=== PATIENT | female | born 1940 | race American Indian/Alaskan Native ===

== ENCOUNTER 2017-03-26 10:10 | Inpatient (IN) | payer MEDICARE, OTHER ==
[2017-03-26 10:11] VITALS: BMI 30.5
[2017-03-26] MEDS ORDERED: Sodium Chloride 0.9% 500 ML IV STA (11:00)
--- NOTE | 2017-03-26 11:03 | ED PDOC ---
Arrival/HPI - General Historian: Patient, Family - History of Present Illness Time/Duration: Other (see hpi) Context: Home - General Chief Complaint: Abdominal Pain Time Seen by Provider: 03/26/17 10:18 - History of Present Illness Narrative History of Present Illness (Text): 03/26/17 11:03 Suly Swenson, a 75 year old male whose past medical history includes colon cancer presents to the Emergency room complaining abdominal x 4 weeks. Patient stated she developed nausea, and vomiting today. Patient denies diarrhea, hemetemesis, fever, sob, cp, giron, or abnormal gait. (Babatunde Martinez) Past Medical History - Provider Review Nursing Documentation Reviewed: Yes - Infectious Disease Hx of Infectious Diseases: None - Reproductive Menopause: Yes - Cardiac Hx Hypertension: Yes Hx Pacemaker: No - Pulmonary Hx Respiratory Disorders: No - Neurological Hx Paralysis: No - HEENT Hx HEENT Disorder: (WEARS RX GLASSES) - Renal Hx Renal Disorder: No - Endocrine/Metabolic Hx Endocrine Disorders: No - Hematological/Oncological Hx Blood Transfusions: Yes (2010) Hx Blood Transfusion Reaction: No - Integumentary Hx Dermatological Disorder: No - Musculoskeletal/Rheumatological Hx Musculoskeletal Disorders: Yes - Gastrointestinal Hx Gastrointestinal Disorders: Yes Hx Pancreatitis: Yes HX Swallowing Problems: Yes Other/Comment: hx colon ca,GI BLEED 09-14-15, - Genitourinary/Gynecological Hx Genitourinary Disorders: Yes Other/Comment: hx hysterectomy,BILATERAL lumpectomy - Psychiatric Hx Emotional Abuse: No Hx Physical Abuse: No Hx Substance Use: No - Surgical History Other/Comment: brain surgery - Anesthesia Hx Anesthesia Reactions: No Hx Malignant Hyperthermia: No - Suicidal Assessment Feels Threatened In Home Enviroment: No Family/Social History - Physician Review Nursing Documentation Reviewed: Yes Family/Social History: Other (non-contributory) Smoking Status: Never Smoked Hx Alcohol Use: No Hx Substance Use: No Allergies/Home Meds Allergies/Adverse Reactions: Allergies No Known Allergies Allergy (Verified 02/21/16 11:50) Home Medications: Home Meds Medication Instructions Recorded Confirmed Omeprazole [Prilosec] 20 mg PO QAM 08/30/15 03/26/17 Multivitamin [Multiple Vitamins] 1 tab PO DAILY 08/31/15 03/26/17 Atenolol [Tenormin] 50 mg PO QAM 09/21/15 03/26/17 Ferrous Sulfate [Iron Supplement] 65 mg PO DAILY 09/21/15 03/26/17 amLODIPine [Norvasc] 5 mg PO QAM 09/21/15 03/26/17 Multivit with Minerals/Lutein 1 tab PO DAILY 02/23/16 03/26/17 [Vision Plus Lutein Vitamin Tab] Cholecalciferol [Vitamin D 1000 IU] 50,000 iu PO QWK 03/26/17 03/26/17 Imatinib Mesylate 100 mg PO BID 03/26/17 03/26/17 Letrozole [Femara] 2.5 mg PO DAILY 03/26/17 03/26/17 Sucralfate [Carafate] 1 gm PO BID 03/26/17 03/26/17 Review of Systems - Review of Systems Constitutional: Normal. absent: Fatigue, Weight Change, Fevers Eyes: Normal ENT: Normal Respiratory: Normal Cardiovascular: Normal Gastrointestinal: Abdominal Pain, Nausea, Vomiting. absent: Constipation, Diarrhea Genitourinary Female: Normal Musculoskeletal: Normal Skin: Normal Neurological: Normal Endocrine: Normal Hemo/Lymphatic: Normal Psychiatric: Normal Physical Exam Temperature: Afebrile Blood Pressure: Normal Pulse: Regular Respiratory Rate: Normal Appearance: Positive for: Well-Appearing, Non-Toxic, Comfortable Pain Distress: None Mental Status: Positive for: Alert and Oriented X 3 - Systems Exam Head: Present: Atraumatic, Normocephalic Pupils: Present: PERRL Extroacular Muscles: Present: EOMI Conjunctiva: Present: Normal Mouth: Present: Moist Mucous Membranes Neck: Present: Normal Range of Motion Respiratory/Chest: Present: Clear to Auscultation, Good Air Exchange. No: Respiratory Distress, Accessory Muscle Use Cardiovascular: Present: Regular Rate and Rhythm, Normal S1, S2. No: Murmurs Abdomen: Present: Tenderness (mild generalized abdominal tenderness), Normal Bowel Sounds. No: Distention, Peritoneal Signs, Rebound, Guarding Rectal: Present: Other (deferred) Back: Present: Normal Inspection Upper Extremity: Present: Normal Inspection, Normal ROM, NORMAL PULSES, Neurovascularly Intact. No: Cyanosis, Edema Lower Extremity: Present: Normal Inspection, NORMAL PULSES, Normal ROM. No: Edema, CALF TENDERNESS Neurological: Present: GCS=15, CN II-XII Intact, Speech Normal, Motor Func Grossly Intact, Normal Sensory Function, Normal Cerebellar Funct, Gait Normal Skin: Present: Warm, Dry, Normal Color. No: Rashes Psychiatric: Present: Alert, Oriented x 3, Normal Insight, Normal Concentration Vital Signs Temp Pulse Resp BP Pulse Ox 03/26/17 15:50 76 18 165/76 H 97 03/26/17 11:57 98.3 F 77 17 178/89 H 97 03/26/17 10:38 98.9 F 74 18 190/76 H 97 Medical Decision Making Re-evaluation Time: 14:43 Reassessment Condition: Re-examined, Improving,but remains with symptoms - Lab Interpretations I have reviewed the lab results: Yes Interpretation: No clinic. lab abnormalty ED Course and Treatment: I was available for consultation during PA evaluation. The chart was reviewed by me, and I agree with disposition. The documented history was done by the physician apple peeler operator. The documented physical exam was done by the physician apple peeler operator. The documented procedures were done by the physician apple peeler operator. (Hipolito Knox) 03/26/17 14:[address] Messi Salas MD regarding Intractable abdominal pain, and CT finding of anal mass like. He agrees with observation. (Babatunde Martinez) - Lab Interpretations Microbiology Results: Microbiology Results 03/26/17 13:22 Urine,Clean Catch Urine Culture - Final 10-50,000 CFU/ML. MULTIPLE SPECIES. PROBABLE CONTAMINATION. Lab Results: 03/27/17 06:15 03/27/17 06:15 Lab Results 03/27/17 06:15: Carcinoembryonic Ag 1.5, TSH 3rd Generation < 0.02 L 03/27/17 06:15: Sodium 146, Potassium 3.7, Chloride 108 H, Carbon Dioxide 30, Anion Gap 12, BUN 22 H, Creatinine 1.3, Est GFR ( Amer) 48, Est GFR (Non- Af Amer) 40, Random Glucose 80, Calcium 9.1, Total Bilirubin 0.4, AST 28, ALT 26 , Alkaline Phosphatase 73, Total Protein 6.0, Albumin 3.4, Globulin 2.6, Albumin /Globulin Ratio 1.3 03/27/17 06:15: WBC 3.6 L, RBC 2.99 L, Hgb 8.1 L, Hct 26.2 L, MCV 87.6, MCH 27.1 , MCHC 30.9 L, RDW 17.4 H, Plt Count 138, MPV 10.1, Gran % 77.7 H, Lymph % (Auto ) 15.6 L, [place] % (Auto) 4.7, Eos % (Auto) 1.7, Baso % (Auto) 0.3, Gran # 2.79, Lymph # 0.6 L, [place] # 0.2, Eos # 0.1, Baso # 0.01 03/26/17 12:40: Urine Color Yellow, Urine Appearance Clear, Urine pH 6.0, Ur Specific [place] 1.015, Urine Protein 100 H, Urine Glucose (UA) Negative, Urine Ketones Negative, Urine Blood Trace-intact H, Urine Nitrate Negative, Urine Bilirubin Negative, Urine Urobilinogen 0.2, Ur Leukocyte Esterase Small H, Urine RBC 1 - 3, Urine WBC 2 - 5, Ur Epithelial Cells 6 - 8, Amorphous Sediment Few, Urine Bacteria Many, Fine Granular Casts 0 - 2, Urine Other Fiber 03/26/17 11:30: Sodium 146, Potassium 4.0, Chloride 109 H, Carbon Dioxide 31, Anion Gap 10, BUN 24 H, Creatinine 1.2, Est GFR ( Amer) 53, Est GFR (Non- Af Amer) 43, Random Glucose 83, Calcium 10.0, Total Bilirubin 0.4, AST 31, ALT 29, Alkaline Phosphatase 87, Lactate Dehydrogenase 566, Total Creatine Kinase 37 , Troponin I 0.02 D, Total Protein 6.8, Albumin 4.0, Globulin 2.8, Albumin/ Globulin Ratio 1.4, Lipase 139 03/26/17 11:30: WBC 4.5, RBC 3.29 L, Hgb 8.9 L, Hct 28.6 L, MCV 86.9, MCH 27.1, MCHC 31.1, RDW 17.3 H, Plt Count 158, MPV 10.2, Gran % 81.8 H, Lymph % (Auto) 11.9 L, [place] % (Auto) 5.2, Eos % (Auto) 1.1 L, Baso % (Auto) 0.0, Gran # 3.65, Lymph # 0.5 L, [place] # 0.2, Eos # 0.1, Baso # 0.00 - RAD Interpretation Narrative RAD Interpretations (Text): 03/26/17 14:15 pprover : Sanjay Gee MD Approver2 : Report Date : 03/26/2017 13:49:31 My Comment : PROCEDURE: CT Abdomen and Pelvis with contrast HISTORY: generalized abdominal pain COMPARISON: None. TECHNIQUE: Contrast dose: Omnipaque 350, 100. Radiation dose: Total exam DLP = 723.64 mGy-cm. This CT exam was performed using one or more of the following dose reduction techniques: Automated exposure control, adjustment of the mA and/or kV according to patient size, and/or use of iterative reconstruction technique. FINDINGS: LOWER THORAX: Cardiomegaly is apparent with trace pericardial thickening or fluid present. Minimal bilateral pleural effusions are seen greater the right than left with linear atelectasis or fibrosis at both lung bases as well. No definite alveolitis however. LIVER: There is a tiny 12 mm lucency at the inferior margins of the right lobe liver which is nonspecific. Follow-up MRI is advised for further evaluation without contrast when feasible. Remainder of the liver appears unremarkable. GALLBLADDER AND BILE DUCTS: Limited cholelithiasis seen at the dependent portion of the gallbladder otherwise unremarkable. PANCREAS: Unremarkable. No gross lesion or ductal dilatation. SPLEEN: Unremarkable. ADRENALS: Unremarkable. No mass. KIDNEYS AND URETERS: Unremarkable. No hydronephrosis. No solid mass. VASCULATURE: Unremarkable. No aortic aneurysm. BOWEL: Posted changes seen related to the stomach. The bowel is not appear obstructed. Opacified small bowel loops are unremarkable with the colon containing moderate retained fecal material seen throughout the colon with sigmoid diverticulosis seen on non acute basis. Paste appears to status post right hemicolectomy with the apparent anastomotic site unremarkable appearing. There is marked thickening of the distal rectum with soft tissue seen the right side of the anus suspicious for neoplasm. For diagnosis would be infectious or inflammatory disease. Clinically correlate further. APPENDIX: Status post right hemicolectomy apparently. Clinically correlate. PERITONEUM: Unremarkable. No free fluid. No free air. LYMPH NODES: Unremarkable. No enlarged lymph nodes. BLADDER: Urinary bladder appears rather distended but is thin is smooth walled. REPRODUCTIVE: Prior hysterectomy suggested. BONES: No acute fracture. OTHER FINDINGS: None. IMPRESSION: 1. Abnormal thickening of the rectum is seen distally extending into the right side of the anus suspicious for neoplasm. This appears to be status post right hemicolectomy without bowel obstruction evident at this time. No gross lymphadenopathy in the abdomen or the pelvis. Small lucency is poorly characterized at the inferior margins right lobe liver 12 mm greatest dimension. 2. Cholelithiasis. 3. Postop changes seen related to the stomach. 4. A tiny lucency is seen at the lower pole left kidney mention above. 5. Extensive sigmoid diverticulosis without diverticulitis. (Babatunde Martinez) Radiology Orders: 03/26/17 11:00 CHEST PORTABLE [RAD] Stat 03/26/17 11:01 ABD PELVIS PO & IV CONTRAST [CT] Stat 03/27/17 13:34 ABDOMEN COMPLETE [US] Routine 03/28/17 07:50 BILIARY SCAN (HIDA) [NM] Urgent - Medication Orders Current Medication Orders: Discontinued Medications Acetaminophen (Tylenol 325mg Tab) 650 mg PO ONCE ONE Stop: 03/28/17 23:56 Last Admin: 03/29/17 00:50 Dose: 650 mg ЮЛИЯ Pain/Vitals Document 03/29/17 00:50 SWE (Rec: 03/29/17 00:50 SWE [email or web address]) Pain Reassessment Is This A Pain ReAssessment? No Sleep Is patient sleeping during reassessment? No Presence of Pain Presence of Pain No Re-Assess: ЮЛИЯ Pain/Vitals Document 03/29/17 01:50 SWE (Rec: 03/29/17 03:25 SWE [email or web address]) Pain Reassessment Is This A Pain ReAssessment? No Sleep Is patient sleeping during reassessment? Yes Amlodipine Besylate (Norvasc) 5 mg PO [facility] Last Admin: 03/29/17 09:01 Dose: 5 mg ЮЛИЯ Pulse and Blood Pressure Document 03/29/17 09:01 SML (Rec: 03/29/17 09:01 SML [id number]) Pulse Pulse Rate (60-90) 64 Blood Pressure Blood Pressure (100/60-150/90) 200/91 Amlodipine Besylate (Norvasc) 5 mg PO ONCE ONE Stop: 03/29/17 00:28 Last Admin: 03/29/17 00:49 Dose: 5 mg MAR Pulse and Blood Pressure Document 03/29/17 00:49 SWE (Rec: 03/29/17 00:50 [email or web address] Pulse Pulse Rate (60-90) 100 Blood Pressure Blood Pressure (100/60-150/90) 177/59 Atenolol (Tenormin) 50 mg PO [facility] Last Admin: 03/29/17 09:01 Dose: 50 mg MAR Pulse and Blood Pressure Document 03/29/17 09:01 SML (Rec: 03/29/17 09:01 [email or web address]) Pulse Pulse Rate (60-90) 69 Blood Pressure Blood Pressure (100/60-150/90) 200/91 Clonidine HCl (Catapres) 0.1 mg PO STAT STA Stop: 03/29/17 12:57 Last Admin: 03/29/17 13:19 Dose: 0.1 mg MAR Pulse and Blood Pressure Document 03/29/17 13:19 SML (Rec: 03/29/17 13:21 SML [id number]) Pulse Pulse Rate (60-90) 83 Blood Pressure Blood Pressure (100/60-150/90) 191/83 Diphenhydramine HCl (Benadryl) 25 mg PO ONCE ONE Stop: 03/28/17 23:55 Last Admin: 03/29/17 00:49 Dose: 25 mg Ergocalciferol (Drisdol 50,000 Intl Units Cap) 1 cap PO Mo@1000 [facility] Famotidine (Pepcid) 20 mg IVP STAT STA Stop: 03/26/17 11:01 Last Admin: 03/26/17 11:35 Dose: 20 mg IVP Administration Document 03/26/17 11:35 MR (Rec: 03/26/17 11:35 MR [id number]) Charges for Administration # of IVP Administrations 1 Ferrous Sulfate (Feosol) 324 mg PO DAILY [facility] Last Admin: 03/29/17 11:02 Dose: Not Given Non-Admin Reason: Patient in Endo Furosemide (Lasix) 20 mg IVP ONCE ONE Stop: 03/28/17 23:56 Last Admin: 03/29/17 08:11 Dose: 20 mg MAR Blood Pressure Document 03/29/17 08:11 RR (Rec: 03/29/17 08:11 RR [id number]) Blood Pressure Blood Pressure (100/60-150/90) 158/78 IVP Administration Document 03/29/17 08:11 RR (Rec: 03/29/17 08:11 RR [id number]) Charges for Administration # of IVP Administrations 1 Hydralazine HCl (Apresoline) 5 mg IVP ONCE ONE Stop: 03/29/17 11:18 Hydrocortisone Sodium Succinate (Solu-Cortef) 100 mg IVP ONCE ONE Stop: 03/28/17 23:55 Last Admin: 03/28/17 23:55 Dose: 100 mg IVP Administration Document 03/28/17 23:55 RR (Rec: 03/29/17 04:42 RR [id number]) Charges for Administration # of IVP Administrations 1 Sodium Chloride (Sodium Chloride 0.9%) 500 mls @ 1,000 mls/hr IV .Q30M STA Stop: 03/26/17 11:29 Last Admin: 03/26/17 11:35 Dose: 1,000 mls/hr eMAR Start Stop Document 03/26/17 11:35 MR (Rec: 03/26/17 11:35 MR [id number]) Intravenous Solution Start Date 03/26/17 Start Time 11:35 End Date 03/26/17 End time 12:05 Total Infusion Time 30 Sodium Chloride (Sodium Chloride 0.9%) 1,000 mls @ 100 mls/hr IV .Q10H [facility] Last Admin: 03/29/17 12:31 Dose: Letrozole (Femara) 2.5 mg PO DAILY [facility] Last Admin: 03/29/17 13:19 Dose: 2.5 mg Morphine Sulfate (Morphine) 2 mg IVP STAT STA Stop: 03/26/17 14:22 Last Admin: 03/26/17 14:44 Dose: 2 mg MAR Pain Assessment Document 03/26/17 14:44 MR (Rec: 03/26/17 14:45 MR [id number]) Pain Reassessment Is this a pain reassessment? Yes Sleep Is patient sleeping during reassessment? No Presence of Pain Presence of Pain Yes Pain Scale Used Pain Scale Used Numeric Location Pain Location Body Site Abdomen Description Description Sharp Intensity of Pain at present 8 Pain Behavior Facial Grimacing Alleviating Factors/Management Medication Techniques Alleviating Factors Medication IVP Administration Document 03/26/17 14:44 MR (Rec: 03/26/17 14:45 MR [id number]) Charges for Administration # of IVP Administrations 1 Morphine Sulfate (Morphine) 2 mg IVP Q4 [facility] Stop: 03/27/17 09:00 Morphine Sulfate (Morphine) 2 mg IVP Q4 PRN PRN Reason: Pain, severe (8-10) Stop: 03/27/17 09:00 Last Admin: 03/27/17 08:05 Dose: 2 mg [facility] Pain Assessment Document 03/27/17 08:05 (Rec: 03/27/17 09:28 [id number]) Pain Reassessment Is this a pain reassessment? No Presence of Pain Presence of Pain Yes Location Pain Location Body Site Abdomen Description Description Stabbing IVP Administration Document 03/27/17 08:05 (Rec: 03/27/17 09:28 [id number]) Charges for Administration # of IVP Administrations 1 Re-Assess: [facility] Pain Assessment Document 03/27/17 09:05 (Rec: 03/27/17 15:26 [id number]) Pain Reassessment Is this a pain reassessment? Yes Presence of Pain Presence of Pain No Morphine Sulfate (Morphine) 2 mg IVP Q4H PRN PRN Reason: Pain, moderate (4-7) Multivitamins (Thera Tab) 1 tab PO DAILY [facility] Last Admin: 03/29/17 11:03 Dose: Not Given Non-Admin Reason: Patient in Endo (Imatinib Mesylate [ Imatinib Mesylate] 100 Mg) 100 mg PO BID [facility] Non-Formulary Medication (Multivit With Minerals/Lutein [Vision Plus Lutein Vitamin Tab]) 1 tab PO DAILY [facility] Last Admin: 03/29/17 11:03 Dose: Not Given Non-Admin Reason: Patient in Endo Nystatin/Triamcinolone Acetonide (Nystatin/Triamcinolone Cream) 0 ea TOP BID [facility] Last Admin: 03/29/17 11:03 Dose: Not Given Non-Admin Reason: Patient in Endo Ondansetron HCl (Zofran Inj) 4 mg IVP STAT STA Stop: 03/26/17 11:01 Last Admin: 03/26/17 11:35 Dose: 4 mg IVP Administration Document 03/26/17 11:35 MR (Rec: 03/26/17 11:35 MR [id number]) Charges for Administration # of IVP Administrations 1 Ondansetron HCl (Zofran Inj) 4 mg IVP STAT STA Stop: 03/26/17 14:22 Last Admin: 03/26/17 14:45 Dose: 4 mg IVP Administration Document 03/26/17 14:45 MR (Rec: 03/26/17 14:45 MR [id number]) Charges for Administration # of IVP Administrations 1 Ondansetron HCl (Zofran Inj) 4 mg IVP Q4H PRN PRN Reason: Nausea/Vomiting Last Admin: 03/27/17 10:54 Dose: 4 mg IVP Administration Document 03/27/17 10:54 (Rec: 03/27/17 10:54 [id number]) Charges for Administration # of IVP Administrations 1 Pantoprazole Sodium (Protonix Ec Tab) 20 mg PO ACB [facility] Last Admin: 03/29/17 11:03 Dose: Not Given Non-Admin Reason: NPO Sucralfate (Carafate Tab) 1 gm PO BID [facility] Last Admin: 03/29/17 17:58 Dose: 1 gm Disposition/Present on Arrival - Present on Arrival Any Indicators Present on Arrival: No History of DVT/PE: No History of Uncontrolled Diabetes: No Urinary Catheter: No History of Decub. Ulcer: No History Surgical Site Infection Following: None - Disposition Have Diagnosis and Disposition been Completed?: Yes Disposition Time: 14:44 Patient Plan: Admission, Observation - Disposition Diagnosis: Intractable abdominal pain, Anal neoplasm Disposition: HOSPITALIZED Condition: STABLE
[2017-03-26] MEDS ORDERED: Iohexol 240 (50 ml) ONE (11:10)
[2017-03-26 11:41] LABS: EOS # 0.1 (0.0-0.7); EOS % 1.1 % (1.5-5.0); GRAN # 3.65 (1.4-6.5); GRAN % 81.8 % (50.0-68.0); HEMATOCRIT 28.6 % (36.0-48.0); LYMPH # 0.5 (1.2-3.4); LYMPH % 11.9 % (22.0-35.0); MEAN CELL VOLUME 86.9 fl (80.0-105.0); MEAN CORPUSCULAR HEMOGLOBIN 27.1 pg (25.0-35.0); MEAN CORPUSCULAR HGB CONC 31.1 g/dl (31.0-37.0); MEAN PLATELET VOLUME 10.2 fl (7.0-11.0); MONO # 0.2 (0.1-0.6); MONO % 5.2 % (1.0-6.0); RED CELL DISTRIBUTION WIDTH 17.3 % (11.5-14.5); WHITE BLOOD COUNT 4.5 10^3/ul (4.5-11.0)
[2017-03-26 11:50] LABS: ALB/GLOB RATIO 1.4 (1.1-1.8); BILIRUBIN,TOTAL 0.4 mg/dL (0.2-1.3); TOTAL PROTEIN 6.8 g/dL (5.8-8.3)
[2017-03-26 12:01] LABS: TROPONIN I 0.02 ng/mL
[2017-03-26 12:46] LABS: URINE BILIRUBIN NEGATIVE (NEGATIVE); URINE BLOOD TRACE-INTACT (NEGATIVE); URINE GLUCOSE (UA) NEGATIVE (NEGATIVE); URINE KETONE NEGATIVE (NEGATIVE); URINE LEUKOCYTE ESTERASE SMALL Leu/uL (NEGATIVE); URINE PROTEIN 100 mg/dL (<30 mg/dL); URINE UROBILINOGEN 0.2 E.U./dL (<1 E.U./dL)
[2017-03-26 12:47] LABS: URINE APPEARANCE CLEAR (CLEAR); URINE COLOR YELLOW (YELLOW)
[2017-03-26 12:51] LABS: URINE AMORPHOUS SEDIMENT FEW; URINE BACTERIA MANY (NEG)
[2017-03-26] MEDS ORDERED: Iohexol 350 MG/100 ML VIAL ONE (13:09)
--- NOTE | 2017-03-26 13:36 | RAD ---
HISTORY: dizziness COMPARISON: Chest radiographs 03/01/2017. FINDINGS: LUNGS: No acute infiltrate appreciate bilaterally. Widening of the upper mediastinum again is seen reflecting prominent substernal thyroid gland as demonstrated in CT-guided neck biopsy 02/22/2016. Further clinical correlation is advised. PLEURA: No significant pleural effusion identified, no pneumothorax apparent. CARDIOVASCULAR: Mild cardiomegaly appears stable. No pulmonary vascular derangement. OSSEOUS STRUCTURES: No significant abnormalities. VISUALIZED UPPER ABDOMEN: Normal. OTHER FINDINGS: None. IMPRESSION: No acute cardiopulmonary is appreciable. Mild cardiomegaly is stable. Prominent thyroid soft tissue again noted flanking the tracheal position bilaterally at the thoracic inlet.
--- NOTE | 2017-03-26 13:51 | CT ---
PROCEDURE: CT Abdomen and Pelvis with contrast HISTORY: generalized abdominal pain COMPARISON: None. TECHNIQUE: Contrast dose: Omnipaque 350, 100. Radiation dose: Total exam DLP = 723.64 mGy-cm. This CT exam was performed using one or more of the following dose reduction techniques: Automated exposure control, adjustment of the mA and/or kV according to patient size, and/or use of iterative reconstruction technique. FINDINGS: LOWER THORAX: Cardiomegaly is apparent with trace pericardial thickening or fluid present. Minimal bilateral pleural effusions are seen greater the right than left with linear atelectasis or fibrosis at both lung bases as well. No definite alveolitis however. LIVER: There is a tiny 12 mm lucency at the inferior margins of the right lobe liver which is nonspecific. Follow-up MRI is advised for further evaluation without contrast when feasible. Remainder of the liver appears unremarkable. GALLBLADDER AND BILE DUCTS: Limited cholelithiasis seen at the dependent portion of the gallbladder otherwise unremarkable. PANCREAS: Unremarkable. No gross lesion or ductal dilatation. SPLEEN: Unremarkable. ADRENALS: Unremarkable. No mass. KIDNEYS AND URETERS: Unremarkable. No hydronephrosis. No solid mass. VASCULATURE: Unremarkable. No aortic aneurysm. BOWEL: Posted changes seen related to the stomach. The bowel is not appear obstructed. Opacified small bowel loops are unremarkable with the colon containing moderate retained fecal material seen throughout the colon with sigmoid diverticulosis seen on non acute basis. Paste appears to status post right hemicolectomy with the apparent anastomotic site unremarkable appearing. There is marked thickening of the distal rectum with soft tissue seen the right side of the anus suspicious for neoplasm. For diagnosis would be infectious or inflammatory disease. Clinically correlate further. APPENDIX: Status post right hemicolectomy apparently. Clinically correlate. PERITONEUM: Unremarkable. No free fluid. No free air. LYMPH NODES: Unremarkable. No enlarged lymph nodes. BLADDER: Urinary bladder appears rather distended but is thin is smooth walled. REPRODUCTIVE: Prior hysterectomy suggested. BONES: No acute fracture. OTHER FINDINGS: None. IMPRESSION: 1. Abnormal thickening of the rectum is seen distally extending into the right side of the anus suspicious for neoplasm. This appears to be status post right hemicolectomy without bowel obstruction evident at this time. No gross lymphadenopathy in the abdomen or the pelvis. Small lucency is poorly characterized at the inferior margins right lobe liver 12 mm greatest dimension. 2. Cholelithiasis. 3. Postop changes seen related to the stomach. 4. A tiny lucency is seen at the lower pole left kidney mention above. 5. Extensive sigmoid diverticulosis without diverticulitis. .
[2017-03-26] MEDS ORDERED: Morphine 2 mg/ml ISec IVP STA (14:21)
--- NOTE | 2017-03-26 14:55 | CARD ---
APPROVED REPORT EKG Measurement Heart [id number] HI 170P19 [id number] <Conclusion> Normal sinus rhythm PRWP Moderate voltage criteria for LVH, may be normal variant Nonspecific T wave abnormality Q in 3
[2017-03-26] MEDS ORDERED: Morphine 2 mg/ml ISec IVP SCH (16:00)
[2017-03-26] MEDS ORDERED: Morphine 2 mg/ml ISec IVP PRN (16:23)
[2017-03-27 06:21] LABS: BASO # 0.01 K/mm3 (0.0-2.0); BASO % 0.3 % (0.0-3.0); EOS # 0.1 (0.0-0.7); EOS % 1.7 % (1.5-5.0); GRAN # 2.79 (1.4-6.5); GRAN % 77.7 % (50.0-68.0); HEMATOCRIT 26.2 % (36.0-48.0); LYMPH # 0.6 (1.2-3.4); LYMPH % 15.6 % (22.0-35.0); MEAN CELL VOLUME 87.6 fl (80.0-105.0); MEAN CORPUSCULAR HEMOGLOBIN 27.1 pg (25.0-35.0); MEAN CORPUSCULAR HGB CONC 30.9 g/dl (31.0-37.0); MEAN PLATELET VOLUME 10.1 fl (7.0-11.0); MONO # 0.2 (0.1-0.6); MONO % 4.7 % (1.0-6.0); RED CELL DISTRIBUTION WIDTH 17.4 % (11.5-14.5); WHITE BLOOD COUNT 3.6 10^3/ul (4.5-11.0)
[2017-03-27 06:44] LABS: ALB/GLOB RATIO 1.3 (1.1-1.8); BILIRUBIN,TOTAL 0.4 mg/dL (0.2-1.3); CALCIUM 9.1 mg/dL (8.4-10.5); POTASSIUM 3.7 mmol/L (3.6-5.0)
[2017-03-27 07:09] LABS: CARCINOEMBRYONIC ANTIGEN 1.5 ng/mL (0.0-3.0); THYROID STIMULATING HORMONE < 0.02 mIU/mL (0.46-4.68)
[2017-03-27] MEDS: Pantoprazole 20 mg EC Tab PO SCH (09:27)
[2017-03-27] MEDS: Multivitamin Therapeutic Tab PO SCH (09:27)
--- NOTE | 2017-03-27 09:27 | HP ---
HISTORY OF PRESENT ILLNESS: The patient is a 76-year-old female who presented to the emergency room after 3 days of severe abdominal pain, nausea and vomiting. She states that the abdominal pain and loose bowel movements and nausea have been present since her right hemicolectomy approximately 18 months ago; however; became quite severe over the past few days. Therefore, she presented to the emergency room, was evaluated and is admitted. PAST MEDICAL HISTORY: Mrs. Swenson is known to have a past medical history positive for hypertension, gout, pancreatitis, colon carcinoma, breast carcinoma, gastrointestinal stromal tumor. SOCIAL HISTORY: She is a nonsmoker, she never smoked. She does not drink alcoholic beverages. ALLERGIES: SHE HAS NO KNOWN MEDICAL ALLERGIES. MEDICATIONS: At the time of admission include Prilosec 20 mg, atenolol 50 mg, ferrous sulfate daily, amlodipine 5 mg daily, imatinib mesylate 100 mg twice a day, Femara 2.5 mg, Carafate 1 g 4 times a day as well as multivitamin. She had a PET scan done in 01/2017, which showed some activity in the axilla. She had a colonoscopy in 08/2015, which was positive only for diverticulosis and hemorrhoids, was otherwise negative. 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 REVIEW OF SYSTEMS: Otherwise unremarkable. PHYSICAL EXAMINATION: GENERAL: The patient is awake, alert and oriented. She seems tired and weary. VITAL SIGNS: She is afebrile, blood pressure is 165/96 with a heart rate of 76 beats per minute. HEAD, EYES, EARS, NOSE, AND THROAT: Unremarkable. NECK: Supple with no lymphadenopathy. No goiter. LUNGS: Clear anteriorly. HEART: Regular with a systolic murmur appreciated. ABDOMEN: Tender mostly in the midepigastric and right upper quadrant; however, there is some tenderness in deep palpation on the lower quadrants as well. Bowel sounds are normal. There is no rebound tenderness. There is no CVA tenderness. EXTREMITIES: Free of cyanosis, clubbing, or edema. NEUROLOGIC: The patient is intact. LABORATORY STUDIES: Shows a white blood cell count to be 4.5, hemoglobin and hematocrit is 8.9 and 28.6, platelet count is 158. Sodium is 146, potassium is 4.0, BUN is slightly elevated at 24, creatinine is 1.2. Nonfasting glucose is 83. The liver function tests are normal. EKG showed regular sinus rhythm with poor R-wave progression and nonspecific ST-T wave changes. Chest x-ray showed no acute disease with increased thyroid, which has not changed that had been present in the past and mild cardiomegaly. CAT scan of the abdomen shows bilateral pleural effusions on the right greater than on the left. There was some thickening of the rectal wall in the distal portion to the right of the anus and she is status post hemicolectomy. IMPRESSION AND PLAN: So, the patient is admitted with abdominal pain. Consultations are requested from Dr. Mendes as well as Dr. Beebe. Her medications have been continued except for the imatinib, which as per the patient, has been recently started and could have possibly contributed to the exacerbation of her gastrointestinal symptoms. She is placed on a clear liquid diet. She will be reevaluated in the morning and we will continue close followup. Chi Salas MD MTDD
[2017-03-27] MEDS: MULTIVIT WITH MINERALS PO SCH (09:29)
[2017-03-27] MEDS: LUTEIN PO SCH (09:29)
[2017-03-27] MEDS: [UNRECOGNIZED DRUG - OTHER] PO SCH (09:29)
[2017-03-27] MEDS ORDERED: FERROUS SULFATE 65 MG PO SCH (10:00)
[2017-03-27] MEDS ORDERED: IMATINIB MESYLATE 100 MG PO SCH (10:00)
[2017-03-27] MEDS ORDERED: MULTIVITAMIN PO SCH (10:00)
--- NOTE | 2017-03-27 13:11 | CP.PCM.CON ---
History of Present Illness - History of Present Illness History of Present Illness: Heme/Onc Consult Note for Dr. Beebe HPI: Patient is a 76yo female with past medical history of breast ca, gastric GIST s/p partial gastrectomy, colon cancer s/p robotic assisted hemicolectomy, hypertension and gout that presented to [facility] c/o epigastric abdominal pain for the past several months that had increased in severity within the last several days. Patient reported that despite having this abdominal pain for a significant time, she was putting off getting it evaluated. She reported that her pain is non-radiating and associated with nausea, however denies vomiting. She stated that she has had some abdominal pain since her hemicolectomy however she characterized this pain as being different in severity. She denied chest pain, palpitations, SOB, fever, chills, cough, focal weakness, numbness, tingling. 12point ROS as per HPI above otherwise negative PMHx: see above PSHx: partial gastrectomy, robotic assisted hemicolectomy Allergies: NKDA Family Hx: Reviewed and noncontributory Social hx: Denies alcohol, tobacco and illicit drug use; Lives with her Oncologist: Dr. Beebe Store Clerk Checker: Dr. Mendes Past Patient History - Infectious Disease Hx of Infectious Diseases: None - Past Social History Smoking Status: Never Smoked - CARDIAC Hx Hypertension: Yes Hx Pacemaker: No - PULMONARY Hx Respiratory Disorders: No - NEUROLOGICAL Hx Neurological Disorder: No - HEENT Hx HEENT Problems: (WEARS RX GLASSES) - RENAL Hx Chronic Kidney Disease: No - ENDOCRINE/METABOLIC Hx Endocrine Disorders: No - HEMATOLOGICAL/ONCOLOGICAL Hx Blood Disorders: Yes Hx Cancer: Yes (Bilateral Breast,COLON CA, WITH RADIATION ONLY COMPLETED 2-3 YRS AGO) Hx Metastesis: Yes Other/Comment: b/l breast lumpectomy had 35 radiation treatments 2010, r axilla disection, colon and gastric ca - INTEGUMENTARY Hx Dermatological Problems: No - MUSCULOSKELETAL/RHEUMATOLOGICAL Hx Musculoskeletal Disorders: Yes Hx Falls: No - GASTROINTESTINAL Hx Gastrointestinal Disorders: Yes Hx Pancreatitis: Yes HX Swallowing Problems: Yes Other/Comment: hx colon ca,GI BLEED 16, - GENITOURINARY/GYNECOLOGICAL Hx Genitourinary Disorders: Yes Other/Comment: hx hysterectomy,BILATERAL lumpectomy - PSYCHIATRIC Hx Emotional Abuse: No Hx Physical Abuse: No - SURGICAL HISTORY Other/Comment: brain surgery - ANESTHESIA Hx Anesthesia Reactions: No Hx Malignant Hyperthermia: No Meds Allergies/Adverse Reactions: Allergies Allergy/AdvReac Type Severity Reaction Status Date / Time No Known Allergies Allergy Verified 02/21/16 11:50 - Medications Medications: Current Medications Amlodipine Besylate (Norvasc) 5 mg PO QAM [facility] Last Admin: 03/27/17 09:27 Dose: 5 mg Atenolol (Tenormin) 50 mg PO QAM [facility] Last Admin: 03/27/17 09:27 Dose: 50 mg Ergocalciferol (Drisdol 50,000 Intl Units Cap) 1 cap PO Mo@1000 [facility] Ferrous Sulfate (Feosol) 324 mg PO DAILY [facility] Last Admin: 03/27/17 09:27 Dose: 324 mg Letrozole (Femara) 2.5 mg PO DAILY [facility] Last Admin: 03/27/17 10:13 Dose: 2.5 mg Multivitamins (Thera Tab) 1 tab PO DAILY [facility] Last Admin: 03/27/17 09:27 Dose: 1 tab (Imatinib Mesylate [ Imatinib Mesylate] 100 Mg) 100 mg PO BID [facility] Non-Formulary Medication (Multivit With Minerals/Lutein [Vision Plus Lutein Vitamin Tab]) 1 tab PO DAILY [facility] Last Admin: 03/27/17 09:29 Dose: Not Given Ondansetron HCl (Zofran Inj) 4 mg IVP Q4H PRN PRN Reason: Nausea/Vomiting Last Admin: 03/27/17 10:54 Dose: 4 mg Pantoprazole Sodium (Protonix Ec Tab) 20 mg PO ACB [facility] Last Admin: 03/27/17 09:27 Dose: 20 mg Sucralfate (Carafate Tab) 1 gm PO BID [facility] Last Admin: 03/27/17 09:27 Dose: 1 gm Physical Exam - Constitutional Appears: No Acute Distress - Head Exam Head Exam: ATRAUMATIC, NORMAL INSPECTION, NORMOCEPHALIC - Eye Exam Eye Exam: EOMI, PERRL - ENT Exam ENT Exam: Mucous Membranes Moist - Neck Exam Neck exam: Positive for: Normal Inspection - Respiratory Exam Respiratory Exam: Clear to Auscultation Bilateral. absent: Rales, Rhonchi, Wheezes - Cardiovascular Exam Cardiovascular Exam: +S1, +S2. absent: Gallop, Rubs - GI/Abdominal Exam GI & Abdominal Exam: Soft, Tenderness (predominantly epigastric tenderness, however mildly tender in all 4 quadrants). absent: Distended, Firm, Guarding, Rebound - Neurological Exam Neurological exam: Alert, Oriented x3 - Psychiatric Exam Psychiatric exam: Normal Affect, Normal Mood - Skin Skin Exam: Dry, Intact, Normal Color, Warm Results - Vital Signs Recent Vital Signs: Last Vital Signs Temp 98.5 F 03/27/17 08:07 Pulse 72 03/27/17 09:27 Resp 20 03/27/17 08:07 BP 165/75 H 03/27/17 09:27 Pulse Ox 99 03/27/17 08:07 - Labs Result Diagrams: 03/27/17 06:15 03/27/17 06:15 Labs: Laboratory Results - last 24 hr 03/27/17 03/27/17 03/27/17 06:15 06:15 06:15 WBC 3.6 L RBC 2.99 L Hgb 8.1 L Hct 26.2 L MCV 87.6 MCH 27.1 MCHC 30.9 L RDW 17.4 H Plt Count 138 MPV 10.1 Gran % 77.7 H Lymph % (Auto) 15.6 L [place] % (Auto) 4.7 Eos % (Auto) 1.7 Baso % (Auto) 0.3 Gran # 2.79 Lymph # 0.6 L [place] # 0.2 Eos # 0.1 Baso # 0.01 Sodium 146 Potassium 3.7 Chloride 108 H Carbon Dioxide 30 Anion Gap 12 BUN 22 H Creatinine 1.3 Est GFR ( Amer) 48 Est GFR (Non-Af Amer) 40 Random Glucose 80 Calcium 9.1 Total Bilirubin 0.4 AST 28 ALT 26 Alkaline Phosphatase 73 Total Protein 6.0 Albumin 3.4 Globulin 2.6 Albumin/Globulin Ratio 1.3 Carcinoembryonic Ag 1.5 TSH 3rd Generation < 0.02 L Assessment & Plan - Assessment and Plan (Free Text) Plan: 76yo female with history of breast ca, gastric GIST s/p partial gastrectomy, colon cancer s/p robotic assisted hemicolectomy, hypertension and gout that presented to [facility] c/o epigastric abdominal pain 1. Abdominal pain -CT abdomen/pelvis reviewed; please refer to official report -afebrile, no leukocytosis -lipase within normal limits -Recommend follow up GI evaluation by Dr. Mendes -Further recommendations as per Dr. Beebe 2. History of Breast Ca, gastric GIST and Colon Ca -Patient is s/p partial gastrectomy and robotic assisted hemicolectomy -PET CT from 02/16/17 reviewed; please refer to official report -Further recommendations as per Dr. Beebe -Recommend close follow up with Dr. Beebe as an outpatient upon discharge Case discussed with attending, Dr. Beebe - Date & Time Date: 03/27/17 Time: 13:15
[2017-03-27] MEDS ORDERED: Morphine 2 mg/ml ISec IVP PRN (14:09)
--- NOTE | 2017-03-27 15:19 | CP.PCM.CON ---
<Sanjay Saravia - Last Filed: 03/27/17 15:19> History of Present Illness - History of Present Illness History of Present Illness: GI: Dr. Mendes CC: Abd pain HPI: 76F w. pmh of breast ca, gastric GIST s/p partial gastrectomy, colon cancer s/p robotic assisted R hemicolectomy, hypertension and gout presents to [facility] [place] w. abd pain. Pt states that she had her colectomy 5 yrs ago. Ever since then she has been having intermittent abd discomfort. She describes a diffuse pain which has become more constant and localized to the epigastric area over the past few months. She denies any alleviating or aggravating factors. The pain has no relation to diet. She denies any changes in appetite. No N/V. She does reports increased bowel frequency, but this has been present since colectomy. No blood in the stool. No Change in stool caliber. No straining w. BM. No weight loss. Pt states that she has been feeling more fatigued lately. 12 Pt ROS negative unless otherwise specified PMH: breast CA, gastric GIST, colon CA, HTN, and gout PSH: partial gastrectomy, R hemicolectomy Meds: MAR reviewed NKDA Social: denies ETOH, tobacco, drugs Fhx: non-contributory Past Patient History - Infectious Disease Hx of Infectious Diseases: None - Past Social History Smoking Status: Never Smoked - CARDIAC Hx Hypertension: Yes Hx Pacemaker: No - PULMONARY Hx Respiratory Disorders: No - NEUROLOGICAL Hx Neurological Disorder: No - HEENT Hx HEENT Problems: (WEARS RX GLASSES) - RENAL Hx Chronic Kidney Disease: No - ENDOCRINE/METABOLIC Hx Endocrine Disorders: No - HEMATOLOGICAL/ONCOLOGICAL Hx Blood Disorders: Yes Hx Cancer: Yes (Bilateral Breast,COLON CA, WITH RADIATION ONLY COMPLETED 2-3 YRS AGO) Hx Metastesis: Yes Other/Comment: b/l breast lumpectomy had 35 radiation treatments 2010, r axilla disection, colon and gastric ca - INTEGUMENTARY Hx Dermatological Problems: No - MUSCULOSKELETAL/RHEUMATOLOGICAL Hx Musculoskeletal Disorders: Yes Hx Falls: No - GASTROINTESTINAL Hx Gastrointestinal Disorders: Yes Hx Pancreatitis: Yes HX Swallowing Problems: Yes Other/Comment: hx colon ca,GI BLEED 09-13-16, - GENITOURINARY/GYNECOLOGICAL Hx Genitourinary Disorders: Yes Other/Comment: hx hysterectomy,BILATERAL lumpectomy - PSYCHIATRIC Hx Emotional Abuse: No Hx Physical Abuse: No - SURGICAL HISTORY Other/Comment: brain surgery - ANESTHESIA Hx Anesthesia Reactions: No Hx Malignant Hyperthermia: No Meds Allergies/Adverse Reactions: Allergies Allergy/AdvReac Type Severity Reaction Status Date / Time No Known Allergies Allergy Verified 02/21/16 11:50 - Medications Medications: Current Medications Amlodipine Besylate (Norvasc) 5 mg PO QAM [facility] Last Admin: 03/27/17 09:27 Dose: 5 mg Atenolol (Tenormin) 50 mg PO QAM [facility] Last Admin: 03/27/17 09:27 Dose: 50 mg Ergocalciferol (Drisdol 50,000 Intl Units Cap) 1 cap PO Mo@1000 [facility] Ferrous Sulfate (Feosol) 324 mg PO DAILY [facility] Last Admin: 03/27/17 09:27 Dose: 324 mg Letrozole (Femara) 2.5 mg PO DAILY [facility] Last Admin: 03/27/17 10:13 Dose: 2.5 mg Morphine Sulfate (Morphine) 2 mg IVP Q4H PRN PRN Reason: Pain, moderate (4-7) Multivitamins (Thera Tab) 1 tab PO DAILY [facility] Last Admin: 03/27/17 09:27 Dose: 1 tab (Imatinib Mesylate [ Imatinib Mesylate] 100 Mg) 100 mg PO BID [facility] Non-Formulary Medication (Multivit With Minerals/Lutein [Vision Plus Lutein Vitamin Tab]) 1 tab PO DAILY [facility] Last Admin: 03/27/17 09:29 Dose: Not Given Nystatin/Triamcinolone Acetonide (Nystatin/Triamcinolone Cream) 0 ea TOP BID [facility] Ondansetron HCl (Zofran Inj) 4 mg IVP Q4H PRN PRN Reason: Nausea/Vomiting Last Admin: 03/27/17 10:54 Dose: 4 mg Pantoprazole Sodium (Protonix Ec Tab) 20 mg PO ACB [facility] Last Admin: 03/27/17 09:27 Dose: 20 mg Sucralfate (Carafate Tab) 1 gm PO BID [facility] Last Admin: 03/27/17 09:27 Dose: 1 gm Physical Exam - Constitutional Appears: Non-toxic, No Acute Distress - Head Exam Head Exam: ATRAUMATIC, NORMOCEPHALIC - Eye Exam Eye Exam: EOMI. absent: Scleral icterus Pupil Exam: PERRL - ENT Exam ENT Exam: Mucous Membranes Moist, Normal External Ear Exam - Neck Exam Neck exam: Positive for: Full Rom - Respiratory Exam Respiratory Exam: NORMAL BREATHING PATTERN. absent: Accessory Muscle Use, Respiratory Distress - Cardiovascular Exam Cardiovascular Exam: REGULAR RHYTHM, +S1, +S2 - GI/Abdominal Exam GI & Abdominal Exam: Soft, Tenderness (epigastric, no Martini). absent: Distended, Firm, Guarding, Rebound, Rigid - Rectal Exam Rectal Exam: NORMAL INSPECTION - Extremities Exam Extremities exam: Negative for: calf tenderness, pedal edema - Neurological Exam Neurological exam: Alert, Oriented x3 - Psychiatric Exam Psychiatric exam: Normal Affect, Normal Mood - Skin Skin Exam: Dry, Normal Color, Warm Results - Vital Signs Recent Vital Signs: Last Vital Signs Temp 98.5 F 03/27/17 08:07 Pulse 72 03/27/17 09:27 Resp 20 03/27/17 08:07 BP 165/75 H 03/27/17 09:27 Pulse Ox 99 03/27/17 08:07 - Labs Result Diagrams: 03/27/17 06:15 03/27/17 06:15 Labs: Laboratory Results - last 24 hr 03/27/17 03/27/17 03/27/17 06:15 06:15 06:15 WBC 3.6 L RBC 2.99 L Hgb 8.1 L Hct 26.2 L MCV 87.6 MCH 27.1 MCHC 30.9 L RDW 17.4 H Plt Count 138 MPV 10.1 Gran % 77.7 H Lymph % (Auto) 15.6 L [place] % (Auto) 4.7 Eos % (Auto) 1.7 Baso % (Auto) 0.3 Gran # 2.79 Lymph # 0.6 L [place] # 0.2 Eos # 0.1 Baso # 0.01 Sodium 146 Potassium 3.7 Chloride 108 H Carbon Dioxide 30 Anion Gap 12 BUN 22 H Creatinine 1.3 Est GFR ( Amer) 48 Est GFR (Non-Af Amer) 40 Random Glucose 80 Calcium 9.1 Total Bilirubin 0.4 AST 28 ALT 26 Alkaline Phosphatase 73 Total Protein 6.0 Albumin 3.4 Globulin 2.6 Albumin/Globulin Ratio 1.3 Carcinoembryonic Ag 1.5 TSH 3rd Generation < 0.02 L - Imaging and Cardiology CT scan - abdomen Status: Image reviewed by me, Report reviewed by me Assessment & Plan - Assessment and Plan (Free Text) Assessment: 76F w. hx of GIST, s/p partial gastrectomy and colon CA, s/p R hemicolectomy, presenting w. abd pain, R/O biliary colic -Abd U/S ordered as well as HIDA, f/u on results -c/w CLD -d/w attending Manjit PGY3 <Adolfo Mendes V - Last Filed: 03/28/17 00:10> Meds - Medications Medications: Current Medications Amlodipine Besylate (Norvasc) 5 mg PO QAM [facility] Last Admin: 03/27/17 09:27 Dose: 5 mg Atenolol (Tenormin) 50 mg PO QAM [facility] Last Admin: 03/27/17 09:27 Dose: 50 mg Ergocalciferol (Drisdol 50,000 Intl Units Cap) 1 cap PO Mo@1000 [facility] Ferrous Sulfate (Feosol) 324 mg PO DAILY [facility] Last Admin: 03/27/17 09:27 Dose: 324 mg Letrozole (Femara) 2.5 mg PO DAILY [facility] Last Admin: 03/27/17 10:13 Dose: 2.5 mg Morphine Sulfate (Morphine) 2 mg IVP Q4H PRN PRN Reason: Pain, moderate (4-7) Multivitamins (Thera Tab) 1 tab PO DAILY [facility] Last Admin: 03/27/17 09:27 Dose: 1 tab (Imatinib Mesylate [ Imatinib Mesylate] 100 Mg) 100 mg PO BID [facility] Non-Formulary Medication (Multivit With Minerals/Lutein [Vision Plus Lutein Vitamin Tab]) 1 tab PO DAILY [facility] Last Admin: 03/27/17 09:29 Dose: Not Given Nystatin/Triamcinolone Acetonide (Nystatin/Triamcinolone Cream) 0 ea TOP BID [facility] Last Admin: 03/27/17 17:45 Dose: 1 appful Ondansetron HCl (Zofran Inj) 4 mg IVP Q4H PRN PRN Reason: Nausea/Vomiting Last Admin: 03/27/17 10:54 Dose: 4 mg Pantoprazole Sodium (Protonix Ec Tab) 20 mg PO ACB [facility] Last Admin: 03/27/17 09:27 Dose: 20 mg Sucralfate (Carafate Tab) 1 gm PO BID [facility] Last Admin: 03/27/17 17:45 Dose: 1 gm Results - Vital Signs Recent Vital Signs: Last Vital Signs Temp 98.7 F 03/27/17 14:00 Pulse 63 03/27/17 14:00 Resp 18 03/27/17 14:00 BP 169/75 H 03/27/17 14:00 Pulse Ox 100 03/27/17 14:00 - Labs Result Diagrams: 03/27/17 06:15 03/27/17 06:15 Attending/Attestation - Attestation I have personally seen and examined this patient.: Yes I have fully participated in the care of the patient.: Yes I have reviewed all pertinent clinical information: Yes Notes (Text): This is an addendum to GI progress report dictated by Resident.The patient was seen and examined earlier. Medical records, lab studies, imagings were reviewed. Last 24 hours events reviewed. Agreed with the above treatment plan as outlined in Resident's notes the with the addition of the following 03/27/17 20:10
--- NOTE | 2017-03-27 16:58 | CP.PCM.CON ---
History of Present Illness - History of Present Illness History of Present Illness: PGY1 Note for Dr. Martines HPI: We are being consulted for Cholelithiasis. Patient is a 76 y/o female who presents with abdominal pain worse in the RUQ for 3 months in duration. She has had this pain for many years but it has become much worse in the last 3 months. The pain is intermittent, does not radiate and is sharp in nature. She states it is a 10/10 at its worst. It is not associated with food. She denies N/V/D/F/ Chills/SOB. She has been retching with no obvious emesis. No hematemesis. No blood in stool. ROS: Per HPI PMH: breast ca, gastric GIST s/p partial gastrectomy, colon cancer s/p robotic assisted hemicolectomy, hypertension and gout PSH: R. hemicolectomy, b/l lumpectomy, brain surgery, partial gastrectomy SH: Denies alcohol, tobacco and illicit drug use; Lives with her Meds: See MAR All: KNA Review of Systems - Constitutional Constitutional: As Per HPI - EENT Eyes: As Per HPI Ears: As Per HPI Nose/Mouth/Throat: As Per HPI - Breasts Breasts: As Per HPI - Cardiovascular Cardiovascular: As Per HPI - Respiratory Respiratory: As Per HPI - Gastrointestinal Gastrointestinal: As Per HPI - Genitourinary Genitourinary: As Per HPI - Reproductive: Female Reproductive:Female: As Per HPI - Menstruation Menstruation: As Per HPI - Musculoskeletal Musculoskeletal: As Per HPI - Integumentary Integumentary: As Per HPI - Neurological Neurological: As Per HPI - Psychiatric Psychiatric: As Per HPI - Endocrine Endocrine: As Per HPI - Hematologic/Lymphatic Hematologic: As Per HPI Past Patient History - Infectious Disease Hx of Infectious Diseases: None - Past Social History Smoking Status: Never Smoked - CARDIAC Hx Hypertension: Yes Hx Pacemaker: No - PULMONARY Hx Respiratory Disorders: No - NEUROLOGICAL Hx Neurological Disorder: No - HEENT Hx HEENT Problems: (WEARS RX GLASSES) - RENAL Hx Chronic Kidney Disease: No - ENDOCRINE/METABOLIC Hx Endocrine Disorders: No - HEMATOLOGICAL/ONCOLOGICAL Hx Blood Disorders: Yes Hx Cancer: Yes (Bilateral Breast,COLON CA, WITH RADIATION ONLY COMPLETED 2-3 YRS AGO) Hx Metastesis: Yes Other/Comment: b/l breast lumpectomy had 35 radiation treatments 2010, r axilla disection, colon and gastric ca - INTEGUMENTARY Hx Dermatological Problems: No - MUSCULOSKELETAL/RHEUMATOLOGICAL Hx Musculoskeletal Disorders: Yes Hx Falls: No - GASTROINTESTINAL Hx Gastrointestinal Disorders: Yes Hx Pancreatitis: Yes HX Swallowing Problems: Yes Other/Comment: hx colon ca,GI BLEED 09-14-15, - GENITOURINARY/GYNECOLOGICAL Hx Genitourinary Disorders: Yes Other/Comment: hx hysterectomy,BILATERAL lumpectomy - PSYCHIATRIC Hx Emotional Abuse: No Hx Physical Abuse: No - SURGICAL HISTORY Other/Comment: brain surgery - ANESTHESIA Hx Anesthesia Reactions: No Hx Malignant Hyperthermia: No Meds Allergies/Adverse Reactions: Allergies Allergy/AdvReac Type Severity Reaction Status Date / Time No Known Allergies Allergy Verified 02/21/16 11:50 - Medications Medications: Current Medications Amlodipine Besylate (Norvasc) 5 mg PO QAM [facility] Last Admin: 03/27/17 09:27 Dose: 5 mg Atenolol ([facility]ormin) [facility] [place] Last Admin: 03/27/17 09:27 Dose: 50 mg Ergocalciferol (Drisdol 50,000 Intl Units Cap) 1 cap PO Mo@1000 [facility] Ferrous Sulfate (Feosol) 324 mg PO DAILY [facility] Last Admin: 03/27/17 09:27 Dose: 324 mg Letrozole (Femara) 2.5 mg PO DAILY [facility] Last Admin: 03/27/17 10:13 Dose: 2.5 mg Morphine Sulfate (Morphine) 2 mg IVP Q4H PRN PRN Reason: Pain, moderate (4-7) Multivitamins (Thera Tab) 1 tab PO DAILY [facility] Last Admin: 03/27/17 09:27 Dose: 1 tab (Imatinib Mesylate [ Imatinib Mesylate] 100 Mg) 100 mg PO BID [facility] Non-Formulary Medication (Multivit With Minerals/Lutein [Vision Plus Lutein Vitamin Tab]) 1 tab PO DAILY [facility] Last Admin: 03/27/17 09:29 Dose: Not Given Nystatin/Triamcinolone Acetonide (Nystatin/Triamcinolone Cream) 0 ea TOP BID [facility] Ondansetron HCl (Zofran Inj) 4 mg IVP Q4H PRN PRN Reason: Nausea/Vomiting Last Admin: 03/27/17 10:54 Dose: 4 mg Pantoprazole Sodium (Protonix Ec Tab) 20 mg PO ACB [facility] Last Admin: 03/27/17 09:27 Dose: 20 mg Sucralfate (Carafate Tab) 1 gm PO BID [facility] Last Admin: 03/27/17 09:27 Dose: 1 gm Physical Exam - Constitutional Appears: Non-toxic, No Acute Distress - Head Exam Head Exam: ATRAUMATIC, NORMAL INSPECTION, NORMOCEPHALIC - Eye Exam Eye Exam: EOMI Pupil Exam: NORMAL ACCOMODATION, PERRL - ENT Exam ENT Exam: Mucous Membranes Moist - Respiratory Exam Respiratory Exam: Clear to Auscultation Bilateral, NORMAL BREATHING PATTERN - Cardiovascular Exam Cardiovascular Exam: REGULAR RHYTHM - GI/Abdominal Exam GI & Abdominal Exam: Soft, Tenderness (diffuse. severe tenderness to deep palpation in the RUQ, -murphys, ) - Extremities Exam Extremities exam: Negative for: joint swelling, tenderness - Back Exam Back exam: absent: CVA tenderness (L), CVA tenderness (R) - Neurological Exam Neurological exam: Alert, Oriented x3 - Psychiatric Exam Psychiatric exam: Normal Affect, Normal Mood - Skin Skin Exam: Dry, Intact, Normal Color, Warm Additional comments: multiple hypertrophic scars Results - Vital Signs Recent Vital Signs: Last Vital Signs Temp 98.5 F 03/27/17 08:07 Pulse 72 03/27/17 09:27 Resp 20 03/27/17 08:07 BP 165/75 H 03/27/17 09:27 Pulse Ox 99 03/27/17 08:07 - Labs Result Diagrams: 03/27/17 06:15 03/27/17 06:15 Labs: Laboratory Results - last 24 hr 03/27/17 03/27/17 03/27/17 06:15 06:15 06:15 WBC 3.6 L RBC 2.99 L Hgb 8.1 L Hct 26.2 L MCV 87.6 MCH 27.1 MCHC 30.9 L RDW 17.4 H Plt Count 138 MPV 10.1 Gran % 77.7 H Lymph % (Auto) 15.6 L [place] % (Auto) 4.7 Eos % (Auto) 1.7 Baso % (Auto) 0.3 Gran # 2.79 Lymph # 0.6 L Gray # 0.2 Eos # 0.1 Baso # 0.01 Sodium 146 Potassium 3.7 Chloride 108 H Carbon Dioxide 30 Anion Gap 12 BUN 22 H Creatinine 1.3 Est GFR ( Amer) 48 Est GFR (Non-Af Amer) 40 Random Glucose 80 Calcium 9.1 Total Bilirubin 0.4 AST 28 ALT 26 Alkaline Phosphatase 73 Total Protein 6.0 Albumin 3.4 Globulin 2.6 Albumin/Globulin Ratio 1.3 Carcinoembryonic Ag 1.5 TSH 3rd Generation < 0.02 L Assessment & Plan - Assessment and Plan (Free Text) Assessment: 76 yo Female with cholelithiasis * CT showed stones w/no evidence of acute raiza * F/U Abd US and HIDA * Pain control * Further recs per Dr. Conrad Sosa PGY1 DO - Date & Time Date: 03/27/17 Time: 17:02
--- NOTE | 2017-03-27 17:10 | CP.PCM.CON ---
History of Present Illness - History of Present Illness History of Present Illness: PGY1 Note for Dr. Martines HPI: We are being consulted for Cholelithiasis. Patient is a 76 y/o female who presents with abdominal pain worse in the RUQ for 3 months in duration. She has had this pain for many years but it has become much worse in the last 3 months. The pain is intermittent, does not radiate and is sharp in nature. She states it is a 10/10 at its worst. It is not associated with food. She denies N/V/D/F/ Chills/SOB. She has been retching with no obvious emesis. No hematemesis. No blood in stool. ROS: Per HPI PMH: breast ca, gastric GIST s/p partial gastrectomy, colon cancer s/p robotic assisted hemicolectomy, hypertension and gout PSH: R. hemicolectomy, b/l lumpectomy, brain surgery, partial gastrectomy SH: Denies alcohol, tobacco and illicit drug use; Lives with her Meds: See MAR All: KNA Review of Systems - Constitutional Constitutional: As Per HPI - EENT Eyes: As Per HPI Ears: As Per HPI Nose/Mouth/Throat: As Per HPI - Breasts Breasts: As Per HPI - Cardiovascular Cardiovascular: As Per HPI - Respiratory Respiratory: As Per HPI - Gastrointestinal Gastrointestinal: As Per HPI - Genitourinary Genitourinary: As Per HPI - Reproductive: Female Reproductive:Female: As Per HPI - Menstruation Menstruation: As Per HPI - Musculoskeletal Musculoskeletal: As Per HPI - Integumentary Integumentary: As Per HPI - Neurological Neurological: As Per HPI - Psychiatric Psychiatric: As Per HPI - Endocrine Endocrine: As Per HPI - Hematologic/Lymphatic Hematologic: As Per HPI Past Patient History - Infectious Disease Hx of Infectious Diseases: None - Past Social History Smoking Status: Never Smoked - CARDIAC Hx Hypertension: Yes Hx Pacemaker: No - PULMONARY Hx Respiratory Disorders: No - NEUROLOGICAL Hx Neurological Disorder: No - HEENT Hx HEENT Problems: (WEARS RX GLASSES) - RENAL Hx Chronic Kidney Disease: No - ENDOCRINE/METABOLIC Hx Endocrine Disorders: No - HEMATOLOGICAL/ONCOLOGICAL Hx Blood Disorders: Yes Hx Cancer: Yes (Bilateral Breast,COLON CA, WITH RADIATION ONLY COMPLETED 2-3 YRS AGO) Hx Metastesis: Yes Other/Comment: b/l breast lumpectomy had 35 radiation treatments 2010, r axilla disection, colon and gastric ca - INTEGUMENTARY Hx Dermatological Problems: No - MUSCULOSKELETAL/RHEUMATOLOGICAL Hx Musculoskeletal Disorders: Yes Hx Falls: No - GASTROINTESTINAL Hx Gastrointestinal Disorders: Yes Hx Pancreatitis: Yes HX Swallowing Problems: Yes Other/Comment: hx colon ca,GI BLEED 09-14-15, - GENITOURINARY/GYNECOLOGICAL Hx Genitourinary Disorders: Yes Other/Comment: hx hysterectomy,BILATERAL lumpectomy - PSYCHIATRIC Hx Emotional Abuse: No Hx Physical Abuse: No - SURGICAL HISTORY Other/Comment: brain surgery - ANESTHESIA Hx Anesthesia Reactions: No Hx Malignant Hyperthermia: No Meds Allergies/Adverse Reactions: Allergies Allergy/AdvReac Type Severity Reaction Status Date / Time No Known Allergies Allergy Verified 02/21/16 11:50 - Medications Medications: Current Medications Amlodipine Besylate (Norvasc) 5 mg PO QAM [facility] Last Admin: 03/27/17 09:27 Dose: 5 mg [facility] ([facility]) [facility] [place] Admin: 03/27/17 09:27 Dose: 50 mg Ergocalciferol (Drisdol 50,000 Intl Units Cap) 1 cap PO Mo@1000 [facility] Ferrous Sulfate (Feosol) 324 mg PO DAILY [facility] Last Admin: 03/27/17 09:27 Dose: 324 mg Letrozole (Femara) 2.5 mg PO DAILY [facility] Last Admin: 03/27/17 10:13 Dose: 2.5 mg Morphine Sulfate (Morphine) 2 mg IVP Q4H PRN PRN Reason: Pain, moderate (4-7) Multivitamins (Thera Tab) 1 tab PO DAILY [facility] Last Admin: 03/27/17 09:27 Dose: 1 tab (Imatinib Mesylate [ Imatinib Mesylate] 100 Mg) 100 mg PO BID [facility] Non-Formulary Medication (Multivit With Minerals/Lutein [Vision Plus Lutein Vitamin Tab]) 1 tab PO DAILY [facility] Last Admin: 03/27/17 09:29 Dose: Not Given Nystatin/Triamcinolone Acetonide (Nystatin/Triamcinolone Cream) 0 ea TOP BID [facility] Ondansetron HCl (Zofran Inj) 4 mg IVP Q4H PRN PRN Reason: Nausea/Vomiting Last Admin: 03/27/17 10:54 Dose: 4 mg Pantoprazole Sodium (Protonix Ec Tab) 20 mg PO ACB [facility] Last Admin: 03/27/17 09:27 Dose: 20 mg Sucralfate (Carafate Tab) 1 gm PO BID [facility] Last Admin: 03/27/17 09:27 Dose: 1 gm Physical Exam - Constitutional Appears: Non-toxic, No Acute Distress - Head Exam Head Exam: ATRAUMATIC, NORMAL INSPECTION, NORMOCEPHALIC - Eye Exam Eye Exam: EOMI Pupil Exam: NORMAL ACCOMODATION - ENT Exam ENT Exam: Mucous Membranes Moist - Respiratory Exam Respiratory Exam: Chest Wall Tenderness, NORMAL BREATHING PATTERN - Cardiovascular Exam Cardiovascular Exam: REGULAR RHYTHM - GI/Abdominal Exam GI & Abdominal Exam: Normal Bowel Sounds, Soft, Tenderness (Diffuse. Moderate tenderness to deep palpation in RUQ. Negative [place]. ). absent: Distended - Extremities Exam Extremities exam: Negative for: joint swelling, tenderness - Back Exam Back exam: absent: CVA tenderness (L), CVA tenderness (R) - Neurological Exam Neurological exam: Alert, Oriented x3 - Psychiatric Exam Psychiatric exam: Normal Affect, Normal Mood - Skin Skin Exam: Dry, Intact, Normal Color, Warm Results - Vital Signs Recent Vital Signs: Last Vital Signs Temp 98.5 F 03/27/17 08:07 Pulse 72 03/27/17 09:27 Resp 20 03/27/17 08:07 BP 165/75 H 03/27/17 09:27 Pulse Ox 99 03/27/17 08:07 - Labs Result Diagrams: 03/27/17 06:15 03/27/17 06:15 Labs: Laboratory Results - last 24 hr 03/27/17 03/27/17 03/27/17 06:15 06:15 06:15 WBC 3.6 L RBC 2.99 L Hgb 8.1 L Hct 26.2 L MCV 87.6 MCH 27.1 MCHC 30.9 L RDW 17.4 H Plt Count 138 MPV 10.1 Gran % 77.7 H Lymph % (Auto) 15.6 L [place] % (Auto) 4.7 Eos % (Auto) 1.7 Baso % (Auto) 0.3 Gran # 2.79 Lymph # 0.6 L [place] # 0.2 Eos # 0.1 Baso # 0.01 Sodium 146 Potassium 3.7 Chloride 108 H Carbon Dioxide 30 Anion Gap 12 BUN 22 H Creatinine 1.3 Est GFR ( Amer) 48 Est GFR (Non-Af Amer) 40 Random Glucose 80 Calcium 9.1 Total Bilirubin 0.4 AST 28 ALT 26 Alkaline Phosphatase 73 Total Protein 6.0 Albumin 3.4 Globulin 2.6 Albumin/Globulin Ratio 1.3 Carcinoembryonic Ag 1.5 TSH 3rd Generation < 0.02 L Assessment & Plan - Assessment and Plan (Free Text) Assessment: 76 yo Female with cholelithiasis CT showed stones w/no evidence of acute raiza F/U Abd US and HIDA Pain control Further recs per Dr. Conrad Sosa PGY1 DO - Date & Time Date: 03/27/17 Time: 17:10
[2017-03-27] MEDS: Nystatin-Triamcinolone Cream(30 gm) TOP SCH (17:45)
--- NOTE | 2017-03-27 18:54 | US ---
HISTORY: abdominal pain COMPARISON: 08/17/2015 abdominal ultrasound. March 26, 2017. CT abdomen and pelvis. TECHNIQUE: Sonographic evaluation of the abdomen. FINDINGS: LIVER: Measures 14.8 cm. Patent portal vein. Portal venous flow: Hepatopetal. Unremarkeable echogenicity of the liver parenchyma. No mass. No intrahepatic bile duct dilatation. GALLBLADDER: Cholelithiasis. Negative study for gallbladder wall thickening, pericholecystic fluid, sonographic Martini's sign. Gallbladder sludge identified. . COMMON BILE DUCT: Measures 2.6 mm. No stones. No dilatation. PANCREAS: Unremarkable as visualized. No mass. No ductal dilatation. RIGHT KIDNEY: Measures 5.7 x 11.1cm. Normal echogenicity. No calculus, mass, or hydronephrosis. LEFT KIDNEY: Measures 5.3 x 11.2cm. Normal echogenicity. No calculus, mass, or hydronephrosis. Finding identified on the recent CT scan lower pole left kidney is not apparent on the current study. SPLEEN: Normal in size and contour. No mass. AORTA: No aneurysmal dilatation. IVC: Unremarkable. OTHER FINDINGS: Effusion right pleural effusion IMPRESSION: Cholelithiasis. No sonographic evidence of acute cholecystitis. Nonvisualization of lower pole cyst left kidney.
--- NOTE | 2017-03-28 08:11 | CP.PCM.PN ---
Subjective - Date & Time of Evaluation Date of Evaluation: 03/28/17 Time of Evaluation: 08:09 - Subjective Subjective: PGY1 Note for Dr. Martines HPI: Patient seen and examined at bedside. Doing well. Still complaining of mild abdominal pain. +flatus, +BM. Denies any N/V/F/CP/SOB. Objective - Vital Signs/Intake and Output Vital Signs (last 24 hours): Temp Pulse Resp BP Pulse Ox 98.5 F 67 20 145/55 L 98 03/28/17 06:00 03/28/17 06:00 03/28/17 06:00 03/28/17 06:00 03/28/17 06:00 Intake and Output: 03/28/17 03/28/17 06:59 18:59 Intake Total 780 Balance 780 - Medications Medications: Current Medications Amlodipine Besylate (Norvasc) 5 mg PO QAM [facility] Last Admin: 03/27/17 09:27 Dose: 5 mg Atenolol (Tenormin) 50 mg PO QAM [facility] Last Admin: 03/27/17 09:27 Dose: 50 mg Ergocalciferol (Drisdol 50,000 Intl Units Cap) 1 cap PO Mo@1000 [facility] Ferrous Sulfate (Feosol) 324 mg PO DAILY [facility] Last Admin: 03/27/17 09:27 Dose: 324 mg Letrozole (Femara) 2.5 mg PO DAILY [facility] Last Admin: 03/27/17 10:13 Dose: 2.5 mg Morphine Sulfate (Morphine) 2 mg IVP Q4H PRN PRN Reason: Pain, moderate (4-7) Multivitamins (Thera Tab) 1 tab PO DAILY [facility] Last Admin: 03/27/17 09:27 Dose: 1 tab (Imatinib Mesylate [ Imatinib Mesylate] 100 Mg) 100 mg PO BID [facility] Non-Formulary Medication (Multivit With Minerals/Lutein [Vision Plus Lutein Vitamin Tab]) 1 tab PO DAILY [facility] Last Admin: 03/27/17 09:29 Dose: Not Given Nystatin/Triamcinolone Acetonide (Nystatin/Triamcinolone Cream) 0 ea TOP BID [facility] Last Admin: 03/27/17 17:45 Dose: 1 appful Ondansetron HCl (Zofran Inj) 4 mg IVP Q4H PRN PRN Reason: Nausea/Vomiting Last Admin: 03/27/17 10:54 Dose: 4 mg Pantoprazole Sodium (Protonix Ec Tab) 20 mg PO ACB [facility] Last Admin: 03/27/17 09:27 Dose: 20 mg Sucralfate (Carafate Tab) 1 gm PO BID [facility] Last Admin: 03/27/17 17:45 Dose: 1 gm - Constitutional Appears: Well, Non-toxic, No Acute Distress - Head Exam Head Exam: ATRAUMATIC, NORMAL INSPECTION, NORMOCEPHALIC - Eye Exam Eye Exam: EOMI Pupil Exam: NORMAL ACCOMODATION - ENT Exam ENT Exam: Mucous Membranes Moist - Respiratory Exam Respiratory Exam: Clear to Ausculation Bilateral, NORMAL BREATHING PATTERN - Cardiovascular Exam Cardiovascular Exam: REGULAR RHYTHM - GI/Abdominal Exam GI & Abdominal Exam: Soft, Tenderness (diffuse, more in the RUQ), Normal Bowel Sounds. absent: Distended - Rectal Exam Additional comments: multiple hypertrophic scars - Extremities Exam Extremities Exam: absent: Joint Swelling, Tenderness - Back Exam Back Exam: absent: CVA tenderness (L), CVA tenderness (R) - Neurological Exam Neurological Exam: Alert, Awake, Oriented x3 - Psychiatric Exam Psychiatric exam: Normal Affect, Normal Mood - Skin Skin Exam: Dry, Intact, Normal Color, Warm Assessment and Plan - Assessment and Plan (Free Text) Assessment: 76 yo Female with cholelithiasis * CT showed stones w/no evidence of acute raiza * Abd US - stones w/no evidence of acute raiza * HIDA - F/U * Pain control * CLD * Further recs per Dr. Conrad Sosa PGY1 DO
[2017-03-28] MEDS: Multivitamin Therapeutic Tab PO SCH (09:27)
[2017-03-28] MEDS: Pantoprazole 20 mg EC Tab PO SCH (09:29)
[2017-03-28] MEDS: Nystatin-Triamcinolone Cream(30 gm) TOP SCH ×2 (09:30→18:34)
[2017-03-28] MEDS: [UNRECOGNIZED DRUG - OTHER] PO SCH (09:30)
[2017-03-28] MEDS: MULTIVIT WITH MINERALS PO SCH (09:30)
[2017-03-28] MEDS: LUTEIN PO SCH (09:30)
--- NOTE | 2017-03-28 09:34 | CP.PCM.PN ---
<Sanjay Saravia - Last Filed: 03/28/17 09:42> Subjective - Date & Time of Evaluation Date of Evaluation: 03/28/17 Time of Evaluation: 09:33 - Subjective Subjective: GI: Dr. Mendes Pt seen down in nuclear medicine. She is resting comfortably in stretcher. Abd pain is improved. No N/V. Objective - Vital Signs/Intake and Output Vital Signs (last 24 hours): Temp Pulse Resp BP Pulse Ox 98.5 F 67 20 145/55 L 98 03/28/17 06:00 03/28/17 06:00 03/28/17 06:00 03/28/17 06:00 03/28/17 06:00 Intake and Output: 03/28/17 03/28/17 06:59 18:59 Intake Total 780 Balance 780 - Medications Medications: Current Medications Amlodipine Besylate (Norvasc) 5 mg PO QAM [facility] Last Admin: 03/27/17 09:27 Dose: 5 mg Atenolol (Tenormin) 50 mg PO QAM [facility] Last Admin: 03/27/17 09:27 Dose: 50 mg Ergocalciferol (Drisdol 50,000 Intl Units Cap) 1 cap PO Mo@1000 [facility] Ferrous Sulfate (Feosol) 324 mg PO DAILY [facility] Last Admin: 03/27/17 09:27 Dose: 324 mg Letrozole (Femara) 2.5 mg PO DAILY [facility] Last Admin: 03/27/17 10:13 Dose: 2.5 mg Morphine Sulfate (Morphine) 2 mg IVP Q4H PRN PRN Reason: Pain, moderate (4-7) Multivitamins (Thera Tab) 1 tab PO DAILY [facility] Last Admin: 03/27/17 09:27 Dose: 1 tab (Imatinib Mesylate [ Imatinib Mesylate] 100 Mg) 100 mg PO BID [facility] Non-Formulary Medication (Multivit With Minerals/Lutein [Vision Plus Lutein Vitamin Tab]) 1 tab PO DAILY [facility] Last Admin: 03/27/17 09:29 Dose: Not Given Nystatin/Triamcinolone Acetonide (Nystatin/Triamcinolone Cream) 0 ea TOP BID [facility] Last Admin: 03/27/17 17:45 Dose: 1 appful Ondansetron HCl (Zofran Inj) 4 mg IVP Q4H PRN PRN Reason: Nausea/Vomiting Last Admin: 03/27/17 10:54 Dose: 4 mg Pantoprazole Sodium (Protonix Ec Tab) 20 mg PO ACB [facility] Last Admin: 03/27/17 09:27 Dose: 20 mg Sucralfate (Carafate Tab) 1 gm PO BID [facility] Last Admin: 03/27/17 17:45 Dose: 1 gm - Constitutional Appears: Non-toxic, No Acute Distress - Head Exam Head Exam: ATRAUMATIC, NORMOCEPHALIC - Eye Exam Eye Exam: EOMI - ENT Exam ENT Exam: Mucous Membranes Moist, Normal External Ear Exam - Neck Exam Neck Exam: Full ROM - Respiratory Exam Respiratory Exam: NORMAL BREATHING PATTERN. absent: Accessory Muscle Use, Respiratory Distress - GI/Abdominal Exam GI & Abdominal Exam: Soft, Tenderness (mild epigastric). absent: Distended, Firm, Guarding, Rigid, Rebound - Extremities Exam Extremities Exam: absent: Calf Tenderness, Pedal Edema - Neurological Exam Neurological Exam: Alert, Awake, Oriented x3 - Psychiatric Exam Psychiatric exam: Normal Affect, Normal Mood - Skin Skin Exam: Dry, Normal Color, Warm Assessment and Plan - Assessment and Plan (Free Text) Assessment: 76F w. hx of GIST, s/p partial gastrectomy and colon CA, s/p R hemicolectomy, presenting w. abd pain, R/O biliary colic -Abd U/S: + stones, no acute raiza -HIDA: negative -c/w CLD -further recommendations per Dr. Mendes -will d/w attending Zeyaronitis PGY3 <Adolfo Mendes V - Last Filed: 03/28/17 23:31> Objective - Vital Signs/Intake and Output Vital Signs (last 24 hours): Temp Pulse Resp BP Pulse Ox 98.8 F 67 20 175/82 H 99 03/28/17 17:43 03/28/17 17:43 03/28/17 17:43 03/28/17 17:43 03/28/17 17:43 Intake and Output: 03/28/17 03/29/17 18:59 06:59 Intake Total 960 300 Balance 960 300 - Medications Medications: Current Medications Amlodipine Besylate (Norvasc) 5 mg PO QAM [facility] Last Admin: 03/28/17 09:29 Dose: 5 mg Atenolol (Tenormin) 50 mg PO QAM [facility] Last Admin: 03/28/17 09:30 Dose: 50 mg Ergocalciferol (Drisdol 50,000 Intl Units Cap) 1 cap PO Mo@1000 [facility] Ferrous Sulfate (Feosol) 324 mg PO DAILY [facility] Last Admin: 03/28/17 09:29 Dose: 324 mg Letrozole (Femara) 2.5 mg PO DAILY [facility] Last Admin: 03/28/17 09:46 Dose: 2.5 mg Morphine Sulfate (Morphine) 2 mg IVP Q4H PRN PRN Reason: Pain, moderate (4-7) Multivitamins (Thera Tab) 1 tab PO DAILY [facility] Last Admin: 03/28/17 09:27 Dose: 1 tab (Imatinib Mesylate [ Imatinib Mesylate] 100 Mg) 100 mg PO BID [facility] Non-Formulary Medication (Multivit With Minerals/Lutein [Vision Plus Lutein Vitamin Tab]) 1 tab PO DAILY [facility] Last Admin: 03/28/17 09:30 Dose: Not Given Nystatin/Triamcinolone Acetonide (Nystatin/Triamcinolone Cream) 0 ea TOP BID [facility] Last Admin: 03/28/17 18:34 Dose: 1 appful Ondansetron HCl (Zofran Inj) 4 mg IVP Q4H PRN PRN Reason: Nausea/Vomiting Last Admin: 03/27/17 10:54 Dose: 4 mg Pantoprazole Sodium (Protonix Ec Tab) 20 mg PO ACB [facility] Last Admin: 03/28/17 09:29 Dose: 20 mg Sucralfate (Carafate Tab) 1 gm PO BID [facility] Last Admin: 03/28/17 18:34 Dose: 1 gm - Labs Labs: 03/28/17 11:00 03/28/17 11:00 Attending/Attestation - Attestation I have personally seen and examined this patient.: Yes I have fully participated in the care of the patient.: Yes I have reviewed all pertinent clinical information, including history, physical exam and plan: Yes Notes (Text): This is an addendum to GI progress report dictated by Resident.The patient was seen and examined earlier. Medical records, lab studies, imagings were reviewed. Last 24 hours events reviewed. Agreed with the above treatment plan as outlined in Resident's notes the with the addition of the following still has mild epigastric tenderness dw PCP EGD to further evaluate for blood trasfusion today 03/28/17 18:29
--- NOTE | 2017-03-28 09:58 | CP.PCM.PN ---
Subjective - Date & Time of Evaluation Date of Evaluation: 03/28/17 Time of Evaluation: 09:58 - Subjective Subjective: Heme/Onc progress note for Dr. Beebe Patient seen and examined at bedside. No acute overnight events or new complaitns reported. Denies chest pain, palpitations, SOB. Objective - Vital Signs/Intake and Output Vital Signs (last 24 hours): Temp Pulse Resp BP Pulse Ox 98.5 F 67 20 145/55 L 98 03/28/17 06:00 03/28/17 09:30 03/28/17 06:00 03/28/17 09:30 03/28/17 06:00 Intake and Output: 03/28/17 03/28/17 06:59 18:59 Intake Total 780 Balance 780 - Medications Medications: Current Medications Amlodipine Besylate (Norvasc) 5 mg PO QAM [facility] Last Admin: 03/28/17 09:29 Dose: 5 mg Atenolol (Tenormin) 50 mg PO QAM [facility] Last Admin: 03/28/17 09:30 Dose: 50 mg Ergocalciferol (Drisdol 50,000 Intl Units Cap) 1 cap PO Mo@1000 [facility] Ferrous Sulfate (Feosol) 324 mg PO DAILY [facility] Last Admin: 03/28/17 09:29 Dose: 324 mg Letrozole (Femara) 2.5 mg PO DAILY [facility] Last Admin: 03/28/17 09:46 Dose: 2.5 mg Morphine Sulfate (Morphine) 2 mg IVP Q4H PRN PRN Reason: Pain, moderate (4-7) Multivitamins (Thera Tab) 1 tab PO DAILY [facility] Last Admin: 03/28/17 09:27 Dose: 1 tab (Imatinib Mesylate [ Imatinib Mesylate] 100 Mg) 100 mg PO BID [facility] Non-Formulary Medication (Multivit With Minerals/Lutein [Vision Plus Lutein Vitamin Tab]) 1 tab PO DAILY [facility] Last Admin: 03/28/17 09:30 Dose: Not Given Nystatin/Triamcinolone Acetonide (Nystatin/Triamcinolone Cream) 0 ea TOP BID [facility] Last Admin: 03/28/17 09:30 Dose: 1 appful Ondansetron HCl (Zofran Inj) 4 mg IVP Q4H PRN PRN Reason: Nausea/Vomiting Last Admin: 03/27/17 10:54 Dose: 4 mg Pantoprazole Sodium (Protonix Ec Tab) 20 mg PO ACB [facility] Last Admin: 03/28/17 09:29 Dose: 20 mg Sucralfate (Carafate Tab) 1 gm PO BID [facility] Last Admin: 03/28/17 09:27 Dose: 1 gm - Constitutional Appears: No Acute Distress - Head Exam Head Exam: ATRAUMATIC, NORMAL INSPECTION, NORMOCEPHALIC - Eye Exam Eye Exam: EOMI, PERRL - ENT Exam ENT Exam: Mucous Membranes Moist - Neck Exam Neck Exam: Normal Inspection - Respiratory Exam Respiratory Exam: Clear to Ausculation Bilateral. absent: Rales, Rhonchi, Wheezes - Cardiovascular Exam Cardiovascular Exam: +S1, +S2. absent: Gallop, Rubs, Murmur - GI/Abdominal Exam GI & Abdominal Exam: Soft, Tenderness. absent: Distended, Firm, Guarding, Rigid , Rebound - Extremities Exam Extremities Exam: Normal Inspection. absent: Pedal Edema - Neurological Exam Neurological Exam: Alert, Awake, Oriented x3 - Psychiatric Exam Psychiatric exam: Normal Affect, Normal Mood - Skin Skin Exam: Dry, Intact, Normal Color, Warm Assessment and Plan - Assessment and Plan (Free Text) Plan: 76yo female with history of breast ca, gastric GIST s/p partial gastrectomy, colon cancer s/p robotic assisted hemicolectomy, hypertension and gout that [place] [facility] [place] epigastric abdominal pain 1. Abdominal pain -CT abdomen/pelvis reviewed; please refer to official report -Abd US revealed cholelithiasis with no evidence of acute cholecystitis -HIDA negative -afebrile, no leukocytosis -lipase within normal limits -Further recommendations as per gastroenterology, Dr. Mendes 2. History of Breast Ca, gastric GIST and Colon Ca -Patient is s/p partial gastrectomy and robotic assisted hemicolectomy -PET CT from 02/16/17 reviewed; please refer to official report -Recommend close follow up with Dr. Beebe as an outpatient upon discharge Case discussed with attending, Dr. Beebe
[2017-03-28 11:19] LABS: HEMATOCRIT 28.6 % (36.0-48.0); MEAN CELL VOLUME 86.9 fl (80.0-105.0); MEAN CORPUSCULAR HEMOGLOBIN 27.1 pg (25.0-35.0); MEAN CORPUSCULAR HGB CONC 31.1 g/dl (31.0-37.0); MEAN PLATELET VOLUME 10.2 fl (7.0-11.0)
[2017-03-28 11:28] LABS: ALB/GLOB RATIO 1.3 (1.1-1.8); BILIRUBIN,TOTAL 0.5 mg/dL (0.2-1.3); CALCIUM 9.8 mg/dL (8.4-10.5); POTASSIUM 3.8 mmol/L (3.6-5.0); TOTAL PROTEIN 6.5 g/dL (5.8-8.3)
[2017-03-28 11:35] LABS: IRON 38 ug/dL (45-180)
--- NOTE | 2017-03-28 12:43 | NM ---
PROCEDURE: Nuclear Medicine Hepatobiliary Scan HISTORY: cholelith w RUQ abd pain COMPARISON: None available. TECHNIQUE: 6.2 mCi of technetium 99m Mebrofenin was administered intravenously. Planar images of the abdomen were obtained at 5 min intervals to 60 mins. Delayed images were also obtained. FINDINGS: LIVER: Timely and homogenous uptake. COMMON BILE DUCT: identified at 15 mins. GALLBLADDER: identified at 30 mins. SMALL BOWEL: Identified at 45 mins. IMPRESSION: Normal Hepatobiliary Scan. The cystic duct is patent.
--- NOTE | 2017-03-29 06:16 | CON ---
ENDOCRINOLOGY CONSULT LOCATION: Room #367. HISTORY OF PRESENT ILLNESS: This is a 76-year-old female admitted here with diffuse abdominal pain, and currently undergoing GI workup and management and is also being referred for endocrine evaluation because of abnormal thyroid function studies. She also has supervening nausea, dyspepsia, and vomiting over the last 2 to 3 days prior to admission as noted. PAST MEDICAL HISTORY: Extensive medical history of breast carcinoma with a prior bilateral lumpectomy. She also had colon cancer with a robotic assisted hemicolectomy. More over, she also has GIST, post partial gastrectomy undertaken, also history of hypertensive cardiovascular disease and dyslipidemia, history of a prior hysterectomy. FAMILY HISTORY: Positive for diabetes, hypertension. SOCIAL HISTORY: The patient has a supportive family. No known substance use. REVIEW OF SYSTEMS: As mentioned above, admitted with generalized body weakness with easy fatigability and tiredness and a suboptimal energy level. Also, admits to episodic bouts of dizziness and lightheadedness, worse in the left few days prior to admission. No chest pains, palpitation, but admits to progressive shortness of breath, especially on exertion. Her oral intake is variable and suboptimal with nausea, dyspepsia, and episodic vomiting episode. Also, developed severe and diffuse upper abdominal pain. She denies any alterations of bowel and her urinary pattern. PHYSICAL EXAMINATION GENERAL/VITAL SIGNS: This is an average built female, in no apparent distress with a blood pressure of 140/80, pulse of 84 beats per minute regular. Temperature 98, respirations 20, height is 5 feet 2 inches, weight is 165 pounds. HEENT: Head is normocephalic. Eyes: Anicteric with pink conjunctivae. Funduscopy not possible at this time. Ears, nose and throat otherwise normal. NECK: Supple. Thyroid gland is normal in size. No carotid bruits or any cervical adenopathy. CARDIOPULMONARY: Adynamic precordium. S1 and S2 is rapid and regular. LUNGS: Clear to auscultation. ABDOMEN: Flat, soft with positive bowel sounds. EXTREMITIES: No peripheral edema. Pulses are +2 bilaterally. LABORATORY DATA: Her chemistry showed a BUN of 17, sodium 143, potassium 3.8, chloride 103, CO2 of 28, glucose 115, and creatinine 1.2. Her liver function studies are normal. The serum TSH is less than 0.02. The CEA level is 1.5. ASSESSMENT: This is a 76-year-old female with diffuse abdominal pain and significant history of colonic carcinoma and also gastrointestinal stromal tumor, post partial gastrectomy as noted. She is clinically euthyroid with no overt possible thyroid nodules or thyroid bruits noted. The most likely etiology for the suppressed TSH would be the so called acute sick euthyroid syndrome, especially with the intercurrent physical stressors as noted thereof. However, we have to exclude any underlying subclinical hyperthyroidism as noted, which could be also related to the so called orthostatic hyperthyroidism in the elderly. PLAN OF MANAGEMENT: As discussed with the staff, we will obtain a comprehensive thyroid hormonal profile in the morning as ordered. We will obtain a total and free T4 and TSH level. We will also obtain a thyroid peroxidase antibody and a thyroid stimulating immunoglobulin to exclude any underlying thyroid autoimmunity. We will also obtain a baseline serum cortisol level as noted. We will obtain serum chemistries and supplement accordingly as needed. We will follow and advice. Jen Monroe MD
[2017-03-29] MEDS ORDERED: Benzocaine/Butamben/Tetracai 14-2-2% TOP Spray TOP ONE (10:21)
[2017-03-29] MEDS ORDERED: Propofol 10 mg/ml Inj (20 ML) ONE (10:22)
[2017-03-29] MEDS: Multivitamin Therapeutic Tab PO SCH (11:03)
[2017-03-29] MEDS: Nystatin-Triamcinolone Cream(30 gm) TOP SCH (11:03)
[2017-03-29] MEDS: Pantoprazole 20 mg EC Tab PO SCH (11:03)
[2017-03-29] MEDS: [UNRECOGNIZED DRUG - OTHER] PO SCH (11:03)
[2017-03-29] MEDS: MULTIVIT WITH MINERALS PO SCH (11:03)
[2017-03-29] MEDS: LUTEIN PO SCH (11:03)
[2017-03-29] MEDS ORDERED: Sodium Chloride 0.9% 1,000 ML IV SCH (11:15)
[2017-03-29 14:05] LABS: GRAN # 5.69 (1.4-6.5); GRAN % 88.6 % (50.0-68.0); HEMATOCRIT 34.9 % (36.0-48.0); LYMPH # 0.6 (1.2-3.4); LYMPH % 8.6 % (22.0-35.0); MEAN CELL VOLUME 85.3 fl (80.0-105.0); MEAN CORPUSCULAR HEMOGLOBIN 28.6 pg (25.0-35.0); MEAN CORPUSCULAR HGB CONC 33.5 g/dl (31.0-37.0); MEAN PLATELET VOLUME 10.9 fl (7.0-11.0); MONO # 0.2 (0.1-0.6); MONO % 2.8 % (1.0-6.0); RED CELL DISTRIBUTION WIDTH 15.5 % (11.5-14.5); WHITE BLOOD COUNT 6.4 10^3/ul (4.5-11.0)
[2017-03-29 14:18] LABS: ALB/GLOB RATIO 1.3 (1.1-1.8); BILIRUBIN,TOTAL 0.8 mg/dL (0.2-1.3); CALCIUM 9.9 mg/dL (8.4-10.5); POTASSIUM 3.7 mmol/L (3.6-5.0)
[2017-03-29 14:37] LABS: FREE T4 1.38 ng/dL (0.78-2.19)
--- NOTE | 2017-03-29 14:37 | PN ---
DATE: LOCATION: Room 367. This is a 76-year-old female who is presenting with diffuse abdominal pain, supervening nausea, dyspepsia and vomiting. Currently, undergoing GI workup at this time and is also being followed for metabolic management. She had abnormal thyroid function studies on admission. The repeat thyroid studies are actually pending at this time as noted. The initial TSH was less than 0.02. The latest chemistry showed BUN of 17, sodium 143, potassium 3.8, chloride 103, CO2 is 28, glucose 115 and creatinine 1.2. So at this time, we will continue the present GI workup as noted. She also has significant history of colonic and breast carcinoma with a prior gastric GIST and underwent a partial gastrectomy as noted. The malignancy markers so far have been reported as normal as noted. We will obtain serial chemistries and supplement accordingly as needed. We will also hold off any thyroid pharmacotherapy pending the availability of the results of the comprehensive thyroid function studies as ordered. We will follow. Jen Monroe MD
[2017-03-29 14:50] LABS: THYROID STIMULATING HORMONE < 0.02 mIU/mL (0.46-4.68)
[2017-03-29 17:17] VITALS: BP 149/63; PULSE 61; RESP 18; TEMP 98.1; O2SAT 99
--- NOTE | 2017-03-29 18:03 | CP.PCM.PN ---
Subjective - Date & Time of Evaluation Date of Evaluation: 03/29/17 Time of Evaluation: 10:35 - Subjective Subjective: Pt S&E this AM at bedside. Reports mild improvement of abdominal pain. NAEO. Patient scheduled for EGD this AM. Objective - Vital Signs/Intake and Output Vital Signs (last 24 hours): Temp Pulse Resp BP Pulse Ox 98.1 F 61 18 149/63 99 03/29/17 17:16 03/29/17 17:16 03/29/17 17:16 03/29/17 17:16 03/29/17 17:16 Intake and Output: 03/29/17 03/29/17 06:59 18:59 Intake Total 635 315 Balance 635 315 - Medications Medications: Current Medications Amlodipine Besylate (Norvasc) 5 mg PO QAM [facility] Last Admin: 03/29/17 09:01 Dose: 5 mg Atenolol (Tenormin) 50 mg PO QAM [facility] Last Admin: 03/29/17 09:01 Dose: 50 mg Ergocalciferol (Drisdol 50,000 Intl Units Cap) 1 cap PO Mo@1000 [facility] Ferrous Sulfate (Feosol) 324 mg PO DAILY [facility] Last Admin: 03/29/17 11:02 Dose: Not Given Sodium Chloride (Sodium Chloride 0.9%) 1,000 mls @ 100 mls/hr IV .Q10H [facility] Last Admin: 03/29/17 12:31 Dose: Not Given Letrozole (Femara) 2.5 mg PO DAILY [facility] Last Admin: 03/29/17 13:19 Dose: 2.5 mg Morphine Sulfate (Morphine) 2 mg IVP Q4H PRN PRN Reason: Pain, moderate (4-7) Multivitamins (Thera Tab) 1 tab PO DAILY [facility] Last Admin: 03/29/17 11:03 Dose: Not Given (Imatinib Mesylate [ Imatinib Mesylate] 100 Mg) 100 mg PO BID [facility] Non-Formulary Medication (Multivit With Minerals/Lutein [Vision Plus Lutein Vitamin Tab]) 1 tab PO DAILY [facility] Last Admin: 03/29/17 11:03 Dose: Not Given Nystatin/Triamcinolone Acetonide (Nystatin/Triamcinolone Cream) 0 ea TOP BID [facility] Last Admin: 03/29/17 11:03 Dose: Not Given Ondansetron HCl (Zofran Inj) 4 mg IVP Q4H PRN PRN Reason: Nausea/Vomiting Last Admin: 03/27/17 10:54 Dose: 4 mg Pantoprazole Sodium (Protonix Ec Tab) 20 mg PO ACB [facility] Last Admin: 03/29/17 11:03 Dose: Not Given Sucralfate (Carafate Tab) 1 gm PO BID [facility] Last Admin: 03/29/17 17:58 Dose: 1 gm - Labs Labs: 03/29/17 13:50 03/29/17 13:50 - Constitutional Appears: No Acute Distress - Head Exam Head Exam: NORMOCEPHALIC - Eye Exam Eye Exam: Normal appearance - ENT Exam ENT Exam: Mucous Membranes Moist - Respiratory Exam Respiratory Exam: NORMAL BREATHING PATTERN - Cardiovascular Exam Cardiovascular Exam: +S1, +S2 - GI/Abdominal Exam GI & Abdominal Exam: Soft - Neurological Exam Neurological Exam: Alert, Awake, Oriented x3 - Psychiatric Exam Psychiatric exam: Normal Mood - Skin Skin Exam: Intact, Warm Assessment and Plan - Assessment and Plan (Free Text) Assessment: 76 yo Female with cholelithiasis -HIDA Negative -EGD: Normal duodenum. Small hiatal hernia. Arrington's esophagus. See endoscopy report for full details -No plan for surgical intervention at this present time -Further recs per Dr. Conrad York PGY-2
[2017-03-29 21:34] LABS: CORTISOL AM 14.4 ug/dL (4.46-22.7)
--- NOTE | 2017-03-30 03:12 | CP.PCM.PN ---
Subjective - Date & Time of Evaluation Date of Evaluation: 03/29/17 Time of Evaluation: 00:15 - Subjective Subjective: S:Nurse stated that blood pressure is 177/59. Is to receive prbc transfusion. Has no other complaints. Medical record was reviewed. O:177/59. Awake, alert, not in distress. LUNGS:Normal breathing pattern. A:Elevated blood pressure reading. P:Norvasc 5 mg PO stat. Objective - Vital Signs/Intake and Output Vital Signs (last 24 hours): Temp Pulse Resp BP Pulse Ox 98.1 F 61 18 149/63 99 03/29/17 17:16 03/29/17 17:16 03/29/17 17:16 03/29/17 17:16 03/29/17 17:16 Intake and Output: 03/29/17 03/30/17 18:59 06:59 Intake Total 315 Balance 315 - Labs Labs: 03/29/17 13:50 03/29/17 13:50
--- NOTE | 2017-04-02 08:52 | PQF GENQUE ---
This form is a permanent part of the medical record Dr. Ray, Clarification of your documentation is requested to better reflect the severity of illness and intensity of treatment of your patient. Indicators present : Patient was given 2-units of red blood cell transfusion on 03/29 with hgb=8.9, hct=28.6. Can you please provide us a diagnosis. Please specify below. Thank you. [] Specify: [] [] Specify: [] [] Specify: [] [] Specify: [] Location in the medical record that reflects the above clinical findings: [] Treatment Provided: [] blood transfusion PHYSICIAN'S RESPONSE Based on your medical judgment of the clinical indicators outlined above please clarify the following: [] Practitioner response [] If unable to determine, please check the box, sign and date. Present On Admission (POA) Indicator: [] Present at the time of admission [] Not present at the time of admission [] Clinically Undetermined In responding to this query, please exercise your independent professional judgment. The fact that a question is asked does not imply that any particular answer is desired or expected. Thank you for your clarification on this documentation. 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 PAOLO
[2017-04-02] MEDS ORDERED: Ergocalciferol 50,000 Intl Units Cap PO SCH ×2 (10:00)
[2017-04-02 13:56] LABS: TSI <89 % baseline (<140)
== END 2017-03-29 18:37 | disposition home or self-care (01) | DRG 446 ==
LOC: ED 10:10 → ERH 14:44 → 3RNO 17:33 → OBSVTOIN 03-27 16:32
PROVIDERS: ADMIT Internal Medicine; ATTEND Internal Medicine
PROC: 30233N1 Transfusion of Nonautologous Red Blood Cells into Peripheral Vein, Percutaneous Approach (ICD-10-PCS; 2017-03-29)
PROC: 0DJ08ZZ Inspection of Upper Intestinal Tract, Via Natural or Artificial Opening Endoscopic (ICD-10-PCS; principal; 2017-03-29 10:30)
DX: K80.20 Calculus of gallbladder without cholecystitis without obstruction (principal); I11.9 Hypertensive heart disease without heart failure; M10.9 Gout, unspecified; K44.9 Diaphragmatic hernia without obstruction or gangrene; E07.81 Sick-euthyroid syndrome; K22.70 Barrett's esophagus without dysplasia; Z85.028 Personal history of other malignant neoplasm of stomach; Z85.038 Personal history of other malignant neoplasm of large intestine; Z85.3 Personal history of malignant neoplasm of breast

== ENCOUNTER 2017-10-11 07:33 | Day surgery (SDC) | payer MEDICARE ==
[2017-10-04 14:22] VITALS: BMI 28.1
[2017-10-11] MEDS ORDERED: Propofol 10 mg/ml Inj (20 ML) ONE (10:01)
[2017-10-11] MEDS ORDERED: Sodium Chloride 0.9% 1,000 ML IV SCH (10:45)
[2017-10-11 10:54] VITALS: RESP 18
[2017-10-11 11:20] VITALS: BP 150/93; PULSE 60; TEMP 98.5; O2SAT 98
== END 2017-10-11 11:49 | disposition home or self-care (01) ==
LOC: ENDO 07:33
PROVIDERS: ATTEND Internal Medicine Gastroenterology
DX: K31.7 Polyp of stomach and duodenum (principal); K57.30 Diverticulosis of large intestine without perforation or abscess without bleeding; K64.8 Other hemorrhoids; D50.9 Iron deficiency anemia, unspecified; K63.89 Other specified diseases of intestine; Z90.3 Acquired absence of stomach [part of]
CPT/HCPCS: 43251; 45378; 88305; 88342; J2001; J2704; J7040 ×2

== ENCOUNTER 2017-12-08 14:32 | Inpatient (IN) | payer MEDICARE, OTHER ==
[2017-12-08 14:46] VITALS: BMI 28.9
[2017-12-08 17:04] LABS: BASO # 0.01 K/mm3 (0.0-2.0); BASO % 0.2 % (0.0-3.0); EOS # 0.1 (0.0-0.7); EOS % 0.9 % (1.5-5.0); GRAN # 4.88 (1.4-6.5); GRAN % 84.6 % (50.0-68.0); HEMOGLOBIN 8.8 g/dL (12.0-16.0); LYMPH # 0.7 (1.2-3.4); LYMPH % 11.4 % (22.0-35.0); MEAN CELL VOLUME 87.8 fl (80.0-105.0); MEAN CORPUSCULAR HEMOGLOBIN 27.5 pg (25.0-35.0); MEAN CORPUSCULAR HGB CONC 31.3 g/dl (31.0-37.0); MEAN PLATELET VOLUME 10.1 fl (7.0-11.0); MONO # 0.2 (0.1-0.6); MONO % 2.9 % (1.0-6.0); RBC 3.2 10^6/uL (3.5-6.1); RED CELL DISTRIBUTION WIDTH 16.8 % (11.5-14.5); WHITE BLOOD COUNT 5.8 10^3/ul (4.5-11.0)
[2017-12-08 17:14] LABS: INR 0.91 (0.93-1.08); PARTIAL THROMBOPLASTIN TIME 23.6 Seconds (25.1-36.5); PROTHROMBIN TIME 10.4 SECONDS (9.4-12.5)
[2017-12-08 17:17] LABS: ALB/GLOB RATIO 1.2 (1.1-1.8); ALBUMIN 3.7 g/dL (3.0-4.8); CALCIUM 9.7 mg/dL (8.4-10.5)
--- NOTE | 2017-12-08 17:39 | RAD ---
HISTORY: CP COMPARISON: 03/26/2017 FINDINGS: LUNGS: No active pulmonary disease. PLEURA: No significant pleural effusion identified, no pneumothorax apparent. CARDIOVASCULAR: Moderate cardiomegaly and moderate vascular congestion. Bibasilar infiltrates OSSEOUS STRUCTURES: No significant abnormalities. VISUALIZED UPPER ABDOMEN: Normal. OTHER FINDINGS: None. IMPRESSION: Moderate cardiomegaly and moderate vascular congestion. Bibasilar infiltrates
[2017-12-08 17:41] LABS: TROPONIN I 0.25 ng/mL
[2017-12-08 18:20] LABS: URINE BILIRUBIN NEGATIVE (NEGATIVE); URINE BLOOD TRACE-INTACT (NEGATIVE); URINE GLUCOSE (UA) NEGATIVE (NEGATIVE); URINE LEUKOCYTE ESTERASE SMALL Leu/uL (NEGATIVE); URINE PROTEIN 100 mg/dL (<30 mg/dL); URINE UROBILINOGEN 0.2 E.U./dL (<1 E.U./dL)
[2017-12-08 18:21] LABS: URINE APPEARANCE CLEAR (CLEAR); URINE COLOR LIGHT YELLOW (YELLOW)
[2017-12-08 18:32] LABS: URINE EPITHELIAL CELLS 0 - 2 /hpf (0-5); URINE HYALINE CAST 0 - 2 /hpf; URINE RBC NEGATIVE /hpf (0-2); URINE WBC 0 - 2 /hpf (0-6)
--- NOTE | 2017-12-08 19:44 | ED PDOC ---
Arrival/HPI - General Chief Complaint: Chest Pain Time Seen by Provider: 12/08/17 15:06 Historian: Patient - History of Present Illness Narrative History of Present Illness (Text): 12/08/17 19:43 77-year-old female with a history of colon cancer and breast cancer presents today with a one-week history 3 of chest tightness and dyspnea on exertion. Patient denies fevers or chills. pt states she has been having increased SOB. pt states she is now becoming short of breath just moving from sitting to standing position. pt described a pressure sensation on the chest. pt denies abdominal pain. no n/v/d/c. no urinary symptoms. pt denies lower leg edema. pt states she has hx of anemia and had recent colonoscopy. pt denies rectal bleeding. Time/Duration: 1 week Symptom Onset: Gradual Symptom Course: Worsening Quality: Tightness Severity Level: Mild Past Medical History - Provider Review Nursing Documentation Reviewed: Yes - Travel History Have you recently traveled outside [place] w/in the past 3 mons?: No - Infectious Disease Hx of Infectious Diseases: None - Tetanus Immunization Tetanus Immunization: Unknown - Cardiac Hx Cardiac Disorders: Yes Hx Heart Murmur: Yes Hx Pacemaker: No - Pulmonary Hx Respiratory Disorders: No - Neurological Hx Paralysis: No - HEENT Hx HEENT Disorder: (WEARS RX GLASSES) - Renal Hx Renal Disorder: No - Endocrine/Metabolic Hx Endocrine Disorders: No - Hematological/Oncological Hx Blood Transfusions: No - Integumentary Hx Dermatological Disorder: No - Musculoskeletal/Rheumatological Hx Musculoskeletal Disorders: Yes Hx Gout: Yes - Gastrointestinal Hx Gastrointestinal Disorders: Yes Hx Pancreatitis: Yes HX Swallowing Problems: Yes Other/Comment: hx colon ca,GI BLEED 09-14-15, - Genitourinary/Gynecological Hx Genitourinary Disorders: Yes Other/Comment: hx hysterectomy,BILATERAL lumpectomy - Psychiatric Hx Emotional Abuse: No Hx Physical Abuse: No Hx Substance Use: No - Surgical History Other/Comment: brain surgery - Anesthesia Hx Anesthesia Reactions: No Hx Malignant Hyperthermia: No - Suicidal Assessment Feels Threatened In Home Enviroment: No Family/Social History - Physician Review Nursing Documentation Reviewed: Yes Family/Social History: Unknown Family HX Smoking Status: Never Smoked Hx Alcohol Use: No Hx Substance Use: No Allergies/Home Meds Allergies/Adverse Reactions: Allergies No Known Allergies Allergy (Verified 10/04/17 14:22) Home Medications: Home Meds Medication Instructions Recorded Confirmed Omeprazole [Prilosec] 20 mg PO QAM 08/30/15 12/08/17 Multivitamin [Multiple Vitamins] 1 tab PO DAILY 08/31/15 12/08/17 Atenolol [Tenormin] 50 mg PO QAM 09/21/15 12/08/17 amLODIPine [Norvasc] 5 mg PO DAILY 09/21/15 12/08/17 Multivit with Minerals/Lutein 1 tab PO DAILY 02/23/16 12/08/17 [Vision Plus Lutein Vitamin Tab] Cholecalciferol [Vitamin D 1000 IU] 50,000 iu PO QWK 03/26/17 12/08/17 Letrozole [Femara] 2.5 mg PO DAILY 03/26/17 12/08/17 Iron,Carbonyl [Feosol] 27 mg PO DAILY 06/21/17 12/08/17 Allopurinol [Zyloprim] 300 mg PO DAILY 12/08/17 12/08/17 Review of Systems - Review of Systems Constitutional: Fatigue. absent: Fevers ENT: absent: Sinus Congestion Respiratory: SOB, Cough Cardiovascular: Chest Pain. absent: Palpitations Gastrointestinal: absent: Abdominal Pain, Nausea, Vomiting Musculoskeletal: absent: Arthralgias, Back Pain, Neck Pain Skin: absent: Rash, Pruritis Neurological: absent: Headache, Dizziness Psychiatric: absent: Anxiety, Depression, Suicidal Ideation Physical Exam Vital Signs Reviewed: Yes Vital Signs Temp Pulse Resp BP Pulse Ox 12/08/17 18:12 98 F 85 18 167/90 H 98 12/08/17 15:58 79 18 142/85 98 12/08/17 15:04 98.0 F 99 H 17 184/80 H 100 Temperature: Afebrile Blood Pressure: Hypertensive Pulse: Regular Respiratory Rate: Normal Appearance: Positive for: Well-Appearing, Non-Toxic, Comfortable Pain Distress: None Mental Status: Positive for: Alert and Oriented X 3 - Systems Exam Head: Present: Atraumatic Mouth: Present: Moist Mucous Membranes Nose (External): Present: Atraumatic Nose (Internal): Present: Normal Inspection Neck: Present: Normal Range of Motion, Trachea Midline Respiratory/Chest: Present: Good Air Exchange, Rales. No: Clear to Auscultation , Respiratory Distress, Accessory Muscle Use, Tachypneic Cardiovascular: Present: Regular Rate and Rhythm, Murmurs. No: Tachycardic, Muffled Abdomen: No: Tenderness, Distention, Peritoneal Signs, Rebound, Guarding Rectal: Present: Occult Blood, Hemorrhoids, Normal Rectal Tone. No: Rectal Tenderness, Gross Blood, Melena, Fissures, Nodule/Mass/Lesions Back: Present: Normal Inspection Upper Extremity: Present: Normal ROM. No: Edema Lower Extremity: Present: Normal ROM. No: Edema Neurological: Present: GCS=15, Speech Normal Skin: Present: Warm, Dry, Normal Color. No: Rashes Psychiatric: Present: Alert, Oriented x 3 Medical Decision Making ED Course and Treatment: 12/08/17 19:54 77-year-old female with a history of hypertension, colon cancer, breast cancer presenting with shortness of breath and chest pain worsening over the past week Patient was stable vital signs with bilateral lower rales saturating at 98% on room air. CTA was ordered as patient with significant cancer history with shortness of breath. Due to BUN and creatinine CT was canceled. Nuclear medicine study ordered. CBC hemoglobin 8.8 CMP BUN 34 creatinine 1.4 glucose is 90 Troponin 0.25 BNP; 10,100 Chest x-ray shows cardiomegaly with vascular congestion pt was seen and evaluated by dr. veliz; ASA given pO protonix given IVP 40 lasix given IVP case was discussed with dr. wong in depth; will hold on anticoagulation as patient with anemia and heme positive stools; He advised to hold off nuclear medicine study as history and presentation fits CHF and Nstemi; consult dr. lowe. case was discussed with dr. lowe in depth; agrees to no anticoagulation. advised to transfuse 1Unit and then given 40 lasix IVP after transfusion. 40mg iV lasix ordered to given after transfusion. i conveyed this order to the nurse libra that lasix is to be given ONLY after transfusion. consent for blood transfusion obtained. all results discussed in depth with patient. all aspects of this case were discussed the attending of record. impression; NSTEMI, CHF exacerbation admit to tele. - Lab Interpretations Lab Results: 12/08/17 16:56 12/08/17 16:56 Lab Results 12/08/17 18:20: Blood Type O POSITIVE, Antibody Screen Negative, Crossmatch See Detail, BBK History Checked Patient has bt 12/08/17 18:00: Urine Color Light yellow, Urine Appearance Clear, Urine pH 6.0, Ur Specific Vandiver 1.025, Urine Protein 100 H, Urine Glucose (UA) Negative, Urine Ketones Negative, Urine Blood Trace-intact H, Urine Nitrate Negative, Urine Bilirubin Negative, Urine Urobilinogen 0.2, Ur Leukocyte Esterase Small H , Urine RBC Negative, Urine WBC 0 - 2, Ur Epithelial Cells 0 - 2, Hyaline Casts 0 - 2 12/08/17 16:56: Sodium 149 H, Potassium 4.2, Chloride 112 H, Carbon Dioxide 24, Anion Gap 17, BUN 34 H, Creatinine 1.4 H, Est GFR ( Amer) 44, Est GFR ( Non-Af Amer) 36, Random Glucose 90, Calcium 9.7, Magnesium 2.0, Total Bilirubin 0.3, AST 37 H D, ALT 43, Alkaline Phosphatase 88, Lactate Dehydrogenase 518, Total Creatine Kinase 33 L, Troponin I 0.25 H* D, NT-Pro-B Natriuret Pep 28488 H , Total Protein 6.8, Albumin 3.7, Globulin 3.1, Albumin/Globulin Ratio 1.2 12/08/17 16:56: PT 10.4, INR 0.91 L, APTT 23.6 L 12/08/17 16:56: WBC 5.8, RBC 3.20 L, Hgb 8.8 L D, Hct 28.1 L, MCV 87.8, MCH 27.5 , MCHC 31.3, RDW 16.8 H, Plt Count 192, MPV 10.1, Gran % 84.6 H, Lymph % (Auto) 11.4 L, Potter % (Auto) 2.9, Eos % (Auto) 0.9 L, Baso % (Auto) 0.2, Gran # 4.88, Lymph # (Auto) 0.7 L, Potter # (Auto) 0.2, Eos # (Auto) 0.1, Baso # (Auto) 0.01 - RAD Interpretation Radiology Orders: 12/08/17 15:22 CHEST PORTABLE [RAD] Stat - Medication Orders Current Medication Orders: Discontinued Medications Aspirin (Aspirin) 325 mg PO STAT STA Stop: 12/08/17 17:47 Last Admin: 12/08/17 18:12 Dose: 325 mg Furosemide (Lasix) 40 mg IVP STAT STA Stop: 12/08/17 17:46 Last Admin: 12/08/17 18:12 Dose: 40 mg MAR Blood Pressure Document 12/08/17 18:12 LA (Rec: 12/08/17 18:12 LA [id number]) Blood Pressure Blood Pressure (100/60-150/90 mm Hg) 167/90 IVP Administration Document 12/08/17 18:12 LA (Rec: 12/08/17 18:12 LA [id number]) Charges for Administration # of IVP Administrations 1 Furosemide (Lasix) 40 mg IVP STAT STA Stop: 12/08/17 19:19 Pantoprazole Sodium (Protonix Inj) 40 mg IVP STAT STA Stop: 12/08/17 18:22 Last Admin: 12/08/17 19:10 Dose: 40 mg IVP Administration Document 12/08/17 19:10 LA (Rec: 12/08/17 19:10 LA [id number]) Charges for Administration # of IVP Administrations 1 Disposition/Present on Arrival - Present on Arrival Any Indicators Present on Arrival: No History of DVT/PE: No History of Uncontrolled Diabetes: No Urinary Catheter: No History of Decub. Ulcer: No History Surgical Site Infection Following: None - Disposition Have Diagnosis and Disposition been Completed?: Yes Diagnosis: CHF (congestive heart failure), NSTEMI (non-ST elevated myocardial infarction) , Anemia Disposition: HOSPITALIZED Disposition Time: 18:00 Patient Plan: Admission Patient Problems: Current Active Problems Problem Status Onset Anemia Acute CHF (congestive heart failure) Acute NSTEMI (non-ST elevated myocardial infarction) Acute Condition: FAIR Discharge Instructions (ExitCare): Heart Failure (ED) Referrals: [facility], [Non-Staff] - Follow up with primary Forms: [employer] (Sinhala)
[2017-12-08] MEDS ORDERED: Azithromycin 500MG/NS 250ml 500 MG/250 ML BAG IVPB STA (19:47)
[2017-12-08] MEDS ORDERED: cefTRIAXone 1 gm 1 GM/100 ML BAG IVPB STA (19:47)
[2017-12-09 09:13] LABS: BASO # 0.01 K/mm3 (0.0-2.0); BASO % 0.2 % (0.0-3.0); EOS # 0.1 (0.0-0.7); EOS % 1.3 % (1.5-5.0); GRAN # 4.33 (1.4-6.5); GRAN % 82.5 % (50.0-68.0); HEMOGLOBIN 10.1 g/dL (12.0-16.0); LYMPH # 0.7 (1.2-3.4); LYMPH % 13.7 % (22.0-35.0); MEAN CELL VOLUME 86.8 fl (80.0-105.0); MEAN CORPUSCULAR HEMOGLOBIN 27.7 pg (25.0-35.0); MONO # 0.1 (0.1-0.6); MONO % 2.3 % (1.0-6.0); RBC 3.64 10^6/uL (3.5-6.1); WHITE BLOOD COUNT 5.3 10^3/ul (4.5-11.0)
[2017-12-09 09:24] LABS: ALB/GLOB RATIO 1.3 (1.1-1.8); ALBUMIN 4.1 g/dL (3.0-4.8); CALCIUM 10.1 mg/dL (8.4-10.5)
[2017-12-09 09:40] LABS: TROPONIN I 0.29 ng/mL
--- NOTE | 2017-12-09 10:44 | CARD ---
APPROVED REPORT EKG Measurement Heart [id number] <Conclusion> Normal sinus rhythm Possible Left atrial enlargement Left ventricular hypertrophy with repolarization abnormality STTW changes c/w ischemia, increased c/w ecg 03/26/17
[2017-12-09] MEDS: Nitroglycerin 2% Ointment Foilpak UD TOP SCH ×3 (11:45→22:48)
--- NOTE | 2017-12-09 15:32 | RAD ---
HISTORY: F/U pneumonia and compare COMPARISON: 12/08/2017 TECHNIQUE: Chest PA and lateral FINDINGS: LUNGS: No significant change in bibasilar infiltrates and effusions PLEURA: No significant pleural effusion identified. No pneumothorax apparent. CARDIOVASCULAR: Normal. OSSEOUS STRUCTURES: No significant abnormalities. VISUALIZED UPPER ABDOMEN: Normal. OTHER FINDINGS: None. IMPRESSION: No significant change in bibasilar infiltrates and effusions
--- NOTE | 2017-12-10 02:10 | CON ---
DATE: 12/09/2017 This is [facility] consult on the telemetry floor. For Dr. Beebe. CHIEF COMPLAINT: Chest tightness, ALFONSO. HISTORY OF PRESENT ILLNESS: The patient is a 77-year-old female admitted via the Emergency Room for chest tightness, dyspnea on exertion with increasing shortness of breath with pressure to the chest, with the patient's admission to the telemetry floor as per her primary doctor, Dr. Salas, revealing elevated troponins with a B-natriuretic peptide significantly elevated. At present, she is now resting comfortably after diuretics were given along with nitroglycerin in the foam of isosorbide mononitrate and nitro paste. With this, the patient is presently reporting that her shortness of breath has improved, resting sitting up in a chair with family at the bedside. ALLERGIES: NO KNOWN ALLERGIES. MEDICATIONS: Include aspirin, Femara, Feosol, Imdur, Lasix, Nitro-Bid ointment, Norvasc, Protonix, Tenormin, and allopurinol. 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 FAMILY HISTORY AND SOCIAL HISTORY: Non-ethanolic, nonsmoker. Patient's and daughters were at the bedside. Otherwise, noncontributory. REVIEW OF SYSTEMS: Twelve-point review of systems was done, which was negative to questioning except for items mentioned in the history of present illness. PHYSICAL EXAMINATION: VITAL SIGNS: Temperature 98.8, pulse 75, respirations 18, blood pressure 163/84 with a pulse ox of 95% with oxygen now placed. HEENT: Unremarkable. NECK: Supple. HEART: Regular rate. LUNGS: Faint crackles at the bases. ABDOMEN: Obese, soft, nontender. EXTREMITIES: No edema. SKIN: Warm and dry. NEUROLOGIC: Awake, alert, and oriented x3. She denies any further shortness of breath or chest discomfort. LABORATORY DATA: The patient's labs were done, white blood cell count of 5.3, hemoglobin of 8.8 on admission. She was then transfused one unit of packed red blood cells and a hemoglobin today is at 10.1, hematocrit of 31.6, and platelet count of 173,000. Her chem metabolic panel was within normal limits with except for a BUN of 34, creatinine of 1.6 after Lasix was given. Her troponin is 0.25, yesterday 0.29, today with a B-natriuretic peptide of 10,100. Otherwise, normal chem metabolic panel. Her urinalysis showed 100 mg/dL protein, otherwise negative INR of 0.9. Her chest x-ray was done yesterday. It was read as moderate cardiomegaly and moderate vascular congestion, bibasilar infiltrates. An EKG was done yesterday, it was read as normal sinus rhythm, positive left atrial enlargement, left ventricular hypertrophy with repolarization abnormality, ST-T wave changes consistent with ischemia increased from EKG of 03/2017. ASSESSMENT: The assessment for this patient is that of subendocardial myocardial infarction, congestive heart failure, anemia of chronic disease, hypertension, history of GI bleed, history of gastrointestinal stromal tumor, history of breast cancer, history of colon cancer, gout. PLAN: The plan for this patient after conversation with Dr. Beebe is to continue present medical regimen as per Dr. Salas and Dr. Iverson, her business account manager. We will add oxygen at the bedside, 2 liters nasal cannula with continuation of her present medical regimen with further testing as per Dr. Iverson with monitoring of her labs. No further transfusions at present with prognosis for this patient guarded. It should be noted that the patient was taking Gleevec for her GIST tumor, which will be on hold for now. This is a complex patient with a comprehensive medically necessary and appropriate visit carried out in excess of 40 minutes [id number] time with the patient's questions answered to her satisfaction, family's questions answered, discussion held with nurses on the floor with prognosis for the patient guarded. We will monitor clinically and with labs Haris Barney MD
--- NOTE | 2017-12-10 04:57 | CON ---
DATE: 12/09/2017 HISTORY OF PRESENT ILLNESS: This patient was seen and evaluated earlier today. Patient's family was at bedside. This 77-year-old patient with past medical history of colon cancer, history of status post right hemicolectomy, complicated postoperative course requiring repeat surgery and small bowel resections and patient has a history of GIST tumor, status post partial gastrectomy, history of breast cancer, admitted with chest tightness. Patient has a history of gallstone, never had a surgery done. Patient was also found to be anemic with a hemoglobin of 8.8. GI consult was requested to evaluate it because of this atypical chest pain, anemia. No history of vomiting blood. No bleeding per rectum. No fever. PAST MEDICAL HISTORY: Other past medical history is significant as above. History of gouty arthritis, history of pancreatitis before. ALLERGIES: NO KNOWN DRUG ALLERGIES. SOCIAL HISTORY: Denies smoking. No alcohol. REVIEW OF SYSTEMS: Positive as above. Other systems reviewed. PHYSICAL EXAMINATION: GENERAL: Patient is lying on the bed, not in acute distress. VITAL SIGNS: Temperature 98.8, blood pressure 163/84, pulse 75, respirations 18. HEENT: Atraumatic, anicteric. NECK: Supple. HEART: S1 and S2 heard. LUNGS: Bilateral air entry present. ABDOMEN: Soft. There was no tenderness. EXTREMITIES: No edema, no cyanosis. NEUROLOGIC: Alert, oriented. Moves all the extremities. LABORATORY DATA: Hemoglobin on admission was 8.8, patient received a unit of transfusion, repeat one 10.1, 31.6. WBC is 5.3, platelet count 173. Chemistry shows essentially BUN 34, creatinine 1.6, troponin elevated to 0.29. IMPRESSION: This 77-year-old patient with a history of colon cancer, history of status post hemicolectomy, history of breast cancer, history of gastrointestinal stromal tumor status post partial gastrectomy admitted with chest pain and patient has an elevated troponin level. Stool for occult blood was positive. Patient had colonoscopy done on 10/11/2017, which showed only diverticulosis and internal hemorrhoids, otherwise unremarkable colon and patient had an upper gastrointestinal endoscopy, which showed a gastric polyp, which was removed and pathology was reported of hyperplastic polyp. The etiology for anemia is unclear. Patient does have a stool for occult blood positive. The differential diagnosis should include, 1. Small bowel lesion, arteriovenous malformation to be considered in addition. Would recommend, CT scan of the abdomen and pelvis with p.o. contrast only to further evaluate. Patient has a reduced GFR, chronic kidney disease. 2. Patient also has gallstones, refused surgery in the past, history of pancreatitis in the past. 3. Anemia, could be a multifactorial etiology secondary to the renal disease and patient does have a right hemicolectomy. We will check the iron studies and also B12 levels. Patient is on pantoprazole 40 mg, we will continue that. The other comorbidities include hypertension. Patient has been on iron supplement. Patient is tolerating the diet. We will continue to closely followup her care and suggest further management based on the clinical course. Adolfo Mendes MD
[2017-12-10] MEDS: Pantoprazole 40 mg EC Tab PO SCH (05:41)
--- NOTE | 2017-12-10 06:49 | CP.PCM.PN ---
<Manuela Fitch - Last Filed: 12/10/17 11:08> Subjective - Date & Time of Evaluation Date of Evaluation: 12/10/17 Time of Evaluation: 07:00 - Subjective Subjective: GI Progress Note for Bennie Garza PGY2 Patient seen and examined at bedside. As per nursing staff, there were no acute overnight events. Patient reports her chest pain is much better today. She denies shortness of breath, fever/chills, numbness/tingling, nausea/vomiting/ diarrhea, dysuria or hematuria. Her last BM was yesterday. Objective - Vital Signs/Intake and Output Vital Signs (last 24 hours): Temp Pulse Resp BP Pulse Ox 98.0 F 82 18 157/80 H 100 12/10/17 06:00 12/10/17 06:00 12/10/17 06:00 12/10/17 06:00 12/10/17 06:00 Intake and Output: 12/09/17 12/10/17 18:59 06:59 Intake Total 780 360 Output Total 850 550 Balance -70 -190 - Medications Medications: Current Medications Allopurinol (Zyloprim) 300 mg PO DAILY [facility] Last Admin: 12/09/17 10:18 Dose: 300 mg Amlodipine Besylate (Norvasc) 10 mg PO DAILY [facility] Amlodipine Besylate (Norvasc) 5 mg PO ONCE ONE Stop: 12/10/17 11:24 Atenolol (Tenormin) 50 mg PO DAILY [facility] Last Admin: 12/09/17 09:48 Dose: 50 mg Ferrous Sulfate (Feosol) 27 mg PO DAILY [facility] Isosorbide Mononitrate (Imdur) 60 mg PO DAILY [facility] Letrozole (Femara) 2.5 mg PO DAILY [facility] Last Admin: 12/09/17 10:18 Dose: 2.5 mg Pantoprazole Sodium (Protonix Ec Tab) 40 mg PO 0600 [facility] Last Admin: 12/10/17 05:41 Dose: 40 mg - Labs Labs: 12/09/17 08:45 12/09/17 08:45 PT 10.4 SECONDS (9.4-12.5) 12/08/17 16:56 INR 0.91 (0.93-1.08) L 12/08/17 16:56 APTT 23.6 Seconds (25.1-36.5) L 12/08/17 16:56 - Constitutional Appears: No Acute Distress - Head Exam Head Exam: ATRAUMATIC, NORMAL INSPECTION, NORMOCEPHALIC - Eye Exam Eye Exam: PERRL Pupil Exam: PERRL - ENT Exam ENT Exam: Mucous Membranes Moist - Respiratory Exam Respiratory Exam: Clear to Ausculation Bilateral, NORMAL BREATHING PATTERN. absent: Rales, Rhonchi, Wheezes - Cardiovascular Exam Cardiovascular Exam: REGULAR RHYTHM, +S1, +S2, Murmur (holosystolic ). absent: Gallop, Rubs - GI/Abdominal Exam GI & Abdominal Exam: Soft, Normal Bowel Sounds. absent: Rigid, Tenderness, Mass , Rebound - Neurological Exam Neurological Exam: Alert, Awake, CN II-XII Intact - Psychiatric Exam Psychiatric exam: Normal Affect, Normal Mood - Skin Skin Exam: Dry, Warm Assessment and Plan - Assessment and Plan (Free Text) Assessment: This is a 77yo female with past medical history of colon cancer s/p hemicolectomy, breast ca, GIST s/p partial gastrectomy, gallstones who was admitted for 1. NSTEMI 2. Anemia with stool occult positive (can be secondary to AVM v. multifactorial ) 3. JAYCEE on CKD stage IIIa (improving) 4. Hx of gallstones 5. Hx of colon ca s/p resection 6. hx of GIST s/p partial gastrectomy Plan: Cr improving. Iron studies and B12 pending. Hgb is stable. Recommend CT A/P with PO contrast. Patient states was taking iron at home so unknown is she saw blood in stools. Oncology on consult and recommendations appreciated. Cardiology on consult. Echo is ordered. Continue PPI. Patient is tolerating diet. Case seen, discussed and reviewed with Dr. Mendes. Bennie Fitch PGY2 <Adolfo Mendes V - Last Filed: 12/11/17 00:36> Objective - Vital Signs/Intake and Output Vital Signs (last 24 hours): Temp Pulse Resp BP Pulse Ox 98.5 F 73 20 128/68 100 12/10/17 18:00 12/10/17 18:00 12/10/17 18:00 12/10/17 18:00 12/10/17 06:00 Intake and Output: 12/10/17 12/11/17 18:59 06:59 Intake Total 900 Output Total 650 Balance 250 - Medications Medications: Current Medications Allopurinol (Zyloprim) 300 mg PO DAILY [facility] Last Admin: 12/10/17 11:03 Dose: 300 mg Amlodipine Besylate (Norvasc) 10 mg PO DAILY [facility] Last Admin: 12/10/17 11:02 Dose: 10 mg Atenolol (Tenormin) 50 mg PO DAILY [facility] Last Admin: 12/10/17 11:03 Dose: 50 mg Ferrous Sulfate (Feosol) 27 mg PO DAILY [facility] Isosorbide Mononitrate (Imdur) 60 mg PO DAILY [facility] Last Admin: 12/10/17 11:00 Dose: 60 mg Letrozole (Femara) 2.5 mg PO DAILY [facility] Last Admin: 12/10/17 11:09 Dose: 2.5 mg Pantoprazole Sodium (Protonix Ec Tab) 40 mg PO 0600 [facility] Last Admin: 12/10/17 05:41 Dose: 40 mg - Labs Labs: 12/10/17 06:30 12/10/17 06:30 PT 10.4 SECONDS (9.4-12.5) 12/08/17 16:56 INR 0.91 (0.93-1.08) L 12/08/17 16:56 APTT 23.6 Seconds (25.1-36.5) L 12/08/17 16:56 Attending/Attestation - Attestation I have personally seen and examined this patient.: Yes I have fully participated in the care of the patient.: Yes I have reviewed all pertinent clinical information, including history, physical exam and plan: Yes Notes (Text): This is an addendum to GI progress report dictated by the Knot Borer.The patient was seen and examined earlier. Medical records, lab studies, imagings were reviewed. Last 24 hours events reviewed. Agreed with the above treatment plan as outlined in Knot Borer 's notes the with the addition of the following on examination the patient has mild tenderness in the right upper quadrant area no rebound or guarding Status post EGD and colonoscopy in September 2017 No GI source of bleeding noticed. Would recommend CT of the abdomen and pelvis with by mouth contrast Hydraulic Blocker follow-up Follow up of the hemoglobin hematocrit 12/11/17 00:14
[2017-12-10 07:25] LABS: BASO # 0.01 K/mm3 (0.0-2.0); BASO % 0.2 % (0.0-3.0); EOS # 0.1 (0.0-0.7); EOS % 1.4 % (1.5-5.0); GRAN # 3.97 (1.4-6.5); GRAN % 80.3 % (50.0-68.0); LYMPH # 0.7 (1.2-3.4); LYMPH % 14.7 % (22.0-35.0); MEAN CELL VOLUME 88.9 fl (80.0-105.0); MEAN CORPUSCULAR HEMOGLOBIN 27.7 pg (25.0-35.0); MEAN CORPUSCULAR HGB CONC 31.2 g/dl (31.0-37.0); MEAN PLATELET VOLUME 10.2 fl (7.0-11.0); MONO # 0.2 (0.1-0.6); MONO % 3.4 % (1.0-6.0); RBC 3.61 10^6/uL (3.5-6.1); RED CELL DISTRIBUTION WIDTH 16.2 % (11.5-14.5)
[2017-12-10 07:46] LABS: ALB/GLOB RATIO 1.3 (1.1-1.8); ALBUMIN 3.6 g/dL (3.0-4.8); CALCIUM 9.6 mg/dL (8.4-10.5)
--- NOTE | 2017-12-10 08:08 | CP.PCM.PN ---
Subjective - Date & Time of Evaluation Date of Evaluation: 12/10/17 Time of Evaluation: 08:08 - Subjective Subjective: Hematology-Oncology Progress note for Dr. Beebe Patient seen and examined sitting up in bed. Nursing reported no acute events overnight. Patient reports she feels better this AM and her chest pain and dyspnea has resolved. Denied acute complaints of fever, chills, headache, dizziness, chest pain, palpitations, SOB, cough, abd pain, nausea, vomiting, bowel/bladder complaints, pain/swelling in her legs bilaterally. Patient is eating well and has a good appetite and last BM was the day before. Objective - Vital Signs/Intake and Output Vital Signs (last 24 hours): Temp Pulse Resp BP Pulse Ox 98.0 F 82 18 157/80 H 100 12/10/17 06:00 12/10/17 06:00 12/10/17 06:00 12/10/17 06:00 12/10/17 06:00 Intake and Output: 12/10/17 12/10/17 06:59 18:59 Intake Total 360 Output Total 550 Balance -190 - Medications Medications: Current Medications Allopurinol (Zyloprim) 300 mg PO DAILY [facility] Last Admin: 12/09/17 10:18 Dose: 300 mg Amlodipine Besylate (Norvasc) 10 mg PO DAILY [facility] Amlodipine Besylate (Norvasc) 5 mg PO ONCE ONE Stop: 12/10/17 11:24 Atenolol (Tenormin) 50 mg PO DAILY [facility] Last Admin: 12/09/17 09:48 Dose: 50 mg Ferrous Sulfate (Feosol) 27 mg PO DAILY [facility] Isosorbide Mononitrate (Imdur) 60 mg PO DAILY [facility] Letrozole (Femara) 2.5 mg PO DAILY [facility] Last Admin: 12/09/17 10:18 Dose: 2.5 mg Pantoprazole Sodium (Protonix Ec Tab) 40 mg PO 0600 [facility] Last Admin: 12/10/17 05:41 Dose: 40 mg - Labs Labs: 12/10/17 06:30 12/10/17 06:30 PT 10.4 SECONDS (9.4-12.5) 12/08/17 16:56 INR 0.91 (0.93-1.08) L 12/08/17 16:56 APTT 23.6 Seconds (25.1-36.5) L 12/08/17 16:56 - Constitutional Appears: Non-toxic, No Acute Distress - Head Exam Head Exam: ATRAUMATIC, NORMAL INSPECTION, NORMOCEPHALIC - Eye Exam Eye Exam: EOMI, Normal appearance, PERRL. absent: Conjunctival injection, Scleral icterus Pupil Exam: NORMAL ACCOMODATION, PERRL - ENT Exam ENT Exam: Mucous Membranes Moist - Neck Exam Neck Exam: Full ROM - Respiratory Exam Respiratory Exam: Clear to Ausculation Bilateral, NORMAL BREATHING PATTERN. absent: Accessory Muscle Use, Rales, Rhonchi, Wheezes, Respiratory Distress - Cardiovascular Exam Cardiovascular Exam: REGULAR RHYTHM, +S1, +S2, Murmur - GI/Abdominal Exam GI & Abdominal Exam: Soft, Normal Bowel Sounds. absent: Distended, Firm, Guarding, Rigid, Tenderness - Rectal Exam Rectal Exam: Deferred - Extremities Exam Extremities Exam: Full ROM, Normal Capillary Refill, Normal Inspection. absent : Pedal Edema, Tenderness - Back Exam Back Exam: NORMAL INSPECTION. absent: rash noted - Neurological Exam Neurological Exam: Alert, Awake, CN II-XII Intact, Oriented x3 - Psychiatric Exam Psychiatric exam: Normal Affect, Normal Mood - Skin Skin Exam: Dry, Intact, Normal Color, Warm Assessment and Plan - Assessment and Plan (Free Text) Assessment: 77yo female PMHx colon ca s/p hemicolectomy, b/l breast ca, GIST s/p partial gastrectomy, gallstones who was admitted to TELE unit for chest pain and dyspnea. Patient found to have an NSTEMI with elevated troponin 0.25 on admission -> 0.29 -> 0.26. In light of patient positive hemeoccult patient was not placed on anticoagulation. Patient also came in with Hgb 8.8 and was transfused 1U PRBC. Patient to not have cardiac cath as per cardio in light of positive hemeoccult. Transfuse 1U PRBC. Continue Femara. GI on board- appreciate reccs. Cardio on board- appreciate reccs. f/u Echo. Continue management as per primary Discussed with Dr. Abiel Velazquez PGY2
[2017-12-10 09:00] LABS: IRON 43 ug/dL (45-180)
--- NOTE | 2017-12-10 09:03 | CON ---
CARDIOLOGY CONSULTATION DATE: 12/09/2017 REASON FOR CONSULTATION: Non-ST segment myocardial infarction, heme positive stool, anemia, admitted with tightness of the chest. BRIEF CLINICAL HISTORY: This is a 77-year-old female with past medical history significant for breast cancer, bilateral; status post colon cancer surgery; recently found to be brain tumor; had a surgery at [facility] less than a year ago, came in yesterday with dyspnea on exertion and tightness of the chest. First troponin was borderline positive, but hemoglobin 8 and Hemoccult was positive. Also, the patient was started on aspirin, given one unit of blood, and no anticoagulation was given. The patient complained of still some mild chest tightness and more dyspnea on exertion. Denies any episode prior of chest pain. Denies any history of nausea, vomiting of blood, hemoptysis or bright red blood per rectum. PAST MEDICAL HISTORY: Significant for hypertension, hyperlipidemia, anemia, history of breast cancer, history of colon cancer, history of brain cancer recently. PAST SURGICAL HISTORY: Significant for breast surgery, colon surgery as well as craniotomy four months ago in [facility]. SOCIAL HISTORY: Denies smoking. Denies any history of alcohol abuse. CURRENT MEDICATIONS: The patient is taking allopurinol 300 mg daily, amlodipine 5 mg daily, omeprazole 20 mg daily, multivitamin daily, Femara 2.5 mg daily, iron supplementation, vitamin D 50,000 unit, atenolol 50 regularly. ALLERGIES: NO KNOWN DRUG ALLERGY. REVIEW OF SYSTEMS: As per HPI. PHYSICAL EXAMINATION: GENERAL: Height of the patient is 5 feet 2 inches, weight of the patient 158 pounds, body mass index of 28.9 kg/m2. VITAL SIGNS: Temperature afebrile, heart rate 73, blood pressure 161/79. HEENT: PERRLA. Extraocular muscles intact. NECK: Supple. No carotid bruits or thyromegaly. CHEST: Clear to auscultation. HEART: S1 and S2 regular. ABDOMEN: Soft. EXTREMITIES: Clubbing, cyanosis negative. LABORATORY DATA: EKG shows normal sinus, left atrial abnormality, LVH with ST-T changes noted. Blood workup: WBC 5.3, hemoglobin 10.1, hematocrit 31.6, platelet count 173. Chemistry shows sodium 143, potassium 3.6, chloride of 106, carbon dioxide 28, anion gap of 13, BUN 34, creatinine 1.6. BNP 10,100. Troponin 0.25, repeat 0.29. IMPRESSION: A 77-year-old female with a past medical history significant for breast cancer, status post colon surgery, colon cancer, status post craniotomy for recently diagnosed brain tumor, came in with tightness in chest exertion, dyspnea on exertion, hemoglobin 8.8, and troponin positive with ST-T changes and Hemoccult positive stool. RECOMMENDATIONS: Did not start anticoagulation because Hemoccult positive. We will give one unit of blood. Continue beta jazmin. Continue baby aspirin. Lipid profile, TSH, hemoglobin A1c. We will get echo. Continue gentle diuretics, nitrates. We will follow with you. Try to avoid cardiac catheterization because of the patient's active GI bleeding. Needs GI evaluation and followup. Possible endoscopy and colonoscopy, those will be high-risk because of the recent IN, but still the patient can go with [id number]-ex-jigo risk because needs to know if the patient should need a cardiac catheterization site of active bleeding and the source of bleeding. We will follow. In the interim, continue beta jazmin, baby aspirin as tolerated, nitrates, and aggressive control of blood pressure with JAZMIN inhibitors. We will get lipid profile, TSH, hemoglobin A1c, and echo. We will also increase amlodipine to 10 mg from today and give an extra 5 mg now and give the nitro paste and then change after tonight dose from nitro paste to Imdur 60 mg from tomorrow with all intention to treat medically, but that should the patient become more symptomatic or troponin trends up, then we will decide an invasive route, but we will try to avoid if stool guaiac remains positive. We will follow with you. We will also repeat chest x-ray, PA and lateral. Chest x-ray looks like mild congestion with cannot rule out underlying right lower lobe pneumonia. We will get PA and lateral today. Thank you, Dr. aSlas, for providing us an opportunity in taking care of the patient, Suly Swenson. Ofe Iverson MD cc: Dr. Salas
[2017-12-10 09:09] LABS: % IRON SATURATION 23 % (20-55); TOTAL IRON BINDING CAPACITY 191 ug/dL (265-497)
[2017-12-10] MEDS ORDERED: Barium Sulfate Susp 2.1% w/v, 2.0% w/w 450 mL Bottle PO ONE (09:37)
[2017-12-10 10:15] LABS: TROPONIN I 0.21 ng/mL
--- NOTE | 2017-12-10 11:31 | CARD ---
APPROVED REPORT EKG Measurement Heart [id number] [id number] <Conclusion> Normal sinus rhythm Left ventricular hypertrophy with repolarization abnormality Abnormal ECG
--- NOTE | 2017-12-10 12:26 | PN ---
DATE: 12/09/2017 DAILY PROGRESS NOTE The patient is a 77-year-old female with a history of colon carcinoma, history of breast carcinoma, history of coronary artery disease who was admitted to [facility] with a non-STEMI. She had chest pain on and off over the past 3 days. She also had complained of orthopnea in the Emergency Room. Her troponins were elevated. Her EKG showed lateral ischemia. When seen today, the family is at bedside. The patient's and daughter were there, the patient is sitting up in a chair. She is feeling well. She denies any shortness of breath or any further chest pain. Her troponins remain elevated at 0.29. She had bilateral bibasilar rales on pulmonary auscultation. Her heart sounds are regular. She received one unit of packed red blood cells with hemoglobin of 8.8 overnight. This morning, her hemoglobin is 10.1, hematocrit is 31.6, white blood cell count is 5.3, blood urea nitrogen is 34, creatinine is 1.6, sodium is 143, potassium 3.6. Her blood pressure is 163/84 with a heart rate of 75. So we are continuing to follow the patient closely. Case to be discussed with her threading machine setter, Dr. Mendes as well as her carpet installation specialist, Dr. Iverson and oncologist, Dr. Beebe. Chi Salas MD
--- NOTE | 2017-12-10 13:15 | CARD ---
APPROVED REPORT EXAM: Two-dimensional and M-mode echocardiogram with Doppler and color Doppler. INDICATION 2D DIMENSIONS IVSd1.1 (0.7-1.1cm)LVDd4.6 (3.9-5.9cm) LVOT Diameter2.2 (1.8-2.4cm)PWd0.9 (0.7-1.1cm) LVDs3.3 (2.5-4.0cm)FS (%) 28.5 % LVEF (%)55.0 (>50%) M-Mode DIMENSIONS Left Atrium (MM)4.80 (2.5-4.0cm)Aortic Root2.80 (2.2-3.7cm) Aortic Cusp Exc.1.20 (1.5-2.0cm) Aortic Valve AoV Peak Tnjopush004.0cm/sAoV VTI77.3cmAO Peak GR.54mmHg LVOT Peak Kmbcyhys54.6cm/sLVOT VTI20.70cmAO Mean GR.28mmHg RAIZA (VMAX)0.08er6IJS (VTI)1.02cm2 Mitral Valve MV E Kqzzweuh01.9cm/sMV E Peak Gr.146mmHgMV A Izlzuaih03.9cm/s E/A ratio0.8 TDI Lateral E' Peak V6.91cm/sMedial E' Peak V2.70cm/sE/Lateral E'10.5 E/Medial E'27.0 Tricuspid Valve TR Peak Mlbmpuwd366ei/sRAP PEXGUZJY77mgXnMH Peak Gr.48mmHg [id number] LEFT VENTRICLE The left ventricle is normal size. There is mild concentric left ventricular hypertrophy. The left ventricular function is normal.EF-55% There is normal LV segmental wall motion. Transmitral Doppler flow pattern is Grade III-reversible restrictive diastolic dysfunction. No left ventricle thrombus noted on this study. There is no ventricular septal defect visualized. There is no left ventricular aneurysm. There is no mass noted in the left ventricle. RIGHT VENTRICLE The right ventricle is normal size. There is normal right ventricular wall thickness. The right ventricular systolic function is normal. ATRIA The left atrium is mildly dilated. The right atrium size is normal. The interatrial septum is intact with no evidence for an atrial septal defect. AORTIC VALVE The aortic valve is calcified and displays decreased opening. There is trace aortic regurgitation. There is moderate valvular aortic stenosis. There is no aortic valvular vegetation. MITRAL VALVE The mitral valve is thickened but opens well. Mitral annular calcification is moderate. Mitral regurgitation is moderate. There is no mitral valve stenosis. There is no evidence of mitral valve prolapse. TRICUSPID VALVE The tricuspid valve leaflets are thickened , but open well. There is mild to moderate tricuspid regurgitation.RVSP-58 mmof Hg. There is mild to moderate pulmonary hypertension. There is no tricuspid valve stenosis. There is no tricuspid valve prolapse or vegetation. PULMONIC VALVE The pulmonic valve is mildly thickened. There is mild pulmonic valvular regurgitation. There is no pulmonic valvular stenosis. GREAT VESSELS The aortic root is normal in size. The ascending aorta is normal in size. The pulmonary artery is normal. The IVC is normal in size and collapses >50% with inspiration. PERICARDIAL EFFUSION There is moderate left pleural effusion. There is a trace pericardial effusion. <Conclusion> The left ventricle is normal size. There is mild concentric left ventricular hypertrophy. The left ventricular function is normal.EF-55% There is trace aortic regurgitation. There is moderate valvular aortic stenosis. Mitral regurgitation is moderate. There is mild to moderate tricuspid regurgitation.RVSP-58 mmof Hg. There is mild to moderate pulmonary hypertension. There is mild pulmonic valvular regurgitation. The IVC is normal in size and collapses >50% with inspiration. There is moderate left pleural effusion. There is a trace pericardial effusion.
--- NOTE | 2017-12-10 13:32 | CT ---
PROCEDURE: CT Abdomen and Pelvis without intravenous contrast HISTORY: anemia, abd pain, colon ca, GIST s/p gastrectomy COMPARISON: None. TECHNIQUE: Without contrast. Contrast dose: Radiation dose: Total exam DLP = 755 mGy-cm. This CT exam was performed using one or more of the following dose reduction techniques: Automated exposure control, adjustment of the mA and/or kV according to patient size, and/or use of iterative reconstruction technique. FINDINGS: LOWER THORAX: Small pleural effusions and bibasilar atelectasis LIVER: Unremarkable. No gross lesion or ductal dilatation. GALLBLADDER AND BILE DUCTS: Gallstones PANCREAS: Unremarkable. No gross lesion or ductal dilatation. SPLEEN: Unremarkable. ADRENALS: Unremarkable. No mass. KIDNEYS AND URETERS: Unremarkable. No hydronephrosis. No solid mass. VASCULATURE: Unremarkable. No aortic aneurysm. BOWEL: Diverticulosis of the descending and sigmoid colon. Suture line in the stomach. No evidence of recurrent tumor APPENDIX: Unremarkable. Normal appendix. PERITONEUM: Unremarkable. No free fluid. No free air. LYMPH NODES: Unremarkable. No enlarged lymph nodes. BLADDER: Unremarkable. REPRODUCTIVE: Unremarkable. BONES: No acute fracture. OTHER FINDINGS: None. IMPRESSION: No acute intra-abdominal findings
--- NOTE | 2017-12-10 14:53 | PN ---
DATE: 12/10/2017 REASON FOR THE CONSULTATION: Pjz-FN-ucneksx myocardial infarction, heme-positive stool, anemia. Admitted with tightness in chest and shortness of breath. SUBJECTIVE: The patient denies any further episode of chest pain. Denies any shortness of breath. Denies any palpitation. OBJECTIVE: GENERAL: Not in any apparent distress, sitting on the bedside. VITAL SIGNS: As follows: Temperature afebrile, heart rate 82, blood pressure 157/80. HEENT: PERRLA. Extraocular muscles intact. NECK: Supple. No carotid bruit. No thyromegaly. CHEST: Clear to auscultation. HEART: S1 and S2 regular. ABDOMEN: Soft. EXTREMITIES: Clubbing and cyanosis negative. LABORATORY DATA: Blood workup as follows: WBC 5, hemoglobin 10.3, hematocrit 32.1, platelet count 168. Chemistry shows sodium 144, potassium 4.2, chloride 105, carbon dioxide 28, anion gap of 15, BUN 41, creatinine 1.5. Troponin 0.25, 0.29, 0.26, today's pending. EKG shows normal sinus, left atrial enlargement, LVH with repolarization abnormalities consistent with ischemia. IMPRESSION: Anemia, Hemoccult-positive stool, status post packed red blood cells transfusion; jkh-KS-tiqvatd myocardial infarction; history of colon cancer; history of breast cancer; history of brain tumor, status post craniotomy in [facility]. In view of Hemoccult-positive stool and GI bleed and nrn-CF-fztxpsg myocardial infarction, if the patient remained asymptomatic, we will treat medically. Beta jazmin, nitrates, baby aspirin. Not a candidate for anticoagulation, not a candidate for because of aspiration and is Hemoccult positive. RECOMMENDATIONS: Continue GI evaluation. Continue iron supplement, amlodipine 10 mg as blood pressure is tolerated. Continue atenolol and Imdur. Change to Imdur from today. We will follow up with you. Discussed with the patient in length. Discussed with the resident taking care of the patient also. We will follow with you. Repeat the lab. 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 In view of her comorbidities, remained asymptomatic, we will treat medically. Ofe Iverson MD [facility] # [id number]
--- NOTE | 2017-12-10 16:33 | HP ---
HISTORY OF PRESENT ILLNESS: The patient is a 77-year-old female, who presents to the emergency room complaining of chest pain and increasing shortness of breath. As per the patient as of possibly 3 days ago, she was crossing the street to enter [facility] when she developed chest pain, shortness of breath, had to stop and rest for a while. She also noted one or two nights ago she awoke and had to sit up in bed because she could not catch her breath. Therefore, she presented to the emergency room, was evaluated and admitted. PAST MEDICAL HISTORY: The patient is known to have a history of colon cancer, breast cancer. She has a history of coronary artery disease, osteoarthritis, peptic ulcer disease, colon carcinoma as mentioned above. PAST SURGICAL HISTORY: She is status post hysterectomy. SOCIAL HISTORY: She never smoked. She is a nonalcoholic drinker. She is . ALLERGIES: SHE HAS NO KNOWN MEDICAL ALLERGIES. MEDICATIONS: At the time of admission, her medications included Prilosec 20 mg daily, atenolol 50 mg daily, Norvasc 5 mg daily, multivitamins, Femara 2.5 mg daily, Feosol, allopurinol 300 mg daily, vitamin D, cholecalciferol 50,000 units orally once a week. REVIEW OF SYSTEMS: Otherwise unremarkable. PHYSICAL EXAMINATION: VITAL SIGNS: Her blood pressure is 184/80, heart rate is 99 and she is afebrile. HEENT: Examination of the head, eyes, ears, nose and throat are unremarkable. NECK: Supple with no lymphadenopathy. No goiter. LUNGS: Show some bibasilar rales, but are clear from about one-quarter of the way up. HEART: Regular. No murmurs are appreciated. ABDOMEN: Soft and nontender. EXTREMITIES: Free of cyanosis, clubbing or edema. RECTAL: Stools are heme positive on rectal exam as per ER note. NEUROLOGICAL: The patient is awake, alert and oriented with no focal neurological signs. LABORATORY DATA: EKG showed regular sinus rhythm with left atrial enlargement, left ventricular hypertrophy and there were ischemic changes of ST-segment depressions in the lateral leads. Chest x-ray showed congestive heart failure and possible bilateral infiltrates. Laboratory studies show the white blood cell count to be 5.8, hemoglobin and hematocrit are 8.8 and 28.1, platelet count is 192. Sodium is 149, potassium 4.2, blood urea nitrogen 34, creatinine 1.4. Troponins are equivocal at 0.25. BNP is markedly elevated at 10,100. IMPRESSION: So the patient is admitted with chest pain, [id number]-LU-wxzxqtxax myocardial infarction, congestive heart failure. Cardiology consult is requested from Dr. Iverson and GI consult because of the heme-positive stools is requested for Dr. Mendes. Also, we are asking Dr. Beebe, the patient's oncologist to consult on the case. Chi Salas MD
[2017-12-10 19:10] LABS: FOLATE 12.9 ng/mL
[2017-12-11] MEDS: Pantoprazole 40 mg EC Tab PO SCH (05:22)
[2017-12-11 11:04] LABS: ALB/GLOB RATIO 1.3 (1.1-1.8); CALCIUM 9.9 mg/dL (8.4-10.5)
[2017-12-11 11:06] LABS: BASO # 0.01 K/mm3 (0.0-2.0); BASO % 0.2 % (0.0-3.0); EOS # 0.1 (0.0-0.7); EOS % 1.4 % (1.5-5.0); GRAN # 4.88 (1.4-6.5); GRAN % 83.7 % (50.0-68.0); HEMOGLOBIN 10.1 g/dL (12.0-16.0); LYMPH # 0.7 (1.2-3.4); LYMPH % 11.3 % (22.0-35.0); MEAN CELL VOLUME 89.5 fl (80.0-105.0); MEAN CORPUSCULAR HEMOGLOBIN 27.3 pg (25.0-35.0); MEAN CORPUSCULAR HGB CONC 30.5 g/dl (31.0-37.0); MEAN PLATELET VOLUME 10.2 fl (7.0-11.0); MONO # 0.2 (0.1-0.6); MONO % 3.4 % (1.0-6.0); RBC 3.7 10^6/uL (3.5-6.1); RED CELL DISTRIBUTION WIDTH 15.9 % (11.5-14.5); WHITE BLOOD COUNT 5.8 10^3/ul (4.5-11.0)
--- NOTE | 2017-12-11 11:42 | CP.PCM.PN ---
<Wendi Torres - Last Filed: 12/11/17 11:39> Subjective - Date & Time of Evaluation Date of Evaluation: 12/11/17 Time of Evaluation: 10:10 - Subjective Subjective: Seen and examined at bedside, chart reviewed, family at bedside, denies N/V abdominal pain. No c/o chest pain. Had ct scan A/P with oral contrast, report was reviewed. No acute finding, noted to have diverticulosis and gallstones, see full report. No new complaints. had BM, no bleeding or diarrhea. Objective - Vital Signs/Intake and Output Vital Signs (last 24 hours): Temp Pulse Resp BP Pulse Ox 98.4 F 102 H 18 141/65 100 12/11/17 06:00 12/11/17 10:00 12/11/17 06:00 12/11/17 10:55 12/11/17 06:00 Intake and Output: 12/11/17 12/11/17 06:59 18:59 Intake Total 120 120 Output Total 300 300 Balance -180 -180 - Medications Medications: Current Medications Allopurinol (Zyloprim) 300 mg PO DAILY [facility] Last Admin: 12/11/17 09:31 Dose: 300 mg Amlodipine Besylate (Norvasc) 10 mg PO DAILY [facility] Last Admin: 12/11/17 09:28 Dose: 10 mg Aspirin (Ecotrin) 81 mg PO DAILY [facility] Last Admin: 12/11/17 10:55 Dose: 81 mg Atenolol (Tenormin) 50 mg PO DAILY [facility] Last Admin: 12/11/17 09:35 Dose: 50 mg Ferrous Sulfate (Feosol) 27 mg PO DAILY [facility] Furosemide (Lasix) 40 mg PO DAILY [facility] Isosorbide Mononitrate (Imdur) 60 mg PO DAILY [facility] Last Admin: 12/11/17 09:31 Dose: 60 mg Letrozole (Femara) 2.5 mg PO DAILY [facility] Last Admin: 12/11/17 09:32 Dose: 2.5 mg Pantoprazole Sodium (Protonix Ec Tab) 40 mg PO 0600 [facility] Last Admin: 12/11/17 05:22 Dose: 40 mg - Labs Labs: 12/11/17 10:40 12/11/17 10:40 PT 10.4 SECONDS (9.4-12.5) 12/08/17 16:56 INR 0.91 (0.93-1.08) L 12/08/17 16:56 APTT 23.6 Seconds (25.1-36.5) L 12/08/17 16:56 - Constitutional Appears: No Acute Distress - Head Exam Head Exam: NORMOCEPHALIC - Eye Exam Eye Exam: Normal appearance. absent: Scleral icterus - ENT Exam ENT Exam: Mucous Membranes Moist - Respiratory Exam Respiratory Exam: NORMAL BREATHING PATTERN. absent: Respiratory Distress - Cardiovascular Exam Cardiovascular Exam: +S1, +S2 - GI/Abdominal Exam GI & Abdominal Exam: Soft, Normal Bowel Sounds. absent: Guarding, Tenderness, Organomegaly, Rebound - Extremities Exam Extremities Exam: absent: Calf Tenderness, Pedal Edema - Neurological Exam Neurological Exam: Alert, Awake, Oriented x3 - Skin Skin Exam: Dry, Warm Assessment and Plan - Assessment and Plan (Free Text) Assessment: Assessment: NSTEMI Anemia with stool occult positive (can be secondary to AVM v. multifactorial) , ct scan show diverticlosis, repeat guiac negative. JAYCEE on CKD stage IIIa (improving) Hx of gallstones Hx of colon ca s/p resection hx of GIST s/p partial gastrectomy Plan: Hgb is stable, continue to monitor H/H and for overt GI bleeding iron studies low, to start Iron supplements Oncology FU Cardiology FU Continue PPI diet as tolerated Seen and discussed with Dr. Mendes. <Adolfo Mendes V - Last Filed: 12/11/17 23:27> Objective - Vital Signs/Intake and Output Vital Signs (last 24 hours): Temp Pulse Resp BP Pulse Ox 98.6 F 69 20 132/68 99 12/11/17 16:30 12/11/17 16:30 12/11/17 16:30 12/11/17 16:30 12/11/17 16:30 Intake and Output: 12/11/17 12/12/17 18:59 06:59 Intake Total 120 Output Total 300 Balance -180 - Labs Labs: 12/11/17 10:40 12/11/17 10:40 PT 10.4 SECONDS (9.4-12.5) 12/08/17 16:56 INR 0.91 (0.93-1.08) L 12/08/17 16:56 APTT 23.6 Seconds (25.1-36.5) L 12/08/17 16:56 Attending/Attestation - Attestation I have personally seen and examined this patient.: Yes I have fully participated in the care of the patient.: Yes I have reviewed all pertinent clinical information, including history, physical exam and plan: Yes Notes (Text): This is an addendum to GI progress report dictated by the [employer].The patient was seen and examined earlier. Medical records, lab studies, imagings were reviewed. Last 24 hours events reviewed. Agreed with the above treatment plan as outlined in [employer] 's notes the with the addition of the following feels better Tolerating diet On examination abdomen soft in the epigastric area CT scan was reviewed Discussed with the patient who was at bedside Previous GI workup was reviewed with family 12/11/17 23:23
[2017-12-11 13:01] VITALS: RESP 20; TEMP 98.6
--- NOTE | 2017-12-11 13:51 | CARD ---
APPROVED REPORT EKG Measurement Heart [id number] [place] [id number] <Conclusion> Normal sinus rhythm with sinus arrhythmia Left ventricular hypertrophy with repolarization abnormality Abnormal ECG
--- NOTE | 2017-12-11 14:30 | PN ---
DATE: 12/10/2017 SUBJECTIVE: The patient is a 77-year-old female with a history of colon carcinoma, breast carcinoma, coronary artery disease, who was admitted to on 12/08 with a non-STEMI. Her troponins were persistently elevated at 0.25, 0.29 and 0.26 consecutively. She received the unit of packed red blood cells on admission. Her hemoglobin was 8.8 at that time. Hemoglobin santiago to 10.2 and this morning remained stable. She is being seen by Dr. Mendes, the supervisor contact and service clerks. She apparently underwent colonoscopy and endoscopy just few months ago and all was negative. The case was discussed with Dr. Mendes and he feels there may be some bleeding from the small intestine. The patient is also being followed by guitar maker, Dr. Iverson and her oncologist, Dr. Beebe. Because of the non-STEMI, coronary catheterization is planned for the morning. PHYSICAL EXAMINATION GENERAL: When seen, the patient is sitting up in a chair. She is pain-free. VITAL SIGNS: Respirations are . LUNGS: Clear. HEART: Regular. ABDOMEN: Soft and nontender. Family is present. They are aware of the catheterization scheduled for the morning. We will continue to follow the patient closely. Chi Salas MD
--- NOTE | 2017-12-11 16:17 | PN ---
DATE: 12/11/2017 REASON FOR CONSULTATION AND FOLLOWUP: Hod-SH-fojwrnr myocardial infarction, Hemoccult positive stool, anemia, admitted with tightness in chest and shortness of breath. SUBJECTIVE: The patient denies any chest pain. Son is at the bedside. Went to the bathroom. No chest pain. Denies any palpitation. PHYSICAL EXAMINATION: GENERAL: Not in any apparent distress, sitting at the bedside. VITAL SIGNS: Temperature afebrile, heart rate 81, blood pressure 141/65. HEENT: PERRLA. Extraocular muscles intact. NECK: Supple. No carotid bruit or thyromegaly. CHEST: Clear to auscultation. HEART: S1 and S2 regular. ABDOMEN: Soft. EXTREMITIES: Clubbing and cyanosis negative. LABORATORY DATA: Blood workup as follows: WBC 5, hemoglobin 10, hematocrit 32.1, platelet count 168. Chemistry shows sodium 144, potassium 4.2, chloride 105, carbon dioxide 20, anion gap of 15, BUN 41, creatinine 1.5 yesterday. IMPRESSION: Anemia, status post packed red blood cells transfusion; ubc-QX-siwjvcj myocardial infarction; stage 3-4 chronic kidney disease; history of colon cancer; history of breast cancer; history of brain tumor, status post craniotomy. Asymptomatic, now chest pain free. RECOMMENDATIONS: In view of the patient remains chest pain free, we will treat medically because of underlying comorbidity including anemia, Hemoccult positive, and renal insufficiency. Asked the patient to walk around if no chest pain. We will continue beta jazmin, continue amlodipine and baby aspirin as tolerated. CAT scan of the abdomen shows no acute intraabdominal finding. If H and H remain stable, we will start baby aspirin again. The patient had an echocardiography done yesterday that revealed ejection fraction 55%, trace aortic regurgitation, moderate valvular aortic stenosis, moderate mitral regurgitation, fttm-cr-vbuzzigq tricuspid regurgitation, dzwt-gv-drxvamcq pulmonary hypertension, RV systolic pressure of 58. We will add low dose of diuretics also and if the patient remains asymptomatic, and no chest pain, we will treat medically as mentioned above. Discussed with the son also. Interim, continue Tenormin 50 mg daily, amlodipine increased, and gentle diuretics also. Admitting BNP was 10,010, so give one dose of Lasix and then from tomorrow 40 of Lasix. We will follow with you. I explained to son above also. Continue GI workup for GI bleed. Should the patient need endoscopy, the patient is cleared for endoscopy, colonoscopy as moderate to high risk because of the recent non-STEMI, but the patient is chest pain free, so she can go. Because the patient may need definite answer to find a block, in stead the patient needs cardiac catheterization or a stent in the . We will repeat the blood workup tomorrow, start baby aspirin 81 mg daily because as per GI, no source found in September since the patient can tolerate baby aspirin. Thank you, Dr. Salas, for providing us the opportunity in taking care of the patient, Suly Swenson. Ofe Iverson MD
[2017-12-11 16:46] VITALS: BP 132/68; PULSE 69; O2SAT 99
--- NOTE | 2017-12-12 13:43 | DS ---
HISTORY OF PRESENT ILLNESS: This is a 77-year-old woman I met, known for many years who presented to the emergency room with upper chest discomfort and elevated troponins were noted. She is admitted, followed by Cardiology. She was admitted by Dr. Chi Salas and followed by watch assembler, Dr. Dickson and Dr. Iverson. Course in the hospital stay was relatively uneventful. She was treated with beta-blockers amlodipine, Lasix, nitrates, and did relatively well. She was comfortable, chest pain-free and ambulatory. Further cardiac workup was discussed with Dr. Iverson. The patient will be followed as an outpatient. She will see us in the office in 1 week. On 12/11/2017, she was ready to leave the hospital. She was awake, alert, clear, in good spirits and ambulating to the doctor's nursing station without difficulty and ready for discharge. FINAL DISCHARGE DIAGNOSES: 1. Non-ST elevation myocardial infarction. 2. History of colon cancer and breast cancer. 3. Osteoarthritis. 4. Peptic ulcer disease status post gastric resection of benign lesion. 5. Hypertension. PLAN: The patient is discharged to home. She will follow up with me in 2 to 5 days. She will also continue her regular followup with Dr. Beebe, her oncologist and Dr. Mendes, her receiving worker of many years. Messi Salas MD
--- NOTE | 2017-12-12 14:15 | PQF CHF ---
12/12/17 Dr. Darrion Salas, Acute CHF is documented in ED notes. Please indicate type of CHF, as listed below. Thank you. Clarification of your documentation is requested to better reflect the severity of illness and intensity of treatment of your patient. Indicators present [x] Diagnosis of CHF and/or history of CHF [x] BNP > 200 [x] Imaging Finding of Pulmonary Edema /Pleural Effusions [] Fluid/Volume Overload [] Pitting edema [] Ejection Fraction < 40% (Indicative of Systolic Heart Failure) [] Ejection Fraction > 40% (Indicative of Diastolic Heart Failure) [] Dyspnea / Orthopenea / Paroxysmal Nocturnal Dyspnea [] Other: Location in the medical record that reflects the above clinical findings: [] Treatment Provided: [] PHYSICIAN'S RESPONSE Based on your medical judgment of the clinical indicators outlined above, are you treating this patient for a known or suspected: [] Acute CHF [x] Systolic [] Diastolic [] Combined [] Chronic CHF [] Systolic [] Diastolic [] Combined [] Acute on Chronic CHF []Systolic [] Diastolic [] Combined [] CHF due hypertension [] Acute systolic []Chronic systolic [] Acute/ chronic systolic [] Other, please indicate: [] [] If Unable to Determine, please check the box, sign and date. Present On Admission (POA) Indicator: [x] Present at the time of admission [] Not present at the time of admission [] Clinically Undetermined In responding to this query, please exercise your independent professional judgment. The fact that a question is asked does not imply that any particular answer is desired or expected. Thank you for your clarification on this documentation. If you have any questions please call:[ ] * Thank you, [ ] laborer cement gun placing PAOLO
== END 2017-12-11 18:27 | disposition home or self-care (01) | DRG 280 ==
LOC: ED 14:32 → ERH 18:56 → 2RNO 21:27 → 2RSO 12-09 13:57
PROVIDERS: ADMIT Internal Medicine; ATTEND Internal Medicine
PROC: 30233N1 Transfusion of Nonautologous Red Blood Cells into Peripheral Vein, Percutaneous Approach (ICD-10-PCS; principal; 2017-12-08)
DX: I21.4 Non-ST elevation (NSTEMI) myocardial infarction (principal); I50.21 Acute systolic (congestive) heart failure; I13.0 Hypertensive heart and chronic kidney disease with heart failure and stage 1 through stage 4 chronic kidney disease, or unspecified chronic kidney disease; N17.9 Acute kidney failure, unspecified; N18.4 Chronic kidney disease, stage 4 (severe); K92.2 Gastrointestinal hemorrhage, unspecified; D63.8 Anemia in other chronic diseases classified elsewhere; E78.5 Hyperlipidemia, unspecified; I25.10 Atherosclerotic heart disease of native coronary artery without angina pectoris; K57.90 Diverticulosis of intestine, part unspecified, without perforation or abscess without bleeding; K64.8 Other hemorrhoids; K80.20 Calculus of gallbladder without cholecystitis without obstruction; Z87.19 Personal history of other diseases of the digestive system; Z79.811 Long term (current) use of aromatase inhibitors; Z85.038 Personal history of other malignant neoplasm of large intestine; Z85.3 Personal history of malignant neoplasm of breast; Z85.841 Personal history of malignant neoplasm of brain; Z87.11 Personal history of peptic ulcer disease; Z90.3 Acquired absence of stomach [part of]; Z90.49 Acquired absence of other specified parts of digestive tract; Z90.710 Acquired absence of both cervix and uterus; M19.90 Unspecified osteoarthritis, unspecified site; I08.3 Combined rheumatic disorders of mitral, aortic and tricuspid valves; I27.20 Pulmonary hypertension, unspecified

== ENCOUNTER 2017-12-21 12:42 | Inpatient (IN) | payer MEDICARE, OTHER ==
[2017-12-21 12:43] VITALS: BMI 28.9
[2017-12-21] MEDS ORDERED: Enoxaparin 80 mg Syringe SC STA (13:15)
[2017-12-21] MEDS ORDERED: Nitroglycerin 2% Ointment Foilpak UD TOP STA (13:16)
--- NOTE | 2017-12-21 13:18 | ED PDOC ---
Arrival/HPI - General Chief Complaint: Shortness Of Breath - History of Present Illness Narrative History of Present Illness (Text): Patient is a 77 year old with a past medical history of NSTEMI, breast cancer, colon cancer, osteoarthritis, htn, PUD who presents to the emergency room for evaluation and treatment of shortness of breath which began several weeks ago after experiencing the NSTEMI. SOB has progressively worsened since onset and is accompanied by localized retrosternal intermittent chest pain. Currently denies chest pain. Denies fever, chills, abdominal pain, nausea, vomitting, diarrhea, constipation, and urinary symptoms. 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) - HEENT Hx HEENT Disorder: (WEARS RX GLASSES) - Renal Hx Renal Disorder: No - Endocrine/Metabolic Hx Endocrine Disorders: No - Hematological/Oncological Hx Blood Disorders: Yes Hx Cancer: Yes (Bilateral Breast,COLON CA, WITH RADIATION ONLY COMPLETED 2-3 YRS AGO) Hx Metastasis: Yes Other/Comment: b/l breast lumpectomy had 35 radiation treatments 2010, r axilla disection, colon and gastric ca - Integumentary Hx Dermatological Disorder: No - Musculoskeletal/Rheumatological Hx Arthritis: Yes - Gastrointestinal Hx Gastrointestinal Disorders: Yes Hx Pancreatitis: Yes HX Swallowing Problems: Yes Other/Comment: hx colon ca,GI BLEED 09-14-15, - Genitourinary/Gynecological Hx Genitourinary Disorders: Yes Other/Comment: hx hysterectomy,BILATERAL lumpectomy - Psychiatric Hx Emotional Abuse: No Hx Physical Abuse: No Hx Substance Use: No - Surgical History Other/Comment: brain tutomr with brain surgery - Anesthesia Hx Anesthesia Reactions: No Hx Malignant Hyperthermia: No - Suicidal Assessment Feels Threatened In Home Enviroment: No Family/Social History Family/Social History: Unknown Family HX Smoking Status: Never Smoked Hx Alcohol Use: No Hx Substance Use: No Allergies/Home Meds Allergies/Adverse Reactions: Allergies No Known Allergies Allergy (Verified 10/04/17 14:22) Home Medications: Home Meds Medication Instructions Recorded Confirmed Omeprazole [Prilosec] 20 mg PO QAM 08/30/15 12/21/17 Atenolol [Tenormin] 50 mg PO QAM 09/21/15 12/21/17 amLODIPine [Norvasc] 5 mg PO DAILY 09/21/15 12/21/17 Cholecalciferol [Vitamin D 1000 IU] 50,000 iu PO QWK 03/26/17 12/21/17 Letrozole [Femara] 2.5 mg PO DAILY 03/26/17 12/21/17 Iron,Carbonyl [Feosol] 27 mg PO DAILY 06/21/17 12/21/17 Allopurinol [Zyloprim] 300 mg PO DAILY 12/08/17 12/21/17 Aspirin [Adult Low Dose Aspirin EC] 1 tab PO DAILY 12/21/17 12/21/17 Furosemide [Lasix] 1 tab PO DAILY 12/21/17 12/21/17 Isosorbide Mononitrate [Isosorbide 1 tab PO DAILY 12/21/17 12/21/17 Mononitrate ER] Vits A,C,E/Lutein/Minerals [Vision 1 tab PO DAILY 12/21/17 12/21/17 Formula with Lutein Tab] Review of Systems - Review of Systems Constitutional: Normal Eyes: Normal ENT: Normal Respiratory: SOB Cardiovascular: Normal Gastrointestinal: Normal Genitourinary Female: Normal Musculoskeletal: Normal Skin: Normal Neurological: Normal Endocrine: Normal Hemo/Lymphatic: Normal Psychiatric: Normal Physical Exam Vital Signs Temp Pulse Resp BP Pulse Ox 12/21/17 14:17 79 180/78 H 12/21/17 12:43 98.1 F 77 18 187/89 H 100 Temperature: Afebrile Blood Pressure: Hypertensive Pulse: Regular Respiratory Rate: Normal Appearance: Positive for: Well-Appearing, Non-Toxic, Comfortable Pain Distress: None Mental Status: Positive for: Alert and Oriented X 3 - Systems Exam Head: Present: Atraumatic, Normocephalic Pupils: Present: PERRL Extroacular Muscles: Present: EOMI Conjunctiva: Present: Normal Mouth: Present: Moist Mucous Membranes Nose (External): Present: Atraumatic Neck: Present: Normal Range of Motion Respiratory/Chest: Present: Good Air Exchange. No: Respiratory Distress, Accessory Muscle Use Cardiovascular: Present: Regular Rate and Rhythm, Normal S1, S2. No: Murmurs Abdomen: No: Tenderness, Distention, Peritoneal Signs Back: Present: Normal Inspection Upper Extremity: Present: Normal Inspection. No: Cyanosis, Edema Lower Extremity: Present: Normal Inspection. No: Edema Neurological: Present: GCS=15, CN II-XII Intact, Speech Normal Skin: Present: Warm, Dry, Normal Color. No: Rashes Psychiatric: Present: Alert, Oriented x 3, Normal Insight, Normal Concentration Medical Decision Making ED Course and Treatment: Assessment and Plan: Patient is a 77 year old with a past medical history of NSTEMI, breast cancer, colon cancer, osteoarthritis, htn, PUD who presents to the emergency room for evaluation and treatment of shortness of breath. Shortness of Breath Intermittent Chest Pain likely 2/2 Unstable Angina - CBC, CMP, Mag, Phos - Troponin negative x 1 - EKG NSR HR 77bpm, QTc [address] T wave changes - CXR portable- No active disease. Thyroid goiter - Patient case endorsed to Dr. Iverson- recommended aspirin, nitro paste, lopressor 25mg, and subcutaneous lovenox - Patient case endorsed to Dr. Salas- patient has been accepted to his service - Patient admitted to hospital on telemetry - Lab Interpretations Narrative Lab Interpretation (Text): - EKG NSR HR 77bpm, QTc [address] T wave changes Lab Results: 12/21/17 13:18 12/21/17 13:45 Lab Results 12/21/17 13:45: Sodium 147, Potassium 4.0, Chloride 106, Carbon Dioxide 29, Anion Gap 15, BUN 24 H, Creatinine 1.6 H, Est GFR ( Amer) 38, Est GFR ( Non-Af Amer) 31, Random Glucose 91, Calcium 10.1, Total Bilirubin 0.2, AST 26, ALT 26, Alkaline Phosphatase 77, Lactate Dehydrogenase 409, Total Creatine Kinase 22 L, Troponin I 0.03 D, Total Protein 6.8, Albumin 3.9, Globulin 3.0, Albumin/Globulin Ratio 1.3 12/21/17 13:18: PT 11.0, INR 0.97, APTT 27.5 12/21/17 13:18: WBC 5.7, RBC 3.59, Hgb 9.9 L, Hct 31.3 L, MCV 87.2, MCH 27.6, MCHC 31.6, RDW 15.8 H, Plt Count 211, MPV 10.4, Gran % 76.7 H, Lymph % (Auto) 18.0 L, Newton % (Auto) 3.7, Eos % (Auto) 1.4 L, Baso % (Auto) 0.2, Gran # 4.39, Lymph # (Auto) 1.0 L, Newton # (Auto) 0.2, Eos # (Auto) 0.1, Baso # (Auto) 0.01 I have reviewed the lab results: Yes - RAD Interpretation Radiology Orders: 12/21/17 13:05 CHEST PORTABLE [RAD] Stat - EKG Interpretation EKG Interpretation (Text): NSR No defining ST T wave changes HR 77bpm QTc 463ms Interpreted by ED Physician: Yes Type: 12 lead EKG - Medication Orders Current Medication Orders: Discontinued Medications Aspirin (Aspirin) 325 mg PO STAT STA Stop: 12/21/17 13:06 Last Admin: 12/21/17 13:12 Dose: 325 mg Enoxaparin Sodium (Lovenox) 70 mg SC STAT STA PRN Reason: Protocol Stop: 12/21/17 13:16 Last Admin: 12/21/17 14:23 Dose: 70 mg Subcutaneous Administrations Document 12/21/17 14:23 [email or web address] (Rec: 12/21/17 14:23 [facility] [id number] Injection Site MAR Injection Site Left Abdomen Charges for Administration # of Subcutaneous Administrations 1 Metoprolol Tartrate (Lopressor) 25 mg PO STAT STA Stop: 12/21/17 13:16 Last Admin: 12/21/17 14:17 Dose: 25 mg MAR Pulse and Blood Pressure Document 12/21/17 14:17 [email or web address] (Rec: 12/21/17 14:[address] [id number]) Pulse Pulse Rate (60-90) 79 Blood Pressure Blood Pressure (100/60-150/90) 180/78 Nitroglycerin (Nitro-Bid 2% Oint) 1 ea TOP STAT STA Stop: 12/21/17 13:17 Last Admin: 12/21/17 14:23 Dose: 1 ea Disposition/Present on Arrival - Present on Arrival Any Indicators Present on Arrival: No History of DVT/PE: No History of Uncontrolled Diabetes: No Urinary Catheter: No History of Decub. Ulcer: No History Surgical Site Infection Following: None - Disposition Have Diagnosis and Disposition been Completed?: Yes Diagnosis: Unstable angina Disposition: HOSPITALIZED Disposition Time: 14:39 Condition: FAIR Discharge Instructions (ExitCare): Chest Pain (ED) Forms: [employer] (Monegasque)
[2017-12-21 13:23] LABS: BASO # 0.01 K/mm3 (0.0-2.0); BASO % 0.2 % (0.0-3.0); EOS # 0.1 (0.0-0.7); EOS % 1.4 % (1.5-5.0); GRAN # 4.39 (1.4-6.5); GRAN % 76.7 % (50.0-68.0); HEMOGLOBIN 9.9 g/dL (12.0-16.0); MEAN CELL VOLUME 87.2 fl (80.0-105.0); MEAN CORPUSCULAR HEMOGLOBIN 27.6 pg (25.0-35.0); MEAN CORPUSCULAR HGB CONC 31.6 g/dl (31.0-37.0); MEAN PLATELET VOLUME 10.4 fl (7.0-11.0); MONO # 0.2 (0.1-0.6); MONO % 3.7 % (1.0-6.0); RBC 3.59 10^6/uL (3.5-6.1); RED CELL DISTRIBUTION WIDTH 15.8 % (11.5-14.5); WHITE BLOOD COUNT 5.7 10^3/ul (4.5-11.0)
[2017-12-21 13:38] LABS: INR 0.97 (0.93-1.08); PARTIAL THROMBOPLASTIN TIME 27.5 Seconds (25.1-36.5)
--- NOTE | 2017-12-21 13:40 | RAD ---
HISTORY: shortness of breath COMPARISON: CT 08/27/2017 FINDINGS: LUNGS: No active pulmonary disease. PLEURA: No significant pleural effusion identified, no pneumothorax apparent. CARDIOVASCULAR: Mild cardiomegaly OSSEOUS STRUCTURES: No significant abnormalities. VISUALIZED UPPER ABDOMEN: Normal. OTHER FINDINGS: There is enlargement of the thyroid which extends into the superior mediastinum. This was demonstrated on previous CT IMPRESSION: No active disease. Thyroid goiter
[2017-12-21 14:05] LABS: ALB/GLOB RATIO 1.3 (1.1-1.8); ALBUMIN 3.9 g/dL (3.0-4.8); CALCIUM 10.1 mg/dL (8.4-10.5)
[2017-12-21 14:12] LABS: TROPONIN I 0.03 ng/mL
--- NOTE | 2017-12-21 15:04 | CARD ---
APPROVED REPORT EKG Measurement Heart [id number] <Conclusion> Normal sinus rhythm Possible Left atrial enlargement Left ventricular hypertrophy. ST_T Changes.
[2017-12-21] MEDS ORDERED: Pneumococcal 23-Valent Vaccine IM ONE (16:38)
[2017-12-21] MEDS: Milrinone 20mg/100ml D5W 100 ML IV PRN (16:47)
[2017-12-21 21:35] LABS: TROPONIN I 0.03 ng/mL
--- NOTE | 2017-12-22 06:40 | CON ---
DATE: 12/21/2017 CARDIOLOGY CONSULTATION REASON FOR THE CONSULTATION AND FOLLOWUP: Shortness of breath, cardiac evaluation, rule out underlying coronary artery disease. BRIEF CLINICAL HISTORY: A 77-year-old female with a past medical history significant for breast cancer, colon cancer, osteoarthritis, peptic ulcer disease, who was recently discharged from the hospital after having NSTEMI,and medical treatment was opted and the patient went to Dr. Salas's office where she was getting more shortness of breath and sent to the ER. The patient at rest denies any shortness of breath, but fails minimal activity, gets short winded. PAST MEDICAL HISTORY: Significant for bilateral breast cancer, status post colon cancer surgery, recently found to be brain tumor, had a surgery at [facility] less than a year ago. Past history as mentioned, non-STEMI, hypertension, hyperlipidemia, brain cancer, anemia. PAST SURGICAL HISTORY: Significant for breast surgery, colon surgery as well as craniotomy four months ago in [facility]. SOCIAL HISTORY: Denies smoking. Denies any history of alcohol abuse. CURRENT MEDICATIONS: The patient is on amlodipine, omeprazole, isosorbide, iron, furosemide, atenolol, aspirin, allopurinol. RECENT CARDIAC WORKUP: As follows, the patient had echocardiography done on 12/10/2017 that revealed ejection fraction of 55%, trace aortic regurgitation, moderate valvular aortic stenosis, moderate mitral to mild to moderate tricuspid regurgitation, mild to moderate pulmonary hypertension, mild pulmonary insufficiency, moderate pleural effusion, trace pericardial effusion, RV systolic pressure 58 mmHg and calculated ejection fraction 55%. REVIEW OF SYSTEMS: As per HPI. PHYSICAL EXAMINATION: VITAL SIGNS: Temperature afebrile, heart rate 81, blood pressure 136/71. HEENT: PERRLA intact. NECK: Supple. No carotid bruits or thyromegaly. CHEST: Clear to auscultation. HEART: S1 and S2 regular. ABDOMEN: Soft. EXTREMITIES: Clubbing and cyanosis negative. LABORATORY DATA: Blood workup as follows, WBC 5.7, hemoglobin 9.9, hematocrit 31.3, platelet count 211. Chemistry shows sodium 147, potassium 4, chloride of 106, carbon dioxide 20, anion gap of 15, BUN 24, creatinine 1.6. Troponin 0.03. IMPRESSION: Non-ST segment myocardial infarction, recently; coronary artery disease; anemia; renal insufficiency, creatinine level is 1.6; chest pain; shortness of breath; possible underlying coronary artery disease. The patient was recently discharged and may opted for medical treatment because of renal insufficiency, anemia and multiple cancers but now appears to be symptomatic, we will get BNP level and see clinically if patient is in congestive heart failure. We will start low dose Primacor and stabilize the patient, so the patient can lie flat and possible cardiac catheterization on Sunday. Discussed with the family. We will follow with you. We will start aspirin and Plavix. Thank you, Dr. Salas, for providing us the opportunity in taking care of the patient, Suly Swenson. Ofe Iverson MD MTDD
[2017-12-22 07:19] LABS: B-TYPE NATRIURETIC PEPTIDE 6400 pg/mL (0-450); TROPONIN I 0.03 ng/mL
[2017-12-22 07:21] LABS: LDL CHOLESTEROL 115 mg/dL (0-129)
[2017-12-22 07:26] LABS: ALB/GLOB RATIO 1.2 (1.1-1.8); ALBUMIN 3.6 g/dL (3.0-4.8); ALT/SGPT 30 U/L (7-56); AST/SGOT 30 U/L (14-36); BLOOD UREA NITROGEN 30 mg/dL (7-21); CALCIUM 10.1 mg/dL (8.4-10.5); GFR NON-AFRICAN AMERICAN 31; HDL CHOLESTEROL 40 mg/dL (29-60)
[2017-12-22 07:27] LABS: BASO # 0.01 K/mm3 (0.0-2.0); BASO % 0.2 % (0.0-3.0); EOS # 0.1 (0.0-0.7); EOS % 1.4 % (1.5-5.0); GRAN # 3.28 (1.4-6.5); GRAN % 77.8 % (50.0-68.0); HEMOGLOBIN 8.6 g/dL (12.0-16.0); LYMPH # 0.7 (1.2-3.4); LYMPH % 16.8 % (22.0-35.0); MEAN CORPUSCULAR HEMOGLOBIN 27.3 pg (25.0-35.0); MEAN CORPUSCULAR HGB CONC 31.4 g/dl (31.0-37.0); MEAN PLATELET VOLUME 10.1 fl (7.0-11.0); MONO # 0.2 (0.1-0.6); MONO % 3.8 % (1.0-6.0); RBC 3.15 10^6/uL (3.5-6.1); WHITE BLOOD COUNT 4.2 10^3/ul (4.5-11.0)
[2017-12-22] MEDS ORDERED: Potassium Chloride 20 mEq ER Tab PO ONE (10:36)
[2017-12-22] MEDS: Enoxaparin 30 mg Syringe SC SCH (10:44)
[2017-12-22] MEDS: Milrinone 20mg/100ml D5W 100 ML IV PRN (11:56)
--- NOTE | 2017-12-22 16:17 | PN ---
DATE: 12/22/2017 REASON FOR CONSULTATION AND FOLLOWUP: Shortness of breath, cardiac evaluation, unstable angina, acute coronary artery syndrome. SUBJECTIVE: Patient denies any chest pain, but feels better. Shortness of breath improving. She still feels constipated. OBJECTIVE: GENERAL: Not in apparent distress. VITAL SIGNS: Temperature afebrile, heart rate 84, blood pressure 145/75. HEENT: PERRLA. Extraocular muscles intact. NECK: Supple. No carotid bruits or thyromegaly. CHEST: Clear to auscultation. HEART: S1 and S2 regular. ABDOMEN: Soft. EXTREMITIES: Clubbing and cyanosis negative. LABORATORY DATA: Blood workup as follows. WBC 4.2, hemoglobin 8.6, hematocrit 27.4, platelet count 183. Chemistry shows sodium 145, potassium 3.5, chloride of 105, carbon dioxide 30, anion gap of 14, BUN 30, creatinine 1.6. BNP 6030, repeat BNP 6400. TSH is 0.02. Total cholesterol 208, LDL 115, HDL 40. Troponin 0.03. IMPRESSION: A 77-year-old female with past medical history significant for multiple cancer, breast carcinoma status post mastectomy; colon cancer surgery; recently found brain tumor; had a surgery at [facility] a year ago; history of non-ST elevation myocardial infarction on last admission, medical treatment recommended and patient opted for medical treatment because of underlying comorbidity including anemia, renal insufficiency, history of hypertension, hyperlipidemia, admitted yesterday from Dr. Salas's office because of complaint of chest pain and shortness breath, unstable angina. Patient gave one dose of Lovenox, started on aspirin and Plavix. BNP is elevated. Lasix was given and Primacor started. Recently echo on last admission revealed ejection fraction 55%, trace aortic regurgitation, moderate valvular aortic stenosis, hqqr-[id number]-dpcrmaoj tricuspid regurgitation, domr-pm-astfzjwz pulmonary hypertension, mild pulmonary insufficiency, right ventricular systolic pressure of 58, moderate pleural effusion, moderate mitral regurgitation. RECOMMENDATIONS: Continue aspirin, continue Plavix. Monitor H and H. Continue gentle diuretics as renal function is tolerated. Continue beta-jazmin. Continue nitrites. Continue Primacor for next 24 to 48 hours. Cardiac catheterization on Sunday discussed with the patient's family. We will send stool for Guaiac. For constipation, we will give lactulose and we will monitor closely. Discussed with the patient, the patient's and daughter. We will discuss with you. We will keep n.p.o. Sunday midnight for cardiac cath on Sunday. As mentioned so far, no evidence of . Troponins remain flat, but BNP remains elevated. We will supplement potassium. We will give two doses of Lovenox today and tomorrow for DVT prophylaxis. Thank you, Dr. Salas, for providing us an opportunity in taking care of the patient, Suly Swenson. Ofe Iverson MD
[2017-12-23 07:29] LABS: BASO # 0.01 K/mm3 (0.0-2.0); BASO % 0.2 % (0.0-3.0); EOS # 0.1 (0.0-0.7); EOS % 1.7 % (1.5-5.0); GRAN # 3.38 (1.4-6.5); GRAN % 80.3 % (50.0-68.0); LYMPH # 0.6 (1.2-3.4); LYMPH % 13.5 % (22.0-35.0); MEAN CELL VOLUME 87.6 fl (80.0-105.0); MEAN CORPUSCULAR HEMOGLOBIN 27.2 pg (25.0-35.0); MEAN PLATELET VOLUME 9.9 fl (7.0-11.0); MONO # 0.2 (0.1-0.6); MONO % 4.3 % (1.0-6.0); RBC 3.31 10^6/uL (3.5-6.1); WHITE BLOOD COUNT 4.2 10^3/ul (4.5-11.0)
[2017-12-23 07:48] LABS: ALB/GLOB RATIO 1.2 (1.1-1.8); ALBUMIN 3.6 g/dL (3.0-4.8); CALCIUM 10.1 mg/dL (8.4-10.5)
[2017-12-23] MEDS: Enoxaparin 30 mg Syringe SC SCH (10:15)
[2017-12-23] MEDS: Milrinone 20mg/100ml D5W 100 ML IV PRN (11:47)
--- NOTE | 2017-12-23 16:47 | PN ---
DATE: 12/22/2017 DAILY PROGRESS NOTE SUBJECTIVE: The patient was seen this Sunday morning in room 265, bed 2. Resting comfortably in bed, in no acute distress. Vital signs are stable. There have been no further chest pain or shortness of breath. She is on a Primacor drip per Dr. Iverson with a slight bump in her BUN and creatinine. PHYSICAL EXAMINATION: HEAD AND NECK: Unremarkable. CHEST: Clear. HEART: Regular, not tachycardic. IMPRESSION: Unstable angina. PLAN: Cardiac catheterization on Sunday. Messi Salas MD
--- NOTE | 2017-12-23 17:31 | PN ---
DATE: 12/23/2017 DAILY PROGRESS NOTE SUBJECTIVE: The patient was seen this Sunday morning in room 265, bed 2. No visitors were present. She was resting comfortably in bed. She denies any chest pain, shortness of breath, or discomfort. She had a quite and uneventful day yesterday and evening. She tolerated breakfast well and is looking forward to getting out of bed later today. PHYSICAL EXAMINATION: LUNGS: Clear. HEART: Regular. Not tachycardic. EXTREMITIES: Thin with no edema. IMPRESSION: Unstable angina. PLAN: Cardiac cath tomorrow with Dr. Iverson. The patient is aware of the procedure. I reviewed it with her and showed her capable pictures of pre and post stent vascular repairs, so that she is well versed on what to expect. She had questions about the procedure itself and closure of the wound as well as immediate recovery room and perioperative care with pressure wounds on the groin, etc. Messi Salas MD
[2017-12-23] MEDS: Acetylcysteine 20% Inhal Soln (4ml) PO SCH (17:35)
--- NOTE | 2017-12-23 19:11 | PN ---
DATE: 12/23/2017 REASON FOR CONSULTATION AND FOLLOWUP: Shortness of breath, cardiac evaluation, unstable angina, acute coronary syndrome. SUBJECTIVE: Patient denies any chest pain or shortness of breath. Feels better. OBJECTIVE: GENERAL: Not in apparent distress. VITAL SIGNS: Temperature afebrile, heart rate 99, blood pressure 142/63. HEENT: PERRLA. Extraocular muscles intact. NECK: Supple. No carotid bruits or thyromegaly. CHEST: Clear to auscultation. HEART: S1 and S2. Regular. ABDOMEN: Soft. EXTREMITIES: Clubbing and cyanosis negative. LABORATORY DATA: Blood workup as follows. WBC , hemoglobin 9, hematocrit 29, platelet count 176. Chemistry shows sodium 143, potassium 4, chloride 106, carbon dioxide of 30, anion gap of 14, BUN 32, creatinine 1.6. IMPRESSION: Acute coronary syndrome, unstable angina, borderline troponin positive , mitral regurgitation, tricuspid regurgitation, anemia, history of colon cancer, history of craniotomy, moderate valvular aortic stenosis and chronic renal insufficiency, history of non-ST segment myocardial infarction on last admission and because of her underlying comorbidities, renal insufficiency, discharged home on medical treatment. Admitted at this time with unstable angina. RECOMMENDATIONS: I discussed with the son, daughter. Agreed for cardiac catheterization. Patient is scheduled for elective cardiac catheterization tomorrow. Continue aspirin and Plavix. Start IV fluids tomorrow morning. Hold Lasix. After today's, we will start gentle hydration tomorrow morning and start Mucomyst. Further recommendations after the cardiac catheterization. We will repeat the blood work and monitor. We will keep n.p.o. after midnight for cardiac catheterization tomorrow. We will follow with you. Thank you, Dr. Salas, for providing us the opportunity in taking care of the patient, Suly Swenson. Ofe Iverson MD
--- NOTE | 2017-12-24 00:52 | HP ---
DATE OF EXAM: 12/21/2017 CHIEF COMPLAINT: Exertional dyspnea, upper chest pain with exertion walking across the road. HISTORY OF PRESENT ILLNESS: This is a 77-year-old woman with a history of coronary artery disease, who presented to the emergency room earlier this month with chest pain, was found to have [id number] myocardial infarction by enzymes, was treated medically and conservatively because of a multiple underlying conditions, was asymptomatic, comfortable and discharged to home; however, at home, over the course of the week, symptoms recurred. She came to the office this Sunday morning unexpectedly to report the symptoms and it was felt best for her to be admitted for the obvious need of the cardiac catheterization that had been discussed between her and the family on that earlier admission. PAST MEDICAL HISTORY: Significant for nonmalignant lesion in the stomach that was resected several years ago by Dr. Blnad, then history of colon cancer, history of breast cancer, and status post craniotomy and resection of a meningioma. She also has some degree of arthritis, peptic ulcer disease and she is status post hysterectomy. SOCIAL HISTORY: She never smoked, does not drink alcohol. She is with grandchildren and a devoted daughter is close to her. ALLERGIES: SHE HAS NO KNOWN MEDICATION ALLERGIES. MEDICATIONS AT THE TIME OF ADMISSION: Included aspirin, Persantine, isosorbide, metoprolol, allopurinol, vitamin D, Feosol, Humira. REVIEW OF SYSTEMS: Significant for the arthritis and generalized weakness related to her age, obesity and osteoarthritis. PHYSICAL EXAMINATION: GENERAL: Patient is seen in the office on Sunday morning, in a chair with her and daughter present. She was awake, alert, clear. Mental status is sharp, in her usual state. By nature, she is a bit deliberate in her thought and speech with no dysarthria. HEAD AND NECK: Otherwise, unremarkable. Conjunctivae pink. Mucous membranes are moist. Neck was supple without masses. No carotid bruits. No JVD. Thyroid is not palpable. LUNGS: Clear with good aeration, right and left. There were minimal basilar crackles on both sides most likely due to poor inspiratory effort and weight or body habitus. HEART: Regular rate, not tachycardic. ABDOMEN: Obese. EXTREMITIES: Showed minimal edema. The trace physiologic edema of obesity, but no significant swelling. Dorsalis pedis and posterior tibial pulses were present. IMPRESSION: 1. Unstable angina, possible new [id number] myocardial infarction. 2. Hypertension. 3. Status post gastric resection for the benign lesion. 4. Status post colon cancer. 5. Craniotomy for meningioma. 6. Status post hysterectomy. PLAN: Patient will be admitted to monitored floor. I already spoke with tutor, Dr. Iverson, who saw the patient this Sunday in the afternoon and evaluated her for possible emergent catheterization. She will be admitted, treated with nitrates and beta blockers, monitored closely and scheduled for cardiac catheterization on Sunday. Messi Salas MD
[2017-12-24] MEDS: Sodium Chloride 0.9% 1,000 ML IV SCH ×2 (07:21→14:52)
[2017-12-24 07:27] LABS: BASO # 0.01 K/mm3 (0.0-2.0); BASO % 0.2 % (0.0-3.0); EOS # 0.1 (0.0-0.7); EOS % 2.7 % (1.5-5.0); GRAN # 3.71 (1.4-6.5); GRAN % 76.4 % (50.0-68.0); HEMOGLOBIN 8.9 g/dL (12.0-16.0); LYMPH # 0.7 (1.2-3.4); LYMPH % 15.1 % (22.0-35.0); MEAN CELL VOLUME 87.9 fl (80.0-105.0); MEAN CORPUSCULAR HGB CONC 30.7 g/dl (31.0-37.0); MONO # 0.3 (0.1-0.6); MONO % 5.6 % (1.0-6.0); RBC 3.3 10^6/uL (3.5-6.1); WHITE BLOOD COUNT 4.9 10^3/ul (4.5-11.0)
[2017-12-24] MEDS ORDERED: Iohexol 350mgl/ml 50 ML ONE (09:32)
[2017-12-24] MEDS ORDERED: Lidocaine 2% Inj (20ml) ONE (09:32)
[2017-12-24] MEDS ORDERED: Iodixanol 320 MG/ML 200 ML BOTTLE IV ONE (09:32)
[2017-12-24] MEDS ORDERED: Midazolam 2 MG/2 ML VIAL ONE ×2 (10:19→10:38)
[2017-12-24] MEDS ORDERED: Eptifibatide 20 mg/10mL Inj IVP ONE (11:10)
--- NOTE | 2017-12-24 11:57 | CPOSTOP ---
DATE: 12/24/2017 CARDIOVASCULAR LAB PROCEDURE POSTPROCEDURE NOTE PHYSICIAN: Ofe Iverson MD RELATIONSHIP MANAGEMENT LEAD: Arthur García, quality assurance qa lab technician. TYPE OF ANESTHESIA: Moderate conscious sedation. Total dose 2 mg of Versed, 100 of fentanyl given periodically started at 1 mg of Versed and 50 of fentanyl. PRE-PROCEDURE DIAGNOSES: Unstable angina, non-ST segment myocardial infarction, acute coronary syndrome. PROCEDURES PERFORMED: 1. Left heart catheterization. 2. Stenting of proximal right coronary artery with bare-metal stent. FINDINGS: Multivessel coronary artery disease, critical RCA ostial disease. FINAL DIAGNOSIS: Critical one-vessel right coronary artery disease. POST PROCEDURE CONDITION: Stable. VASCULAR ACCESS SITE: Right femoral artery. CLOSURE DEVICE: Angio-Seal. TOTAL RADIATION: 79353.30 milligray unit. TOTAL FLUORO TIME: 7.8 minutes. TOTAL CONTRAST USED: 40 mL. Ofe Iverson MD
[2017-12-24] MEDS: Milrinone 20mg/100ml D5W 100 ML IV PRN (12:22)
[2017-12-24] MEDS: Acetylcysteine 20% Inhal Soln (4ml) PO SCH ×2 (12:46→18:21)
[2017-12-24 14:49] LABS: BASO # 0.01 K/mm3 (0.0-2.0); BASO % 0.2 % (0.0-3.0); EOS # 0.1 (0.0-0.7); EOS % 1.5 % (1.5-5.0); GRAN # 4.2 (1.4-6.5); GRAN % 79.7 % (50.0-68.0); HEMOGLOBIN 8.2 g/dL (12.0-16.0); LYMPH # 0.8 (1.2-3.4); LYMPH % 15.6 % (22.0-35.0); MEAN CELL VOLUME 88.2 fl (80.0-105.0); MEAN CORPUSCULAR HEMOGLOBIN 27.7 pg (25.0-35.0); MEAN CORPUSCULAR HGB CONC 31.4 g/dl (31.0-37.0); MEAN PLATELET VOLUME 9.3 fl (7.0-11.0); MONO # 0.2 (0.1-0.6); RBC 2.96 10^6/uL (3.5-6.1); WHITE BLOOD COUNT 5.3 10^3/ul (4.5-11.0)
--- NOTE | 2017-12-24 14:52 | PCM.RRT ---
<Beatriz Allen - Last Filed: 12/24/17 16:19> FARM HAND Nurse Assessment - Situation Date: 12/24/17 Time FARM HAND was called: 14:17 FARM HAND Responder Arrival Time: 14:22 FARM HAND Location:: [address] [place] [address] Room Number: 274 FARM HAND Reason for Call: Chest Pain, Hypotension FARM HAND Called By: RN - IV IV Inserted during FARM HAND?: No - Respiratory Oxygen Delivery Method: Nasal Cannula @L/min Oxygen Flow Rate: 2 Received Nebulizer Treatments:: No Was the Patient Ventilated with Bag/Mask 100% O2?: No Secretions Suctioned?: No Was the Patient Intubated?: No Was the Patient Placed on a Ventilator?: No - Medication Medications Administered During FARM HAND: Zofran 4mg IVP - Diagnostic Test Ordered EKG: Yes Chest X-Ray: No CT Scan: No - Stat Labs Ordered FARM HAND Stat Labs Ordered: CBC, BMP CPR started during FARM HAND?: No - Vital Signs Vital Sign: Rapid Response Vital Sign Blood Pressure 79/41 Pulse Rate 75 Respiratory Rate 22 Oxygen Saturation 97 - Sepsis Screen Part 1 Sepsis Screen Part 1: Hypotensive - Time FARM HAND Ended Time FARM HAND Ended: 14:33 - Vital Signs at end of FARM HAND Vital Signs at end of FARM HAND: Rapid Response End Vital Sign Blood Pressure 129/57 Pulse Rate 76 Respiratory Rate 20 O2 Sat by Pulse Oximetry 100 - Recommendations Notifications: Attending Physician, Consultations I.Reason for FARM HAND - A) Acute Change in Patient: (Select all that apply): Acute change in SBP below, Chest Pain - Neurological Status (Select all that apply): Alert, Responsive, Oriented, Verbal, Follows Commands - Respiratory Oxygen Delivery Method: Nasal Cannula @L/min Oxygen Flow Rate: 2 - Head Head Exam: ATRAUMATIC, NORMAL INSPECTION, NORMOCEPHALIC - Eyes Eye Exam: Normal appearance - Respiratory Exam Respiratory Exam: Clear to Ausculation Bilateral, NORMAL BREATHING PATTERN. absent: Chest Wall Tenderness, Rhonchi, Wheezes, Respiratory Distress - Cardiovascular Exam Cardiovascular Exam: REGULAR RHYTHM, +S1, +S2. absent: Bradycardia, Tachycardia - GI/Abdominal Exam GI & Abdominal Exam: Soft. absent: Distended, Firm, Guarding, Tenderness - Neurological Exam Neurological Exam: Alert, Awake, Oriented x3 - Extremities Exam Additional comments: groin at catheter insertion site, nontender, soft, no bleeding Plan - Assessment of Findings&Treatment Plan 77 yo female with PMH of breast ca, colon ca, osteriarthritis, HTN, PUD presented initially for SOB and chest pain. Patient went for PCI this morning. FARM HAND was called because patient was not feeling well, became hypotensive and had episode of emesis. She also reported chest tightness. Patient received 1 bolus of IVF, patient was on primacor previously, it was held. Patient was placed on supplemental O2 and given zofran. EKG was done, appeared unchanged from previous. CBC, CMP was ordered. Blood pressure improved. Patient states that she felt better, chest pain improved as did her nausea. Cooling Tower Technician was informed, recommended to continue to hold primacor for BP. <Ofe Pemberton - Last Filed: 12/29/17 13:59> FARM HAND Nurse Assessment - Vital Signs Vital Sign: Rapid Response Vital Sign Blood Pressure 79/41 Pulse Rate 75 Respiratory Rate 22 Oxygen Saturation 97 - Vital Signs at end of FARM HAND Vital Signs at end of FARM HAND: Rapid Response End Vital Sign Blood Pressure 129/57 Pulse Rate 76 Respiratory Rate 20 O2 Sat by Pulse Oximetry 100 Attending/Attestation - Attestation I have personally seen and examined this patient.: Yes I have fully participated in the care of the patient.: Yes I have reviewed all pertinent clinical information, including history, physical exam and plan: Yes Notes (Text): 12/29/17 13:58 Patient was seen and examined with clinical medical assistant in the rapid response. Medical record note made by the resident after discussion with my direction and input after the patient was personally seen and examined by me. I have reviewed the chart and agree that the record accurately reflects by personal performance of the history, physical exam, data review, and medical decision-making, in the course for the patient. I have also personally directed the plan of care.
[2017-12-24 15:10] LABS: ALB/GLOB RATIO 1.1 (1.1-1.8); ALBUMIN 3.2 g/dL (3.0-4.8); CALCIUM 9.6 mg/dL (8.4-10.5)
--- NOTE | 2017-12-24 15:35 | CARD ---
APPROVED REPORT Procedure(s) performed: Left Heart Catheterization PTCA with Stenting of Ostial RCA HISTORY The patient is a 77 year-old female with a history of : most recent EF: 55%. (EF Method: Echocardiogram), previous CHF, chronic lung disease, hypertension , dyslipidemia , Hx of CAD, NSTEMI on last admission, Anemia, Colon Ca, brain tumour S/p craniatomy and removal of tumour in [facility],CKD with a base line creatinine 1.6, Gi bleed on last admission decided to be treated medically B/c of these co morbidities and asymptomic pt. but readmitted with ACS/unstable angina. INDICATION The indication(s) include : unstable angina . CASE TECHNIQUE The patient was brought urgently to the Cardiac Catheterization Laboratory in a fasting state and was prepped and draped in a sterile manner. The right femoral groin was infiltrated with 2% Lidocaine subcutaneous anesthesia. A 6 Fr x 11 cm Jess sheath was inserted into the right femoral artery without difficulty. Coronary angiography was performed using coronary diagnostic catheters. The left coronary system was accessed and visualized with a Diagnostic , 6F JL4 CATH DXT 100 CM catheter. The right coronary system was accessed and visualized with a Diagnostic ,6F JR 4 CATH DXT 100 CM catheter. The left ventricle was accessed and visualized with a 6F PIGTAIL 145 CATH DXT 110 CM catheter. Left ventricular/Aortic Valve gradient assessed on pullback. Left ventriculogram was performed in [place] projection. The patient tolerated the procedure well and there were no complications associated with the procedure. Vessel Analysis The patient's coronary anatomy is right dominant. The left main coronary artery is a large size vessel with diffuse calcification noted throughout this vessel and without significant stenosis. There is a 30% stenosis . The left main bifurcates to the left anterior descending and circumflex. The left anterior descending artery is a medium size vessel with diffuse calcification noted throughout this vessel and with significant stenosis. There is a 100% stenosis in the distal segment. Distal LAD is TELLER HEAD The first diagonal branch is a small size vessel with diffuse calcification noted throughout this vessel and with significant stenosis. There is a 70-80% stenosis in the proximal, Mid and distal segment segment. not suitable for PCI The second diagonal branch is a large size vessel with diffuse calcification noted throughout this vessel and without significant stenosis. The circumflex artery is a small size vessel with diffuse calcification noted throughout this vessel and with significant stenosis. There is a 70-80% stenosis in the mid segment. with two hair pin turns, Not suitable for PCI The right coronary artery is a large size vessel with diffuse calcification noted throughout this vessel and with significant stenosis. There is a 95% stenosis in the ostial segment. The right posterior descending artery is a large size vessel with diffuse calcification noted throughout this vessel and without significant stenosis. The right posterolateral branch is a medium size vessel with diffuse calcification noted throughout this vessel and without significant stenosis. Left Ventricle The left ventricle is border line in size with normal contractility. There was no cardiomyopathy. The left ventricular ejection fraction is estimated to be 55-60%. The left ventricular end diastolic pressure is 18 mmHg. There was no gradient across the aortic valve upon pullback. PCI Technique Lesion Anticoagulation was achieved with Heparin. Percutaneous coronary intervention was performed on the Ostial right coronary artery. The lesion stenosis prior to intervention was 95% with CRAOLINA 2 flow. A 6 Fr JR 3.5 SH Guide Catheter was used to engage the ostium. A [employer] 182 Interventional Guidewire was used to cross the lesion. BALLOON DILATION A Balloon catheter 2.5 x 10 mm Sprinter RX was inserted and inflated up to 10.00atm for 13seconds. STENT DEPLOYMENT A bare metal stent 4.0 x 12 mm Vision BMS was inserted and inflated up to 10.00atm for 20seconds. Final angiography reveals 0 % stenosis with CAROLINA 3 flow. Conclusion Critical Ostial RCA Diz Moderate to severe Mid Cx and D1 but are not suitable for PCI, and also small calibre vessel. Preserved LvFx. EF-55-60%, EDp-18 mmof hg. Successful pTCA with BMS of Ostial RCA ( BMS used B/c Hx Gi Bleed as a matter of fact pt has Blood in stool this mornig ) Recommendations Aggressive Medical TherapyCardiac Risk Reduction Program Baby Asa and Plavix for two weeks then Baby asa alone. Monitor reanl Fx and H & H closely, Only 40 CC Contrast used. CC; Dr. Salas T
--- NOTE | 2017-12-24 22:33 | CARD ---
APPROVED REPORT EKG Measurement Heart [id number] IN 178P48 [id number] <Conclusion> Normal sinus rhythm Left ventricular hypertrophy with repolarization abnormality Inferior infarct, age undetermined Abnormal ECG
--- NOTE | 2017-12-24 22:35 | CARD ---
APPROVED REPORT EKG Measurement Heart [id number] FL 180P46 [id number] <Conclusion> Normal sinus rhythm Left ventricular hypertrophy with repolarization abnormality Prolonged QT Abnormal ECG
[2017-12-25] MEDS: Sodium Chloride 0.9% 1,000 ML IV SCH (05:55)
[2017-12-25] MEDS ORDERED: Pantoprazole 20 mg EC Tab PO SCH (06:00)
[2017-12-25 06:41] VITALS: O2SAT 100
[2017-12-25 07:16] LABS: ALB/GLOB RATIO 1.2 (1.1-1.8); ALBUMIN 3.3 g/dL (3.0-4.8); CALCIUM 9.9 mg/dL (8.4-10.5)
[2017-12-25 07:23] LABS: EOS # 0.1 (0.0-0.7); EOS % 1.3 % (1.5-5.0); GRAN # 5.15 (1.4-6.5); GRAN % 83.9 % (50.0-68.0); HEMOGLOBIN 8.1 g/dL (12.0-16.0); LYMPH # 0.7 (1.2-3.4); LYMPH % 11.4 % (22.0-35.0); MEAN CELL VOLUME 88.5 fl (80.0-105.0); MEAN CORPUSCULAR HEMOGLOBIN 27.5 pg (25.0-35.0); MEAN PLATELET VOLUME 10.1 fl (7.0-11.0); MONO # 0.2 (0.1-0.6); MONO % 3.4 % (1.0-6.0); RBC 2.95 10^6/uL (3.5-6.1); RED CELL DISTRIBUTION WIDTH 16.2 % (11.5-14.5); WHITE BLOOD COUNT 6.1 10^3/ul (4.5-11.0)
--- NOTE | 2017-12-25 07:39 | CP.PCM.PN ---
Subjective - Date & Time of Evaluation Date of Evaluation: 12/25/17 Time of Evaluation: 06:45 - Subjective Subjective: Awake, lying in bed, denies chest pain, denies shortness of breath Reason ofr consultation and follow up: Cardiac evaluation for shortness of breath and chest pain, history of NSTEMI, breast cancer, colon cancer, osteoarthritis, hypertension, peptic ulcer disease. Seen and examined by me and Dr. Iverson Objective - Vital Signs/Intake and Output Vital Signs (last 24 hours): Temp Pulse Resp BP Pulse Ox 98.6 F 75 20 136/79 100 12/25/17 06:40 12/25/17 06:40 12/25/17 06:40 12/25/17 06:40 12/25/17 06:40 Intake and Output: 12/25/17 12/25/17 06:59 18:59 Intake Total 120 600 Output Total 100 1575 Balance 20 -975 - Medications Medications: Current Medications Acetylcysteine (Acetylcysteine 20%) 6 ml PO BID [facility] Stop: 12/25/17 23:59 Last Admin: 12/24/17 18:21 Dose: 6 ml Allopurinol (Zyloprim) 300 mg PO DAILY [facility] Last Admin: 12/24/17 12:45 Dose: 300 mg Amlodipine Besylate (Norvasc) 5 mg PO DAILY [facility] Last Admin: 12/24/17 12:45 Dose: 5 mg Aspirin (Ecotrin) 81 mg PO DAILY [facility] Last Admin: 12/24/17 07:25 Dose: 81 mg Atenolol (Tenormin) 50 mg PO QAM [facility] Last Admin: 12/24/17 12:45 Dose: 50 mg Clopidogrel Bisulfate (Plavix) 75 mg PO DAILY [facility] Last Admin: 12/24/17 07:25 Dose: 75 mg Isosorbide Mononitrate (Imdur Er) 30 mg PO DAILY [facility] Last Admin: 12/24/17 12:45 Dose: 30 mg Pantoprazole Sodium (Protonix Ec Tab) 20 mg PO 0600 [facility] Last Admin: 12/25/17 05:55 Dose: 20 mg - Labs Labs: 12/25/17 06:30 12/25/17 06:30 PT 11.0 SECONDS (9.4-12.5) 12/21/17 13:18 INR 0.97 (0.93-1.08) 12/21/17 13:18 APTT 27.5 Seconds (25.1-36.5) 12/21/17 13:18 - Constitutional Appears: No Acute Distress - Eye Exam Eye Exam: Normal appearance - ENT Exam ENT Exam: Mucous Membranes Moist - Respiratory Exam Respiratory Exam: Decreased Breath Sounds, NORMAL BREATHING PATTERN - Cardiovascular Exam Cardiovascular Exam: REGULAR RHYTHM, +S1, +S2 Additional comments: telemetry NSR 70's - GI/Abdominal Exam GI & Abdominal Exam: Soft, Normal Bowel Sounds - Extremities Exam Extremities Exam: Normal Capillary Refill - Neurological Exam Neurological Exam: Alert, Awake, Oriented x3 - Psychiatric Exam Psychiatric exam: Normal Affect, Normal Mood - Skin Skin Exam: Intact, Normal Color, Warm Assessment and Plan - Assessment and Plan (Free Text) Assessment: A 77 year old female who came in to the ER due to shortness of breath and intermittent chest pain.History of NSTEMI, breast cancer, colon cancer, osteoarthritis, hypertension, peptic ulcer disease. Post cardiac cath yesterday showed critical ostial RCA with bare metal stenting. moderate to severe mid Cx and D1 but are not suitable for PCI and also small caliber vessel. Preserved LV function 55-50%. ( Bare metal stent used due to history of GI bleeding) Plan: Post cardiac catheterization of ostial RCA with bare metal stenting yesterday Baby ASA and Plavix for 2 weeks then baby ASA alone Monitor renal function post procedure (only 40 cc contrast) Denies chest pain and shortness of breath today Continue current treatment Continue current medications On Norvasc 5 mg daily,ASA 81 mg daily,Tenormin 50 mg daily Plavix 75 mg daily. Imdur ER 30 mg daily Positive occult monitor H/H Will follow up Plan and treatment discussed with Dr. Iverson
[2017-12-25] MEDS ORDERED: Multivitamin Therapeutic Tab PO SCH (08:00)
[2017-12-25] MEDS: Acetylcysteine 20% Inhal Soln (4ml) PO SCH (09:28)
[2017-12-25] MEDS ORDERED: Clotrimazole/Betamethasone Cream(15 gm) TOP SCH (10:00)
--- NOTE | 2017-12-25 12:31 | PN ---
DATE: 12/24/2017 DAILY PROGRESS NOTE The patient is 77-year-old female with a history of colon carcinoma, breast carcinoma, surgery on a cerebral meningioma, osteoarthritis, peptic ulcer disease and coronary artery disease who was admitted to the [facility] three days ago complaining of unstable angina. She was taken to the catheterization lab this morning and a stent was placed in a 95% stenosed ostial right coronary artery. The patient also had small vessel disease of the circumflex; however, this is to be treated medically. The patient tolerated the procedure well. When seen, she had no complaints. Family was at bedside. Of note, she did have Heme-positive stools yesterday. This morning, her hemoglobin was 8.9, hematocrit 29, white blood cell count 4.9. The blood urea nitrogen was 43 and 2.1 respectively. The patient will be followed closely post procedure; to be discussed with Cardiology and finally going to be discharged to home soon. Chi Salas MD MTDRoman
[2017-12-25 12:57] LABS: FOLATE 5.1 ng/mL
[2017-12-25 13:24] VITALS: BP 130/64; PULSE 70; RESP 17; TEMP 99.1
--- NOTE | 2017-12-28 12:21 | CARD ---
APPROVED REPORT EKG Measurement Heart [id number] MT 220P47 [id number] <Conclusion> Sinus rhythm with 1st degree AV block Left ventricular hypertrophy with repolarization abnormality Abnormal ECG
--- NOTE | 2017-12-30 23:35 | DS ---
HISTORY OF PRESENT ILLNESS: This is a 77-year-old woman I had known for many years with difficult medical history including a benign lesion of stomach which was surgically resected by Dr. Bland, then a breast cancer resected and treated and then a colon cancer, which was surgically resected. She now comes to the hospital after being home only few days and presented to the office with chest pressure on exertion, shortness of breath walking across the room. The patient was hospitalized a few days prior to this admission with non-ST MN, seen by Cardiology, treated medically. At this time, discussions were held between the patient, family and the metrologist, Dr. Iverson, discussing the risks of intervention and catheterization based on her medical history. The decision was made then to take a conservative approach. She was discharged on nitrates and beta blockers, but presented to the office only 2 days later again complaining of chest discomfort, heaviness and pressure, shortness of breath with little exertion as walking across the room. The patient was admitted to a monitored bed on Sunday. It was felt she did not need emergent cardiac catheterization as she was not a code heart with ST elevations. There are no ST elevations. She was treated medically over the weekend, was comfortable at rest, underwent cardiac catheterization and stent placement with Dr. Iverson on Sunday. Postoperatively, she did well. This morning, she was awake, alert, clear. Her mental status was at baseline as it always had been. There was no chest pain, shortness of breath or discomfort, although, her hemoglobin was little bit low, this was her chronic state. She was cleared from Cardiology stand point. She will continue to follow up with Hematology-Oncology and GI. Continue her iron supplements and Procrit per farm management professor as indicated. She will follow up with me in the office in less than 1 week. FINAL DISCHARGE DIAGNOSES: 1. Unstable angina. 2. Coronary artery disease. 3. Diabetes. 4. Obesity. 5. Hyperlipidemia. 6. Status post resection of the benign lesion in the stomach. 7. Status post resection of the breast cancer. 8. Status post resection of colon cancer. 9. Hypertension. 10. Status post craniotomy for meningioma. 11. Status post hysterectomy. Messi Salas MD [facility] # [id number]
== END 2017-12-25 16:37 | disposition home or self-care (01) | DRG 249 ==
LOC: ED 12:42 → ERH 14:19 → 2RNO 15:39 → 2RSO 12-24 11:26
PROVIDERS: ADMIT Internal Medicine; ATTEND Internal Medicine
PROC: 02703DZ Dilation of Coronary Artery, One Artery with Intraluminal Device, Percutaneous Approach (ICD-10-PCS; principal; 2017-12-24)
PROC: 4A023N7 Measurement of Cardiac Sampling and Pressure, Left Heart, Percutaneous Approach (ICD-10-PCS; 2017-12-24)
PROC: B2151ZZ Fluoroscopy of Left Heart using Low Osmolar Contrast (ICD-10-PCS; 2017-12-24)
PROC: B2111ZZ Fluoroscopy of Multiple Coronary Arteries using Low Osmolar Contrast (ICD-10-PCS; 2017-12-24)
PROC: 3E053PZ Introduction of Platelet Inhibitor into Peripheral Artery, Percutaneous Approach (ICD-10-PCS; 2017-12-24)
DX: I25.110 Atherosclerotic heart disease of native coronary artery with unstable angina pectoris (principal); I13.0 Hypertensive heart and chronic kidney disease with heart failure and stage 1 through stage 4 chronic kidney disease, or unspecified chronic kidney disease; I50.9 Heart failure, unspecified; N18.9 Chronic kidney disease, unspecified; I27.20 Pulmonary hypertension, unspecified; I08.1 Rheumatic disorders of both mitral and tricuspid valves; E78.5 Hyperlipidemia, unspecified; D64.9 Anemia, unspecified; M19.90 Unspecified osteoarthritis, unspecified site; K59.00 Constipation, unspecified; I25.2 Old myocardial infarction; Z86.011 Personal history of benign neoplasm of the brain; Z85.038 Personal history of other malignant neoplasm of large intestine; Z85.3 Personal history of malignant neoplasm of breast; Z79.82 Long term (current) use of aspirin; Z90.10 Acquired absence of unspecified breast and nipple; Z87.11 Personal history of peptic ulcer disease

== ENCOUNTER 2018-01-18 23:19 | Inpatient (IN) | payer MEDICARE, OTHER ==
[2018-01-18 23:23] VITALS: BMI 26.4
--- NOTE | 2018-01-19 00:04 | ED PDOC ---
Arrival/HPI - General Chief Complaint: GI Problem Time Seen by Provider: 01/18/18 23:21 Historian: Patient - History of Present Illness Narrative History of Present Illness (Text): 01/19/18 00:00 77 year old female, whose past medical history includes colon cancer, breast cancer, brain tumor, anemia, and hypertension, who presents to the emergency department complaining of episodes of bloody diarrhea at home. Patient notes associated abdominal cramping. Patient denies any fevers, chills, chest pain, shortness of breath, nausea, vomiting,back pain, neck pain, headache, dizziness , or any other complaint. 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) - HEENT Hx HEENT Disorder: (WEARS RX GLASSES) - Renal Hx Renal Disorder: No - Endocrine/Metabolic Hx Endocrine Disorders: No - Hematological/Oncological Hx Blood Disorders: Yes Hx Cancer: Yes (Bilateral Breast,COLON CA, WITH RADIATION ONLY COMPLETED 2-3 YRS AGO) Hx Metastasis: Yes Other/Comment: b/l breast lumpectomy had 35 radiation treatments 2010, r axilla disection, colon and gastric ca - Integumentary Hx Dermatological Disorder: No - Musculoskeletal/Rheumatological Hx Arthritis: Yes Hx Falls: Yes - Gastrointestinal Hx Gastrointestinal Disorders: Yes Hx Pancreatitis: Yes HX Swallowing Problems: Yes Other/Comment: hx colon ca,GI BLEED 09-14-15, - Genitourinary/Gynecological Hx Genitourinary Disorders: Yes Other/Comment: hx hysterectomy,BILATERAL lumpectomy - Psychiatric Hx Emotional Abuse: No Hx Physical Abuse: No Hx Substance Use: No - Surgical History Other/Comment: brain tutomr with brain surgery - Anesthesia Hx Anesthesia Reactions: No - Suicidal Assessment Feels Threatened In Home Enviroment: No Family/Social History - Physician Review Nursing Documentation Reviewed: Yes Family/Social History: Unknown Family HX Smoking Status: Never Smoked Hx Alcohol Use: No Hx Substance Use: No Allergies/Home Meds Allergies/Adverse Reactions: Allergies No Known Allergies Allergy (Verified 01/18/18 23:23) Home Medications: Home Meds Medication Instructions Recorded Confirmed Omeprazole [Prilosec] 20 mg PO QAM 08/30/15 01/18/18 Atenolol [Tenormin] 50 mg PO QAM 09/21/15 01/18/18 amLODIPine [Norvasc] 5 mg PO DAILY 09/21/15 01/18/18 Cholecalciferol [Vitamin D 1000 IU] 50,000 iu PO QWK 03/26/17 01/18/18 Letrozole [Femara] 2.5 mg PO DAILY 03/26/17 01/18/18 Iron,Carbonyl [Feosol] 27 mg PO DAILY 06/21/17 01/18/18 Allopurinol [Zyloprim] 300 mg PO DAILY 12/08/17 01/18/18 Aspirin [Adult Low Dose Aspirin EC] 1 tab PO DAILY 12/21/17 01/18/18 Furosemide [Lasix] 1 tab PO DAILY 12/21/17 01/18/18 Isosorbide Mononitrate [Isosorbide 1 tab PO DAILY 12/21/17 01/18/18 Mononitrate ER] Vits A,C,E/Lutein/Minerals [Vision 1 tab PO DAILY 12/21/17 01/18/18 Formula with Lutein Tab] Review of Systems - Physician Review All systems were reviewed & negative as marked: Yes - Review of Systems Constitutional: Normal Eyes: Normal ENT: Normal Respiratory: Normal. absent: SOB, Cough Cardiovascular: Normal. absent: Chest Pain Gastrointestinal: Abdominal Pain, Diarrhea. absent: Nausea, Vomiting Genitourinary Female: Normal. absent: Dysuria, Hematuria Musculoskeletal: Normal. absent: Back Pain, Neck Pain Skin: Normal. absent: Rash Neurological: Normal. absent: Headache, Dizziness Endocrine: Normal Hemo/Lymphatic: Normal Psychiatric: Normal Physical Exam Vital Signs Reviewed: Yes Vital Signs Temp Pulse Resp BP Pulse Ox 01/18/18 23:53 98.8 F 127/84 01/18/18 23:41 69 16 100 Pulse: Regular Respiratory Rate: Normal Appearance: Positive for: Well-Appearing, Non-Toxic, Comfortable Pain Distress: None Mental Status: Positive for: Alert and Oriented X 3 - Systems Exam Head: Present: Atraumatic, Normocephalic Pupils: Present: PERRL Extroacular Muscles: Present: EOMI Conjunctiva: Present: Normal Mouth: Present: Moist Mucous Membranes Neck: Present: Normal Range of Motion Respiratory/Chest: Present: Clear to Auscultation, Good Air Exchange. No: Respiratory Distress, Accessory Muscle Use Cardiovascular: Present: Regular Rate and Rhythm, Normal S1, S2. No: Murmurs Abdomen: No: Tenderness, Distention, Peritoneal Signs Rectal: Present: Other (FICTION AND NONFICTION AUTHOR positive) Back: Present: Normal Inspection Upper Extremity: Present: Normal Inspection. No: Cyanosis, Edema Lower Extremity: Present: Normal Inspection. No: Edema Neurological: Present: GCS=15, CN II-XII Intact, Speech Normal Skin: Present: Warm, Dry, Normal Color. No: Rashes Psychiatric: Present: Alert, Oriented x 3, Normal Insight, Normal Concentration Medical Decision Making ED Course and Treatment: 01/19/18 00:03 Impression: 77 year old female presents to the emergency department complaining of episodes of bloody diarrhea. Plan: -- Labs -- EKG -- Chest X-ray -- Protonix -- Sodium Chloride -- Reassess and disposition Progress Notes: 01/19/18 00:28 EKG reviewed, shows NSR at [address]pm. LVH. Non-specific ST wave changes. 01/19/18 01:01 Case discussed with pt's PMD, Dr. Abdi Salas, who accepts pt into his service for blood transfusion. Suggests consultation with Dr. Mendes. Pt to be admitted to Telemetry bed. - Lab Interpretations Lab Results: 01/19/18 00:03 01/19/18 00:03 Lab Results 01/19/18 00:28: Blood Type Pending, Antibody Screen Pending, Crossmatch See Detail, BBK History Checked Patient has bt 01/19/18 00:03: WBC 5.2, RBC 2.63 L, Hgb 7.4 L, Hct 23.5 L, MCV 89.4, MCH 28.1, MCHC 31.5, RDW 17.9 H, Plt Count 157, MPV 9.2 01/19/18 00:03: Sodium 144, Potassium 4.2, Chloride 108 H, Carbon Dioxide 25, Anion Gap 15, BUN 42 H, Creatinine 1.7 H, Est GFR ( Amer) 35, Est GFR ( Non-Af Amer) 29, Random Glucose 96, Calcium 9.6, Total Bilirubin 0.2, AST 28, ALT 28, Alkaline Phosphatase 79, Total Protein 6.7, Albumin 3.7, Globulin 3.0, Albumin/Globulin Ratio 1.2, Lipase 316 H 01/19/18 00:03: PT 11.1, INR 0.97, APTT 27.7 - RAD Interpretation Radiology Orders: 01/18/18 23:56 CHEST PORTABLE [RAD] Stat - Medication Orders Current Medication Orders: Sodium Chloride (Sodium Chloride 0.9%) 1,000 mls @ 100 mls/hr IV .Q10H MEHREEN Last Admin: 01/19/18 00:32 Dose: 100 mls/hr eMAR Start Stop Document 01/19/18 00:32 MS (Rec: 01/19/18 00:32 MS [id number]) Intravenous Solution Start Date 01/19/18 Start Time 00:32 Discontinued Medications Pantoprazole Sodium (Protonix Inj) 40 mg IVP ONCE STA Stop: 01/19/18 00:02 Last Admin: 01/19/18 00:31 Dose: 40 mg IVP Administration Document 01/19/18 00:31 MS (Rec: 01/19/18 00:32 MS [id number]) Charges for Administration # of IVP Administrations 1 - Scribe Statement The provider has reviewed the documentation as recorded by the Scribe Sveta Hogan All medical record entries made by the Scribe were at my direction and personally dictated by me. I have reviewed the chart and agree that the record accurately reflects my personal performance of the history, physical exam, medical decision making, and the department course for this patient. I have also personally directed, reviewed, and agree with the discharge instructions and disposition. Disposition/Present on Arrival - Present on Arrival Any Indicators Present on Arrival: No History of DVT/PE: No History of Uncontrolled Diabetes: No Urinary Catheter: No History of Decub. Ulcer: No History Surgical Site Infection Following: None - Disposition Have Diagnosis and Disposition been Completed?: Yes Diagnosis: GI bleed Disposition: HOSPITALIZED Disposition Time: 01:04 Patient Plan: Admission Condition: STABLE Referrals: Messi Salas MD [Primary Care Provider] - Follow up with primary Forms: [email or web address] (Turkmen)
[2018-01-19 00:29] LABS: HEMOGLOBIN 7.4 g/dL (12.0-16.0); MEAN CELL VOLUME 89.4 fl (80.0-105.0); MEAN CORPUSCULAR HEMOGLOBIN 28.1 pg (25.0-35.0); MEAN CORPUSCULAR HGB CONC 31.5 g/dl (31.0-37.0); MEAN PLATELET VOLUME 9.2 fl (7.0-11.0); RBC 2.63 10^6/uL (3.5-6.1); RED CELL DISTRIBUTION WIDTH 17.9 % (11.5-14.5); WHITE BLOOD COUNT 5.2 10^3/ul (4.5-11.0)
[2018-01-19] MEDS: Sodium Chloride 0.9% 1,000 ML IV SCH (00:32)
[2018-01-19 00:36] LABS: INR 0.97 (0.93-1.08); PARTIAL THROMBOPLASTIN TIME 27.7 Seconds (25.1-36.5); PROTHROMBIN TIME 11.1 SECONDS (9.4-12.5)
[2018-01-19 00:38] LABS: ALB/GLOB RATIO 1.2 (1.1-1.8); ALBUMIN 3.7 g/dL (3.0-4.8); CALCIUM 9.6 mg/dL (8.4-10.5)
--- NOTE | 2018-01-19 08:33 | RAD ---
Date of service: 01/19/2018 HISTORY: GI bleed COMPARISON: No prior. FINDINGS: LUNGS: The lungs are well inflated and clear. There is linear atelectasis/ scarring in the right upper lobe and left lower lobe. PLEURA: No significant pleural effusion identified, no pneumothorax apparent. CARDIOVASCULAR: The heart is normal in size. Normal. OSSEOUS STRUCTURES: No significant abnormalities. VISUALIZED UPPER ABDOMEN: Normal. 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 IMPRESSION: No active pulmonary disease.
[2018-01-19 09:56] LABS: HEMOGLOBIN 7.8 g/dL (12.0-16.0); MEAN CELL VOLUME 86.4 fl (80.0-105.0); MEAN CORPUSCULAR HEMOGLOBIN 27.9 pg (25.0-35.0); MEAN CORPUSCULAR HGB CONC 32.2 g/dl (31.0-37.0); MEAN PLATELET VOLUME 9.7 fl (7.0-11.0); RBC 2.8 10^6/uL (3.5-6.1); RED CELL DISTRIBUTION WIDTH 18.9 % (11.5-14.5); WHITE BLOOD COUNT 4.6 10^3/ul (4.5-11.0)
--- NOTE | 2018-01-19 12:14 | CARD ---
APPROVED REPORT Date of service: 01/18/2018 EKG Measurement Heart [id number] MD [id number] <Conclusion> Normal sinus rhythm Left ventricular hypertrophy with repolarization abnormality Abnormal ECG
--- NOTE | 2018-01-19 16:57 | NM ---
Date of service: 01/19/2018 PROCEDURE: Nuclear medicine gastrointestinal bleeding scan. HISTORY: bloody stools COMPARISON: None available. TECHNIQUE: 4ccof patient blood was withdrawn and mixed with 21.2mCi of technetium ultra tagged. Images of the abdomen and pelvis were obtained in the anterior and posterior projection at 1 min intervals over a period of 60 minutes. Additional imaging was obtained up to 20 40 minutes post isotope administration due to the positive nature of the initial segment of the exam up to 60 minutes. FINDINGS: Initial series up to 60 minutes post isotope administration reveals hyperactivity originating at the left upper quadrant extending inferiorly and medially into the pelvis. It was not clear initially whether this might be large or small bowel with large-bowel favored given its peripheral origination. Subsequent imaging demonstrated further antegrade activity into the lower pelvis with not entering into the central abdomen. Further, there is activity extending to the midline upper abdomen. Correlated with prior CT of the abdomen pelvis from 12/10/2017, the origin of active hemorrhage appears to be the proximal splenic flexure which is the the most nondependent portion of the splenic flexure and might provide for retrograde hemorrhage into the transverse colon. This is not felt to be a small bowel active bleed. Further clinical correlation is recommended. Physiologic activity was seen in the heart, liver, spleen and blood vessels. IMPRESSION: Active gastrointestinal bleeding is identified in the large-bowel felt originate at the region of the proximal splenic flexure as discussed above. Findings discussed with Dr. Manzo at 01/19/2018, 4:55 p.m. with written down and read back verification.
[2018-01-19 17:20] LABS: HEMOGLOBIN 8.8 g/dL (12.0-16.0)
[2018-01-19] MEDS: Pantoprazole 40mg/100mL NS 40 MG/100 ML BAG IVPB SCH ×2 (18:58→23:00)
[2018-01-19] MEDS: metroNIDAZOLE IV 500 mg/100 ml 500 MG/100 ML BAG IVPB SCH (21:32)
[2018-01-19] MEDS ORDERED: Ciprofloxacin 400mg/200ml D5W 400 MG/200 ML BAG IVPB SCH (22:00)
--- NOTE | 2018-01-20 04:34 | CON ---
DATE: 01/19/2018 REQUESTING PHYSICIAN: Dr. Messi Salas. CHIEF COMPLAINT: The patient presented with abdominal pain and bloody bowel movements. HISTORY OF PRESENT ILLNESS: Ms. Suly Swenson is a 77-year-old female with a history of colon cancer, breast cancer, brain cancer, anemia and hypertension. The patient had several episodes of bloody bowel movements at home and was admitted to the hospital. Also complained of abdominal cramping. The patient was evaluated this morning on the medical floor for large bloody bowel movements and was taken to bleeding scan which was positive in the area of the colon. The patient since has been transferred to the Intensive Care Unit. She is awake and alert, hemodynamically stable at this time. The patient has been receiving packed red blood cells. PAST MEDICAL HISTORY: As above. ALLERGIES: SHE HAS NO KNOWN ALLERGIES. CURRENT MEDICATIONS: Can be evaluated as per the nurse's intake form. SOCIAL HISTORY: No history of smoking, EtOH abuse or drug abuse. REVIEW OF SYSTEMS: CONSTITUTIONAL: All negative. HEENT: All negative. RESPIRATORY: All negative. CARDIOVASCULAR: All negative. GASTROINTESTINAL: The patient has abdominal cramping and bloody bowel movements. : All negative. MUSCULOSKELETAL: All negative. NEUROPSYCHIATRIC: All negative. HEMATOLOGIC: The patient is anemic. IMMUNOLOGIC: All negative. ENDOCRINE: All negative. PHYSICAL EXAMINATION: VITAL SIGNS: Note that her temperature is 98.6, her pulse is 67, respirations of 13 and BP is 179/77. SKIN: Warm and dry. HEAD: Atraumatic, normocephalic. Eyes reactive to light. Ears, nose and throat seemed to be within normal limits. NECK: Supple. No JVD. No thyroid enlargement or lymph nodes. HEART: Has regular rate and rhythm. Normal S1, S2. LUNGS: Reveal good breath sounds bilaterally. ABDOMEN: Soft, but tender with deep palpation. Decreased bowel sounds. GENITALIA AND RECTAL: Deferred. MUSCULOSKELETAL: No joint deformities. EXTREMITIES: Reveal trace lower extremity edema. NEUROLOGICALLY: She seemed to be grossly intact. LABORATORY DATA: As far as her laboratories are concerned, her white count is 4.6, hemoglobin is 8.8 with hematocrit 26.2 and platelets of 136,000. The patient's PT is 11.1, INR is 0.97 and PTT is 27.7. Her sodium is 144, potassium 4.2, chloride 108, CO2 of 25 with a BUN of 42, creatinine of 1.7 and glucose of 96. As far as the patient's chest x-ray is within normal limits and the bleeding scan reveals active gastrointestinal bleeding is identified in the large bowel, felt origin at the region of the proximal splenic flexure as discussed above. Findings were discussed with Dr. Mendes. IMPRESSION: This patient has acute lower gastrointestinal bleed in the area of the colon. She has a history of colon cancer, breast cancer, brain tumor, anemia, hypertension, congestive heart failure and myocardial infarction. The patient did present with abdominal cramping and has some renal insufficiency as well. PLAN: As far as our plan, we will start the patient on Protonix. She is getting IV fluids. The patient has had packed red blood cells and is on metronidazole. She is being followed closely by GI as well as Surgery and we will continue to monitor closely as well. The patient has been typed and crossmatched for packed red blood cells and has had 1 packed red blood cell transfusion today. We will continue to treat aggressively along with the other consultants and the primary care doctor. Suresh Rincon MD
[2018-01-20] MEDS: metroNIDAZOLE IV 500 mg/100 ml 500 MG/100 ML BAG IVPB SCH ×3 (05:27→21:12)
[2018-01-20] MEDS: Pantoprazole 40mg/100mL NS 40 MG/100 ML BAG IVPB SCH ×3 (05:30→16:19)
[2018-01-20] MEDS: Sodium Chloride 0.9% 1,000 ML IV SCH ×2 (05:33→15:04)
--- NOTE | 2018-01-20 06:00 | CON ---
DATE: 01/19/2018 This patient was seen and evaluated earlier today. Discussed with the nursing staff and also Asset Protection Assistant. I did discuss with primary physician Dr. Chi Salas later on. REASON FOR CONSULTATION: GI bleeding. HISTORY OF PRESENT ILLNESS: The 77-year-old patient with a past medical history of breast cancer, history of gastric GIST status post partial gastrectomy, history of colon cancer status post robotic assisted right hemicolectomy, multiple postoperative complications, had a small bowel resections done. History of hypertension, gallstones, symptomatic gout, had a history of GI bleeding before. The patient had a NSTEMI, moderate pulmonary hypertension. Thepatient was admitted with non-ST segment elevation myocardial infarction,cardiac cath and stent placement 4 weeks ago. The patient did havebare-metal stent placement of critical ostial RCA. The patient also found to have severe mid circumflex and D1 lesion, but found not suitable for PCI. The patient also have a preserved LV function of 55 to 60%, so the patient was initially placed on aspirin and Plavix, and recommendations at that time was to continue aspirin and Plavix for 2 weeks then continue only the aspirin The patient now developed bright red blood per rectum, several episodes, yesterday brought to the emergency room. The patient did have some abdominal discomfort. No vomiting blood. PAST MEDICAL HISTORY: Other past medical history significant as above. History of gallstone, history of pancreatitis before. History of arthritis, status post hysterectomy. SOCIAL HISTORY: Denies smoking or alcohol. REVIEW OF SYSTEMS: Positive as above. Other systems reviewed. PHYSICAL EXAMINATION GENERAL: The patient is lying on the bed, not in acute distress. VITAL SIGNS: Temperature is afebrile. Blood pressure is 182/62. Respirations 15. Pulse rate 69. HEENT: Atraumatic, anicteric. NECK: Supple. HEART: S1, S2 heard. LUNGS: Bilateral air entry present. ABDOMEN: Soft. There is no mass palpable. Mild tenderness in the epigastric, in the left upper quadrant area. No rebound or guarding. EXTREMITIES: No cyanosis or clubbing. NEUROLOGICAL: Alert, oriented, moves all the extremities. LABORATORY DATA: Hemoglobin when the patient came into the emergency room was 7.4, received unit of blood transfusion, the hemoglobin went up to only 7.8, receiving second unit of transfusion. Hematocrit 24.2, WBC 4.6, platelets 136. Chemistry is essentially, BUN 42, creatinine 1.7. LFTs normal. IMPRESSION: This 77-year-old patient with a history of colon cancer status post right hemicolectomy, history of breast cancer, history of gastrointestinal stromal tumor status post partial gastrectomy, did have history of gastrointestinal bleeding, colonoscopy done in 10/11/2017 showed only diverticulosis underlying hemorrhoids. The patient did have an endoscopy done, which showed only hyperplastic polyp. The polyp was removed by snare cautery, only hyperplastic polyp in the stomach. The patient does have hemorrhoids. At that time, the patient was managed conservatively. The iron supplement stable. Family at that time did not want any further invasive workup. The patient was doing well Now the patient was admitted with recurrence of the bleeding, presently on aspirin and Plavix, had a bare metal stent placement on 12/24/2017. The plan was to continue the aspirin and Plavix for 2 weeks, than continue only the aspirin. The patient did have a stent placed for critical osteal right coronary artery. The patient also found to have a mid circumflex and D1 significant disease, but not suitable for percutaneous coronary intervention. Other comorbidities include hypertension, history of gastrointestinal stromal tumor. I did discuss with the Radiologist who was authors motivational, reviewed the bleeding scan, suspected to have the bleeding from the splenic flexure. I did discuss with Dr. Salas, the primary physician PLAN : 1. Bleeding scan. 2. Close followup of the hemoglobin and hematocrit. 3. We will discontinue the aspirin and Plavix today and we will consider resuming the aspirin once the acute episode of bleeding resolves. 4. The patient is transferred to the ICU with a close monitoring of the hemoglobin and hematocrit, would avoid platelet transfusion presently. If the patient had an acute significant bleed, continues to have, then we will consider it as the present plan is to continue the PPI and transfuse to keep the hemoglobin around 9. 5. The patient would also consider CT of the abdomen to further evaluate the left colon. The patient did have a colonoscopy in September, found to have only diverticulosis status post right hemicolectomy and hemorrhoids. The patient's likelihood of angiodysplasia also should be considered. Thank you very much for allowing us to participate in the care of the patient. Adolfo Mendes MD [facility] # [id number] [facility]OSPITALRoman
[2018-01-20 07:11] LABS: BASO # 0.01 K/mm3 (0.0-2.0); BASO % 0.2 % (0.0-3.0); EOS # 0.2 (0.0-0.7); EOS % 3.7 % (1.5-5.0); GRAN # 4.06 (1.4-6.5); GRAN % 78.2 % (50.0-68.0); HEMOGLOBIN 8.7 g/dL (12.0-16.0); LYMPH # 0.8 (1.2-3.4); LYMPH % 15.2 % (22.0-35.0); MEAN CELL VOLUME 85.1 fl (80.0-105.0); MEAN CORPUSCULAR HEMOGLOBIN 28.7 pg (25.0-35.0); MEAN CORPUSCULAR HGB CONC 33.7 g/dl (31.0-37.0); MEAN PLATELET VOLUME 9.4 fl (7.0-11.0); MONO # 0.1 (0.1-0.6); MONO % 2.7 % (1.0-6.0); RBC 3.03 10^6/uL (3.5-6.1); RED CELL DISTRIBUTION WIDTH 17.8 % (11.5-14.5); WHITE BLOOD COUNT 5.2 10^3/ul (4.5-11.0)
[2018-01-20 07:33] LABS: ALB/GLOB RATIO 1.1 (1.1-1.8); ALBUMIN 2.9 g/dL (3.0-4.8); CALCIUM 9.3 mg/dL (8.4-10.5)
--- NOTE | 2018-01-20 08:55 | PN ---
DATE: 01/20/2018 OFFSET LITHOGRAPHIC PRESS SETTER NOTE SUBJECTIVE: The patient is resting in bed. No complaints of shortness of breath, cough, wheezing, chest congestion. No vomiting. No abdominal pain. No chest pain. The patient did have two bowel movements over the night. Note that one did have a small amount of dark blood. PHYSICAL EXAMINATION: VITAL SIGNS: Note that her temperature is 98.1, her pulse is 76, respirations of 16 and BP of 135/71. HEENT: Head is atraumatic, normocephalic. Eyes reactive to light. Ears, nose and throat seemed to be within normal limits. NECK: Supple. No JVD. No thyroid enlargement. No lymph nodes. HEART: Has regular rate and rhythm. Normal S1, S2. LUNGS: Reveal good breath sounds bilaterally. ABDOMEN: Soft. Decreased bowel sounds. GENITALIA: Deferred. RECTAL: Deferred. MUSCULOSKELETAL: No joint deformities. EXTREMITIES: Reveal trace lower extremity edema. NEUROLOGICAL: She seemed to be grossly intact. DATA: As far as her laboratories are concerned, her white count is 5.2, hemoglobin is 8.7, hematocrit 25.8 with platelets of 129,000. Sodium is 148, potassium 4.1, chloride 114 with CO2 of 24, BUN of 35, creatinine of 1.4 and a glucose of 81. IMPRESSION: As far as my impression, this patient has acute lower GI bleed in the region of the colon. She has history of colon cancer, breast cancer and brain tumor as well as anemia, hypertension, congestive heart failure and myocardial infarction. PLAN: As far as our plan, we will continue with Protonix and continue with IV fluids. The patient's hemoglobin is being followed closely. She is being followed by GI as well as Surgery and we will continue to treat aggressively along with the other consultants and the primary care doctor. Suresh Rincon MD
--- NOTE | 2018-01-20 12:33 | CT ---
Date of service: 01/20/2018 PROCEDURE: CT Abdomen and Pelvis without intravenous contrast HISTORY: eval left side colon for bleeding COMPARISON: 12/10/2017. TECHNIQUE: CT scan of the abdomen and pelvis was performed without administration of intravenous contrast. Oral contrast was not administered. Coronal and sagittal reformatted images were obtained. Radiation dose: Total exam DLP = 653.36 mGy-cm. This CT exam was performed using one or more of the following dose reduction techniques: Automated exposure control, adjustment of the mA and/or kV according to patient size, and/or use of iterative reconstruction technique. FINDINGS: LOWER THORAX: There is subsegmental atelectasis in the lung bases. Trace pleural effusions. Mild cardiomegaly and atherosclerotic coronary artery calcifications. LIVER: The liver is normal in size. No gross lesion or ductal dilatation. GALLBLADDER AND BILE DUCTS: There are small gallstones. PANCREAS: Normal in size. No gross lesion or ductal dilatation. SPLEEN: Mild splenomegaly. ADRENALS: No discrete nodule. KIDNEYS AND URETERS: Bilateral renal cortical atrophy. No hydronephrosis or nephrolithiasis. VASCULATURE: No aortic aneurysm. BOWEL: Evaluation of the bowel is limited in the absence of oral contrast. The small bowel loops are normal in caliber. Status post right hemicolectomy and ileo transverse anastomosis. There is extensive left colonic diverticulosis. There is segmental wall thickening in the proximal sigmoid colon. There is high attenuation fluid layering in the rectum which may represent hemorrhagic fluid with the stated clinical history. No micro perforation or fluid collection. PERITONEUM: There is high attenuation free fluid in the right hemipelvis. No free air. LYMPH NODES: No enlarged lymph nodes. BLADDER: Grossly normal in appearance. REPRODUCTIVE: Unremarkable. BONES: No acute fracture. OTHER FINDINGS: None. IMPRESSION: 1. Please note evaluation of the bowel is limited in the absence of oral and intravenous contrast. Extensive left colonic diverticulosis. Segmental mural thickening in the proximal sigmoid colon could represent acute diverticulitis. Underlying malignancy is not entirely excluded. 2. Small amount of high density fluid in the right hemipelvis could be related to intraperitoneal hemorrhagic fluid. The source of the fluid is indeterminate on this examination.
[2018-01-20 13:57] LABS: HEMOGLOBIN 9.3 g/dL (12.0-16.0); MEAN CELL VOLUME 85.8 fl (80.0-105.0); MEAN CORPUSCULAR HEMOGLOBIN 28.6 pg (25.0-35.0); MEAN CORPUSCULAR HGB CONC 33.3 g/dl (31.0-37.0); MEAN PLATELET VOLUME 9.1 fl (7.0-11.0); RBC 3.25 10^6/uL (3.5-6.1); RED CELL DISTRIBUTION WIDTH 17.7 % (11.5-14.5); WHITE BLOOD COUNT 5.9 10^3/ul (4.5-11.0)
--- NOTE | 2018-01-20 14:46 | CP.PCM.CON ---
History of Present Illness - History of Present Illness History of Present Illness: GENERAL SURGERY CONSULT NOTE FOR DR. VIZCAINO 77yo F with PMHx of breast cancer s/p lumpectomy, gastric GIST s/p partial gastrectomy, colon cancer s/p Right hemicolectomy, HTN, GI bleed, NSTEMI s/p stent 12/25 on aspirin and plavix presented to the ED with bloody diarrhea. She has had bright red blood per rectum since Sunday per family. Pt denies nausea or vomiting. Mild epigastric abdominal pain. Bleeding scan showed active bleed at proximal splenic flexure. Pt admitted to ICU, aspirin and plavix were held and pt was transfused 3-4 units PRBC. PMH: breast ca, gastric GIST s/p partial gastrectomy, colon cancer s/p robotic assisted hemicolectomy, hypertension, gout, GI bleed, NSTEMI, anemia PSH: R. hemicolectomy, b/l lumpectomy, brain surgery, partial gastrectomy, bare metal stent on 12/25, previous colonoscopies showed diverticulosis and hemorrhoids SH: Denies alcohol, tobacco and illicit drug use; Lives with her All: [facility] Review of Systems - Review of Systems All systems: reviewed and no additional remarkable complaints except (as per hpi ) Past Patient History - Infectious Disease Hx of Infectious Diseases: None - Tetanus Immunizations Tetanus Immunization: Unknown - Past Social History Smoking Status: Never Smoked - CARDIAC Hx Cardiac Disorders: Yes (NSTEMI) Hx Congestive Heart Failure: Yes Hx Hypertension: Yes - PULMONARY Hx Respiratory Disorders: No - NEUROLOGICAL Hx Neurological Disorder: No - HEENT Hx HEENT Problems: (WEARS RX GLASSES) - RENAL Hx Chronic Kidney Disease: No - ENDOCRINE/METABOLIC Hx Endocrine Disorders: No - HEMATOLOGICAL/ONCOLOGICAL Hx Blood Disorders: Yes Hx Anemia: Yes Hx Cancer: Yes (Bilateral Breast,COLON CA, WITH RADIATION ONLY COMPLETED 2-3 YRS AGO) Hx Metastesis: Yes Other/Comment: b/l breast lumpectomy had 35 radiation treatments 2010, r axilla disection, colon and gastric ca - INTEGUMENTARY Hx Dermatological Problems: No - MUSCULOSKELETAL/RHEUMATOLOGICAL Hx Musculoskeletal Disorders: Yes Hx Arthritis: Yes Hx Falls: Yes - GASTROINTESTINAL Hx Gastrointestinal Disorders: Yes Hx Pancreatitis: Yes Other/Comment: hx colon ca,GI BLEED 09-14-15, - GENITOURINARY/GYNECOLOGICAL Hx Genitourinary Disorders: No - PSYCHIATRIC Hx Psychophysiologic Disorder: No - SURGICAL HISTORY Hx Surgeries: Yes Hx Cardiac Catheterization: Yes Other/Comment: brain tutomr with brain surgery - ANESTHESIA Hx Anesthesia Reactions: No Meds Allergies/Adverse Reactions: Allergies Allergy/AdvReac Type Severity Reaction Status Date / Time No Known Allergies Allergy Verified 01/18/18 23:23 - Medications Medications: Current Medications Sodium Chloride (Sodium Chloride 0.9%) 1,000 mls @ 100 mls/hr IV .Q10H [facility] Last Admin: 01/20/18 05:33 Dose: 100 mls/hr Metronidazole (Flagyl) 500 mg in 100 mls @ 100 mls/hr IVPB Q8 [facility] PRN Reason: Protocol Stop: 01/24/18 22:01 Last Admin: 01/20/18 14:23 Dose: 100 mls/hr Pantoprazole Sodium (Protonix 40mg Ivpb) 40 mg in 100 mls @ 20 mls/hr IVPB .Q5H [facility] Last Admin: 01/20/18 10:41 Dose: 20 mls/hr Metoprolol Tartrate (Lopressor) 5 mg IVP Q6H [facility] Physical Exam - Constitutional Appears: Non-toxic, No Acute Distress - Head Exam Head Exam: ATRAUMATIC, NORMAL INSPECTION - Eye Exam Eye Exam: EOMI, Normal appearance - Respiratory Exam Respiratory Exam: NORMAL BREATHING PATTERN. absent: Respiratory Distress - Cardiovascular Exam Cardiovascular Exam: +S1, +S2 - GI/Abdominal Exam GI & Abdominal Exam: Soft, Tenderness (mild tender epigastric). absent: Distended, Firm, Guarding, Rebound, Rigid - Rectal Exam Rectal Exam: Bloody Stool Additional comments: No masses palpated - Neurological Exam Neurological exam: Alert, CN II-XII Intact, Oriented x3 - Psychiatric Exam Psychiatric exam: Normal Affect, Normal Mood - Skin Skin Exam: Dry, Normal Color, Warm Results - Vital Signs Recent Vital Signs: Last Vital Signs Temp 98.1 F 01/20/18 11:41 Pulse 72 01/20/18 14:20 Resp 13 01/20/18 14:20 BP 135/64 01/20/18 14:00 Pulse Ox 100 01/20/18 14:20 - Labs Result Diagrams: 01/20/18 13:50 01/20/18 06:45 Labs: Laboratory Results - last 24 hr 01/19/18 01/20/18 01/20/18 17:00 06:45 06:45 WBC 5.2 RBC 3.03 L Hgb 8.8 L 8.7 L Hct 26.6 L 25.8 L MCV 85.1 MCH 28.7 MCHC 33.7 RDW 17.8 H Plt Count 129 MPV 9.4 Gran % 78.2 H Lymph % (Auto) 15.2 L Towns % (Auto) 2.7 Eos % (Auto) 3.7 Baso % (Auto) 0.2 Gran # 4.06 Lymph # (Auto) 0.8 L Towns # (Auto) 0.1 Eos # (Auto) 0.2 Baso # (Auto) 0.01 Sodium 148 Potassium 4.1 Chloride 114 H Carbon Dioxide 24 Anion Gap 13 BUN 35 H Creatinine 1.4 H Est GFR ( Amer) 44 Est GFR (Non-Af Amer) 36 Random Glucose 81 Calcium 9.3 Phosphorus 4.2 Magnesium 1.8 Total Bilirubin 0.5 AST 26 ALT 29 Alkaline Phosphatase 57 Total Protein 5.5 L Albumin 2.9 L Globulin 2.6 Albumin/Globulin Ratio 1.1 01/20/18 13:50 WBC 5.9 RBC 3.25 L Hgb 9.3 L Hct 27.9 L MCV 85.8 MCH 28.6 MCHC 33.3 RDW 17.7 H Plt Count 115 L MPV 9.1 Gran % Lymph % (Auto) Towns % (Auto) Eos % (Auto) Baso % (Auto) Gran # Lymph # (Auto) Towns # (Auto) Eos # (Auto) Baso # (Auto) Sodium Potassium Chloride Carbon Dioxide Anion Gap BUN Creatinine Est GFR ( Amer) Est GFR (Non-Af Amer) Random Glucose Calcium Phosphorus Magnesium Total Bilirubin AST ALT Alkaline Phosphatase Total Protein Albumin Globulin Albumin/Globulin Ratio Assessment & Plan - Assessment and Plan (Free Text) Assessment: 77yo F with PMHx of breast cancer s/p lumpectomy, gastric GIST s/p partial gastrectomy, colon cancer s/p Right hemicolectomy, HTN, GI bleed, NSTEMI s/p stent 12/25 on aspirin and plavix presented with lower GI bleed - Afebrile, VSS - Hgb improved to 9.3 s/p PRBC - 01/19 bleeding scan: positive for active bleed in proximal splenic flexure - CT: extensive left colonic diverticulosis with segmental mural thickening in proximal sigmoid - could represent diverticulitis - Recommend colonoscopy to localize source of bleeding - Continue NPO, protonix - No surgical intervention necessary at this time - Will monitor H&H - Discussed plan with Dr. Conrad Mosley PGY-4
--- NOTE | 2018-01-20 15:44 | CP.PCM.PN ---
<Dayanara Weston - Last Filed: 01/20/18 15:40> Subjective - Date & Time of Evaluation Date of Evaluation: 01/20/18 Time of Evaluation: 12:00 - Subjective Subjective: GI Fellow PGY5 Consult Note Pt seen and evaluated at bedside, pt with continued rectal bleeding. Per nursing 3 BM overnight and 2 bloody BM this morning. Pt currently getting blood transfusion. ROS: A 12pt ROS was negative except as above Objective - Vital Signs/Intake and Output Vital Signs (last 24 hours): Temp Pulse Resp BP Pulse Ox 98.1 F 72 13 135/64 100 01/20/18 11:41 01/20/18 14:20 01/20/18 14:20 01/20/18 14:00 01/20/18 14:20 Intake and Output: 01/20/18 01/20/18 06:59 18:59 Intake Total 3415 425 Output Total 1200 650 Balance 2215 -225 - Medications Medications: Current Medications Sodium Chloride (Sodium Chloride 0.9%) 1,000 mls @ 100 mls/hr IV .Q10H [facility] Last Admin: 01/20/18 15:04 Dose: 100 mls/hr Metronidazole (Flagyl) 500 mg in 100 mls @ 100 mls/hr IVPB Q8 [facility] PRN Reason: Protocol Stop: 01/24/18 22:01 Last Admin: 01/20/18 14:23 Dose: 100 mls/hr Pantoprazole Sodium (Protonix 40mg Ivpb) 40 mg in 100 mls @ 20 mls/hr IVPB .Q5H [facility] Last Admin: 01/20/18 10:41 Dose: 20 mls/hr Metoprolol Tartrate (Lopressor) 5 mg IVP Q6H [facility] - Labs Labs: 01/20/18 13:50 01/20/18 06:45 PT 11.1 SECONDS (9.4-12.5) 01/19/18 00:03 INR 0.97 (0.93-1.08) 01/19/18 00:03 APTT 27.7 Seconds (25.1-36.5) 01/19/18 00:03 - Constitutional Appears: Non-toxic, No Acute Distress, Chronically Ill - Head Exam Head Exam: ATRAUMATIC, NORMAL INSPECTION, NORMOCEPHALIC - Eye Exam Eye Exam: EOMI, Normal appearance, PERRL Pupil Exam: PERRL - ENT Exam ENT Exam: Mucous Membranes Dry - Neck Exam Neck Exam: Full ROM, Normal Inspection - Respiratory Exam Respiratory Exam: NORMAL BREATHING PATTERN - Cardiovascular Exam Cardiovascular Exam: REGULAR RHYTHM, RRR - GI/Abdominal Exam GI & Abdominal Exam: Soft, Normal Bowel Sounds. absent: Distended, Tenderness - Rectal Exam Rectal Exam: Bloody Stool - Extremities Exam Extremities Exam: Full ROM - Neurological Exam Neurological Exam: Alert, Awake, Oriented x3 - Psychiatric Exam Psychiatric exam: Normal Affect, Normal Mood - Skin Skin Exam: Dry, Intact, Normal Color, Warm Assessment and Plan - Assessment and Plan (Free Text) Assessment: This is a 77yF presenting with rectal bleeding. 1. Rectal bleeding, GI Bleed 2. CAD s.p stent on aspirin and plavix 3. Hx of colon cancer 4. Hx of GIST Plan: -Continue supportive care -Anemia with active rectal bleeding while on plavix and aspirin -Recommend resuscitation with blood transfusion for goal 9 -Bleeding scan with active GI bleed from splenic flexure maybe from ischemic colitis -Order CT abd/pevis -Monitor H/H and transfuse as needed -Recommend holding aspirin/plavix with active bleed -Cardio cs appreciated -No plan for endoscopic evaluation at this time, medical management -Further medical management per primary team -Will continue to follow pt closely <Adolfo Mendes V - Last Filed: 01/20/18 23:14> Objective - Vital Signs/Intake and Output Vital Signs (last 24 hours): Temp Pulse Resp BP Pulse Ox 98.6 F 71 14 141/60 100 01/20/18 20:00 01/20/18 20:01 01/20/18 19:50 01/20/18 19:00 01/20/18 19:50 Intake and Output: 01/20/18 01/21/18 18:59 06:59 Intake Total 1169 Output Total 1250 Balance -81 - Medications Medications: Current Medications Sodium Chloride (Sodium Chloride 0.9%) 1,000 mls @ 100 mls/hr IV .Q10H [facility] Last Admin: 01/20/18 15:04 Dose: 100 mls/hr Metronidazole (Flagyl) 500 mg in 100 mls @ 100 mls/hr IVPB Q8 [facility] PRN Reason: Protocol Stop: 07/26/18 22:01 Last Admin: 01/20/18 21:12 Dose: 100 mls/hr Pantoprazole Sodium (Protonix 40mg Ivpb) 40 mg in 100 mls @ 20 mls/hr IVPB .Q5H [facility] Last Admin: 01/20/18 16:19 Dose: 20 mls/hr Ceftriaxone Sodium (Rocephin 1 Gram Ivpb) 1 gm in 100 mls @ 100 mls/hr IVPB DAILY [facility] PRN Reason: Protocol Last Admin: 01/20/18 21:12 Dose: 100 mls/hr Metoprolol Tartrate (Lopressor) 5 mg IVP Q6H [facility] Last Admin: 01/20/18 18:24 Dose: 5 mg - Labs Labs: 01/20/18 13:50 01/20/18 06:45 PT 11.1 SECONDS (9.4-12.5) 01/19/18 00:03 INR 0.97 (0.93-1.08) 01/19/18 00:03 APTT 27.7 Seconds (25.1-36.5) 01/19/18 00:03 Attending/Attestation - Attestation I have personally seen and examined this patient.: Yes I have fully participated in the care of the patient.: Yes I have reviewed all pertinent clinical information, including history, physical exam and plan: Yes Notes (Text): This is an addendum to GI progress report dictated by the GI Fellow.The patient was seen and examined earlier. Medical records, lab studies, imagings were reviewed. Last 24 hours events reviewed. Agreed with the above treatment plan as outlined in GI Fellow 's notes the with the addition of the following patient still has episodes of bleeding per rectum CT scan that was reviewed On examination patient has mild tendernessin the epigastric and Left side of the abdomen Start the patient empirical antibiotics for possible colitis ceftriaxone and Flagyl for possible colitis and rule out ischemic Follow-up hemoglobin and transfuse as needed to keep the hemoglobin around 9gm status post PCI bare metal stent Patient is off antiplatelet therapy now Can resume baby aspirin once daily once the acute bleeding episode subsides 01/20/18 23:09
[2018-01-20] MEDS: Metoprolol 1 mg/ml Inj IVP SCH (18:24)
[2018-01-20] MEDS: cefTRIAXone 1 gm 1 GM/100 ML BAG IVPB SCH (21:12)
[2018-01-21] MEDS: Pantoprazole 40mg/100mL NS 40 MG/100 ML BAG IVPB SCH ×7 (01:00→21:51)
[2018-01-21] MEDS: Metoprolol 1 mg/ml Inj IVP SCH ×2 (01:00→05:21)
--- NOTE | 2018-01-21 01:07 | CON ---
DATE: 01/20/2018 This is [facility] consult in the Intensive Care Unit. For Dr. Beebe. CHIEF COMPLAINT: GI bleed. HISTORY OF PRESENT ILLNESS: The patient is a 77-year-old female, seen lying, awake in bed with her family members at the bedside, with report of having being transfused 4 units of packed red blood cells since admission on 01/18/2018, two days prior admit by the emergency room for bloody diarrhea at home with abdominal cramping. The patient was then admitted to the Intensive Care Unit with a GI bleeding scan done and transfusions of eventually 4 units of packed red blood cells. She had a consult with Dr. Mendes, her gastrointestinal rehabilitation consultant, with IV Protonix started. The patient is n.p.o. with IV fluids. The patient is now off of her aspirin and Plavix as she is status post recent IN. After conversation with Intensive Care Unit nursing, we will ask for a stat consult with Dr. Messi Martines, surgeon, we will also ask for a stat consult with Dr. Iverson, her door attendant. We will ask for 2 liters of nasal cannula oxygen humidified to be placed with other issues to be addressed as below in the dictation. PAST MEDICAL HISTORY: The past medical history for this patient is that of GIST, gastrointestinal stromal tumor history with a partial gastrectomy with robotic assisted hemicolectomy, hypertension, gout, history of GI bleed, history of breast cancer, history of colon cancer, she is also status post a recent admission for subendocardial myocardial infarction, congestive heart failure and transfusions for anemia of chronic disease, history of lumpectomy with brain surgery for lesion removed in the past as per Dr. Mosley and surgical evaluation per Dr. Martines. She also suffers from arthritis, has gallstones, and status post hysterectomy. She is also taking Femara for her breast cancer, which will be on hold. She is also taking Gleevec for her GIS tumor which is also now on hold. She also suffers from pulmonary hypertension with cardiac stenting by Dr. Iverson with bare metal stent placed in November of this year with Plavix and aspirin now also on hold. ALLERGIES: NO KNOWN ALLERGIES. MEDICATIONS: Her medications include aspirin, Femara, Feosol, Imdur, Lasix, Nitro-Bid ointment, Norvasc, Protonix, Tenormin, allopurinol, and Gleevec, which is on hold. FAMILY HISTORY AND SOCIAL HISTORY: Non-ethanolic, nonsmoker. The patient's and daughters are at the bedside, otherwise noncontributory. REVIEW OF SYSTEMS: Twelve-point review of systems was done, which was negative to questioning except for items mentioned in the history of present illness as above. PHYSICAL EXAMINATION VITAL SIGNS: Temperature 98.1, pulse 77, respirations 13, blood pressure 135/64 with pulse ox of 100%. HEENT: Unremarkable. Tongue is dry. NECK: Supple. HEART: A 2/6 systolic ejection murmur. LUNGS: Rare rhonchi. ABDOMEN: Obese, soft, minimal tenderness to the mid epigastrium. EXTREMITIES: No edema. SKIN: Warm and dry. NEUROLOGIC: Awake, alert and oriented. LABORATORY DATA: The patient's labs were done. White blood cell count of 5.9, hemoglobin of 9.3 up from 7.4 after transfusion of 4 units of packed red blood cells, hematocrit of 27 since two days' time, hematocrit of 27.9, and platelet count of 115,000 down from 157,000. Her INR is 0.9, PTT is 27.7, with a chem metabolic panel showing a chloride of 114, BUN of 35, creatinine of 1.4 with a total protein of 5.5, lipase of 316. On admission, the patient did have an EKG, it was read as normal sinus rhythm, left ventricular hypertrophy with repolarization abnormality. Abnormal EKG. She had a chest x-ray on 01/18/2018 at midnight, it was read as no active pulmonary disease with retrosternal goiter. The patient did have a GI bleeding scan was done on 01/19/2018, it read active gastrointestinal bleeding identified with large bowel, felt originate at the region of the proximal splenic flexure, findings discussed with Dr. Mendes. The patient also had a CT scan of the abdomen and pelvis done earlier today, for which she has just returned with the impression that of limited due to absence oral or IV contrast , extensive colonic diverticulosis, segmental mural thickening of the proximal sigmoid colon could represent acute diverticulitis, underlying malignancy is not entirely excluded, small amount of high intensity fluid in the right hemipelvis could be related to intraperitoneal hemorrhagic fluid, source of the fluid is indeterminate at this examination. No micro-perforation noted. No free air in the peritoneum. ASSESSMENT: For this patient is that of acute gastrointestinal bleed with symptomatic anemia status post recent subendocardial myocardial infarction, gastrointestinal stromal tumor, history of colon cancer, history of breast cancer, congestive heart failure history, status post partial gastrectomy with hemicolectomy history, hypertension, history of pancreatitis, anticoagulation on aspirin and Plavix, status post cardiac catheterization with stenting. PLAN: For this patient, after conversation with Dr. Beebe is to transfuse one unit of fresh frozen plasma as the patient has had 4 units of packed cells, we will also monitor clinically and with labs ordered for the morning. We will ask for a stat consult with Dr. Martines, Surgery; Dr. Iverson, Cardiology. We will also put on oxygen 2 liters nasal cannula humidified. We will also continue her present medical regimen which includes IV Protonix with IV fluids, with Flagyl IV, and hypertension medications given as per Dr. Iverson. She is n.p.o. except for ice chips with further recommendations as indicated. We will hold Plavix, aspirin, Gleevec and Femara for now with close monitoring of the patient clinically and with labs. This is a complex patient with a comprehensive medically necessary visit carried out in excess of 95 minutes with discussion held with Dr. Messi Martines, Dr. Beebe, patient's family members and Intensive Care Unit nurse with previous records reviewed with recommendations given as above. We will monitor clinically and with labs. There is also recommendation for colonoscopy once she is stable. Haris Barney MD
[2018-01-21] MEDS: Sodium Chloride 0.9% 1,000 ML IV SCH ×2 (03:15→11:00)
[2018-01-21] MEDS: metroNIDAZOLE IV 500 mg/100 ml 500 MG/100 ML BAG IVPB SCH ×3 (05:21→21:12)
[2018-01-21 05:44] LABS: BASO # 0.01 K/mm3 (0.0-2.0); BASO % 0.2 % (0.0-3.0); EOS # 0.1 (0.0-0.7); EOS % 2.4 % (1.5-5.0); GRAN # 4.04 (1.4-6.5); GRAN % 80.6 % (50.0-68.0); LYMPH # 0.7 (1.2-3.4); LYMPH % 13.4 % (22.0-35.0); MEAN CELL VOLUME 86.7 fl (80.0-105.0); MEAN CORPUSCULAR HEMOGLOBIN 29.2 pg (25.0-35.0); MEAN CORPUSCULAR HGB CONC 33.7 g/dl (31.0-37.0); MEAN PLATELET VOLUME 9.2 fl (7.0-11.0); MONO # 0.2 (0.1-0.6); MONO % 3.4 % (1.0-6.0); RBC 2.33 10^6/uL (3.5-6.1); RED CELL DISTRIBUTION WIDTH 18.2 % (11.5-14.5)
[2018-01-21 05:55] LABS: HEMOGLOBIN 6.8 g/dL (12.0-16.0)
--- NOTE | 2018-01-21 07:17 | CP.PCM.PN ---
Subjective - Date & Time of Evaluation Date of Evaluation: 01/21/18 Time of Evaluation: 06:50 - Subjective Subjective: Sacha Daniels DO, IM Resident PGY-1 Hematology/Oncology Progress Note for Dr. Beebe Ms. Swenson is a 77 year old female with PMH of GIST (s/p partial gastrectomy), colon CA (s/p R hemicolectomy), breast CA (s/p lumpectomy, on letrozole), NSTEMI (s/p bare metal stent on 12/25/17, on plavix and ASA), HTN, and gout who presented to ED early Sunday morning with bloody diarrhea at home. Nuclear scan was positive for GI bleed around the splenic flexure. Dr. Mendes is following. No plan for endoscopic studies at this time. This morning, Ms. Swenson reports feeling better after receiving 4 units of PRBCs and 1 unit of FFP. She denies fever, chills, throat swelling or pain, pruritis, chest pain, SOB, or cough. She reports that she had 3 BM's yesterday, 2 of which were bloody. Objective - Vital Signs/Intake and Output Vital Signs (last 24 hours): Temp Pulse Resp BP Pulse Ox 98.9 F 74 20 140/60 100 01/21/18 05:07 01/21/18 05:07 01/21/18 05:00 01/21/18 05:00 01/21/18 05:00 Intake and Output: 01/21/18 01/21/18 06:59 18:59 Intake Total 2040 Output Total 800 Balance 1240 - Medications Medications: Current Medications Sodium Chloride (Sodium Chloride 0.9%) 1,000 mls @ 100 mls/hr IV .Q10H [facility] Last Admin: 01/21/18 03:15 Dose: 100 mls/hr Metronidazole (Flagyl) 500 mg in 100 mls @ 100 mls/hr IVPB Q8 [facility] PRN Reason: Protocol Stop: 01/24/18 22:01 Last Admin: 01/21/18 05:21 Dose: 100 mls/hr Pantoprazole Sodium (Protonix 40mg Ivpb) 40 mg in 100 mls @ 20 mls/hr IVPB .Q5H [facility] Last Admin: 01/21/18 01:00 Dose: 20 mls/hr Ceftriaxone Sodium (Rocephin 1 Gram Ivpb) 1 gm in 100 mls @ 100 mls/hr IVPB DAILY [facility] PRN Reason: Protocol Last Admin: 01/20/18 21:12 Dose: 100 mls/hr Metoprolol Tartrate (Lopressor) 5 mg IVP Q6H [facility] Last Admin: 01/21/18 05:21 Dose: 5 mg - Labs Labs: 01/21/18 05:30 01/20/18 06:45 PT 11.1 SECONDS (9.4-12.5) 01/19/18 00:03 INR 0.97 (0.93-1.08) 01/19/18 00:03 APTT 27.7 Seconds (25.1-36.5) 01/19/18 00:03 - Constitutional Appears: Non-toxic, No Acute Distress - Head Exam Head Exam: ATRAUMATIC, NORMAL INSPECTION, NORMOCEPHALIC - Eye Exam Eye Exam: PERRL. absent: Scleral icterus Additional comments: pale sclera bilaterally but non-icteric - ENT Exam ENT Exam: Mucous Membranes Dry - Neck Exam Neck Exam: Full ROM, Normal Inspection. absent: Tenderness, Thyromegaly - Respiratory Exam Respiratory Exam: Clear to Ausculation Bilateral, NORMAL BREATHING PATTERN. absent: Accessory Muscle Use, Rales, Rhonchi, Wheezes - Cardiovascular Exam Cardiovascular Exam: +S1, +S2, Murmur Additional comments: Grade 2/6 holosystolic murmur loudest over aortic region - GI/Abdominal Exam GI & Abdominal Exam: Soft, Normal Bowel Sounds. absent: Guarding, Tenderness, Organomegaly, Rebound - Rectal Exam Rectal Exam: Bloody Stool Additional comments: On inspection, stools appear black and tarry consistent with the appearance of an upper GI bleed. - Extremities Exam Extremities Exam: Full ROM, Normal Capillary Refill. absent: Calf Tenderness, Pedal Edema - Neurological Exam Neurological Exam: Alert, Awake, Oriented x3 - Psychiatric Exam Psychiatric exam: Normal Affect, Normal Mood - Skin Skin Exam: Dry, Intact, Normal Color, Warm Assessment and Plan - Assessment and Plan (Free Text) Assessment: Ms. Swenson is a 77 year old female with PMH of GIST (s/p partial gastrectomy), colon CA (s/p R hemicolectomy), breast CA (s/p lumpectomy, on letrozole), NSTEMI (s/p bare metal stent on 12/25/17, on plavix and ASA), HTN, and gout admitted to the ICU for treatment of GI bleed. PLAN: She is s/p 4 units of PRBCs and 1 unit of FFP as of last night. Two additional units are currently being given. We will continue to monitor her H/H closely and transfuse as needed. Dr. Martines of surgery, Dr. Iverson of cardiology, and Dr. Cinthya ANAYA are all consulted, recs appreciated. We will continue to hold ASA, plavix, letrozole, and gleevec as she has an active GI bleed. Per Dr. Clark, plan for colonoscopy today. Once stable, we will consider a bone marrow biopsy to rule out invase/infiltrative causes of her anemia. LDH, Haptoglobin, peripheral smear, reticulocyte count, folate, B12 ordered. We will continue to monitor her in the ICU. Please make sure to transfuse only 1 unit of platelets. This should be sufficient. We discussed this plan with Dr. Iverson who is in agreement. Case and plan were reviewed and discussed in detail with my attending physician Dr. Beebe. Sacha Daniels DO IM Resident PGY-1
[2018-01-21 07:18] LABS: ALB/GLOB RATIO 1.1 (1.1-1.8); ALBUMIN 2.5 g/dL (3.0-4.8); CALCIUM 8.7 mg/dL (8.4-10.5)
--- NOTE | 2018-01-21 07:44 | CP.PCM.PN ---
Subjective - Date & Time of Evaluation Date of Evaluation: 01/21/18 Time of Evaluation: 07:42 - Subjective Subjective: General surgery progress note for Dr. Martines Patient seen and examined this am at bedside. She had 2 moderate sized bloody BMs overnight. She has been awake, alert and oriented. she denies n/v/f/c. she does c/o moderate diffuse abdominal pain. Objective - Vital Signs/Intake and Output Vital Signs (last 24 hours): Temp Pulse Resp BP Pulse Ox 98.9 F 74 20 140/60 100 01/21/18 05:07 01/21/18 05:07 01/21/18 05:00 01/21/18 05:00 01/21/18 05:00 Intake and Output: 01/21/18 01/21/18 06:59 18:59 Intake Total 2040 Output Total 800 Balance 1240 - Medications Medications: Current Medications Sodium Chloride (Sodium Chloride 0.9%) 1,000 mls @ 100 mls/hr IV .Q10H [facility] Last Admin: 01/21/18 03:15 Dose: 100 mls/hr Metronidazole (Flagyl) 500 mg in 100 mls @ 100 mls/hr IVPB Q8 [facility] PRN Reason: Protocol Stop: 01/24/18 22:01 Last Admin: 01/21/18 05:21 Dose: 100 mls/hr Pantoprazole Sodium (Protonix 40mg Ivpb) 40 mg in 100 mls @ 20 mls/hr IVPB .Q5H [facility] Last Admin: 01/21/18 01:00 Dose: 20 mls/hr Ceftriaxone Sodium (Rocephin 1 Gram Ivpb) 1 gm in 100 mls @ 100 mls/hr IVPB DAILY [facility] PRN Reason: Protocol Last Admin: 01/20/18 21:12 Dose: 100 mls/hr Metoprolol Tartrate (Lopressor) 5 mg IVP Q6H [facility] Last Admin: 01/21/18 05:21 Dose: 5 mg - Labs Labs: 01/21/18 05:30 01/21/18 05:30 PT 11.1 SECONDS (9.4-12.5) 01/19/18 00:03 INR 0.97 (0.93-1.08) 01/19/18 00:03 APTT 27.7 Seconds (25.1-36.5) 01/19/18 00:03 - Constitutional Appears: Well, Non-toxic, No Acute Distress - Head Exam Head Exam: ATRAUMATIC, NORMOCEPHALIC - ENT Exam ENT Exam: Mucous Membranes Dry - Respiratory Exam Respiratory Exam: NORMAL BREATHING PATTERN - GI/Abdominal Exam GI & Abdominal Exam: Guarding, Soft, Tenderness. absent: Distended, Firm, Rigid , Rebound Additional comments: diffuse moderate tenderness to palpation - Extremities Exam Extremities Exam: absent: Calf Tenderness, Pedal Edema - Neurological Exam Neurological Exam: Alert, Awake, Oriented x3 - Psychiatric Exam Psychiatric exam: Normal Affect, Normal Mood - Skin Skin Exam: Dry, Intact, Normal Color, Warm Assessment and Plan - Assessment and Plan (Free Text) Assessment: 77 yr old female with gastrointestinal bleed of unknown origin Plan: - agree with 2 units pRBC this am and repeat h/h - q4 H/H, will continue to monitor - continue to monitor hemodynamics - electrolyte abnormalities noted, likely due to dehydration, will continue to monitor - discussed plan with Dr. Martines, all further recs per him Sun Caldera, PGY 1
[2018-01-21] MEDS: Nitroglycerin 2% Ointment Foilpak UD TOP SCH ×3 (10:42→21:51)
--- NOTE | 2018-01-21 11:10 | CP.PCM.PN ---
<Kieran Nolasco - Last Filed: 01/21/18 12:57> Subjective - Date & Time of Evaluation Date of Evaluation: 01/21/18 Time of Evaluation: 07:10 - Subjective Subjective: GI Progress Note for Dr. Cinthya Nolasco, PGY-3 IM Patient seen and examined at bedside in ICU. Overnight, had 4 bloody BMs with passed clots as per nursing, and AM labs acutely concerning for Hgb 6.8 (was 9.3 yesterday at 1350). HR remains in 70's (on Beta-jazmin), and maintaining systolic BP in 120's-150's. Patient denies acute symptoms including dizziness, lightheadedness, room-spinning, syncope/near-syncope, or generalized weakness. Reports urinary frequency (likely 2/2 regular IVF), but denies hematuria. Denies emesis/hematemesis. Objective - Vital Signs/Intake and Output Vital Signs (last 24 hours): Temp Pulse Resp BP Pulse Ox 97.9 F 78 14 143/65 100 01/21/18 09:50 01/21/18 09:50 01/21/18 09:50 01/21/18 09:50 01/21/18 05:00 Intake and Output: 01/21/18 01/21/18 06:59 18:59 Intake Total 2040 0 Output Total 800 Balance 1240 0 - Medications Medications: Current Medications Sodium Chloride (Sodium Chloride 0.9%) 1,000 mls @ 100 mls/hr IV .Q10H [facility] Last Admin: 01/21/18 03:15 Dose: 100 mls/hr Metronidazole (Flagyl) 500 mg in 100 mls @ 100 mls/hr IVPB Q8 [facility] PRN Reason: Protocol Stop: 01/24/18 22:01 Last Admin: 01/21/18 05:21 Dose: 100 mls/hr Pantoprazole Sodium (Protonix 40mg Ivpb) 40 mg in 100 mls @ 20 mls/hr IVPB .Q5H [facility] Last Admin: 01/21/18 10:43 Dose: Not Given Ceftriaxone Sodium (Rocephin 1 Gram Ivpb) 1 gm in 100 mls @ 100 mls/hr IVPB DAILY [facility] PRN Reason: Protocol Last Admin: 01/20/18 21:12 Dose: 100 mls/hr Metoprolol Tartrate (Lopressor) 5 mg IVP Q6H [facility] Last Admin: 01/21/18 05:21 Dose: 5 mg Nitroglycerin (Nitro-Bid 2% Oint) 1 ea TOP Q6H [facility] Last Admin: 01/21/18 10:42 Dose: 1 ea - Labs Labs: 01/21/18 05:30 01/21/18 05:30 PT 11.1 SECONDS (9.4-12.5) 01/19/18 00:03 INR 0.97 (0.93-1.08) 01/19/18 00:03 APTT 27.7 Seconds (25.1-36.5) 01/19/18 00:03 - Constitutional Appears: Non-toxic, No Acute Distress - Head Exam Head Exam: ATRAUMATIC, NORMAL INSPECTION, NORMOCEPHALIC - Eye Exam Eye Exam: EOMI, Normal appearance. absent: Conjunctival injection, Scleral icterus Pupil Exam: absent: Fixed, Irregular - ENT Exam ENT Exam: Mucous Membranes Moist - Neck Exam Neck Exam: Normal Inspection - Respiratory Exam Respiratory Exam: Clear to Ausculation Bilateral, NORMAL BREATHING PATTERN. absent: Accessory Muscle Use, Chest Wall Tenderness, Decreased Breath Sounds, Rales, Rhonchi, Wheezes - Cardiovascular Exam Cardiovascular Exam: REGULAR RHYTHM, RRR, +S1, +S2, Murmur (systolic murmur most prominently appreciate at right and left 2nd intercostal spaces, and at apex). absent: Bradycardia, Tachycardia, Irregular Rhythm, JVD, +S4 - GI/Abdominal Exam GI & Abdominal Exam: Soft, Hyperactive Bowel Sounds. absent: Distended, Firm, Guarding, Rigid, Tenderness, Diminished Bowel Sounds, Hernia, Hypoactive Bowel Sounds, Normal Bowel Sounds - Rectal Exam Rectal Exam: Deferred - Extremities Exam Extremities Exam: Full ROM, Normal Inspection. absent: Calf Tenderness, Joint Swelling, Pedal Edema, Tenderness - Back Exam Back Exam: absent: CVA tenderness (L), CVA tenderness (R) - Neurological Exam Neurological Exam: Alert, Awake, Oriented x3 - Psychiatric Exam Psychiatric exam: Normal Affect, Normal Mood - Skin Skin Exam: Dry, Intact, Normal Color, Warm Assessment and Plan - Assessment and Plan (Free Text) Assessment: This is a 77 yo F with PMH of breast cancer s/p lumpectomy, gastric GIST s/p partial gastrectomy, colon cancer s/p Right hemicolectomy, HTN, GI bleed, NSTEMI s/p bare-metal stent 12/25 on aspirin/plavix who presented to the ED with bloody diarrhea/BRBPR for 1 day prior to presentation. S/p 4 units pRBCs and 1 unit FFP, pending another 2 units pRBCs after AM Hgb found to be 6.8. Bleeding scan indicates splenic flexure as the source, pending possible colonoscopy +/- IR embolization of site. Plan: -Acutely decreased Hgb from 9.3 to 6.8, pending another 2 units pRBCs (current total: 6 units pRBC, 1 unit FFP) -Discussed case with Cardio (Dr. Iverson), bare metal cardiac stent placed > 4 weeks ago, now with dual anti-platelets held, can receive 1 unit platelets to attempt to stop/slow GI bleeding without excess risk of stent thrombosis -Bleeding scan indicates splenic flexure is area of bleed -Surgery also consulted on this patient; reports not a surgical candidate -GI and IR attending discussed case, GI to proceed with colonoscopy first, and if unable to identify/clip source of bleed (not candidate for cauterization due to antiplatelet agents), then can consider IR embolization of vessel; risk and benefits of both procedures discussed with patient and daughters at bedside, who understand risks and expressed agreement with plan if unable to improve bleeding with platelets -Given possible pending colonoscopy, starting bowel prep now, Golytely and Mag Citrate ordered, nursing made aware -Continue NPO in light of continued GI bleeding Seen, reviewed, and discussed with attending, Dr. Mendes <Adolfo Mendes V - Last Filed: 01/23/18 23:12> Objective - Vital Signs/Intake and Output Vital Signs (last 24 hours): Temp Pulse Resp BP Pulse Ox 98.7 F 81 20 185/83 H 98 01/23/18 16:43 01/23/18 22:00 01/23/18 16:43 01/23/18 18:37 01/23/18 06:00 Intake and Output: 01/23/18 01/24/18 18:59 06:59 Intake Total 840 200 Output Total 1000 Balance -160 200 - Medications Medications: Current Medications Aspirin (Ecotrin) 81 mg PO DAILY [facility] Last Admin: 01/23/18 09:52 Dose: 81 mg Metronidazole (Flagyl) 500 mg in 100 mls @ 100 mls/hr IVPB Q8 [facility] PRN Reason: Protocol Stop: 01/24/18 22:01 Last Admin: 01/23/18 21:43 Dose: 100 mls/hr Ceftriaxone Sodium (Rocephin 1 Gram Ivpb) 1 gm in 100 mls @ 100 mls/hr IVPB DAILY [facility] PRN Reason: Protocol Last Admin: 01/23/18 09:51 Dose: 100 mls/hr Isosorbide Mononitrate (Imdur Er) 30 mg PO DAILY [facility] Last Admin: 01/23/18 09:51 Dose: 30 mg Metoprolol Tartrate (Lopressor) 50 mg PO BID [facility] Last Admin: 01/23/18 18:37 Dose: 50 mg Ondansetron HCl (Zofran Inj) 4 mg IVP Q4H [facility] PRN Reason: Nausea/Vomiting Pantoprazole Sodium (Protonix Ec Tab) 40 mg PO Q12 [facility] Last Admin: 01/23/18 21:43 Dose: 40 mg - Labs Labs: 01/23/18 06:40 01/23/18 06:40 PT 11.5 SECONDS (9.4-12.5) 01/21/18 15:25 INR 1.01 (0.93-1.08) 01/21/18 15:25 APTT 27.2 Seconds (25.1-36.5) 01/21/18 15:25 Attending/Attestation - Attestation I have personally seen and examined this patient.: Yes I have fully participated in the care of the patient.: Yes I have reviewed all pertinent clinical information, including history, physical exam and plan: Yes Notes (Text): 01/23/18 23:12 p
--- NOTE | 2018-01-21 11:35 | CP.CCUPN ---
<Perez Odell - Last Filed: 01/21/18 13:38> CCU Subjective - Physician Review Subjective (Free Text): Perez Odell, PGY1 Critical Care Progress Note for Dr. Gross Patient was examined at bedside this morning. Patient denied chest pain, shortness of breath, extremity pain, nausea, vomiting, diarrhea. Patient has dull non-radiating abdominal tenderness rated 8/10 on exam, however, this has been ongoing. As per nurse, patient had 4 bloody BMs overnight. Most recent Hgb was 6.8 prior to interview, patient will be transfused pRBCs x2 this morning with FFP x1. Vital signs currently stable. GI, cardiology, and IR were present after the interview to discuss about possible colonoscopy today and further intervention if necessary. A Full 12 point ROS was conducted and unremarkable, except as stated above. CCU Objective - Vital Signs / Intake & Output Vital Signs (Last 4 hours): Vital Signs Temp Pulse Resp BP 01/21/18 10:00 71 01/21/18 09:50 97.9 F 78 14 143/65 01/21/18 09:05 98.0 F 75 15 144/61 01/21/18 08:46 98 F 69 12 147/58 L 01/21/18 08:05 98.1 F Intake and Output (Last 8hrs): Intake & Output 01/20/18 01/21/18 01/21/18 22:59 06:59 14:59 Intake Total 844 2040 0 Output Total 600 800 Balance 244 1240 0 Weight 74.389 kg Intake: IV 844 1740 FFP 304 IVF 200 1200 Left Forearm 100 300 Protonix drip 240 240 Oral 300 Blood Product 0 Red Blood Cells Cp2d As3 0 Lr Unit [id number] Output: Urine 600 800 Urine, Voided 600 800 Other: # Voids Urine, Voided 3 # Bowel Movements 3 3 - Physical Exam Head: Positive for: Atraumatic, Normocephalic Pupils: Positive for: PERRL Extroacular Muscles: Positive for: EOMI Conjunctiva: Positive for: Normal Mouth: Positive for: Moist Mucous Membranes Nose (External): Positive for: Other (Nasal Cannula (2 L) ) Neck: Positive for: Normal Range of Motion Respiratory/Chest: Positive for: Clear to Auscultation, Good Air Exchange. Negative for: Respiratory Distress, Accessory Muscle Use, Wheezes, Decreased Breath Sounds, Rales, Rhonchi Cardiovascular: Positive for: Regular Rate and Rhythm, Normal S1, S2. Negative for: Murmurs Abdomen: Positive for: Tenderness (epigastric tenderness), Normal Bowel Sounds, Scars (midline scar on abdomen). Negative for: Distention, Peritoneal Signs, Rebound, Guarding, Mass/Organomegaly Rectal: Positive for: Other (bloody BMs noted) Back: Positive for: Normal Inspection Upper Extremity: Positive for: Normal Inspection, NORMAL PULSES. Negative for: Cyanosis, Edema Lower Extremity: Positive for: Normal Inspection, NORMAL PULSES. Negative for: Edema, Cyanosis, Tenderness, Swelling Neurological: Positive for: GCS=15 Skin: Positive for: Warm, Dry, Normal Color. Negative for: Rashes Psychiatric: Positive for: Alert, Oriented x 3, Normal Insight, Normal Concentration - Medications Active Medications: Active Medications Generic Name Dose Route Start Last Admin Trade Name Freq PRN Reason Stop Dose Admin Sodium Chloride 1,000 mls @ 100 mls/hr 01/19/18 00:15 01/21/18 03:15 Sodium Chloride 0.9% IV 100 mls/hr .Q10H MEHREEN Administration Metronidazole 500 mg in 100 mls @ 100 mls/hr 01/19/18 22:00 01/21/18 05:21 Flagyl IVPB 01/24/18 22:01 100 mls/hr Q8 MEHREEN Administration Protocol Pantoprazole Sodium 40 mg in 100 mls @ 20 mls/hr 01/19/18 18:30 01/21/18 10: 43 Protonix 40mg Ivpb IVPB Not Given .Q5H MEHREEN Ceftriaxone Sodium 1 gm in 100 mls @ 100 mls/hr 01/20/18 22:00 01/20/18 21:12 Rocephin 1 Gram Ivpb IVPB 100 mls/hr DAILY MEHREEN Administration Protocol Metoprolol Tartrate 5 mg 01/20/18 18:00 01/21/18 05:21 Lopressor IVP 5 mg Q6H MEHREEN Administration Nitroglycerin 1 ea 01/21/18 10:30 01/21/18 10:42 Nitro-Bid 2% Oint TOP 1 ea Q6H MEHREEN Administration - Patient Studies Lab Studies: Lab Studies 01/21/18 01/21/18 01/21/18 Range/Units 09:00 05:30 05:30 WBC 5.0 (4.5-11.0) 10^3/ul RBC 2.33 L (3.5-6.1) 10^6/uL Hgb 6.8 L* D (12.0-16.0) g/dL Hct 20.2 L* (36.0-48.0) % MCV 86.7 (80.0-105.0) fl MCH 29.2 (25.0-35.0) pg MCHC 33.7 (31.0-37.0) g/dl RDW 18.2 H (11.5-14.5) % Plt Count 117 L (120.0-450.0) 10^3/uL Manual Plt Count 135 (120-450) K/mm3 MPV 9.2 (7.0-11.0) fl Gran % 80.6 H (50.0-68.0) % Lymph % (Auto) 13.4 L (22.0-35.0) % [place] % (Auto) 3.4 (1.0-6.0) % Eos % (Auto) 2.4 (1.5-5.0) % Baso % (Auto) 0.2 (0.0-3.0) % Gran # 4.04 (1.4-6.5) Lymph # (Auto) 0.7 L (1.2-3.4) [place] # (Auto) 0.2 (0.1-0.6) Eos # (Auto) 0.1 (0.0-0.7) Baso # (Auto) 0.01 (0.0-2.0) K/mm3 Sodium 150 H (132-148) mmol/L Potassium 4.0 (3.6-5.0) mmol/L Chloride 120 H (98-107) mmol/L Carbon Dioxide 22 (21-33) mmol/L Anion Gap 12 (10-20) BUN 33 H (7-21) mg/dL Creatinine 1.4 H (0.7-1.2) mg/dl Est GFR ( Amer) 44 Est GFR (Non-Af Amer) 36 Random Glucose 85 (70-110) mg/dL Calcium 8.7 (8.4-10.5) mg/dL Total Bilirubin 0.3 (0.2-1.3) mg/dL AST 18 (14-36) U/L ALT 30 (7-56) U/L Alkaline Phosphatase 44 (38-126) U/L Total Protein 4.8 L (5.8-8.3) g/dL Albumin 2.5 L (3.0-4.8) g/dL Globulin 2.3 gm/dL Albumin/Globulin Ratio 1.1 (1.1-1.8) / Range/Units 13:50 WBC 5.9 (4.5-11.0) 10^3/ul RBC 3.25 L (3.5-6.1) 10^6/uL Hgb 9.3 L (12.0-16.0) g/dL Hct 27.9 L (36.0-48.0) % MCV 85.8 (80.0-105.0) fl MCH 28.6 (25.0-35.0) pg MCHC 33.3 (31.0-37.0) g/dl RDW 17.7 H (11.5-14.5) % Plt Count 115 L (120.0-450.0) 10^3/uL Manual Plt Count (120-450) K/mm3 MPV 9.1 (7.0-11.0) fl Gran % (50.0-68.0) % Lymph % (Auto) (22.0-35.0) % [place] % (Auto) (1.0-6.0) % Eos % (Auto) (1.5-5.0) % Baso % (Auto) (0.0-3.0) % Gran # (1.4-6.5) Lymph # (Auto) (1.2-3.4) [place] # (Auto) (0.1-0.6) Eos # (Auto) (0.0-0.7) Baso # (Auto) (0.0-2.0) K/mm3 Sodium (132-148) mmol/L Potassium (3.6-5.0) mmol/L Chloride (98-107) mmol/L Carbon Dioxide (21-33) mmol/L Anion Gap (10-20) BUN (7-21) mg/dL Creatinine (0.7-1.2) mg/dl Est GFR ( Amer) Est GFR (Non-Af Amer) Random Glucose (70-110) mg/dL Calcium (8.4-10.5) mg/dL Total Bilirubin (0.2-1.3) mg/dL AST (14-36) U/L ALT (7-56) U/L Alkaline Phosphatase (38-126) U/L Total Protein (5.8-8.3) g/dL Albumin (3.0-4.8) g/dL Globulin gm/dL Albumin/Globulin Ratio (1.1-1.8) Laboratory Results - last 24 hr 01/20/18 01/21/18 01/21/18 13:50 05:30 05:30 WBC 5.9 5.0 RBC 3.25 L 2.33 L Hgb 9.3 L 6.8 L* D Hct 27.9 L 20.2 L* MCV 85.8 86.7 MCH 28.6 29.2 MCHC 33.3 33.7 RDW 17.7 H 18.2 H Plt Count 115 L 117 L Manual Plt Count MPV 9.1 9.2 Gran % 80.6 H Lymph % (Auto) 13.4 L [place] % (Auto) 3.4 Eos % (Auto) 2.4 Baso % (Auto) 0.2 Gran # 4.04 Lymph # (Auto) 0.7 L [place] # (Auto) 0.2 Eos # (Auto) 0.1 Baso # (Auto) 0.01 Sodium 150 H Potassium 4.0 Chloride 120 H Carbon Dioxide 22 Anion Gap 12 BUN 33 H Creatinine 1.4 H Est GFR ( Amer) 44 Est GFR (Non-Af Amer) 36 Random Glucose 85 Calcium 8.7 Total Bilirubin 0.3 AST 18 ALT 30 Alkaline Phosphatase 44 Total Protein 4.8 L Albumin 2.5 L Globulin 2.3 Albumin/Globulin Ratio 1.1 01/21/18 09:00 WBC RBC Hgb Hct MCV MCH MCHC RDW Plt Count Manual Plt Count 135 MPV Gran % Lymph % (Auto) [place] % (Auto) Eos % (Auto) Baso % (Auto) Gran # Lymph # (Auto) [place] # (Auto) Eos # (Auto) Baso # (Auto) Sodium Potassium Chloride Carbon Dioxide Anion Gap BUN Creatinine Est GFR ( Amer) Est GFR (Non-Af Amer) Random Glucose Calcium Total Bilirubin AST ALT Alkaline Phosphatase Total Protein Albumin Globulin Albumin/Globulin Ratio Review of Systems - Review of Systems All systems: reviewed and no additional remarkable complaints except (as per HPI.) Critical Care Progress Note - Extremities/Vascular Does the Patient have a Central Venous Catheter?: No Does the Patient need a Central Venous Catheter?: No Does the Patient have a Fisher Catheter?: No Does the Patient need a Fisher Catheter?: No - Prophylaxis GI Prophylaxis GI: PPI (on Protonix gtt) - Prophylaxis DVT Prophylaxis DVT: Not Indicated (Patient is already actively bleeding) - Nutrition Nutrition: Nutrition Category Date Time Status NPO Diet [DIET] Diets 01/21/18 Breakfast Ordered Assessment/Plan - Assessment and Plan (Free Text) Assessment: Patient is a 77 y/o F with PMHx of colon cancer (s/p R-hemicolectomy), Breast cancer (s/p lumpectomy), Brain tumor, HTN, NSTEMI (bare metal stent in 12/24/17 on ASA/Plavix), Diverticulosis, and Hemorrhoids who presented to ED on 01/19 for multiple episodes of bloody diarrhea at home. In regards to ROS, patient was positive for abdominal tenderness and abdominal cramping. Patient's Hgb has been low on admission with active bleeding; she has been transfused multiple times. Patient is s/p pRBCS x4 and FFP x1, currently being transfused pRBCs x2 and x1 platelets; 2 more units on hold. Bleeding scan indicates bleeding at the large bowel, splenic flexure. At the moment, surgery does not want to intervene. Patient is being followed by GI, surgery, cardiology, and Heme/onc. Currently on protonix gtt, IVF, and receiving transfusions. Vital signs are currently stable. Patient is being managed in the ICU for management of active lower GI bleed. Plan: Neuro: - Maintain normothermia Pulm: - Maintain SaO2 > 92% - CXR (01/18): negative for acute pathology Cardio: - Maintain MAP > 65 - Cardio consulted, f/u recs GI: - protonix gtt and IVF - Transfuse as needed, keep Hgb > 9 - recent Hgb was 6.8, given pRBCs x2 this morning; repeat cbc - Possible colonoscopy today, as per GI recs; may need IR intervention following results - GI consulted, recs appreciated - Surgery does not want to intervene at this time - CT abdomen/pelvis (01/20): left colonic diverticulosis. Segmental thickening in proximal sigmoid colon could be acute diverticulitis. - Diet: NPO (strict) Renal: - Replete lytes as needed - BUN/Cr is 33/1.4 Heme: - monitor H/H; transfuse to maintain Hgb > 9 - Patient is actively bleeding; 4 bloody BMs overnight - Transfusions: s/p pRBCs x4 and FFP x1, currently transfusing pRBCs x2 and x1 platelets; 2 more units ordered on hold - Heme/onc consulted ID: - c/w antibiotic coverage - No active infection at this time Endo: - Maintain euglycemia Dispo: Patient is currently being managed in the ICU. Case was discussed and reviewed with Attending Physician Dr. Gross. <Sanjay Gross - Last Filed: 01/21/18 14:14> CCU Objective - Vital Signs / Intake & Output Vital Signs (Last 4 hours): Vital Signs Temp Pulse Resp BP 01/21/18 12:49 98.3 F 73 14 148/63 01/21/18 12:04 97.8 F 67 19 148/63 01/21/18 11:47 97.2 F L 98 H 15 152/57 H 01/21/18 11:44 98.2 F 75 13 152/57 H Intake and Output (Last 8hrs): Intake & Output 01/20/18 01/21/18 01/21/18 22:59 06:59 14:59 Intake Total 844 2040 325 Output Total 600 800 Balance 244 1240 325 Weight 164 lb Intake: IV 844 1740 FFP 304 IVF 200 1200 Left Forearm 100 300 Protonix drip 240 240 Oral 300 Blood Product 325 Red Blood Cells Cp2d As3 325 Lr Unit [id number] Red Blood Cells Cp2d As3 0 Lr Unit [id number] Output: Urine 600 800 Urine, Voided 600 800 Other: # Voids Urine, Voided 3 # Bowel Movements 3 3 - Medications Active Medications: Active Medications Generic Name Dose Route Start Last Admin Trade Name Freq PRN Reason Stop Dose Admin Sodium Chloride 1,000 mls @ 100 mls/hr 01/19/18 00:15 01/21/18 11:00 Sodium Chloride 0.9% IV Not Given .Q10H MEHREEN Metronidazole 500 mg in 100 mls @ 100 mls/hr 01/19/18 22:00 01/21/18 05:21 Flagyl IVPB 01/24/18 22:01 100 mls/hr Q8 MEHREEN Administration Protocol Pantoprazole Sodium 40 mg in 100 mls @ 20 mls/hr 01/19/18 18:30 01/21/18 11: 56 Protonix 40mg Ivpb IVPB 20 mls/hr .Q5H MEHREEN Administration Ceftriaxone Sodium 1 gm in 100 mls @ 100 mls/hr 01/20/18 22:00 01/20/18 21:12 Rocephin 1 Gram Ivpb IVPB 100 mls/hr DAILY MEHREEN Administration Protocol Metoprolol Tartrate 5 mg 01/20/18 18:00 01/21/18 05:21 Lopressor IVP 5 mg Q6H MEHREEN Administration Nitroglycerin 1 ea 01/21/18 10:30 01/21/18 10:42 Nitro-Bid 2% Oint TOP 1 ea Q6H MEHREEN Administration - Patient Studies Lab Studies: Microbiology Studies 01/19/18 17:36 MRSA Culture (Admit) - Final Naris MRSA NOT DETECTED Lab Studies 01/21/18 01/21/18 01/21/18 Range/Units 11:15 11:15 11:13 WBC (4.5-11.0) 10^3/ul RBC (3.5-6.1) 10^6/uL Hgb (12.0-16.0) g/dL Hct (36.0-48.0) % MCV (80.0-105.0) fl MCH (25.0-35.0) pg MCHC (31.0-37.0) g/dl RDW (11.5-14.5) % Plt Count (120.0-450.0) 10^3/uL Manual Plt Count (120-450) K/mm3 MPV (7.0-11.0) fl Gran % (50.0-68.0) % Lymph % (Auto) (22.0-35.0) % [place] % (Auto) (1.0-6.0) % Eos % (Auto) (1.5-5.0) % Baso % (Auto) (0.0-3.0) % Gran # (1.4-6.5) Lymph # (Auto) (1.2-3.4) [place] # (Auto) (0.1-0.6) Eos # (Auto) (0.0-0.7) Baso # (Auto) (0.0-2.0) K/mm3 Differential Comment See pathology report Retic Count 2.34 H (0.5-1.5) % Sodium (132-148) mmol/L Potassium (3.6-5.0) mmol/L Chloride (98-107) mmol/L Carbon Dioxide (21-33) mmol/L Anion Gap (10-20) BUN (7-21) mg/dL Creatinine (0.7-1.2) mg/dl Est GFR ( Amer) Est GFR (Non-Af Amer) Random Glucose (70-110) mg/dL Calcium (8.4-10.5) mg/dL Total Bilirubin (0.2-1.3) mg/dL AST (14-36) U/L ALT (7-56) U/L Alkaline Phosphatase (38-126) U/L Lactate Dehydrogenase 299 L (333-699) U/L Total Protein (5.8-8.3) g/dL Albumin (3.0-4.8) g/dL Globulin gm/dL Albumin/Globulin Ratio (1.1-1.8) 01/21/18 01/21/18 01/21/18 Range/Units 09:00 05:30 05:30 WBC 5.0 (4.5-11.0) 10^3/ul RBC 2.33 L (3.5-6.1) 10^6/uL Hgb 6.8 L* D (12.0-16.0) g/dL Hct 20.2 L* (36.0-48.0) % MCV 86.7 (80.0-105.0) fl MCH 29.2 (25.0-35.0) pg MCHC 33.7 (31.0-37.0) g/dl RDW 18.2 H (11.5-14.5) % Plt Count 117 L (120.0-450.0) 10^3/uL Manual Plt Count 135 (120-450) K/mm3 MPV 9.2 (7.0-11.0) fl Gran % 80.6 H (50.0-68.0) % Lymph % (Auto) 13.4 L (22.0-35.0) % [place] % (Auto) 3.4 (1.0-6.0) % Eos % (Auto) 2.4 (1.5-5.0) % Baso % (Auto) 0.2 (0.0-3.0) % Gran # 4.04 (1.4-6.5) Lymph # (Auto) 0.7 L (1.2-3.4) [place] # (Auto) 0.2 (0.1-0.6) Eos # (Auto) 0.1 (0.0-0.7) Baso # (Auto) 0.01 (0.0-2.0) K/mm3 Differential Comment Retic Count (0.5-1.5) % Sodium 150 H (132-148) mmol/L Potassium 4.0 (3.6-5.0) mmol/L Chloride 120 H (98-107) mmol/L Carbon Dioxide 22 (21-33) mmol/L Anion Gap 12 (10-20) BUN 33 H (7-21) mg/dL Creatinine 1.4 H (0.7-1.2) mg/dl Est GFR ( Amer) 44 Est GFR (Non-Af Amer) 36 Random Glucose 85 (70-110) mg/dL Calcium 8.7 (8.4-10.5) mg/dL Total Bilirubin 0.3 (0.2-1.3) mg/dL AST 18 (14-36) U/L ALT 30 (7-56) U/L Alkaline Phosphatase 44 (38-126) U/L Lactate Dehydrogenase (333-699) U/L Total Protein 4.8 L (5.8-8.3) g/dL Albumin 2.5 L (3.0-4.8) g/dL Globulin 2.3 gm/dL Albumin/Globulin Ratio 1.1 (1.1-1.8) Laboratory Results - last 24 hr 01/21/18 01/21/18 01/21/18 05:30 05:30 09:00 WBC 5.0 RBC 2.33 L Hgb 6.8 L* D Hct 20.2 L* MCV 86.7 MCH 29.2 MCHC 33.7 RDW 18.2 H Plt Count 117 L Manual Plt Count 135 MPV 9.2 Gran % 80.6 H Lymph % (Auto) 13.4 L [place] % (Auto) 3.4 Eos % (Auto) 2.4 Baso % (Auto) 0.2 Gran # 4.04 Lymph # (Auto) 0.7 L [place] # (Auto) 0.2 Eos # (Auto) 0.1 Baso # (Auto) 0.01 Differential Comment Retic Count Sodium 150 H Potassium 4.0 Chloride 120 H Carbon Dioxide 22 Anion Gap 12 BUN 33 H Creatinine 1.4 H Est GFR ( Amer) 44 Est GFR (Non-Af Amer) 36 Random Glucose 85 Calcium 8.7 Total Bilirubin 0.3 AST 18 ALT 30 Alkaline Phosphatase 44 Lactate Dehydrogenase Total Protein 4.8 L Albumin 2.5 L Globulin 2.3 Albumin/Globulin Ratio 1.1 01/21/18 01/21/18 01/21/18 11:13 11:15 11:15 WBC RBC Hgb Hct MCV MCH MCHC RDW Plt Count Manual Plt Count MPV Gran % Lymph % (Auto) [place] % (Auto) Eos % (Auto) Baso % (Auto) Gran # Lymph # (Auto) [place] # (Auto) Eos # (Auto) Baso # (Auto) Differential Comment See pathology report Retic Count 2.34 H Sodium Potassium Chloride Carbon Dioxide Anion Gap BUN Creatinine Est GFR ( Amer) Est GFR (Non-Af Amer) Random Glucose Calcium Total Bilirubin AST ALT Alkaline Phosphatase Lactate Dehydrogenase 299 L Total Protein Albumin Globulin Albumin/Globulin Ratio Critical Care Progress Note - Nutrition Nutrition: Nutrition Category Date Time Status NPO Diet [DIET] Diets 01/21/18 Breakfast Ordered Attending/Attestation - Attestation I have personally seen and examined this patient.: Yes I have fully participated in the care of the patient.: Yes I have reviewed all pertinent clinical information: Yes Notes (Text): 01/21/18 14:09 The patient was seen and examined at the bedside. Patient care was discussed with resident Medical records, lab studies, and imaging were reviewed and management issues were discussed and formulated. Last 24H events reviewed. Agree with above treatment plans as outlined in 's note with addition of the following: Acute Blood loss Anemia \ GIB \ CAD \ CKD \ Colon CA \ Diverticulosis -hemodynamic monitoring to maintain MAP>65 -pt has a h\o recent PCI and stenting and was started on ASA\Plavix which will be help due to active GI bleed -cardiology team following closely -hold BBlocker while actively bleeding -o2 supplementation to maintain Spo2>90 Pao2>60; currently comfortable on NC -continue Abx and f\u cultures -f\u Bun\Cr and U\o -GI team seeing pt for colonoscopy today -continue PPi IV -f\u serial H\H; will transfuse 2 PRBC and 1 Bag platelets -monitor and replace e-lites -IR and surgical team standing by and following -NPO diet and aspiration precautions -heme\onc team f\u -DVT \ PUD prophylaxis CCM time 32min
[2018-01-21] MEDS ORDERED: Peg-Electrolyte Oral Soln 4L (Golytely) PO ONE (12:13)
[2018-01-21] MEDS ORDERED: Magnesium Citrate Oral SOL (300 ml) PO ONE (12:13)
--- NOTE | 2018-01-21 14:39 | PN ---
DATE: 01/20/2018 SUBJECTIVE: The patient is a 77-year-old female with a history of colon carcinoma, breast carcinoma, meningioma of the brain, status post craniotomy, status post total abdominal hysterectomy, status post PTCA 1 month ago, Who was admitted with hematochezia. The patient suffered bloody bowel movements several times, presented to the emergency room, was found to be severely anemic. After this point, the patient received 2 units of packed red blood cells in transfusion. She was seen in the Intensive Care Unit today. She is awake, alert and oriented. She is in good spirits and family is at the bedside. Her hemoglobin after 2 units of packed cells came up from 7.8 to 8.7, hematocrit this morning is 25.8. Blood urea nitrogen is 35, creatinine is 1.4. The patient underwent a bleeding scan which was found to be positive for bleed in the splenic flexure. The case was discussed at length with the patient's family at bedside. At this point, we are attempting to stabilize the bleed. Dr. Messi Martines is called in for consultation in case his services should be needed in the future. We will be transfusing a third unit of packed red blood cells. The patient is currently n.p.o. Case to be discussed with Dr. Mendes, the cloud engineer. Chi Salas MD
[2018-01-21 15:37] LABS: MEAN CELL VOLUME 86.6 fl (80.0-105.0); MEAN CORPUSCULAR HEMOGLOBIN 29.3 pg (25.0-35.0); MEAN CORPUSCULAR HGB CONC 33.8 g/dl (31.0-37.0); MEAN PLATELET VOLUME 9.8 fl (7.0-11.0); RBC 3.52 10^6/uL (3.5-6.1); RED CELL DISTRIBUTION WIDTH 16.6 % (11.5-14.5); WHITE BLOOD COUNT 7.3 10^3/ul (4.5-11.0)
[2018-01-21 16:05] LABS: HEMOGLOBIN 10.3 g/dL (12.0-16.0)
[2018-01-21 16:18] LABS: INR 1.01 (0.93-1.08); PARTIAL THROMBOPLASTIN TIME 27.2 Seconds (25.1-36.5); PROTHROMBIN TIME 11.5 SECONDS (9.4-12.5)
--- NOTE | 2018-01-21 16:38 | HP ---
HISTORY OF PRESENT ILLNESS: The patient is a 77-year-old female who was admitted through the emergency room after suffering bright red blood per rectum. The patient apparently had a bloody bowel movement in the evening. 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 PAST MEDICAL HISTORY: She is known to have a history of colon carcinoma, breast carcinoma, status post craniotomy for a meningioma, total abdominal hysterectomy, osteoarthritis. She underwent coronary catheterization last month for chest pain and a stent was placed. SOCIAL HISTORY: The patient never smoked. She is a nonalcoholic drinker. ALLERGIES: NO KNOWN MEDICAL ALLERGIES. MEDICATIONS: At the time of the admission, her medications included omeprazole 20 mg once a day, Tenormin 50 mg once a day, Norvasc 5 mg, vitamin D 50,000 units per week, Femara 2.5 mg daily, Feosol 27 mg daily, allopurinol 300 mg, aspirin 81 mg, Lasix 20 mg, isosorbide 30 mg and multivitamins. REVIEW OF SYSTEMS: Otherwise unremarkable. PHYSICAL EXAMINATION VITAL SIGNS: Blood pressure was 127/84, heart rate was 69 and she was afebrile. HEAD, EYES, EARS, NOSE AND THROAT: Unremarkable. NECK: Supple with no lymphadenopathy, no goiter. LUNGS: Clear to auscultation and percussion. HEART: Regular. ABDOMEN: Soft, nontender. EXTREMITIES: Free of cyanosis, clubbing or edema. LABORATORY DATA: Laboratory study showed a white blood cell count to be 5.2, hemoglobin and hematocrit are 7.4 and 23.5 respectively, platelet count is 157. Sodium is 144, potassium 4.2, blood urea nitrogen is 42, creatinine 1.7, nonfasting glucose is 96. ASSESSMENT AND PLAN: As the patient had another bloody bowel movement and it is felt the patient is actively bleeding. She is therefore admitted to the Intensive Care Unit. She is receiving transfusion of packed red blood cells. The patient will be followed closely. Consultation from Dr. Beebe, her oncologist as well as Dr. Mendes, the senior application software engineer are requested. Chi Salas MD [facility] # [phone]
[2018-01-21] MEDS ORDERED: Lidocaine PF 2% (5 ml) Inj (For Cardiac Arrhy) IV ONE (16:44)
[2018-01-21] MEDS ORDERED: Propofol 10 mg/ml Inj (20 ML) ONE (16:44)
[2018-01-21] MEDS ORDERED: Etomidate 20 mg/10ml Inj IV ONE (16:44)
[2018-01-21] MEDS ORDERED: Esmolol 100 mg/10ml Inj IV ONE (17:03)
[2018-01-21] MEDS: cefTRIAXone 1 gm 1 GM/100 ML BAG IVPB SCH (17:28)
[2018-01-21 17:49] LABS: FOLATE 16.5 ng/mL
[2018-01-21 20:34] LABS: HEMOGLOBIN 9.5 g/dL (12.0-16.0)
[2018-01-22 00:02] LABS: BASO # 0.02 K/mm3 (0.0-2.0); BASO % 0.3 % (0.0-3.0); EOS # 0.1 (0.0-0.7); EOS % 1.6 % (1.5-5.0); GRAN # 5.73 (1.4-6.5); GRAN % 81.6 % (50.0-68.0); HEMOGLOBIN 9.9 g/dL (12.0-16.0); LYMPH # 0.9 (1.2-3.4); LYMPH % 12.8 % (22.0-35.0); MEAN CELL VOLUME 86.5 fl (80.0-105.0); MEAN CORPUSCULAR HEMOGLOBIN 29.6 pg (25.0-35.0); MEAN CORPUSCULAR HGB CONC 34.3 g/dl (31.0-37.0); MEAN PLATELET VOLUME 8.8 fl (7.0-11.0); MONO # 0.3 (0.1-0.6); MONO % 3.7 % (1.0-6.0); RBC 3.34 10^6/uL (3.5-6.1); RED CELL DISTRIBUTION WIDTH 16.7 % (11.5-14.5)
[2018-01-22] MEDS: Nitroglycerin 2% Ointment Foilpak UD TOP SCH ×4 (04:14→21:40)
[2018-01-22] MEDS: Pantoprazole 40mg/100mL NS 40 MG/100 ML BAG IVPB SCH (05:46)
[2018-01-22] MEDS: metroNIDAZOLE IV 500 mg/100 ml 500 MG/100 ML BAG IVPB SCH ×3 (05:48→21:40)
[2018-01-22 06:19] LABS: EOS # 0.1 (0.0-0.7); EOS % 1.9 % (1.5-5.0); GRAN # 5.21 (1.4-6.5); GRAN % 83.6 % (50.0-68.0); HEMOGLOBIN 9.4 g/dL (12.0-16.0); LYMPH # 0.6 (1.2-3.4); LYMPH % 9.8 % (22.0-35.0); MEAN CELL VOLUME 86.7 fl (80.0-105.0); MEAN CORPUSCULAR HGB CONC 33.5 g/dl (31.0-37.0); MEAN PLATELET VOLUME 8.9 fl (7.0-11.0); MONO # 0.3 (0.1-0.6); MONO % 4.7 % (1.0-6.0); RBC 3.24 10^6/uL (3.5-6.1); RED CELL DISTRIBUTION WIDTH 16.9 % (11.5-14.5); WHITE BLOOD COUNT 6.2 10^3/ul (4.5-11.0)
[2018-01-22 06:46] LABS: ALB/GLOB RATIO 1.2 (1.1-1.8); ALBUMIN 3.1 g/dL (3.0-4.8); CALCIUM 9.5 mg/dL (8.4-10.5)
--- NOTE | 2018-01-22 07:00 | CP.PCM.PN ---
Subjective - Date & Time of Evaluation Date of Evaluation: 01/22/18 Time of Evaluation: 06:45 - Subjective Subjective: Sacha Daniels DO, IM Resident PGY-1 Hematology/Oncology Progress Note for Dr. Beebe Patient was seen and examined at bedside. She is s/p EGD and colonoscopy yesterday evening. She is feeling much better this morning. She reports one bowel movement about 2000 last night and that it was not black or bloody. She denies chest pain, SOB, cough, abdominal pain, or any other complaints from the procedure. Objective - Vital Signs/Intake and Output Vital Signs (last 24 hours): Temp Pulse Resp BP Pulse Ox 97.8 F 90 18 152/68 H 100 01/21/18 20:00 01/21/18 21:00 01/21/18 21:00 01/21/18 21:00 01/21/18 21:00 Intake and Output: 01/21/18 01/22/18 18:59 06:59 Intake Total 3301 Output Total 1600 Balance 1701 - Medications Medications: Current Medications Metronidazole (Flagyl) 500 mg in 100 mls @ 100 mls/hr IVPB Q8 MEHREEN PRN Reason: Protocol Stop: 01/24/18 22:01 Last Admin: 01/22/18 05:48 Dose: 100 mls/hr Pantoprazole Sodium (Protonix 40mg Ivpb) 40 mg in 100 mls @ 20 mls/hr IVPB .Q5H MEHREEN Last Admin: 01/22/18 05:46 Dose: 20 mls/hr Ceftriaxone Sodium (Rocephin 1 Gram Ivpb) 1 gm in 100 mls @ 100 mls/hr IVPB DAILY MEHREEN PRN Reason: Protocol Last Admin: 01/21/18 17:28 Dose: 100 mls/hr Metoprolol Tartrate (Lopressor) 5 mg IVP Q6H MEHREEN Last Admin: 01/21/18 05:21 Dose: 5 mg Nitroglycerin (Nitro-Bid 2% Oint) 1 ea TOP Q6H MEHREEN Last Admin: 01/22/18 04:14 Dose: 1 ea Ondansetron HCl (Zofran Inj) 4 mg IVP Q4H PRN PRN Reason: Nausea/Vomiting - Labs Labs: 01/22/18 05:45 01/22/18 05:45 PT 11.5 SECONDS (9.4-12.5) 01/21/18 15:25 INR 1.01 (0.93-1.08) 01/21/18 15:25 APTT 27.2 Seconds (25.1-36.5) 01/21/18 15:25 - Constitutional Appears: Non-toxic, No Acute Distress - Head Exam Head Exam: ATRAUMATIC, NORMAL INSPECTION, NORMOCEPHALIC - Eye Exam Eye Exam: Normal appearance, PERRL - ENT Exam ENT Exam: Mucous Membranes Moist - Neck Exam Neck Exam: Full ROM, Normal Inspection - Respiratory Exam Respiratory Exam: Clear to Ausculation Bilateral, NORMAL BREATHING PATTERN. absent: Rales, Rhonchi, Wheezes - Cardiovascular Exam Cardiovascular Exam: +S1, +S2, Murmur Additional comments: Grade 2/6 holosystolic murmur loudest in aortic region, unchanged from yesterday - GI/Abdominal Exam GI & Abdominal Exam: Soft, Normal Bowel Sounds. absent: Guarding, Tenderness, Rebound - Extremities Exam Extremities Exam: Full ROM, Normal Capillary Refill, Tenderness. absent: Calf Tenderness, Pedal Edema Additional comments: Patient reports some mild tenderness to palpation on the dorsum of her right foot - Neurological Exam Neurological Exam: Alert, Awake, Oriented x3 - Psychiatric Exam Psychiatric exam: Normal Affect, Normal Mood - Skin Skin Exam: Dry, Intact, Normal Color, Warm Assessment and Plan - Assessment and Plan (Free Text) Assessment: Ms. Swenson is a 77 year old female with PMH of GIST (s/p partial gastrectomy), colon CA (s/p R hemicolectomy), breast CA (s/p lumpectomy, on letrozole), NSTEMI (s/p bare metal stent on 12/25/17, on plavix and ASA), HTN, and gout admitted to the ICU for treatment of GI bleed. Plan: She is s/p EGD and colonoscopy yesterday evening. Per Dr. Mendes's report, it appears as if it was a diverticular bleed which was able to be repaired. Her H/ H is stable as of this morning. We will continue to monitor. Once stable, we will be able to restart femara and gleevec. We are also able to restart her ASA and plavix as she has a recent history of bare metal stent placement. We discussed our plan with Dr. Mendes who is in agreement. She will be transferred to second floor soon as she has been HD stable. Case and plan were reviewed and discussed in detail with my attending physician Dr. Abiel Daniels, DO IM Resident PGY-1
--- NOTE | 2018-01-22 07:55 | CON ---
DATE: 01/21/2018 SERVICE: Cardiology. REASON FOR CONSULTATION AND FOLLOWUP: History of coronary artery disease, history of recently a stent placed, admitted with GI bleed, black tarry stool. Admitting hemoglobin 7.4, status post 4-pack , today's hemoglobin 6.8. BRIEF CLINICAL HISTORY: This is a 77-year-old female with past medical history significant for breast cancer, colon cancer, osteoarthritis, peptic ulcer disease, who presented with non-STEMI twice, first after discharged in November. Then patient readmitted again with unstable angina and acute coronary syndrome. Subsequently patient underwent cardiac catheterization and stent on 12/24/2017, with placement of the bare metal stent in right coronary artery. Admitted with black tarry stool for couple of days. Admitting hemoglobin 7.4, status post RBC. Denies any chest pain, shortness of breath or any palpitation. PAST MEDICAL HISTORY: Significant for bilateral breast cancer, status post colon surgery for colon cancer, recently found brain tumor, head surgery at [facility] with craniotomy done, history of non-STEMI twice, hypertension, hyperlipidemia, history of non-STEMI on 12/12/2017, and then 12/21/2017. Subsequently patient underwent cardiac catheterization on 12/24/2017, bare metal stent was placed in the right coronary ostium. RECENT CARDIAC WORKUP: As follows, patient had a cardiac catheterization on 12/24/2017. Patient presented again 12/24/2017 with unstable angina, subsequently underwent PTCA of ostial RCA with the bare metal stent. At that time, the cardiac catheterization revealed [id number] mid circumflex D1 but not suitable for PCI and bare metal stent was done in ostial RCA. Bare metal done because of the GI bleed, history of renal insufficiency as well. Patient is on aspirin and Plavix for 4 weeks. At that time, the cardiac catheterization dated 12/24/2017, details revealed as follows. The left main coronary artery is a large caliber vessel, diffusely calcified noted throughout the vessels. There is 30% stenosis in the mid segment, bifurcates LAD and circumflex. Anterior descending artery, left anterior throughout calcification, distal LAD with the [employer], diagonal branch with small vessel disease, 70% to 80% stenosis, not suitable for PCI. Circumflex is moderate caliber vessel in the mid segment 70% to 80% with the two hairpin cuts, not suitable for PCI as well. Right coronary artery, ostial 95% stenosis with the bare metal stent was done. LV gram showed ejection fraction of 55% to 60%. EDP was in the range of 18. Patient had echocardiography done on 12/10/2017 that revealed ejection fraction 55%, moderate valvular aortic stenosis, moderate mitral regurgitation, [id number] tricuspid regurgitation, [id number] pulmonary hypertension, moderate left pleural effusion, RV systolic pressure 58 mmHg. Though echo shows [id number] aortic stenosis but no gradient across aortic valve noted on cardiac catheterization. SOCIAL HISTORY: Denies smoking. Denies any history of alcohol abuse. CURRENT MEDICATIONS: The patient is taking at home amlodipine 10 mg daily, omeprazole, isosorbide nitrate, clopidogrel, aspirin. REVIEW OF SYSTEMS: As per HPI. PHYSICAL EXAMINATION: VITAL SIGNS: Temperature afebrile, heart rate 68 , blood pressure 143/68. HEENT: PERRLA. Extraocular muscles are intact. NECK: Supple. No carotid bruit. No thyromegaly. CHEST: Clear to auscultation. HEART: S1 and S2 regular. ABDOMEN: Soft. EXTREMITIES: Clubbing and cyanosis negative. LABORATORY DATA: WBC 5, hemoglobin 6.8, hematocrit 20.2, platelet count 117. Chemistry shows sodium 150, potassium 5, chloride 120, carbon dioxide 21, anion gap of 12, BUN 30, creatinine 1.4. IMPRESSION: Acute gastrointestinal bleed, severe, admitting was 7.4, three units of packed right blood cells, now the hemoglobin 6.8, history of recent coronary intervention on 12/24/2017, bare metal stent in right coronary artery, history of bilateral breast tumor, history of colon cancer, history of brain tumor as well as craniotomy. RECOMMENDATION: We will discontinue aspirin, Plavix four weeks now. After the bleeding stops, we can start back aspirin but we will leave the Plavix off because of the bare-metal stent. Monitor H and H,. Renal insufficiency, diabetes, hypertension, hyperlipidemia. We will follow closely and we will continue IV fluid now and packed RBC every 6 hours and keep hemoglobin around 10 or above. We will follow with you. As the patient is n.p.o., we will give IV Lopressor to prevent any ischemic insult because patient has underlying lot of coronary burden as well as patient had stent in right coronary artery well as severe anemic. So we will keep IV every 6 hours and put an inch of nitro paste as well. We will follow with you. Thank you, , for providing us the opportunity in taking care of the patient, Suly Swenson. Ofe Iverson MD
--- NOTE | 2018-01-22 09:19 | CP.PCM.PN ---
<Kieran Nolasco - Last Filed: 01/22/18 09:08> Subjective - Date & Time of Evaluation Date of Evaluation: 01/22/18 Time of Evaluation: 07:10 - Subjective Subjective: GI Progress Note for Dr. Cinthya Nolasco, PGY-3 IM Patient seen and examined at bedside in ICU. No bloody BMs reported overnight; pt reports 1 normal BM at approx 10pm overnight. Denies emesis, diarrhea, lightheadedness, dizziness. Underwent EGD/Colonoscopy yesterday, no acute bleeding observed, some blood pooled in diverticula. No ischemic collitis visualized. Likely diverticular bleed that stopped. Hgb remained stable since transfusion of 2 units pRBCs and 1 unit platelets yesterday (Current transfusion totals: 6 pRBC, 1 FFP, 1 Platelets). Objective - Vital Signs/Intake and Output Vital Signs (last 24 hours): Temp Pulse Resp BP Pulse Ox 97.8 F 90 18 152/68 H 100 01/21/18 20:00 01/21/18 21:00 01/21/18 21:00 01/21/18 21:00 01/21/18 21:00 - Medications Medications: Current Medications Metronidazole (Flagyl) 500 mg in 100 mls @ 100 mls/hr IVPB Q8 MEHREEN PRN Reason: Protocol Stop: 01/24/18 22:01 Last Admin: 01/22/18 05:48 Dose: 100 mls/hr Pantoprazole Sodium (Protonix 40mg Ivpb) 40 mg in 100 mls @ 20 mls/hr IVPB .Q5H MEHREEN Last Admin: 01/22/18 05:46 Dose: 20 mls/hr Ceftriaxone Sodium (Rocephin 1 Gram Ivpb) 1 gm in 100 mls @ 100 mls/hr IVPB DAILY MEHREEN PRN Reason: Protocol Last Admin: 01/21/18 17:28 Dose: 100 mls/hr Metoprolol Tartrate (Lopressor) 25 mg PO BID MEHREEN Nitroglycerin (Nitro-Bid 2% Oint) 1 ea TOP Q6H MEHREEN Last Admin: 01/22/18 04:14 Dose: 1 ea Ondansetron HCl (Zofran Inj) 4 mg IVP Q4H PRN PRN Reason: Nausea/Vomiting - Labs Labs: 01/22/18 05:45 01/22/18 05:45 PT 11.5 SECONDS (9.4-12.5) 01/21/18 15:25 INR 1.01 (0.93-1.08) 01/21/18 15:25 APTT 27.2 Seconds (25.1-36.5) 01/21/18 15:25 - Additional Findings Additional findings: - Constitutional Appears: Non-toxic, No Acute Distress - Head Exam Head Exam: ATRAUMATIC, NORMAL INSPECTION, NORMOCEPHALIC - Eye Exam Eye Exam: Normal appearance. absent: Conjunctival injection or pallor, Scleral icterus Pupil Exam: absent: Fixed, Irregular - ENT Exam ENT Exam: Mucous Membranes Moist - Neck Exam Neck Exam: Normal Inspection - Respiratory Exam Respiratory Exam: Clear to Ausculation Bilateral, NORMAL BREATHING PATTERN. absent: Accessory Muscle Use, Chest Wall Tenderness, Decreased Breath Sounds, Rales, Rhonchi, Wheezes - Cardiovascular Exam Cardiovascular Exam: REGULAR RHYTHM, RRR, +S1, +S2, Murmur (systolic murmur most prominently appreciate at right and left 2nd intercostal spaces, and at apex). absent: Bradycardia, Tachycardia, Irregular Rhythm, JVD, +S4 - GI/Abdominal Exam GI & Abdominal Exam: Soft, Hyperactive Bowel Sounds, Mild LUQ tenderness to deep palpation only. absent: Distended, Firm, Guarding, Rigid, Diminished Bowel Sounds, Hernia, Hypoactive Bowel Sounds, Normal Bowel Sounds - Rectal Exam Rectal Exam: Deferred - Extremities Exam Extremities Exam: Full ROM, Normal Inspection. absent: Calf Tenderness, Joint Swelling, Pedal Edema, Tenderness - Back Exam Back Exam: absent: CVA tenderness (L), CVA tenderness (R) - Neurological Exam Neurological Exam: Alert, Awake, Oriented x3 - Psychiatric Exam Psychiatric exam: Normal Affect, Normal Mood - Skin Skin Exam: Dry, Intact, Normal Color, Warm Assessment and Plan - Assessment and Plan (Free Text) Assessment: This is a 77 yo F with PMH of breast cancer s/p lumpectomy, gastric GIST s/p partial gastrectomy, colon cancer s/p Right hemicolectomy, HTN, GI bleed, NSTEMI s/p bare-metal stent 12/25 on aspirin/plavix who presented to the ED with bloody diarrhea/BRBPR for 1 day prior to presentation. S/p 4 units pRBCs and 1 unit FFP, pending another 2 units pRBCs after AM Hgb found to be 6.8. Bleeding scan indicates splenic flexure as the source, however colonoscopy revealed no active bleed and no ischemic collitis. Plan: -Hgb improved s/p 2 units pRBC and 1 unit platelets, remains steady in the 9's on multiple checks and no further bloody BMs reported Transfusion totals: 6 pRBCS, 1 FFP, 1 platelets -As per Cardio, Bare-metal stent placed, no further plavix, restart ASA when cleared by GI; recommend waiting until tomorrow to restart -Bleeding scan indicates splenic flexure is area of bleed Colonoscopy did not show acute bleed, some blood pooled in diverticula, no ischemic collitis; likely diverticular bleed, now stopped IR embolization not needed at this time -Surgery also consulted on this patient; reports not a surgical candidate -Continue CLD for breakfast, advance for full liquids for remainder of day, if tolerates well can advance to soft foods tomorrow AM Seen, reviewed, and discussed with attending, Dr. Mendes <Adolfo Mendes V - Last Filed: 01/23/18 23:11> Objective - Vital Signs/Intake and Output Vital Signs (last 24 hours): Temp Pulse Resp BP Pulse Ox 98.7 F 81 20 185/83 H 98 01/23/18 16:43 01/23/18 22:00 01/23/18 16:43 01/23/18 18:37 01/23/18 06:00 Intake and Output: 01/23/18 01/24/18 18:59 06:59 Intake Total 840 200 Output Total 1000 Balance -160 200 - Medications Medications: Current Medications Aspirin (Ecotrin) 81 mg PO DAILY [facility] Last Admin: 01/23/18 09:52 Dose: 81 mg Metronidazole (Flagyl) 500 mg in 100 mls @ 100 mls/hr IVPB Q8 MEHREEN PRN Reason: Protocol Stop: 01/24/18 22:01 Last Admin: 01/23/18 21:43 Dose: 100 mls/hr Ceftriaxone Sodium (Rocephin 1 Gram Ivpb) 1 gm in 100 mls @ 100 mls/hr IVPB DAILY [facility] PRN Reason: Protocol Last Admin: 01/23/18 09:51 Dose: 100 mls/hr Isosorbide Mononitrate (Imdur Er) 30 mg PO DAILY [facility] Last Admin: 01/23/18 09:51 Dose: 30 mg Metoprolol Tartrate (Lopressor) 50 mg PO BID [facility] Last Admin: 01/23/18 18:37 Dose: 50 mg Ondansetron HCl (Zofran Inj) 4 mg IVP Q4H PRN PRN Reason: Nausea/Vomiting Pantoprazole Sodium (Protonix Ec Tab) 40 mg PO Q12 [facility] Last Admin: 01/23/18 21:43 Dose: 40 mg - Labs Labs: 01/23/18 06:40 01/23/18 06:40 PT 11.5 SECONDS (9.4-12.5) 01/21/18 15:25 INR 1.01 (0.93-1.08) 01/21/18 15:25 APTT 27.2 Seconds (25.1-36.5) 01/21/18 15:25 Attending/Attestation - Attestation I have personally seen and examined this patient.: Yes I have fully participated in the care of the patient.: Yes I have reviewed all pertinent clinical information, including history, physical exam and plan: Yes Notes (Text): p 01/23/18 23:11
[2018-01-22] MEDS: Pantoprazole 40 mg EC Tab PO SCH ×2 (09:27→21:54)
[2018-01-22] MEDS: cefTRIAXone 1 gm 1 GM/100 ML BAG IVPB SCH (09:27)
--- NOTE | 2018-01-22 09:49 | CP.PCM.PN ---
Subjective - Date & Time of Evaluation Date of Evaluation: 01/22/18 Time of Evaluation: 09:45 - Subjective Subjective: Pt was seen and examined this morning at bedside. She states that she had one bout of emesis on the way to colonoscopy yesterday and was unsure of whether it contained blood. She also states that she had a BM last night but was non- bloody. Otherwise she had no acute overnight events per nursing. She denies any fevers, chills, nausea, vomiting. Objective - Vital Signs/Intake and Output Vital Signs (last 24 hours): Temp Pulse Resp BP Pulse Ox 97.8 F 83 18 144/67 100 01/21/18 20:00 01/22/18 09:30 01/21/18 21:00 01/22/18 09:30 01/21/18 21:00 - Medications Medications: Current Medications Metronidazole (Flagyl) 500 mg in 100 mls @ 100 mls/hr IVPB Q8 MEHREEN PRN Reason: Protocol Stop: 01/24/18 22:01 Last Admin: 01/22/18 05:48 Dose: 100 mls/hr Ceftriaxone Sodium (Rocephin 1 Gram Ivpb) 1 gm in 100 mls @ 100 mls/hr IVPB DAILY MEHREEN PRN Reason: Protocol Last Admin: 01/22/18 09:27 Dose: 100 mls/hr Metoprolol Tartrate (Lopressor) 25 mg PO BID [facility] Last Admin: 01/22/18 09:30 Dose: 25 mg Nitroglycerin (Nitro-Bid 2% Oint) 1 ea TOP Q6H [facility] Last Admin: 01/22/18 09:30 Dose: 1 ea Ondansetron HCl (Zofran Inj) 4 mg IVP Q4H PRN PRN Reason: Nausea/Vomiting Pantoprazole Sodium (Protonix Ec Tab) 40 mg PO Q12 [facility] Last Admin: 01/22/18 09:27 Dose: 40 mg - Labs Labs: 01/22/18 05:45 01/22/18 05:45 PT 11.5 SECONDS (9.4-12.5) 01/21/18 15:25 INR 1.01 (0.93-1.08) 01/21/18 15:25 APTT 27.2 Seconds (25.1-36.5) 01/21/18 15:25 - Constitutional Appears: Well, Non-toxic, No Acute Distress - Head Exam Head Exam: ATRAUMATIC, NORMAL INSPECTION - Eye Exam Eye Exam: EOMI, Normal appearance - Respiratory Exam Respiratory Exam: NORMAL BREATHING PATTERN. absent: Accessory Muscle Use, Respiratory Distress - Cardiovascular Exam Cardiovascular Exam: +S1, +S2. absent: Bradycardia - GI/Abdominal Exam GI & Abdominal Exam: Soft, Tenderness (Present in the LUQ upon palpation), Normal Bowel Sounds. absent: Distended, Firm, Guarding, Rigid, Rebound - Psychiatric Exam Psychiatric exam: Normal Affect, Normal Mood - Skin Skin Exam: Dry, Intact, Normal Color, Warm Assessment and Plan - Assessment and Plan (Free Text) Assessment: Pt is a 77yo F with GI bleed likely diverticular bleed s/p colonoscopy POD1 Plan: - No surgical intervention at this time - Cont to monitor serial H&H - Monitor BM for melena or hematochezia - Monitor hemodynamics - Conservative management - F/u further recs per GI - Discussed with Dr. Martines
--- NOTE | 2018-01-22 11:24 | CP.CCUPN ---
<Perez Odell - Last Filed: 01/22/18 14:08> CCU Subjective - Physician Review Subjective (Free Text): Perez Odell, PGY1 Critical Care Progress Note for Dr. Gross Patient was examined at bedside this morning. Patient denied chest pain, palpitations, shortness of breath, extremity pain, nausea, vomiting, diarrhea. Patient still has a dull non-radiating abdominal tenderness, however, it has improved from yesterday. Patient was told about her endoscopy/colonoscopy result yesterday, which showed no active GI bleed. Patient's hemoglobin has also been stable. Patient's blood pressure was elevated this morning (SBP 150- 180), however, patient has been asymptomatic. Otherwise, no overnight changes. A Full 12 point ROS was conducted and unremarkable, except as stated above. CCU Objective - Vital Signs / Intake & Output Vital Signs (Last 4 hours): Vital Signs Pulse BP 01/22/18 09:30 83 144/67 Intake and Output (Last 8hrs): Intake & Output 01/21/18 01/22/18 01/22/18 22:59 06:59 14:59 Intake Total 2641 Output Total 1600 Balance 1041 Intake: IV 640 Antibiotics 200 IVF 200 Protonix drip 240 Oral 1800 Blood Product 201 Apheresis Plts Acda Lr 201 Irr 3rd Unit [id number] Output: Urine/Stool Mix 1550 Emesis 50 - Physical Exam Head: Positive for: Atraumatic, Normocephalic Pupils: Positive for: PERRL Extroacular Muscles: Positive for: EOMI Conjunctiva: Positive for: Normal Mouth: Positive for: Moist Mucous Membranes Neck: Positive for: Normal Range of Motion Respiratory/Chest: Positive for: Clear to Auscultation, Good Air Exchange. Negative for: Respiratory Distress, Accessory Muscle Use, Wheezes, Decreased Breath Sounds, Rales, Rhonchi Cardiovascular: Positive for: Regular Rate and Rhythm, Normal S1, S2. Negative for: Murmurs Abdomen: Positive for: Tenderness (epigastric tenderness (improved from yesterday)), Normal Bowel Sounds, Scars (midline surgical scar on abdomen). Negative for: Distention, Peritoneal Signs, Rebound, Guarding, Mass/Organomegaly Back: Positive for: Normal Inspection Upper Extremity: Positive for: Normal Inspection, NORMAL PULSES. Negative for: Cyanosis, Edema Lower Extremity: Positive for: Normal Inspection, NORMAL PULSES. Negative for: Edema, Cyanosis, Tenderness, Swelling Neurological: Positive for: GCS=15 Skin: Positive for: Warm, Dry, Normal Color. Negative for: Rashes, Diaphoretic Psychiatric: Positive for: Alert, Oriented x 3, Normal Insight, Normal Concentration - Medications Active Medications: Active Medications Generic Name Dose Route Start Last Admin Trade Name Freq PRN Reason Stop Dose Admin Aspirin 81 mg 01/23/18 10:00 Ecotrin PO DAILY MEHREEN Metronidazole 500 mg in 100 mls @ 100 mls/hr 01/19/18 22:00 01/22/18 05:48 Flagyl IVPB 01/24/18 22:01 100 mls/hr Q8 MEHREEN Administration Protocol Ceftriaxone Sodium 1 gm in 100 mls @ 100 mls/hr 01/20/18 22:00 01/22/18 09:27 Rocephin 1 Gram Ivpb IVPB 100 mls/hr DAILY MEHREEN Administration Protocol Metoprolol Tartrate 25 mg 01/22/18 10:00 01/22/18 09:30 Lopressor PO 25 mg BID MEHREEN Administration Nitroglycerin 1 ea 01/21/18 10:30 01/22/18 09:30 Nitro-Bid 2% Oint TOP 1 ea Q6H MEHREEN Administration Ondansetron HCl 4 mg 01/21/18 15:16 Zofran Inj IVP Q4H PRN Nausea/Vomiting Pantoprazole Sodium 40 mg 01/22/18 10:00 01/22/18 09:27 Protonix Ec Tab PO 40 mg Q12 MEHREEN Administration - Patient Studies Lab Studies: Microbiology Studies 01/19/18 17:36 MRSA Culture (Admit) - Final Naris MRSA NOT DETECTED Lab Studies 01/22/18 01/22/18 01/22/18 Range/Units 05:45 05:45 05:45 WBC 6.2 (4.5-11.0) 10^3/ul RBC 3.24 L (3.5-6.1) 10^6/uL Hgb 9.4 L (12.0-16.0) g/dL Hct 28.1 L (36.0-48.0) % MCV 86.7 (80.0-105.0) fl MCH 29.0 (25.0-35.0) pg MCHC 33.5 (31.0-37.0) g/dl RDW 16.9 H (11.5-14.5) % Plt Count 138 (120.0-450.0) 10^3/uL Manual Plt Count (120-450) K/mm3 MPV 8.9 (7.0-11.0) fl Gran % 83.6 H (50.0-68.0) % Lymph % (Auto) 9.8 L (22.0-35.0) % Bourbon % (Auto) 4.7 (1.0-6.0) % Eos % (Auto) 1.9 (1.5-5.0) % Baso % (Auto) 0.0 (0.0-3.0) % Gran # 5.21 (1.4-6.5) Lymph # (Auto) 0.6 L (1.2-3.4) Bourbon # (Auto) 0.3 (0.1-0.6) Eos # (Auto) 0.1 (0.0-0.7) Baso # (Auto) 0.00 (0.0-2.0) K/mm3 Differential Comment Retic Count (0.5-1.5) % Haptoglobin (30.0-200.0) mg/dL PT (9.4-12.5) SECONDS INR (0.93-1.08) APTT (25.1-36.5) Seconds Sodium 151 H (132-148) mmol/L Potassium 3.7 (3.6-5.0) mmol/L Chloride 117 H (98-107) mmol/L Carbon Dioxide 23 (21-33) mmol/L Anion Gap 15 (10-20) BUN 24 H (7-21) mg/dL Creatinine 1.3 H (0.7-1.2) mg/dl Est GFR ( Amer) 48 Est GFR (Non-Af Amer) 40 Random Glucose 88 (70-110) mg/dL Calcium 9.5 (8.4-10.5) mg/dL Phosphorus 3.5 (2.5-4.5) mg/dL Magnesium 2.0 (1.7-2.2) mg/dL Total Bilirubin 0.4 (0.2-1.3) mg/dL AST 32 (14-36) U/L ALT 23 (7-56) U/L Alkaline Phosphatase 53 (38-126) U/L Lactate Dehydrogenase (333-699) U/L Total Protein 5.7 L (5.8-8.3) g/dL Albumin 3.1 (3.0-4.8) g/dL Globulin 2.5 gm/dL Albumin/Globulin Ratio 1.2 (1.1-1.8) Triglycerides 90 (35-160) mg/dL Cholesterol 150 (130-200) mg/dL LDL Cholesterol Direct 67 (0-129) mg/dL HDL Cholesterol 39 (29-60) mg/dL Vitamin B12 (239-931) pg/mL Folate ng/mL TSH 3rd Generation 0.06 L (0.46-4.68) mIU/mL YOLY, Poly Interpret (NEGATIVE) 01/21/18 01/21/18 01/21/18 Range/Units 23:50 23:50 20:20 WBC 7.0 (4.5-11.0) 10^3/ul RBC 3.34 L (3.5-6.1) 10^6/uL Hgb 9.9 L 9.5 L (12.0-16.0) g/dL Hct 28.9 L 27.9 L (36.0-48.0) % MCV 86.5 (80.0-105.0) fl MCH 29.6 (25.0-35.0) pg MCHC 34.3 (31.0-37.0) g/dl RDW 16.7 H (11.5-14.5) % Plt Count 145 (120.0-450.0) 10^3/uL Manual Plt Count (120-450) K/mm3 MPV 8.8 (7.0-11.0) fl Gran % 81.6 H (50.0-68.0) % Lymph % (Auto) 12.8 L (22.0-35.0) % Bourbon % (Auto) 3.7 (1.0-6.0) % Eos % (Auto) 1.6 (1.5-5.0) % Baso % (Auto) 0.3 (0.0-3.0) % Gran # 5.73 (1.4-6.5) Lymph # (Auto) 0.9 L (1.2-3.4) Bourbon # (Auto) 0.3 (0.1-0.6) Eos # (Auto) 0.1 (0.0-0.7) Baso # (Auto) 0.02 (0.0-2.0) K/mm3 Differential Comment Retic Count (0.5-1.5) % Haptoglobin (30.0-200.0) mg/dL PT (9.4-12.5) SECONDS INR (0.93-1.08) APTT (25.1-36.5) Seconds Sodium (132-148) mmol/L Potassium (3.6-5.0) mmol/L Chloride (98-107) mmol/L Carbon Dioxide (21-33) mmol/L Anion Gap (10-20) BUN (7-21) mg/dL Creatinine (0.7-1.2) mg/dl Est GFR ( Amer) Est GFR (Non-Af Amer) Random Glucose (70-110) mg/dL Calcium (8.4-10.5) mg/dL Phosphorus (2.5-4.5) mg/dL Magnesium (1.7-2.2) mg/dL Total Bilirubin (0.2-1.3) mg/dL AST (14-36) U/L ALT (7-56) U/L Alkaline Phosphatase (38-126) U/L Lactate Dehydrogenase (333-699) U/L Total Protein (5.8-8.3) g/dL Albumin (3.0-4.8) g/dL Globulin gm/dL Albumin/Globulin Ratio (1.1-1.8) Triglycerides (35-160) mg/dL Cholesterol (130-200) mg/dL LDL Cholesterol Direct (0-129) mg/dL HDL Cholesterol (29-60) mg/dL Vitamin B12 (239-931) pg/mL Folate ng/mL TSH 3rd Generation (0.46-4.68) mIU/mL YOLY, Poly Interpret Negative (NEGATIVE) 01/21/18 01/21/18 01/21/18 Range/Units 15:25 15:25 11:15 WBC 7.3 D (4.5-11.0) 10^3/ul RBC 3.52 (3.5-6.1) 10^6/uL Hgb 10.3 L D (12.0-16.0) g/dL Hct 30.5 L (36.0-48.0) % MCV 86.6 (80.0-105.0) fl MCH 29.3 (25.0-35.0) pg MCHC 33.8 (31.0-37.0) g/dl RDW 16.6 H (11.5-14.5) % Plt Count 137 (120.0-450.0) 10^3/uL Manual Plt Count (120-450) K/mm3 MPV 9.8 (7.0-11.0) fl Gran % (50.0-68.0) % Lymph % (Auto) (22.0-35.0) % Bourbon % (Auto) (1.0-6.0) % Eos % (Auto) (1.5-5.0) % Baso % (Auto) (0.0-3.0) % Gran # (1.4-6.5) Lymph # (Auto) (1.2-3.4) Bourbon # (Auto) (0.1-0.6) Eos # (Auto) (0.0-0.7) Baso # (Auto) (0.0-2.0) K/mm3 Differential Comment Retic Count (0.5-1.5) % Haptoglobin (30.0-200.0) mg/dL PT 11.5 (9.4-12.5) SECONDS INR 1.01 (0.93-1.08) APTT 27.2 (25.1-36.5) Seconds Sodium (132-148) mmol/L Potassium (3.6-5.0) mmol/L Chloride (98-107) mmol/L Carbon Dioxide (21-33) mmol/L Anion Gap (10-20) BUN (7-21) mg/dL Creatinine (0.7-1.2) mg/dl Est GFR ( Amer) Est GFR (Non-Af Amer) Random Glucose (70-110) mg/dL Calcium (8.4-10.5) mg/dL Phosphorus (2.5-4.5) mg/dL Magnesium (1.7-2.2) mg/dL Total Bilirubin (0.2-1.3) mg/dL AST (14-36) U/L ALT (7-56) U/L Alkaline Phosphatase (38-126) U/L Lactate Dehydrogenase 299 L (333-699) U/L Total Protein (5.8-8.3) g/dL Albumin (3.0-4.8) g/dL Globulin gm/dL Albumin/Globulin Ratio (1.1-1.8) Triglycerides (35-160) mg/dL Cholesterol (130-200) mg/dL LDL Cholesterol Direct (0-129) mg/dL HDL Cholesterol (29-60) mg/dL Vitamin B12 559 (239-931) pg/mL Folate 16.5 ng/mL TSH 3rd Generation (0.46-4.68) mIU/mL YOLY, Poly Interpret (NEGATIVE) 01/21/18 01/21/18 01/21/18 Range/Units 11:15 11:13 11:13 WBC (4.5-11.0) 10^3/ul RBC (3.5-6.1) 10^6/uL Hgb (12.0-16.0) g/dL Hct (36.0-48.0) % MCV (80.0-105.0) fl MCH (25.0-35.0) pg MCHC (31.0-37.0) g/dl RDW (11.5-14.5) % Plt Count (120.0-450.0) 10^3/uL Manual Plt Count (120-450) K/mm3 MPV (7.0-11.0) fl Gran % (50.0-68.0) % Lymph % (Auto) (22.0-35.0) % Bourbon % (Auto) (1.0-6.0) % Eos % (Auto) (1.5-5.0) % Baso % (Auto) (0.0-3.0) % Gran # (1.4-6.5) Lymph # (Auto) (1.2-3.4) Bourbon # (Auto) (0.1-0.6) Eos # (Auto) (0.0-0.7) Baso # (Auto) (0.0-2.0) K/mm3 Differential Comment See pathology report Retic Count 2.34 H (0.5-1.5) % Haptoglobin 67.7 (30.0-200.0) mg/dL PT (9.4-12.5) SECONDS INR (0.93-1.08) APTT (25.1-36.5) Seconds Sodium (132-148) mmol/L Potassium (3.6-5.0) mmol/L Chloride (98-107) mmol/L Carbon Dioxide (21-33) mmol/L Anion Gap (10-20) BUN (7-21) mg/dL Creatinine (0.7-1.2) mg/dl Est GFR ( Amer) Est GFR (Non-Af Amer) Random Glucose (70-110) mg/dL Calcium (8.4-10.5) mg/dL Phosphorus (2.5-4.5) mg/dL Magnesium (1.7-2.2) mg/dL Total Bilirubin (0.2-1.3) mg/dL AST (14-36) U/L ALT (7-56) U/L Alkaline Phosphatase (38-126) U/L Lactate Dehydrogenase (333-699) U/L Total Protein (5.8-8.3) g/dL Albumin (3.0-4.8) g/dL Globulin gm/dL Albumin/Globulin Ratio (1.1-1.8) Triglycerides (35-160) mg/dL Cholesterol (130-200) mg/dL LDL Cholesterol Direct (0-129) mg/dL HDL Cholesterol (29-60) mg/dL Vitamin B12 (239-931) pg/mL Folate ng/mL TSH 3rd Generation (0.46-4.68) mIU/mL YOLY, Poly Interpret (NEGATIVE) 01/21/18 Range/Units 09:00 WBC (4.5-11.0) 10^3/ul RBC (3.5-6.1) 10^6/uL Hgb (12.0-16.0) g/dL Hct (36.0-48.0) % MCV (80.0-105.0) fl MCH (25.0-35.0) pg MCHC (31.0-37.0) g/dl RDW (11.5-14.5) % Plt Count (120.0-450.0) 10^3/uL Manual Plt Count 135 (120-450) K/mm3 MPV (7.0-11.0) fl Gran % (50.0-68.0) % Lymph % (Auto) (22.0-35.0) % Bourbon % (Auto) (1.0-6.0) % Eos % (Auto) (1.5-5.0) % Baso % (Auto) (0.0-3.0) % Gran # (1.4-6.5) Lymph # (Auto) (1.2-3.4) Bourbon # (Auto) (0.1-0.6) Eos # (Auto) (0.0-0.7) Baso # (Auto) (0.0-2.0) K/mm3 Differential Comment Retic Count (0.5-1.5) % Haptoglobin (30.0-200.0) mg/dL PT (9.4-12.5) SECONDS INR (0.93-1.08) APTT (25.1-36.5) Seconds Sodium (132-148) mmol/L Potassium (3.6-5.0) mmol/L Chloride (98-107) mmol/L Carbon Dioxide (21-33) mmol/L Anion Gap (10-20) BUN (7-21) mg/dL Creatinine (0.7-1.2) mg/dl Est GFR ( Amer) Est GFR (Non-Af Amer) Random Glucose (70-110) mg/dL Calcium (8.4-10.5) mg/dL Phosphorus (2.5-4.5) mg/dL Magnesium (1.7-2.2) mg/dL Total Bilirubin (0.2-1.3) mg/dL AST (14-36) U/L ALT (7-56) U/L Alkaline Phosphatase (38-126) U/L Lactate Dehydrogenase (333-699) U/L Total Protein (5.8-8.3) g/dL Albumin (3.0-4.8) g/dL Globulin gm/dL Albumin/Globulin Ratio (1.1-1.8) Triglycerides (35-160) mg/dL Cholesterol (130-200) mg/dL LDL Cholesterol Direct (0-129) mg/dL HDL Cholesterol (29-60) mg/dL Vitamin B12 (239-931) pg/mL Folate ng/mL TSH 3rd Generation (0.46-4.68) mIU/mL YOLY, Poly Interpret (NEGATIVE) Laboratory Results - last 24 hr 01/21/18 01/21/18 01/21/18 09:00 11:13 11:13 WBC RBC Hgb Hct MCV MCH MCHC RDW Plt Count Manual Plt Count 135 MPV Gran % Lymph % (Auto) Bourbon % (Auto) Eos % (Auto) Baso % (Auto) Gran # Lymph # (Auto) Bourbon # (Auto) Eos # (Auto) Baso # (Auto) Differential Comment See pathology report Retic Count Haptoglobin 67.7 PT INR APTT Sodium Potassium Chloride Carbon Dioxide Anion Gap BUN Creatinine Est GFR ( Amer) Est GFR (Non-Af Amer) Random Glucose Calcium Phosphorus Magnesium Total Bilirubin AST ALT Alkaline Phosphatase Lactate Dehydrogenase Total Protein Albumin Globulin Albumin/Globulin Ratio Triglycerides Cholesterol LDL Cholesterol Direct HDL Cholesterol Vitamin B12 Folate TSH 3rd Generation YOLY, Poly Interpret 01/21/18 01/21/18 01/21/18 11:15 11:15 15:25 WBC RBC Hgb Hct MCV MCH MCHC RDW Plt Count Manual Plt Count MPV Gran % Lymph % (Auto) Bourbon % (Auto) Eos % (Auto) Baso % (Auto) Gran # Lymph # (Auto) Bourbon # (Auto) Eos # (Auto) Baso # (Auto) Differential Comment Retic Count 2.34 H Haptoglobin PT 11.5 INR 1.01 APTT 27.2 Sodium Potassium Chloride Carbon Dioxide Anion Gap BUN Creatinine Est GFR ( Amer) Est GFR (Non-Af Amer) Random Glucose Calcium Phosphorus Magnesium Total Bilirubin AST ALT Alkaline Phosphatase Lactate Dehydrogenase 299 L Total Protein Albumin Globulin Albumin/Globulin Ratio Triglycerides Cholesterol LDL Cholesterol Direct HDL Cholesterol Vitamin B12 559 Folate 16.5 TSH 3rd Generation YOLY, Poly Interpret 01/21/18 01/21/18 01/21/18 15:25 20:20 23:50 WBC 7.3 D RBC 3.52 Hgb 10.3 L D 9.5 L Hct 30.5 L 27.9 L MCV 86.6 MCH 29.3 MCHC 33.8 RDW 16.6 H Plt Count 137 Manual Plt Count MPV 9.8 Gran % Lymph % (Auto) Bourbon % (Auto) Eos % (Auto) Baso % (Auto) Gran # Lymph # (Auto) Bourbon # (Auto) Eos # (Auto) Baso # (Auto) Differential Comment Retic Count Haptoglobin PT INR APTT Sodium Potassium Chloride Carbon Dioxide Anion Gap BUN Creatinine Est GFR ( Amer) Est GFR (Non-Af Amer) Random Glucose Calcium Phosphorus Magnesium Total Bilirubin AST ALT Alkaline Phosphatase Lactate Dehydrogenase Total Protein Albumin Globulin Albumin/Globulin Ratio Triglycerides Cholesterol LDL Cholesterol Direct HDL Cholesterol Vitamin B12 Folate TSH 3rd Generation YOLY, Poly Interpret Negative 01/21/18 01/22/18 01/22/18 23:50 05:45 05:45 WBC 7.0 6.2 RBC 3.34 L 3.24 L Hgb 9.9 L 9.4 L Hct 28.9 L 28.1 L MCV 86.5 86.7 MCH 29.6 29.0 MCHC 34.3 33.5 RDW 16.7 H 16.9 H Plt Count 145 138 Manual Plt Count MPV 8.8 8.9 Gran % 81.6 H 83.6 H Lymph % (Auto) 12.8 L 9.8 L Bourbon % (Auto) 3.7 4.7 Eos % (Auto) 1.6 1.9 Baso % (Auto) 0.3 0.0 Gran # 5.73 5.21 Lymph # (Auto) 0.9 L 0.6 L Bourbon # (Auto) 0.3 0.3 Eos # (Auto) 0.1 0.1 Baso # (Auto) 0.02 0.00 Differential Comment Retic Count Haptoglobin PT INR APTT Sodium 151 H Potassium 3.7 Chloride 117 H Carbon Dioxide 23 Anion Gap 15 BUN 24 H Creatinine 1.3 H Est GFR ( Amer) 48 Est GFR (Non-Af Amer) 40 Random Glucose 88 Calcium 9.5 Phosphorus 3.5 Magnesium 2.0 Total Bilirubin 0.4 AST 32 ALT 23 Alkaline Phosphatase 53 Lactate Dehydrogenase Total Protein 5.7 L Albumin 3.1 Globulin 2.5 Albumin/Globulin Ratio 1.2 Triglycerides 90 Cholesterol 150 LDL Cholesterol Direct 67 HDL Cholesterol 39 Vitamin B12 Folate TSH 3rd Generation YOLY, Poly Interpret 01/22/18 05:45 WBC RBC Hgb Hct MCV MCH MCHC RDW Plt Count Manual Plt Count MPV Gran % Lymph % (Auto) [place]bon % (Auto) Eos % (Auto) Baso % (Auto) Gran # Lymph # (Auto) Bourbon # (Auto) Eos # (Auto) Baso # (Auto) Differential Comment Retic Count Haptoglobin PT INR APTT Sodium Potassium Chloride Carbon Dioxide Anion Gap BUN Creatinine Est GFR ( Amer) Est GFR (Non-Af Amer) Random Glucose Calcium Phosphorus Magnesium Total Bilirubin AST ALT Alkaline Phosphatase Lactate Dehydrogenase Total Protein Albumin Globulin Albumin/Globulin Ratio Triglycerides Cholesterol LDL Cholesterol Direct HDL Cholesterol Vitamin B12 Folate TSH 3rd Generation 0.06 L YOLY, Poly Interpret Review of Systems - Review of Systems All systems: reviewed and no additional remarkable complaints except (as per HPI.) Critical Care Progress Note - Extremities/Vascular Does the Patient have a Central Venous Catheter?: No Does the Patient need a Central Venous Catheter?: No Does the Patient have a Fisher Catheter?: No Does the Patient need a Fisher Catheter?: No - Prophylaxis GI Prophylaxis GI: PPI - Prophylaxis DVT Prophylaxis DVT: SCDs - Nutrition Nutrition: Nutrition Category Date Time Status Heart Healthy Diet [DIET] Diets 01/23/18 Breakfast Active Liquid Diet [DIET] Diets 01/22/18 Lunch Ordered Assessment/Plan - Assessment and Plan (Free Text) Assessment: Patient is a 77 y/o F with PMHx of colon cancer (s/p R-hemicolectomy), Breast cancer (s/p lumpectomy), Brain tumor, HTN, NSTEMI (bare metal stent in 12/24/17 on ASA/Plavix), Diverticulosis, and Hemorrhoids who presented to ED on 01/19 for multiple episodes of bloody diarrhea at home. In regards to ROS, patient was positive for abdominal tenderness and abdominal cramping. Patient's Hgb has been low on admission with active bleeding; she has had multiple transfusions of pRBCs, FFP, and platelets during hospital course. Bleeding scan indicates bleeding at the large bowel, splenic flexure. At the moment, surgery does not want to intervene. Patient is being followed by GI, surgery, cardiology, and Heme/onc. Patient is in the ICU for management of lower GI bleed. Endoscopy/ Colonoscopy was done by GI (01/21) and indicated prior diverticular bleed with no active GI bleed. Most recent Hgb has been stable (9.4). Vital signs currently stable. Plan: Neuro: - Maintain normothermia Pulm: - Maintain SaO2 > 92% - CXR (01/18): negative for acute pathology Cardio: - start on Lopressor PO TID for BP management - restart ASA tomorrow - d/c Plavix (s/p bare metal stent on 12/24/17: one month anticoagulation) - Cardio consulted, appreciated recs - Maintain MAP > 65 GI: - EGD/Colonoscopy (01/21): no acute bleeding; some blood pooled in diverticula. No ischemic collitis. Likely that diverticular bleed stopped. - d/c protonix gtt; start on protonix PO q12 - GI consulted, recs appreciated - Surgery: no intervention - CT abdomen/pelvis (01/20): left colonic diverticulosis. Segmental thickening in proximal sigmoid colon could be acute diverticulitis. - Advance Diet: full liquid for lunch/dinner; HHD soft food tomorrow morning Renal: - Replete lytes as needed - BUN/Cr is 24/1.3; downtrending Heme: - Hgb is stable 9.4 (s/p pRBCs x2 and platelets x1 yesterday) - monitor H/H q8 - Total Transfusions: s/p pRBCs x6, FFP x1, Platelets x1 - Heme/onc consulted, appreciated recs ID: - c/w ceftriaxone and flagyl - No active infection at this time - Negative MRSA Endo: - Maintain euglycemia Dispo: No acute issues at this time. Patient is currently hemodynamically stable and is safe for transfer to telemetry. Case was discussed and reviewed with Attending Physician Dr. Gross. <Sanjay Gross - Last Filed: 01/22/18 14:38> CCU Objective - Vital Signs / Intake & Output Vital Signs (Last 4 hours): Vital Signs Temp Pulse BP 01/22/18 14:00 73 01/22/18 13:15 80 149/56 L 01/22/18 12:00 98.1 F Intake and Output (Last 8hrs): Intake & Output 01/21/18 01/22/18 01/22/18 22:59 06:59 14:59 Intake Total 2641 Output Total 1600 Balance 1041 Weight 164 lb Intake: IV 640 Antibiotics 200 IVF 200 Protonix drip 240 Oral 1800 Blood Product 201 Apheresis Plts Acda Lr 201 Irr 3rd Unit [id number] Output: Urine/Stool Mix 1550 Emesis 50 - Medications Active Medications: Active Medications Generic Name Dose Route Start Last Admin Trade Name Freq PRN Reason Stop Dose Admin Aspirin 81 mg 01/23/18 10:00 Ecotrin PO DAILY MEHREEN Metronidazole 500 mg in 100 mls @ 100 mls/hr 01/19/18 22:00 01/22/18 13:14 Flagyl IVPB 01/24/18 22:01 100 mls/hr Q8 MEHREEN Administration Protocol Ceftriaxone Sodium 1 gm in 100 mls @ 100 mls/hr 01/20/18 22:00 01/22/18 09:27 Rocephin 1 Gram Ivpb IVPB 100 mls/hr DAILY MEHREEN Administration Protocol Isosorbide Mononitrate 30 mg 01/23/18 10:00 Imdur Er PO DAILY MEHREEN Metoprolol Tartrate 25 mg 01/22/18 14:00 01/22/18 13:15 Lopressor PO 25 mg TID MEHREEN Administration Nitroglycerin 1 ea 01/21/18 10:30 01/22/18 09:30 Nitro-Bid 2% Oint TOP 01/22/18 23:59 1 ea Q6H MEHREEN Administration Ondansetron HCl 4 mg 01/21/18 15:16 Zofran Inj IVP Q4H PRN Nausea/Vomiting Pantoprazole Sodium 40 mg 01/22/18 10:00 01/22/18 09:27 Protonix Ec Tab PO 40 mg Q12 MEHREEN Administration - Patient Studies Lab Studies: Microbiology Studies 01/19/18 17:36 MRSA Culture (Admit) - Final Naris MRSA NOT DETECTED Lab Studies 01/22/18 01/22/18 01/22/18 Range/Units 05:45 05:45 05:45 WBC (4.5-11.0) 10^3/ul RBC (3.5-6.1) 10^6/uL Hgb (12.0-16.0) g/dL Hct (36.0-48.0) % MCV (80.0-105.0) fl MCH (25.0-35.0) pg MCHC (31.0-37.0) g/dl RDW (11.5-14.5) % Plt Count (120.0-450.0) 10^3/uL MPV (7.0-11.0) fl Gran % (50.0-68.0) % Lymph % (Auto) (22.0-35.0) % [place]bon % (Auto) (1.0-6.0) % Eos % (Auto) (1.5-5.0) % Baso % (Auto) (0.0-3.0) % Gran # (1.4-6.5) Lymph # (Auto) (1.2-3.4) Bourbon # (Auto) (0.1-0.6) Eos # (Auto) (0.0-0.7) Baso # (Auto) (0.0-2.0) K/mm3 Haptoglobin (30.0-200.0) mg/dL PT (9.4-12.5) SECONDS INR (0.93-1.08) APTT (25.1-36.5) Seconds Sodium 151 H (132-148) mmol/L Potassium 3.7 (3.6-5.0) mmol/L Chloride 117 H (98-107) mmol/L Carbon Dioxide 23 (21-33) mmol/L Anion Gap 15 (10-20) BUN 24 H (7-21) mg/dL Creatinine 1.3 H (0.7-1.2) mg/dl Est GFR ( Amer) 48 Est GFR (Non-Af Amer) 40 Random Glucose 88 (70-110) mg/dL Hemoglobin A1c 5.6 (4.2-6.5) % Calcium 9.5 (8.4-10.5) mg/dL Phosphorus 3.5 (2.5-4.5) mg/dL Magnesium 2.0 (1.7-2.2) mg/dL Total Bilirubin 0.4 (0.2-1.3) mg/dL AST 32 (14-36) U/L ALT 23 (7-56) U/L Alkaline Phosphatase 53 (38-126) U/L Total Protein 5.7 L (5.8-8.3) g/dL Albumin 3.1 (3.0-4.8) g/dL Globulin 2.5 gm/dL Albumin/Globulin Ratio 1.2 (1.1-1.8) Triglycerides 90 (35-160) mg/dL Cholesterol 150 (130-200) mg/dL LDL Cholesterol Direct 67 (0-129) mg/dL HDL Cholesterol 39 (29-60) mg/dL Vitamin B12 (239-931) pg/mL Folate ng/mL TSH 3rd Generation 0.06 L (0.46-4.68) mIU/mL YOLY, Poly Interpret (NEGATIVE) 01/22/18 01/21/18 01/21/18 Range/Units 05:45 23:50 23:50 WBC 6.2 7.0 (4.5-11.0) 10^3/ul RBC 3.24 L 3.34 L (3.5-6.1) 10^6/uL Hgb 9.4 L 9.9 L (12.0-16.0) g/dL Hct 28.1 L 28.9 L (36.0-48.0) % MCV 86.7 86.5 (80.0-105.0) fl MCH 29.0 29.6 (25.0-35.0) pg MCHC 33.5 34.3 (31.0-37.0) g/dl RDW 16.9 H 16.7 H (11.5-14.5) % Plt Count 138 145 (120.0-450.0) 10^3/uL MPV 8.9 8.8 (7.0-11.0) fl Gran % 83.6 H 81.6 H (50.0-68.0) % Lymph % (Auto) 9.8 L 12.8 L (22.0-35.0) % [place] % (Auto) 4.7 3.7 (1.0-6.0) % Eos % (Auto) 1.9 1.6 (1.5-5.0) % Baso % (Auto) 0.0 0.3 (0.0-3.0) % Gran # 5.21 5.73 (1.4-6.5) Lymph # (Auto) 0.6 L 0.9 L (1.2-3.4) [place] # (Auto) 0.3 0.3 (0.1-0.6) Eos # (Auto) 0.1 0.1 (0.0-0.7) Baso # (Auto) 0.00 0.02 (0.0-2.0) K/mm3 Haptoglobin (30.0-200.0) mg/dL PT (9.4-12.5) SECONDS INR (0.93-1.08) APTT (25.1-36.5) Seconds Sodium (132-148) mmol/L Potassium (3.6-5.0) mmol/L Chloride (98-107) mmol/L Carbon Dioxide (21-33) mmol/L Anion Gap (10-20) BUN (7-21) mg/dL Creatinine (0.7-1.2) mg/dl Est GFR ( Amer) Est GFR (Non-Af Amer) Random Glucose (70-110) mg/dL Hemoglobin A1c (4.2-6.5) % Calcium (8.4-10.5) mg/dL Phosphorus (2.5-4.5) mg/dL Magnesium (1.7-2.2) mg/dL Total Bilirubin (0.2-1.3) mg/dL AST (14-36) U/L ALT (7-56) U/L Alkaline Phosphatase (38-126) U/L Total Protein (5.8-8.3) g/dL Albumin (3.0-4.8) g/dL Globulin gm/dL Albumin/Globulin Ratio (1.1-1.8) Triglycerides (35-160) mg/dL Cholesterol (130-200) mg/dL LDL Cholesterol Direct (0-129) mg/dL HDL Cholesterol (29-60) mg/dL Vitamin B12 (239-931) pg/mL Folate ng/mL TSH 3rd Generation (0.46-4.68) mIU/mL YOLY, Poly Interpret Negative (NEGATIVE) 01/21/18 01/21/18 01/21/18 Range/Units 20:20 15:25 15:25 WBC 7.3 D (4.5-11.0) 10^3/ul RBC 3.52 (3.5-6.1) 10^6/uL Hgb 9.5 L 10.3 L D (12.0-16.0) g/dL Hct 27.9 L 30.5 L (36.0-48.0) % MCV 86.6 (80.0-105.0) fl MCH 29.3 (25.0-35.0) pg MCHC 33.8 (31.0-37.0) g/dl RDW 16.6 H (11.5-14.5) % Plt Count 137 (120.0-450.0) 10^3/uL MPV 9.8 (7.0-11.0) fl Gran % (50.0-68.0) % Lymph % (Auto) (22.0-35.0) % [place] % (Auto) (1.0-6.0) % Eos % (Auto) (1.5-5.0) % Baso % (Auto) (0.0-3.0) % Gran # (1.4-6.5) Lymph # (Auto) (1.2-3.4) [place] # (Auto) (0.1-0.6) Eos # (Auto) (0.0-0.7) Baso # (Auto) (0.0-2.0) K/mm3 Haptoglobin (30.0-200.0) mg/dL PT 11.5 (9.4-12.5) SECONDS INR 1.01 (0.93-1.08) APTT 27.2 (25.1-36.5) Seconds Sodium (132-148) mmol/L Potassium (3.6-5.0) mmol/L Chloride (98-107) mmol/L Carbon Dioxide (21-33) mmol/L Anion Gap (10-20) BUN (7-21) mg/dL Creatinine (0.7-1.2) mg/dl Est GFR ( Amer) Est GFR (Non-Af Amer) Random Glucose (70-110) mg/dL Hemoglobin A1c (4.2-6.5) % Calcium (8.4-10.5) mg/dL Phosphorus (2.5-4.5) mg/dL Magnesium (1.7-2.2) mg/dL Total Bilirubin (0.2-1.3) mg/dL AST (14-36) U/L ALT (7-56) U/L Alkaline Phosphatase (38-126) U/L Total Protein (5.8-8.3) g/dL Albumin (3.0-4.8) g/dL Globulin gm/dL Albumin/Globulin Ratio (1.1-1.8) Triglycerides (35-160) mg/dL Cholesterol (130-200) mg/dL LDL Cholesterol Direct (0-129) mg/dL HDL Cholesterol (29-60) mg/dL Vitamin B12 (239-931) pg/mL Folate ng/mL TSH 3rd Generation (0.46-4.68) mIU/mL YOLY, Poly Interpret (NEGATIVE) 01/21/18 01/21/18 Range/Units 11:15 11:13 WBC (4.5-11.0) 10^3/ul RBC (3.5-6.1) 10^6/uL Hgb (12.0-16.0) g/dL Hct (36.0-48.0) % MCV (80.0-105.0) fl MCH (25.0-35.0) pg MCHC (31.0-37.0) g/dl RDW (11.5-14.5) % Plt Count (120.0-450.0) 10^3/uL MPV (7.0-11.0) fl Gran % (50.0-68.0) % Lymph % (Auto) (22.0-35.0) % Bourbon % (Auto) (1.0-6.0) % Eos % (Auto) (1.5-5.0) % Baso % (Auto) (0.0-3.0) % Gran # (1.4-6.5) Lymph # (Auto) (1.2-3.4) Bourbon # (Auto) (0.1-0.6) Eos # (Auto) (0.0-0.7) Baso # (Auto) (0.0-2.0) K/mm3 Haptoglobin 67.7 (30.0-200.0) mg/dL PT (9.4-12.5) SECONDS INR (0.93-1.08) APTT (25.1-36.5) Seconds Sodium (132-148) mmol/L Potassium (3.6-5.0) mmol/L Chloride (98-107) mmol/L Carbon Dioxide (21-33) mmol/L Anion Gap (10-20) BUN (7-21) mg/dL Creatinine (0.7-1.2) mg/dl Est GFR ( Amer) Est GFR (Non-Af Amer) Random Glucose (70-110) mg/dL Hemoglobin A1c (4.2-6.5) % Calcium (8.4-10.5) mg/dL Phosphorus (2.5-4.5) mg/dL Magnesium (1.7-2.2) mg/dL Total Bilirubin (0.2-1.3) mg/dL AST (14-36) U/L ALT (7-56) U/L Alkaline Phosphatase (38-126) U/L Total Protein (5.8-8.3) g/dL Albumin (3.0-4.8) g/dL Globulin gm/dL Albumin/Globulin Ratio (1.1-1.8) Triglycerides (35-160) mg/dL Cholesterol (130-200) mg/dL LDL Cholesterol Direct (0-129) mg/dL HDL Cholesterol (29-60) mg/dL Vitamin B12 559 (239-931) pg/mL Folate 16.5 ng/mL TSH 3rd Generation (0.46-4.68) mIU/mL YOLY, Poly Interpret (NEGATIVE) Laboratory Results - last 24 hr 01/21/18 01/21/18 01/21/18 11:13 11:15 15:25 WBC RBC Hgb Hct MCV MCH MCHC RDW Plt Count MPV Gran % Lymph % (Auto) Bourbon % (Auto) Eos % (Auto) Baso % (Auto) Gran # Lymph # (Auto) Bourbon # (Auto) Eos # (Auto) Baso # (Auto) Haptoglobin 67.7 PT 11.5 INR 1.01 APTT 27.2 Sodium Potassium Chloride Carbon Dioxide Anion Gap BUN Creatinine Est GFR ( Amer) Est GFR (Non-Af Amer) Random Glucose Hemoglobin A1c Calcium Phosphorus Magnesium Total Bilirubin AST ALT Alkaline Phosphatase Total Protein Albumin Globulin Albumin/Globulin Ratio Triglycerides Cholesterol LDL Cholesterol Direct HDL Cholesterol Vitamin B12 559 Folate 16.5 TSH 3rd Generation YOLY, Poly Interpret 01/21/18 01/21/18 01/21/18 15:25 20:20 23:50 WBC 7.3 D RBC 3.52 Hgb 10.3 L D 9.5 L Hct 30.5 L 27.9 L MCV 86.6 MCH 29.3 MCHC 33.8 RDW 16.6 H Plt Count 137 MPV 9.8 Gran % Lymph % (Auto) Bourbon % (Auto) Eos % (Auto) Baso % (Auto) Gran # Lymph # (Auto) Bourbon # (Auto) Eos # (Auto) Baso # (Auto) Haptoglobin PT INR APTT Sodium Potassium Chloride Carbon Dioxide Anion Gap BUN Creatinine Est GFR ( Amer) Est GFR (Non-Af Amer) Random Glucose Hemoglobin A1c Calcium Phosphorus Magnesium Total Bilirubin AST ALT Alkaline Phosphatase Total Protein Albumin Globulin Albumin/Globulin Ratio Triglycerides Cholesterol LDL Cholesterol Direct HDL Cholesterol Vitamin B12 Folate TSH 3rd Generation YOLY, Poly Interpret Negative 01/21/18 01/22/18 01/22/18 23:50 05:45 05:45 WBC 7.0 6.2 RBC 3.34 L 3.24 L Hgb 9.9 L 9.4 L Hct 28.9 L 28.1 L MCV 86.5 86.7 MCH 29.6 29.0 MCHC 34.3 33.5 RDW 16.7 H 16.9 H Plt Count 145 138 MPV 8.8 8.9 Gran % 81.6 H 83.6 H Lymph % (Auto) 12.8 L 9.8 L Bourbon % (Auto) 3.7 4.7 Eos % (Auto) 1.6 1.9 Baso % (Auto) 0.3 0.0 Gran # 5.73 5.21 Lymph # (Auto) 0.9 L 0.6 L Bourbon # (Auto) 0.3 0.3 Eos # (Auto) 0.1 0.1 Baso # (Auto) 0.02 0.00 Haptoglobin PT INR APTT Sodium 151 H Potassium 3.7 Chloride 117 H Carbon Dioxide 23 Anion Gap 15 BUN 24 H Creatinine 1.3 H Est GFR ( Amer) 48 Est GFR (Non-Af Amer) 40 Random Glucose 88 Hemoglobin A1c Calcium 9.5 Phosphorus 3.5 Magnesium 2.0 Total Bilirubin 0.4 AST 32 ALT 23 Alkaline Phosphatase 53 Total Protein 5.7 L Albumin 3.1 Globulin 2.5 Albumin/Globulin Ratio 1.2 Triglycerides 90 Cholesterol 150 LDL Cholesterol Direct 67 HDL Cholesterol 39 Vitamin B12 Folate TSH 3rd Generation YOLY, Poly Interpret 01/22/18 01/22/18 05:45 05:45 WBC RBC Hgb Hct MCV MCH MCHC RDW Plt Count MPV Gran % Lymph % (Auto) Bourbon % (Auto) Eos % (Auto) Baso % (Auto) Gran # Lymph # (Auto) Bourbon # (Auto) Eos # (Auto) Baso # (Auto) Haptoglobin PT INR APTT Sodium Potassium Chloride Carbon Dioxide Anion Gap BUN Creatinine Est GFR ( Amer) Est GFR (Non-Af Amer) Random Glucose Hemoglobin A1c 5.6 Calcium Phosphorus Magnesium Total Bilirubin AST ALT Alkaline Phosphatase Total Protein Albumin Globulin Albumin/Globulin Ratio Triglycerides Cholesterol LDL Cholesterol Direct HDL Cholesterol Vitamin B12 Folate TSH 3rd Generation 0.06 L YOLY, Poly Interpret Critical Care Progress Note - Nutrition Nutrition: Nutrition Category Date Time Status Heart Healthy Diet [DIET] Diets 01/23/18 Breakfast Active Liquid Diet [DIET] Diets 01/22/18 Lunch Ordered Attending/Attestation - Attestation I have personally seen and examined this patient.: Yes I have fully participated in the care of the patient.: Yes I have reviewed all pertinent clinical information: Yes Notes (Text): 01/22/18 14:36 The patient was seen and examined at the bedside. Patient care was discussed with resident Medical records, lab studies, and imaging were reviewed and management issues were discussed and formulated. Last 24H events reviewed. Agree with above treatment plans as outlined in 's note with addition of the following: Acute Blood loss Anemia \ GIB \ CAD \ CKD \ Colon CA \ Diverticulosis -hemodynamic monitoring to maintain MAP>65 -cardiology team following closely; restart BBlocker and ASA as per GI team -o2 supplementation to maintain Spo2>90 Pao2>60; currently comfortable on NC -continue Abx and f\u cultures -f\u Bun\Cr and U\o -GI team following -continue PPi q12 PO -f\u serial H\H; no bleeding episodes overnight -monitor and replace e-lites -advance PO diet as per GI team; continue aspiration precautions -heme\onc team f\u -DVT \ PUD prophylaxis CCM time 28min
--- NOTE | 2018-01-22 12:33 | PN ---
DATE: 01/21/2018 DAILY PROGRESS NOTE The patient is a 77-year-old female with a history of colon carcinoma, breast carcinoma, meningioma of the brain, status post craniotomy, status post total abdominal hysterectomy, status post PTCA one month ago, who was admitted with hematochezia. The patient was found to be anemic during her hospital stay. She was transfused, but continued with bloody bowel movements. She is being followed by Dr. Mendes, the dental specialist and Dr. Martines, the general surgeon, was called to consult. She is also being followed by Dr. Beebe, her oncologist. The patient had a bleeding scan, which was positive for bleed from the splenic flexure. This morning, unfortunately, the hemoglobin has dropped once again to 6.8, hematocrit of 20.2, blood urea nitrogen 33, creatinine 1.4, so the patient was transfused now to a total of six units of packed red blood cells and one unit of fresh frozen plasma. Endoscopy and colonoscopy was performed earlier today by Dr. Mendes and apparently, no active source of bleeding was found. We are continuing to follow the patient closely. Serial hemoglobin and hematocrit started are to be drawn every 6 hours. Case to be discussed with Dr. Mendes. Chi Salas MD
--- NOTE | 2018-01-22 12:56 | PN ---
DATE: 01/22/2018 Suly Swenson was seen in the floor. She is much more stable now, had an upper and lower endoscopy through Dr. Mendes, which failed to reveal the site. This is consistent with the fact that she was on anticoagulation. For now, we will increase her diet and watch conservatively, but no bleeding source is seen, presumptive site, has a diverticular irritation, probably from around the splenic flexure as seen on the bleeding scan. Discussed this patient with the resident and agreed with their note. Messi Martines MD
--- NOTE | 2018-01-22 15:04 | PN ---
DATE: 01/22/2018 REASON FOR CONSULTATION AND FOLLOWUP: History of coronary artery disease, recently bare-metal stent placed in right coronary artery, admitted with GI bleed, status post multiple transfusion, status post colonoscopy. SUBJECTIVE: The patient denies any chest pain, shortness of breath, or any palpitation. PHYSICAL EXAMINATION: GENERAL: Not in apparent distress. VITAL SIGNS: Temperature afebrile, heart rate 83, blood pressure 144/67. HEENT: PERRLA. Extraocular muscles intact. NECK: Supple. No carotid bruits or thyromegaly. CHEST: Clear to auscultation. HEART: S1 and S2, regular. ABDOMEN: Soft. EXTREMITIES: Clubbing and cyanosis negative. LABORATORY DATA: Blood workup as follows: WBC 6.8, hemoglobin 9.2, hematocrit 28.1, platelet count 138. Chemistry shows sodium 151, potassium 3.7, chloride 117, carbon dioxide 23, anion gap of 15, BUN 24, creatinine 1.3. IMPRESSION: Gastrointestinal bleed, black tarry stool, admitting hemoglobin 8.2, dropped to 6.8, status post transfusion. Now hemoglobin is 9.9, status post colonoscopy. No active bleeding noted. History of coronary artery disease, status post bare-metal stent in right coronary artery 4 weeks ago, history of breast cancer, history of colon cancer, history of brain tumor status post craniotomy in [facility], history of [id number] myocardial infarction on 12/12/[address] another [address]-elevation myocardial infarction on 12/21/2017. Then, the patient had undergone bare-metal stent in right coronary artery on 12/24/2017. RECOMMENDATIONS: Continue to hold aspirin and Plavix. H and H remain stable and no further episode of bleeding, we will start baby aspirin in a day or two. Plavix was discontinued because 4 weeks off Plavix already in patient with a bare-metal stent. Continue Lopressor, continue nitrates, continue statin. We will change from nitrate to Imdur. We will follow with you. We will continue low-dose of Lipitor. We will increase metoprolol to 3 times a day to prevent tachycardia. After 2 days of nitrate dose, we will change to Imdur from tomorrow. We will put holding parameter. Hold for heart rate less than 50, blood pressure 110. Increase Lopressor to 25 t.i.d. Follow up hemoglobin in the morning. Ofe Iverson MD
[2018-01-22 15:35] LABS: HEMOGLOBIN 8.7 g/dL (12.0-16.0); MEAN CELL VOLUME 86.2 fl (80.0-105.0); MEAN CORPUSCULAR HEMOGLOBIN 29.2 pg (25.0-35.0); MEAN CORPUSCULAR HGB CONC 33.9 g/dl (31.0-37.0); MEAN PLATELET VOLUME 8.9 fl (7.0-11.0); RBC 2.98 10^6/uL (3.5-6.1); RED CELL DISTRIBUTION WIDTH 16.8 % (11.5-14.5); WHITE BLOOD COUNT 6.5 10^3/ul (4.5-11.0)
[2018-01-22 22:08] LABS: HEMOGLOBIN 8.9 g/dL (12.0-16.0); MEAN CELL VOLUME 86.7 fl (80.0-105.0); MEAN CORPUSCULAR HEMOGLOBIN 28.8 pg (25.0-35.0); MEAN CORPUSCULAR HGB CONC 33.2 g/dl (31.0-37.0); MEAN PLATELET VOLUME 9.6 fl (7.0-11.0); RBC 3.09 10^6/uL (3.5-6.1); RED CELL DISTRIBUTION WIDTH 17.2 % (11.5-14.5); WHITE BLOOD COUNT 7.4 10^3/ul (4.5-11.0)
--- NOTE | 2018-01-23 01:57 | PN ---
DATE: 01/22/2018 SUBJECTIVE: The patient was seen this Sunday evening on the telemetry floor, having just been transferred from intensive care unit. Her two daughters were present at the bedside. I sat with them and spoke at great length, going over the entire hospital stay, explaining diverticulosis versus diverticulitis, why it may bleed, why I feel more comfortable that the bleeding is from diverticular bleeding at the splenic flexure which the bleeding scan showed, versus AVM versus gastric lesions, in view of the negative endoscopy and no AVMs seen at the time of colonoscopy. The patient and daughter were very pleased to hear the explanations. I went over medications. She is to resume aspirin tomorrow. She had her lunch, but is now on clear liquids. Heart-healthy diet is to start tomorrow. I would not anticipate a prolonged hospital stay. I would assure them that she would probably be going home by the weekend. We will follow H and H in the morning. Messi Salas MD
[2018-01-23] MEDS: metroNIDAZOLE IV 500 mg/100 ml 500 MG/100 ML BAG IVPB SCH ×3 (06:08→21:43)
[2018-01-23 07:07] LABS: HEMOGLOBIN 8.7 g/dL (12.0-16.0); MEAN CELL VOLUME 87.4 fl (80.0-105.0); MEAN CORPUSCULAR HEMOGLOBIN 28.9 pg (25.0-35.0); MEAN CORPUSCULAR HGB CONC 33.1 g/dl (31.0-37.0); MEAN PLATELET VOLUME 9.1 fl (7.0-11.0); RBC 3.01 10^6/uL (3.5-6.1); RED CELL DISTRIBUTION WIDTH 16.8 % (11.5-14.5); WHITE BLOOD COUNT 6.4 10^3/ul (4.5-11.0)
[2018-01-23 07:29] LABS: ALB/GLOB RATIO 1.2 (1.1-1.8); ALBUMIN 2.7 g/dL (3.0-4.8); CALCIUM 9.5 mg/dL (8.4-10.5)
--- NOTE | 2018-01-23 07:48 | CP.PCM.PN ---
Subjective - Date & Time of Evaluation Date of Evaluation: 01/23/18 Time of Evaluation: 07:00 - Subjective Subjective: Sacha Dainels DO, IM Resident PGY-1 Hematology/Oncology Progress Note for Dr. Beebe Patient was seen and examined at bedside. She has no new complaints this morning. She states she feels much better than when she presented initially. She denies feeling fatigued, having SOB, CP, nausea/vomiting, or abdominal pain. She reports that she hasn't had any bowel movements since yesterday and that her BM's yesterday were not black and tarry as they were before. Objective - Vital Signs/Intake and Output Vital Signs (last 24 hours): Temp Pulse Resp BP Pulse Ox 98.7 F 72 19 154/79 H 98 01/23/18 06:00 01/23/18 06:00 01/23/18 06:00 01/23/18 06:00 01/23/18 06:00 Intake and Output: 01/23/18 01/23/18 06:59 18:59 Intake Total 760 Output Total 250 Balance 510 - Medications Medications: Current Medications Aspirin (Ecotrin) 81 mg PO DAILY [facility] Metronidazole (Flagyl) 500 mg in 100 mls @ 100 mls/hr IVPB Q8 MEHREEN PRN Reason: Protocol Stop: 01/24/18 22:01 Last Admin: 01/23/18 06:08 Dose: 100 mls/hr Ceftriaxone Sodium (Rocephin 1 Gram Ivpb) 1 gm in 100 mls @ 100 mls/hr IVPB DAILY [facility] PRN Reason: Protocol Last Admin: 01/22/18 09:27 Dose: 100 mls/hr Isosorbide Mononitrate (Imdur Er) 30 mg PO DAILY [facility] Metoprolol Tartrate (Lopressor) 25 mg PO TID [facility] Last Admin: 01/22/18 17:17 Dose: 25 mg Ondansetron HCl (Zofran Inj) 4 mg IVP Q4H PRN PRN Reason: Nausea/Vomiting Pantoprazole Sodium (Protonix Ec Tab) 40 mg PO Q12 [facility] Last Admin: 01/22/18 21:54 Dose: 40 mg - Labs Labs: 01/23/18 06:40 01/23/18 06:40 PT 11.5 SECONDS (9.4-12.5) 01/21/18 15:25 INR 1.01 (0.93-1.08) 01/21/18 15:25 APTT 27.2 Seconds (25.1-36.5) 01/21/18 15:25 - Constitutional Appears: Non-toxic, No Acute Distress - Head Exam Head Exam: ATRAUMATIC, NORMAL INSPECTION, NORMOCEPHALIC - Eye Exam Eye Exam: Normal appearance, PERRL - ENT Exam ENT Exam: Mucous Membranes Moist - Neck Exam Neck Exam: Full ROM, Normal Inspection. absent: Tenderness, Thyromegaly - Respiratory Exam Respiratory Exam: Clear to Ausculation Bilateral, NORMAL BREATHING PATTERN. absent: Rales, Rhonchi, Wheezes - Cardiovascular Exam Cardiovascular Exam: RRR, +S1, +S2, Murmur. absent: Gallop, Rubs Additional comments: Grade 3/6 holosystolic murmur auscultated loudest over the apex and left mid- sternal line - GI/Abdominal Exam GI & Abdominal Exam: Soft, Normal Bowel Sounds. absent: Guarding, Tenderness, Organomegaly, Rebound - Extremities Exam Extremities Exam: Full ROM, Normal Capillary Refill, Normal Inspection. absent : Calf Tenderness, Pedal Edema - Neurological Exam Neurological Exam: Alert, Awake, Oriented x3 - Psychiatric Exam Psychiatric exam: Normal Affect, Normal Mood - Skin Skin Exam: Dry, Intact, Normal Color, Warm Assessment and Plan - Assessment and Plan (Free Text) Assessment: Ms. Swenson is a 77 year old female with PMH of GIST (s/p partial gastrectomy), colon CA (s/p R hemicolectomy), breast CA (s/p lumpectomy, on letrozole), NSTEMI (s/p bare metal stent on 12/25/17, on plavix and ASA), HTN, and gout admitted to the ICU for treatment of GI bleed. Plan: She has been transferred from the ICU. H/H are down from yesterday morning but are stable. Will need to continue to monitor. Will restart her ASA as she has a recently placed bare metal stent. Surgery evaluated her yesterday and recommended no additional interventions at this time. GI is following, appreciate recs. Considering her H/H are decreased from after initial transfusions, we will check EPO levels. If low, consider treating with procrit. If her levels continue to decrease in absence of a bleed, we will consider a bone marrow biopsy to rule out invasive/infiltrative disease process considering her history. Case and plan were reviewed and discussed in detail with my attending physician Dr. Abiel Daniels, IM Resident PGY-1
[2018-01-23] MEDS: cefTRIAXone 1 gm 1 GM/100 ML BAG IVPB SCH (09:51)
[2018-01-23] MEDS: Pantoprazole 40 mg EC Tab PO SCH ×2 (09:51→21:43)
[2018-01-23] MEDS ORDERED: Potassium Chloride 20 mEq ER Tab PO ONE (09:57)
--- NOTE | 2018-01-23 10:43 | CP.PCM.PN ---
Subjective - Date & Time of Evaluation Date of Evaluation: 01/23/18 Time of Evaluation: 09:15 - Subjective Subjective: General surgery progress note for Dr. Martines Patient seen and examined this am at bedside. No acute events overnight per nursing. Patient is comfortable denies f/c/n/v. pt does c/o mild epigastric pain. She has had a soft stool this AM with no blood. Objective - Vital Signs/Intake and Output Vital Signs (last 24 hours): Temp Pulse Resp BP Pulse Ox 98.7 F 81 19 156/68 H 98 01/23/18 06:00 01/23/18 10:07 01/23/18 06:00 01/23/18 10:07 01/23/18 06:00 Intake and Output: 01/23/18 01/23/18 06:59 18:59 Intake Total 760 Output Total 250 Balance 510 - Medications Medications: Current Medications Aspirin (Ecotrin) 81 mg PO DAILY ON [facility] Last Admin: 01/23/18 09:52 Dose: 81 mg Metronidazole (Flagyl) 500 mg in 100 mls @ 100 mls/hr IVPB Q8 ON [facility] PRN Reason: Protocol Stop: 01/24/18 22:01 Last Admin: 01/23/18 06:08 Dose: 100 mls/hr Ceftriaxone Sodium (Rocephin 1 Gram Ivpb) 1 gm in 100 mls @ 100 mls/hr IVPB DAILY ON [facility] PRN Reason: Protocol Last Admin: 01/23/18 09:51 Dose: 100 mls/hr Isosorbide Mononitrate (Imdur Er) 30 mg PO DAILY ON [facility] Last Admin: 01/23/18 09:51 Dose: 30 mg Metoprolol Tartrate (Lopressor) 50 mg PO BID ON [facility] Last Admin: 01/23/18 10:07 Dose: 50 mg Ondansetron HCl (Zofran Inj) 4 mg IVP Q4H PRN PRN Reason: Nausea/Vomiting Pantoprazole Sodium (Protonix Ec Tab) 40 mg PO Q12 ON [facility] Last Admin: 01/23/18 09:51 Dose: 40 mg - Labs Labs: 01/23/18 06:40 01/23/18 06:40 PT 11.5 SECONDS (9.4-12.5) 01/21/18 15:25 INR 1.01 (0.93-1.08) 01/21/18 15:25 APTT 27.2 Seconds (25.1-36.5) 01/21/18 15:25 - Constitutional Appears: Well, Non-toxic, No Acute Distress - Head Exam Head Exam: ATRAUMATIC, NORMOCEPHALIC - ENT Exam ENT Exam: Mucous Membranes Moist - Respiratory Exam Respiratory Exam: NORMAL BREATHING PATTERN - Cardiovascular Exam Cardiovascular Exam: +S1, +S2 - GI/Abdominal Exam GI & Abdominal Exam: Soft, Tenderness. absent: Firm, Guarding, Rigid, Rebound Additional comments: mild epigastric tenderness - Extremities Exam Extremities Exam: Normal Inspection. absent: Pedal Edema Additional comments: DP and PT pulses present bilaterally - Neurological Exam Neurological Exam: Alert, Awake, Oriented x3 - Psychiatric Exam Psychiatric exam: Normal Affect, Normal Mood - Skin Skin Exam: Dry, Intact, Normal Color, Warm Assessment and Plan - Assessment and Plan (Free Text) Assessment: 77 yr old female with GI bleed, s/p colonoscopy showing no active bleeding Plan: - decrease in hgb from 8.9-> 8.7 today, last 2 BM normal no blood, will f/u tomorrow h/h -primary plans to restart ASA today noted -patient tolerating diet, no n/v -will f/u GI recs - PT has been consulted for patient, recs appreciated - no surgical intervention at this time - Will discuss plan with Dr. Martines, all further recs per him Sun Caldera, PGY 1
--- NOTE | 2018-01-23 13:39 | CP.PCM.PN ---
<Kieran Nolasco - Last Filed: 01/23/18 13:36> Subjective - Date & Time of Evaluation Date of Evaluation: 01/23/18 Time of Evaluation: 07:20 - Subjective Subjective: GI Progress Note for Dr. Cinthya Nolasco, PGY-3 IM Patient seen and examined at bedside on the floors. No bloody BMs reported overnight; last BM was yesterday afternoon. Denies emesis, diarrhea, lightheadedness, dizziness. No further transfusions required. Objective - Vital Signs/Intake and Output Vital Signs (last 24 hours): Temp Pulse Resp BP Pulse Ox 98.7 F 81 19 156/68 H 98 01/23/18 06:00 01/23/18 10:07 01/23/18 06:00 01/23/18 10:07 01/23/18 06:00 Intake and Output: 01/23/18 01/23/18 06:59 18:59 Intake Total 760 Output Total 250 Balance 510 - Medications Medications: Current Medications Aspirin (Ecotrin) 81 mg PO DAILY [facility] Last Admin: 01/23/18 09:52 Dose: 81 mg Metronidazole (Flagyl) 500 mg in 100 mls @ 100 mls/hr IVPB Q8 [facility] PRN Reason: Protocol Stop: 01/24/18 22:01 Last Admin: 01/23/18 06:08 Dose: 100 mls/hr Ceftriaxone Sodium (Rocephin 1 Gram Ivpb) 1 gm in 100 mls @ 100 mls/hr IVPB DAILY [facility] PRN Reason: Protocol Last Admin: 01/23/18 09:51 Dose: 100 mls/hr Isosorbide Mononitrate (Imdur Er) 30 mg PO DAILY [facility] Last Admin: 01/23/18 09:51 Dose: 30 mg Lidocaine (Lidocaine 5%) 0 gm TOP TID [facility] Metoprolol Tartrate (Lopressor) 50 mg PO BID [facility] Last Admin: 01/23/18 10:07 Dose: 50 mg Ondansetron HCl (Zofran Inj) 4 mg IVP Q4H PRN PRN Reason: Nausea/Vomiting Pantoprazole Sodium (Protonix Ec Tab) 40 mg PO Q12 [facility] Last Admin: 01/23/18 09:51 Dose: 40 mg - Labs Labs: 01/23/18 06:40 01/23/18 06:40 PT 11.5 SECONDS (9.4-12.5) 01/21/18 15:25 INR 1.01 (0.93-1.08) 01/21/18 15:25 APTT 27.2 Seconds (25.1-36.5) 01/21/18 15:25 - Additional Findings Additional findings: - Constitutional Appears: Non-toxic, No Acute Distress - Head Exam Head Exam: ATRAUMATIC, NORMAL INSPECTION, NORMOCEPHALIC - Eye Exam Eye Exam: Normal appearance. absent: Conjunctival injection or pallor, Scleral icterus Pupil Exam: absent: Fixed, Irregular - ENT Exam ENT Exam: Mucous Membranes Moist - Neck Exam Neck Exam: Normal Inspection - Respiratory Exam Respiratory Exam: Clear to Ausculation Bilateral, NORMAL BREATHING PATTERN. absent: Accessory Muscle Use, Chest Wall Tenderness, Decreased Breath Sounds, Rales, Rhonchi, Wheezes - Cardiovascular Exam Cardiovascular Exam: REGULAR RHYTHM, RRR, +S1, +S2, Murmur (systolic murmur most prominently appreciate at right and left 2nd intercostal spaces, and at apex). absent: Bradycardia, Tachycardia, Irregular Rhythm, JVD, +S4 - GI/Abdominal Exam GI & Abdominal Exam: Soft, Normal Bowel Sounds. absent: Distended, Firm, Guarding, Rigid, Diminished Bowel Sounds, Hernia, Hypoactive Bowel Sounds, Hyperactive Bowel Sounds, Tenderness - Extremities Exam Extremities Exam: Full ROM, Normal Inspection. absent: Calf Tenderness, Joint Swelling, Pedal Edema, Tenderness - Back Exam Back Exam: absent: CVA tenderness (L), CVA tenderness (R) - Neurological Exam Neurological Exam: Alert, Awake, Oriented x3 - Psychiatric Exam Psychiatric exam: Normal Affect, Normal Mood - Skin Skin Exam: Dry, Intact, Normal Color, Warm Assessment and Plan - Assessment and Plan (Free Text) Assessment: This is a 77 yo F with PMH of breast cancer s/p lumpectomy, gastric GIST s/p partial gastrectomy, colon cancer s/p Right hemicolectomy, HTN, GI bleed, NSTEMI s/p bare-metal stent 12/25 on aspirin/plavix who presented to the ED with bloody diarrhea/BRBPR for 1 day prior to presentation. S/p 4 units pRBCs and 1 unit FFP, pending another 2 units pRBCs after AM Hgb found to be 6.8. Bleeding scan indicates splenic flexure as the source, however colonoscopy revealed no active bleed and no ischemic collitis. Plan: -Hgb remains stable, no further bloody BMs, no further transfusions required at this time Transfusion totals: 6 pRBCS, 1 FFP, 1 platelets -As per Cardio, Bare-metal stent placed, no further plavix, aspirin restarted today -Bleeding scan indicates splenic flexure is area of bleed Colonoscopy did not show acute bleed, some blood pooled in diverticula, no ischemic collitis; likely diverticular bleed, now stopped IR embolization not needed at this time -Surgery also consulted on this patient; reports not a surgical candidate -Tolerating diet, advance as tolerated Seen, reviewed, and discussed with attending, Dr. Mendes <Adolfo Mendes V - Last Filed: 01/23/18 23:09> Objective - Vital Signs/Intake and Output Vital Signs (last 24 hours): Temp Pulse Resp BP Pulse Ox 98.7 F 81 20 185/83 H 98 01/23/18 16:43 01/23/18 22:00 01/23/18 16:43 01/23/18 18:37 01/23/18 06:00 Intake and Output: 01/23/18 01/24/18 18:59 06:59 Intake Total 840 200 Output Total 1000 Balance -160 200 - Medications Medications: Current Medications Aspirin (Ecotrin) 81 mg PO DAILY [facility] Last Admin: 01/23/18 09:52 Dose: 81 mg Metronidazole (Flagyl) 500 mg in 100 mls @ 100 mls/hr IVPB Q8 [facility] PRN Reason: Protocol Stop: 01/24/18 22:01 Last Admin: 01/23/18 21:43 Dose: 100 mls/hr Ceftriaxone Sodium (Rocephin 1 Gram Ivpb) 1 gm in 100 mls @ 100 mls/hr IVPB DAILY [facility] PRN Reason: Protocol Last Admin: 01/23/18 09:51 Dose: 100 mls/hr Isosorbide Mononitrate (Imdur Er) 30 mg PO DAILY [facility] Last Admin: 01/23/18 09:51 Dose: 30 mg Metoprolol Tartrate (Lopressor) 50 mg PO BID [facility] Last Admin: 01/23/18 18:37 Dose: 50 mg Ondansetron HCl (Zofran Inj) 4 mg IVP Q4H PRN PRN Reason: Nausea/Vomiting Pantoprazole Sodium (Protonix Ec Tab) 40 mg PO Q12 [facility] Last Admin: 01/23/18 21:43 Dose: 40 mg - Labs Labs: 01/23/18 06:40 01/23/18 06:40 PT 11.5 SECONDS (9.4-12.5) 01/21/18 15:25 INR 1.01 (0.93-1.08) 01/21/18 15:25 APTT 27.2 Seconds (25.1-36.5) 01/21/18 15:25 Attending/Attestation - Attestation I have personally seen and examined this patient.: Yes I have fully participated in the care of the patient.: Yes I have reviewed all pertinent clinical information, including history, physical exam and plan: Yes Notes (Text): p 01/23/18 23:08
[2018-01-23] MEDS: Lidocaine 5% Oint(35 gm) TOP SCH ×2 (13:57→17:48)
--- NOTE | 2018-01-23 14:31 | PN ---
DATE: 01/23/2018 REASON FOR CONSULTATION AND FOLLOWUP: History of coronary artery disease, status post bare metal stent; admitted with GI bleed, status post colonoscopy. SUBJECTIVE: The patient denies any chest pain, shortness of breath, or any palpitation. OBJECTIVE: GENERAL: Not in apparent distress. Denies any black color stool or kwaku blood in the stool. VITAL SIGNS: Temperature afebrile, heart rate 72, and blood pressure 154/79. HEENT: PERRLA. Extraocular muscles intact. NECK: Supple. No carotid bruit. No thyromegaly. CHEST: Clear to auscultation. HEART: S1 and S2, regular. ABDOMEN: Soft. EXTREMITIES: Clubbing and cyanosis negative.. LABORATORY DATA: Blood workup as follows: WBC is 6.5, hemoglobin , hematocrit 26.3, platelet count 147. Chemistry shows sodium 145, potassium 3.7, chloride 101, carbon dioxide 24, anion gap of 12. BUN 18, creatinine 1.2. Total protein 4.9, albumin 2.7, albumin globulin ratio 1.2. IMPRESSION: Protein-calorie malnutrition which is not present on admission; mild anemia status post multiple transfusions and GI bleed; coronary artery disease, status post bare metal stent on 12/24/2017; status post colonoscopy. No obvious bleeding noted. History of ostial RCA, PTCA with bare metal stent four weeks ago as mentioned above. History of brain tumor status post craniotomy in [facility] a year ago, history of twice [id number] myocardial infarction on 12/12/2017, at that time treated medically, later on subsequently the patient again 12/19/2017 with a non-ST. Subsequently, the patient underwent PTCA or bare metal stent because of the recurrent ischemia, history of GI bleed in the past, history of breast cancer, bilateral breast tumor, history of carcinoma of colon in the past. RECOMMENDATIONS: Continue to hold aspirin and Plavix, if the H and H remains stable, we can restart baby aspirin, if no further episode of bleeding, but we will hold Plavix for good because the patient has a four weeks of dual antiplatelet therapy. Continue low-dose beta jazmin if blood pressure is tolerated and if it is increased, we will increase metoprolol to three times a day 50 b.i.d. from today. Monitor in telemetry for next 24 hours and if H and H is stable, we can discontinue telemetry. Discussed with the patient, discussed with the patient's family. Continue low-dose nitrates. Monitor H and H closely. We will supplement potassium. We will increase nutritional support. Ofe Iverson MD
--- NOTE | 2018-01-23 18:15 | US ---
HISTORY: Leg pain and swelling. Evaluate for DVT PHYSICIAN(S): Floyd Gutierres MD. TECHNIQUE: Duplex sonography and color-flow Doppler with graded compression were used to evaluate the deep venous systems of both lower extremities. The exam is limited by edema. FINDINGS: The visualized deep venous systems of both lower extremities are sonographically normal and compressible. Normal wave forms and augmentation are seen. There is no sonographic evidence for deep venous thrombosis in the visualized segments of both lower extremities. IMPRESSION: No sonographic evidence for deep venous thrombosis in the visualized segments of both lower extremities.
[2018-01-23] MEDS ORDERED: Lidocaine 5% Patch TD ONE (18:23)
--- NOTE | 2018-01-24 00:14 | PN ---
DATE: 01/23/2018 SUBJECTIVE: The patient is a 77-year-old female with a history of colon carcinoma, breast carcinoma, meningioma of the brain, status post craniotomy, status post abdominal hysterectomy, status post PTCA one month ago, who was admitted with hematochezia. During the hospital stay, she had a positive bleeding scan, the bleed was located in the splenic flexure of the large intestine. She was transfused a total of 6 units of packed red blood cells and 1 unit of fresh frozen plasma during her hospital stay. She was evaluated by Dr. Mendes, the manager generation, underwent colonoscopy and endoscopy. On colonoscopy, diverticula were seen, but there was no active bleeding, no active bleeding site was seen during the endoscopy as well. The patient's H and H had been stable over the past 24-48 hours. This morning's laboratory shows the hemoglobin to be 8.7, hematocrit 26.3. Serum chemistries are unremarkable and her vital signs are stable. When seen, she is sitting up in bed. She is eating lunch and enjoying it. She is also being followed by Dr. Iverson, the systems mgr and her cardiac medications are being adjusted. We are continuing to follow the patient closely. She will probably be discharged to home in the next two or three days and we are continuing to follow serial H and H. Chi Salas MD [facility] # [phone]
[2018-01-24] MEDS: metroNIDAZOLE IV 500 mg/100 ml 500 MG/100 ML BAG IVPB SCH ×3 (05:30→21:12)
[2018-01-24 07:02] LABS: BASO # 0.01 K/mm3 (0.0-2.0); BASO % 0.2 % (0.0-3.0); EOS # 0.1 (0.0-0.7); EOS % 2.4 % (1.5-5.0); GRAN # 4.96 (1.4-6.5); GRAN % 83.2 % (50.0-68.0); HEMOGLOBIN 8.2 g/dL (12.0-16.0); LYMPH # 0.7 (1.2-3.4); LYMPH % 11.3 % (22.0-35.0); MEAN CELL VOLUME 87.9 fl (80.0-105.0); MEAN CORPUSCULAR HEMOGLOBIN 29.3 pg (25.0-35.0); MEAN CORPUSCULAR HGB CONC 33.3 g/dl (31.0-37.0); MEAN PLATELET VOLUME 9.3 fl (7.0-11.0); MONO # 0.2 (0.1-0.6); MONO % 2.9 % (1.0-6.0); RBC 2.8 10^6/uL (3.5-6.1); RED CELL DISTRIBUTION WIDTH 16.5 % (11.5-14.5)
[2018-01-24 07:25] LABS: ALB/GLOB RATIO 1.1 (1.1-1.8); ALBUMIN 2.6 g/dL (3.0-4.8); CALCIUM 9.1 mg/dL (8.4-10.5)
--- NOTE | 2018-01-24 07:47 | CP.PCM.PN ---
Subjective - Date & Time of Evaluation Date of Evaluation: 01/24/18 Time of Evaluation: 06:55 - Subjective Subjective: Sacha Daniels DO, IM Resident PGY-1 Hematology/Oncology Progress Note for Dr. Beebe Patient was seen and examined at bedside. She has no new complaints this morning. Her dorsal foot pain has improved since physical therapy session yesterday but is still present. She reports that she was able to ambulate down the [place] with physical therapy yesterday. She denies fever, chills, chest pain, SOB, nausea/vomiting. She reports she has not had any additional diarrhea or black/bloody stools. Objective - Vital Signs/Intake and Output Vital Signs (last 24 hours): Temp Pulse Resp BP Pulse Ox 98.8 F 90 20 156/76 H 98 01/24/18 06:00 01/24/18 06:00 01/24/18 06:00 01/24/18 06:00 01/24/18 06:00 Intake and Output: 01/24/18 01/24/18 06:59 18:59 Intake Total 640 Output Total 300 Balance 340 - Medications Medications: Current Medications Aspirin (Ecotrin) 81 mg PO DAILY [facility] Last Admin: 01/23/18 09:52 Dose: 81 mg Metronidazole (Flagyl) 500 mg in 100 mls @ 100 mls/hr IVPB Q8 [facility] PRN Reason: Protocol Stop: 01/24/18 22:01 Last Admin: 01/24/18 05:30 Dose: 100 mls/hr Ceftriaxone Sodium (Rocephin 1 Gram Ivpb) 1 gm in 100 mls @ 100 mls/hr IVPB DAILY [facility] PRN Reason: Protocol Last Admin: 01/23/18 09:51 Dose: 100 mls/hr Isosorbide Mononitrate (Imdur Er) 30 mg PO DAILY [facility] Last Admin: 01/23/18 09:51 Dose: 30 mg Metoprolol Tartrate (Lopressor) 50 mg PO BID [facility] Last Admin: 01/23/18 18:37 Dose: 50 mg Ondansetron HCl (Zofran Inj) 4 mg IVP Q4H PRN PRN Reason: Nausea/Vomiting Pantoprazole Sodium (Protonix Ec Tab) 40 mg PO Q12 [facility] Last Admin: 01/23/18 21:43 Dose: 40 mg - Labs Labs: 01/24/18 06:00 01/24/18 06:00 PT 11.5 SECONDS (9.4-12.5) 01/21/18 15:25 INR 1.01 (0.93-1.08) 01/21/18 15:25 APTT 27.2 Seconds (25.1-36.5) 01/21/18 15:25 - Constitutional Appears: Non-toxic, No Acute Distress - Head Exam Head Exam: ATRAUMATIC, NORMAL INSPECTION, NORMOCEPHALIC - Eye Exam Eye Exam: Normal appearance, PERRL - ENT Exam ENT Exam: Mucous Membranes Moist - Neck Exam Neck Exam: Full ROM. absent: Lymphadenopathy, Tenderness, Thyromegaly - Respiratory Exam Respiratory Exam: Clear to Ausculation Bilateral, NORMAL BREATHING PATTERN. absent: Rales, Rhonchi, Wheezes - Cardiovascular Exam Cardiovascular Exam: REGULAR RHYTHM, +S1, +S2, Murmur Additional comments: Grade 3/6 holosystolic murmur heard loudest over the apex - GI/Abdominal Exam GI & Abdominal Exam: Soft, Normal Bowel Sounds. absent: Guarding, Tenderness, Organomegaly, Rebound - Extremities Exam Additional comments: Tenderness on the dorsum of the feet bilaterally, no calf tenderness, erythema, or edema - Neurological Exam Neurological Exam: Alert, Awake, Oriented x3 - Psychiatric Exam Psychiatric exam: Normal Affect, Normal Mood - Skin Skin Exam: Dry, Intact, Normal Color, Warm Assessment and Plan - Assessment and Plan (Free Text) Assessment: Ms. Swenson is a 77 year old female with PMH of GIST (s/p partial gastrectomy), colon CA (s/p R hemicolectomy), breast CA (s/p lumpectomy, on letrozole), NSTEMI (s/p bare metal stent on 12/25/17, on plavix and ASA), HTN, and gout originally admitted to the ICU for treatment of GI bleed that has now stabilized s/p EGD and colonoscopy. Plan: Today, her anemia is worsening. We spoke with GI service under Dr. Mendes and 1 unit of PRBCs will be transfused. We also verified with GI and the [facility] that she received one unit of FFP as ordered while she was in the ICU. We will continue to monitor her H/H and consider a bone marrow biopsy if she continues to worsen. We would consider bone marrow biopsy to rule out invasive/ infiltrative process given her history of GIST, breast, and colon cancers. Case and plan were reviewed and discussed in detail with my attending physician Dr. Abiel Daniels DO IM Resident PGY-1
[2018-01-24] MEDS: Pantoprazole 40 mg EC Tab PO SCH ×2 (09:27→21:11)
[2018-01-24] MEDS: cefTRIAXone 1 gm 1 GM/100 ML BAG IVPB SCH (09:28)
--- NOTE | 2018-01-24 09:39 | CP.PCM.PN ---
Addendum entered and electronically signed by Kieran Nolasco DO 01/24/18 11:36: Addendum to Plan: Dispo: pending transfusion of 1 unit pRBCs, will recheck Hgb for appropriate response tomorrow. If adequate response, then from GI standpoint, stable for transfer to TCU. Original Note: <Kieran Nolasco - Last Filed: 01/24/18 09:32> Subjective - Date & Time of Evaluation Date of Evaluation: 01/24/18 Time of Evaluation: 07:30 - Subjective Subjective: GI Progress Note for Dr. Cinthya Nolasco, PGY-3 IM Patient seen and examined at bedside on the floors. No bloody BMs reported overnight; last BM was yesterday afternoon, normal formed stool. Denies emesis , diarrhea, lightheadedness, dizziness. Objective - Vital Signs/Intake and Output Vital Signs (last 24 hours): Temp Pulse Resp BP Pulse Ox 98.8 F 90 20 156/76 H 98 01/24/18 06:00 01/24/18 06:00 01/24/18 06:00 01/24/18 06:00 01/24/18 06:00 Intake and Output: 01/24/18 01/24/18 06:59 18:59 Intake Total 640 Output Total 300 Balance 340 - Medications Medications: Current Medications Aspirin (Ecotrin) 81 mg PO DAILY [facility] Last Admin: 01/23/18 09:52 Dose: 81 mg Metronidazole (Flagyl) 500 mg in 100 mls @ 100 mls/hr IVPB Q8 [facility] PRN Reason: Protocol Stop: 01/24/18 22:01 Last Admin: 01/24/18 05:30 Dose: 100 mls/hr Ceftriaxone Sodium (Rocephin 1 Gram Ivpb) 1 gm in 100 mls @ 100 mls/hr IVPB DAILY [facility] PRN Reason: Protocol Stop: 01/24/18 10:59 Last Admin: 01/23/18 09:51 Dose: 100 mls/hr Isosorbide Mononitrate (Imdur Er) 30 mg PO DAILY [facility] Last Admin: 01/23/18 09:51 Dose: 30 mg Metoprolol Tartrate (Lopressor) 50 mg PO BID [facility] Last Admin: 01/23/18 18:37 Dose: 50 mg Ondansetron HCl (Zofran Inj) 4 mg IVP Q4H PRN PRN Reason: Nausea/Vomiting Pantoprazole Sodium (Protonix Ec Tab) 40 mg PO Q12 [facility] Last Admin: 01/23/18 21:43 Dose: 40 mg - Labs Labs: 01/24/18 06:00 01/24/18 06:00 PT 11.5 SECONDS (9.4-12.5) 01/21/18 15:25 INR 1.01 (0.93-1.08) 01/21/18 15:25 APTT 27.2 Seconds (25.1-36.5) 01/21/18 15:25 - Additional Findings Additional findings: - Constitutional Appears: Non-toxic, No Acute Distress, Resting in bed comfortably - Head Exam Head Exam: ATRAUMATIC, NORMAL INSPECTION, NORMOCEPHALIC - Eye Exam Eye Exam: Normal appearance. absent: Conjunctival injection or pallor, Scleral icterus Pupil Exam: absent: Fixed, Irregular - ENT Exam ENT Exam: Mucous Membranes Moist - Neck Exam Neck Exam: Normal Inspection - Respiratory Exam Respiratory Exam: Clear to Ausculation Bilateral, NORMAL BREATHING PATTERN. absent: Accessory Muscle Use, Chest Wall Tenderness, Decreased Breath Sounds, Rales, Rhonchi, Wheezes - Cardiovascular Exam Cardiovascular Exam: REGULAR RHYTHM, RRR, +S1, +S2, Murmur (systolic murmur most prominently appreciate at right and left 2nd intercostal spaces, and at apex). absent: Bradycardia, Tachycardia, Irregular Rhythm, JVD, +S4 - GI/Abdominal Exam GI & Abdominal Exam: Soft, Normal Bowel Sounds. absent: Distended, Firm, Guarding, Rigid, Diminished Bowel Sounds, Hernia, Hypoactive Bowel Sounds, Hyperactive Bowel Sounds, Tenderness - Extremities Exam Extremities Exam: Full ROM, Normal Inspection. absent: Calf Tenderness, Joint Swelling, Pedal Edema, Tenderness - Back Exam Back Exam: absent: CVA tenderness (L), CVA tenderness (R) - Neurological Exam Neurological Exam: Alert, Awake, Oriented x3 - Psychiatric Exam Psychiatric exam: Normal Affect, Normal Mood - Skin Skin Exam: Dry, Intact, Normal Color, Warm Assessment and Plan - Assessment and Plan (Free Text) Assessment: This is a 77 yo F with PMH of breast cancer s/p lumpectomy, gastric GIST s/p partial gastrectomy, colon cancer s/p Right hemicolectomy, HTN, GI bleed, NSTEMI s/p bare-metal stent 12/25 on aspirin/plavix who presented to the ED with bloody diarrhea/BRBPR for 1 day prior to presentation. Bleeding scan indicates splenic flexure as the source, however colonoscopy revealed no active bleed and no ischemic collitis. Again Hgb is decreasing, requiring additional transfusion of 1 unit pRBCs. Plan: -Hgb decreased from 10.3 post-transfusion to 8.2 over 3 days, been off IV fluids x2 days, so not dilutional effect; transfusing 1 unit pRBCs Goal Hgb is 9 in setting of active cardiac disease (NSTEMI s/p bare-metal stent ~1 month prior) No further reported bloody BMs, may be occult loss, possible small bowel bleeding lesion not observable on colonoscopy Not a candidate for pill endoscopy due to extensive GI/abdominal surgeries Transfusion totals: 7 pRBCS, 1 FFP, 1 platelets -As per Cardio, Bare-metal stent placed, no further plavix, aspirin restarted yesterday -Bleeding scan indicates splenic flexure was area of bleed, but Colonoscopy did not show acute bleed (only some blood pooled in diverticula), no ischemic collitis likely diverticular bleed, now stopped, IR embolization not needed at this time -Surgery also consulted on this patient; reports not a surgical candidate -Tolerating diet, advance as tolerated Seen, reviewed, and discussed with attending, Dr. Mendes <Adolfo Mendes V - Last Filed: 01/25/18 00:02> Objective - Vital Signs/Intake and Output Vital Signs (last 24 hours): Temp Pulse Resp BP Pulse Ox 98.6 F 86 20 162/91 H 97 01/24/18 23:01 01/24/18 23:01 01/24/18 23:01 01/24/18 23:01 01/24/18 23:01 Intake and Output: 01/24/18 01/25/18 18:59 06:59 Intake Total 375 360 Balance 375 360 - Medications Medications: Current Medications Acetaminophen (Tylenol 325mg Tab) 650 mg PO Q4H PRN PRN Reason: Pain, Mild (1-3) Last Admin: 01/24/18 21:11 Dose: 650 mg Amlodipine Besylate (Norvasc) 10 mg PO DAILY [facility] Last Admin: 07/26/18 10:58 Dose: 10 mg Isosorbide Mononitrate (Imdur Er) 30 mg PO DAILY [facility] Last Admin: 01/24/18 09:27 Dose: 30 mg Magnesium Oxide (Mag-Ox) 400 mg PO BID [facility] Last Admin: 01/24/18 18:33 Dose: 400 mg Metoprolol Tartrate (Lopressor) 50 mg PO BID [facility] Last Admin: 01/24/18 18:32 Dose: 50 mg Ondansetron HCl (Zofran Inj) 4 mg IVP Q4H PRN PRN Reason: Nausea/Vomiting Pantoprazole Sodium (Protonix Ec Tab) 40 mg PO Q12 [facility] Last Admin: 01/24/18 21:11 Dose: 40 mg - Labs Labs: 01/24/18 06:00 01/24/18 06:00 PT 11.5 SECONDS (9.4-12.5) 01/21/18 15:25 INR 1.01 (0.93-1.08) 01/21/18 15:25 APTT 27.2 Seconds (25.1-36.5) 01/21/18 15:25 Attending/Attestation - Attestation I have personally seen and examined this patient.: Yes I have fully participated in the care of the patient.: Yes I have reviewed all pertinent clinical information, including history, physical exam and plan: Yes Notes (Text): p 01/25/18 00:02 p
[2018-01-24] MEDS ORDERED: Lidocaine 5% Patch TD SCH (10:00)
--- NOTE | 2018-01-24 10:04 | CP.PCM.PN ---
Subjective - Date & Time of Evaluation Date of Evaluation: 01/24/18 Time of Evaluation: 06:40 - Subjective Subjective: Awake, alert, no complaints, per RN uncontrolled blood pressure Reason for consultation and follow up: Cardiac evaluation for coronary artery disease, history of NSTEMI, post stent of RCA, hypertension, colon cancer, breat cancer, craniotomy Seen and examined by me and Dr. Iverson Objective - Vital Signs/Intake and Output Vital Signs (last 24 hours): Temp Pulse Resp BP Pulse Ox 98.8 F 90 20 159/77 H 98 01/24/18 06:00 01/24/18 09:28 01/24/18 06:00 01/24/18 09:28 01/24/18 06:00 Intake and Output: 01/24/18 01/24/18 06:59 18:59 Intake Total 640 Output Total 300 Balance 340 - Medications Medications: Current Medications Aspirin (Ecotrin) 81 mg PO DAILY [facility] Last Admin: 01/24/18 09:27 Dose: 81 mg Metronidazole (Flagyl) 500 mg in 100 mls @ 100 mls/hr IVPB Q8 [facility] PRN Reason: Protocol Stop: 01/24/18 22:01 Last Admin: 01/24/18 05:30 Dose: 100 mls/hr Ceftriaxone Sodium (Rocephin 1 Gram Ivpb) 1 gm in 100 mls @ 100 mls/hr IVPB DAILY [facility] PRN Reason: Protocol Stop: 01/24/18 10:59 Last Admin: 01/24/18 09:28 Dose: 100 mls/hr Isosorbide Mononitrate (Imdur Er) 30 mg PO DAILY [facility] Last Admin: 01/24/18 09:27 Dose: 30 mg Metoprolol Tartrate (Lopressor) 50 mg PO BID [facility] Last Admin: 01/24/18 09:28 Dose: 50 mg Ondansetron HCl (Zofran Inj) 4 mg IVP Q4H PRN PRN Reason: Nausea/Vomiting Pantoprazole Sodium (Protonix Ec Tab) 40 mg PO Q12 [facility] Last Admin: 01/24/18 09:27 Dose: 40 mg - Labs Labs: 01/24/18 06:00 01/24/18 06:00 PT 11.5 SECONDS (9.4-12.5) 01/21/18 15:25 INR 1.01 (0.93-1.08) 01/21/18 15:25 APTT 27.2 Seconds (25.1-36.5) 01/21/18 15:25 - Constitutional Appears: No Acute Distress - Head Exam Head Exam: NORMAL INSPECTION - Eye Exam Eye Exam: Normal appearance - ENT Exam ENT Exam: Mucous Membranes Moist - Respiratory Exam Respiratory Exam: Clear to Ausculation Bilateral, NORMAL BREATHING PATTERN - Cardiovascular Exam Cardiovascular Exam: REGULAR RHYTHM, +S1, +S2, Murmur Additional comments: NSR - GI/Abdominal Exam GI & Abdominal Exam: Soft, Normal Bowel Sounds - Extremities Exam Additional comments: tenderness dorsum of feet - Neurological Exam Neurological Exam: Alert, Awake, Oriented x3 - Psychiatric Exam Psychiatric exam: Normal Affect - Skin Skin Exam: Dry, Intact, Warm Assessment and Plan - Assessment and Plan (Free Text) Assessment: a 77 year old female who came in to the ER due to GI bleeding,blood transfusion given, discontinued plavix, post colonoscopy. History of NSTEMI 11/2017 and PTCA with bare metal stent was done to the ostial RCA occlusion. history of breat cancer, colon cancer,brain tumor and had craniotomy at [place] a year ago.history of hypertension, anemia Plan: Continue to hold Plavix Hemoglobin post transfusion trending down Consider transfusion below Hemoglobin of 8 Will monitor H/H Uncontrolled blood pressure Will add Norvasc On ASA 81 mg daily,Imdur ER 30 mg daily,Lopressor 50 mg BID Will hold Aspirin for now US of lower extremities negative for DVT Continue current treatment Continue current medications Will follow up Plan and treatment discussed with Dr. Iverson
[2018-01-24] MEDS: Magnesium Oxide 400 mg Tab UD PO SCH ×2 (10:58→18:33)
[2018-01-24 23:01] VITALS: O2SAT 97
[2018-01-25] MEDS ORDERED: DiphenhydrAMINE 50 mg/ml Inj IVP STA (04:05)
[2018-01-25 05:45] VITALS: RESP 18
[2018-01-25 07:01] LABS: ALB/GLOB RATIO 1.1 (1.1-1.8); ALBUMIN 2.9 g/dL (3.0-4.8); BASO # 0.01 K/mm3 (0.0-2.0); BASO % 0.2 % (0.0-3.0); CALCIUM 9.3 mg/dL (8.4-10.5); EOS # 0.2 (0.0-0.7); EOS % 2.9 % (1.5-5.0); GRAN # 4.97 (1.4-6.5); GRAN % 83.3 % (50.0-68.0); HEMOGLOBIN 9.4 g/dL (12.0-16.0); LYMPH # 0.6 (1.2-3.4); LYMPH % 10.7 % (22.0-35.0); MEAN CELL VOLUME 88.2 fl (80.0-105.0); MEAN CORPUSCULAR HEMOGLOBIN 29.1 pg (25.0-35.0); MEAN PLATELET VOLUME 9.3 fl (7.0-11.0); MONO # 0.2 (0.1-0.6); MONO % 2.9 % (1.0-6.0); RBC 3.23 10^6/uL (3.5-6.1); RED CELL DISTRIBUTION WIDTH 15.8 % (11.5-14.5)
--- NOTE | 2018-01-25 07:42 | CP.PCM.PN ---
Subjective - Date & Time of Evaluation Date of Evaluation: 01/25/18 Time of Evaluation: 06:25 - Subjective Subjective: Awake, alert, no complaints, Reason for consultation and follow up: Cardiac evaluation for coronary artery disease, history of NSTEMI, post stent of RCA, hypertension, colon cancer, breast cancer, craniotomy Seen and examined by me and Dr. Iverson Objective - Vital Signs/Intake and Output Vital Signs (last 24 hours): Temp Pulse Resp BP Pulse Ox 98.2 F 69 18 153/73 H 97 01/25/18 06:00 01/25/18 06:00 01/25/18 06:00 01/25/18 06:00 01/25/18 06:00 Intake and Output: 01/25/18 01/25/18 06:59 18:59 Intake Total 360 Output Total 800 Balance -440 - Medications Medications: Current Medications Acetaminophen (Tylenol 325mg Tab) 650 mg PO Q4H PRN PRN Reason: Pain, Mild (1-3) Last Admin: 01/25/18 01:58 Dose: 650 mg Amlodipine Besylate (Norvasc) 10 mg PO DAILY [facility] Last Admin: 01/24/18 10:58 Dose: 10 mg Isosorbide Mononitrate (Imdur Er) 30 mg PO DAILY [facility] Last Admin: 01/24/18 09:27 Dose: 30 mg Lidocaine (Lidocaine 5%) 0 gm TOP TID [facility] Magnesium Oxide (Mag-Ox) 400 mg PO BID [facility] Last Admin: 01/24/18 18:33 Dose: 400 mg Metoprolol Tartrate (Lopressor) 50 mg PO BID [facility] Last Admin: 01/24/18 18:32 Dose: 50 mg Ondansetron HCl (Zofran Inj) 4 mg IVP Q4H PRN PRN Reason: Nausea/Vomiting Pantoprazole Sodium (Protonix Ec Tab) 40 mg PO Q12 [facility] Last Admin: 01/24/18 21:11 Dose: 40 mg - Labs Labs: 01/25/18 06:30 01/25/18 06:30 PT 11.5 SECONDS (9.4-12.5) 01/21/18 15:25 INR 1.01 (0.93-1.08) 01/21/18 15:25 APTT 27.2 Seconds (25.1-36.5) 01/21/18 15:25 - Constitutional Appears: No Acute Distress - Head Exam Head Exam: NORMOCEPHALIC - Eye Exam Eye Exam: Normal appearance - ENT Exam ENT Exam: Mucous Membranes Moist - Respiratory Exam Respiratory Exam: Clear to Ausculation Bilateral, NORMAL BREATHING PATTERN - Cardiovascular Exam Cardiovascular Exam: +S1, +S2 - GI/Abdominal Exam GI & Abdominal Exam: Hyperactive Bowel Sounds, Normal Bowel Sounds - Extremities Exam Extremities Exam: Normal Capillary Refill - Neurological Exam Neurological Exam: Alert, Awake, Oriented x3 - Psychiatric Exam Psychiatric exam: Normal Affect - Skin Skin Exam: Intact, Warm Assessment and Plan - Assessment and Plan (Free Text) Assessment: A 77 year old female who came in to the ER due to GI bleeding,blood transfusion given, discontinued plavix, post colonoscopy. History of NSTEMI 11/2017 and PTCA with bare metal stent was done to the ostial RCA occlusion. history of breat cancer, colon cancer,brain tumor and had craniotomy at [place] a year ago.history of hypertension, anemia Plan: Post blood tranfusion of 1 unit PRBC Repeat H/H-9.4/28.5 Control blood pressure Will add Norvasc On ASA 81 mg daily,Imdur ER 30 mg daily,Lopressor 50 mg BID, Norvasc 10 mg daily Continue current treatment Continue current medications Discharge planning Will follow up Plan and treatment discussed with Dr. Iverson
--- NOTE | 2018-01-25 09:39 | CP.PCM.PN ---
Subjective - Date & Time of Evaluation Date of Evaluation: 01/25/18 Time of Evaluation: 07:10 - Subjective Subjective: Sacha Daniels DO, IM Resident PGY-1 Hematology/Oncology Progress Note for Dr. Beebe Patient was seen and examined at bedside. She reports feeling well after receiving 1 unit of PRBCs yesterday. She states that since the pharmacy was out of lidocaine 5% ointment they have been applying lidocaine patches on her feet. She states that this helped the pain some but that it is still present. She states that she has been working with PT daily, ambulating in the hallway. Objective - Vital Signs/Intake and Output Vital Signs (last 24 hours): Temp Pulse Resp BP Pulse Ox 98.2 F 69 18 153/73 H 97 01/25/18 06:00 01/25/18 06:00 01/25/18 06:00 01/25/18 06:00 01/25/18 06:00 Intake and Output: 01/25/18 01/25/18 06:59 18:59 Intake Total 360 Output Total 800 Balance -440 - Medications Medications: Current Medications Acetaminophen (Tylenol 325mg Tab) 650 mg PO Q4H PRN PRN Reason: Pain, Mild (1-3) Last Admin: 01/25/18 01:58 Dose: 650 mg Amlodipine Besylate (Norvasc) 10 mg PO DAILY [facility] Last Admin: 01/24/18 10:58 Dose: 10 mg Isosorbide Mononitrate (Imdur Er) 30 mg PO DAILY [facility] Last Admin: 01/24/18 09:27 Dose: 30 mg Lidocaine (Lidocaine 5%) 0 gm TOP TID [facility] Magnesium Oxide (Mag-Ox) 400 mg PO BID [facility] Last Admin: 01/24/18 18:33 Dose: 400 mg Metoprolol Tartrate (Lopressor) 50 mg PO BID [facility] Last Admin: 01/24/18 18:32 Dose: 50 mg Ondansetron HCl (Zofran Inj) 4 mg IVP Q4H PRN PRN Reason: Nausea/Vomiting Pantoprazole Sodium (Protonix Ec Tab) 40 mg PO Q12 [facility] Last Admin: 01/24/18 21:11 Dose: 40 mg - Labs Labs: 01/25/18 06:30 01/25/18 06:30 PT 11.5 SECONDS (9.4-12.5) 01/21/18 15:25 INR 1.01 (0.93-1.08) 01/21/18 15:25 APTT 27.2 Seconds (25.1-36.5) 01/21/18 15:25 - Constitutional Appears: Non-toxic, No Acute Distress - Head Exam Head Exam: ATRAUMATIC, NORMAL INSPECTION, NORMOCEPHALIC - Eye Exam Eye Exam: Normal appearance, PERRL - ENT Exam ENT Exam: Mucous Membranes Dry - Neck Exam Neck Exam: Full ROM. absent: Lymphadenopathy, Tenderness, Thyromegaly - Respiratory Exam Respiratory Exam: Clear to Ausculation Bilateral, NORMAL BREATHING PATTERN. absent: Rales, Rhonchi, Wheezes - Cardiovascular Exam Cardiovascular Exam: +S1, +S2, Murmur Additional comments: Grade 3/6 holosystolic murmur loudest over the apex unchanged from prior exams - GI/Abdominal Exam GI & Abdominal Exam: Soft, Normal Bowel Sounds. absent: Guarding, Tenderness, Organomegaly, Rebound - Extremities Exam Extremities Exam: Full ROM, Normal Capillary Refill, Normal Inspection, Tenderness. absent: Pedal Edema Additional comments: Tenderness to palpation on the dorsum of the feet bilaterally. Patient states the pain is unchanged from yesterday - Neurological Exam Neurological Exam: Alert, Awake, Oriented x3 - Psychiatric Exam Psychiatric exam: Normal Affect, Normal Mood - Skin Skin Exam: Dry, Intact, Normal Color, Warm Assessment and Plan - Assessment and Plan (Free Text) Assessment: Ms. Swenson is a 77 year old female with PMH of GIST (s/p partial gastrectomy), colon CA (s/p R hemicolectomy), breast CA (s/p lumpectomy, on letrozole), NSTEMI (s/p bare metal stent on 12/25/17, on plavix and ASA), HTN, and gout originally admitted to the ICU for treatment of GI bleed that has now stabilized s/p EGD and colonoscopy. Plan: Elevated EPO level of 44.1 is consistent with a normal response to acute blood loss anemia. To stimulate her bone marrow additionally, we will begin aranesp 100 microgram IM weekly. We will begin today and she can continue to receive the injections on an outpatient basis. We will continue to monitor her H/H and transfuse if needed. We also restarted her ASA today as she is s/p bare metal stent placement, Dr. Iverson agrees. GI and surgery are following for management of diverticular bleed. We encouraged her to ambulate in the hallways at least twice daily. We explained that her foot pain is likely secondary to lying in bed more than usual. LE dopplers were negative for DVT. Lidocaine 5% ointment is ordered for additional relief of her dorsal foot pain. Case and plan were reviewed and discussed in detail with my attending physician Dr. Abiel Daniels DO IM Resident PGY-1
--- NOTE | 2018-01-25 10:01 | PN ---
DATE: 01/24/2018 DAILY PROGRESS NOTE The patient was seen this morning in room 275, bed 1. No visitors were present. Her hemoglobin was noted to be low today, transfusion was ordered. I spoke to the patient at length offering her the opportunity of discharge to home versus Transitional Care for additional physical therapy and conditioning. At this time, she is leaning in the direction of discharge to home. Case was discussed with the manager rn case, Rachell, who will talk to the patient again later today and finalize the plan. If discharge to home is our option, I would be looking forward to that in the next day or two. Messi Salas MD
--- NOTE | 2018-01-25 10:19 | CP.PCM.PN ---
<Kieran Nolasco - Last Filed: 01/25/18 13:51> Subjective - Date & Time of Evaluation Date of Evaluation: 01/25/18 Time of Evaluation: 07:20 - Subjective Subjective: GI Progress Note for Dr. Cinthya Nolasco, PGY-3 IM Patient seen and examined at bedside on the floors. No bloody BMs reported overnight. Denies emesis, diarrhea, lightheadedness, dizziness. S/p 1 unit pRBCs yesterday, appropriate response seen on AM labs (8.2 Hgb pre-transfusion, 9.4 this AM), so clear for transfer to TCU from GI standpoint. Discussed with PMD (Dr. Salas), also present at bedside. Objective - Vital Signs/Intake and Output Vital Signs (last 24 hours): Temp Pulse Resp BP Pulse Ox 98.2 F 69 18 153/73 H 97 01/25/18 06:00 01/25/18 06:00 01/25/18 06:00 01/25/18 06:00 01/25/18 06:00 Intake and Output: 01/25/18 01/25/18 06:59 18:59 Intake Total 360 Output Total 800 Balance -440 - Medications Medications: Current Medications Acetaminophen (Tylenol 325mg Tab) 650 mg PO Q4H PRN PRN Reason: Pain, Mild (1-3) Last Admin: 01/25/18 01:58 Dose: 650 mg Amlodipine Besylate (Norvasc) 10 mg PO DAILY [facility] Last Admin: 01/24/18 10:58 Dose: 10 mg Isosorbide Mononitrate (Imdur Er) 30 mg PO DAILY [facility] Last Admin: 01/24/18 09:27 Dose: 30 mg Lidocaine (Lidocaine 5%) 0 gm TOP TID [facility] Magnesium Oxide (Mag-Ox) 400 mg PO BID [facility] Last Admin: 01/24/18 18:33 Dose: 400 mg Metoprolol Tartrate (Lopressor) 50 mg PO BID [facility] Last Admin: 01/24/18 18:32 Dose: 50 mg Ondansetron HCl (Zofran Inj) 4 mg IVP Q4H PRN PRN Reason: Nausea/Vomiting Pantoprazole Sodium (Protonix Ec Tab) 40 mg PO Q12 [facility] Last Admin: 01/24/18 21:11 Dose: 40 mg - Labs Labs: 01/25/18 06:30 01/25/18 06:30 PT 11.5 SECONDS (9.4-12.5) 01/21/18 15:25 INR 1.01 (0.93-1.08) 01/21/18 15:25 APTT 27.2 Seconds (25.1-36.5) 01/21/18 15:25 - Additional Findings Additional findings: - Constitutional Appears: Non-toxic, No Acute Distress, Resting in bed comfortably - Head Exam Head Exam: ATRAUMATIC, NORMAL INSPECTION, NORMOCEPHALIC - Eye Exam Eye Exam: Normal appearance. absent: Conjunctival injection or pallor, Scleral icterus Pupil Exam: absent: Fixed, Irregular - ENT Exam ENT Exam: Mucous Membranes Moist - Respiratory Exam Respiratory Exam: Clear to Ausculation Bilateral, NORMAL BREATHING PATTERN. absent: Accessory Muscle Use, Chest Wall Tenderness, Decreased Breath Sounds, Rales, Rhonchi, Wheezes - Cardiovascular Exam Cardiovascular Exam: REGULAR RHYTHM, RRR, +S1, +S2, Murmur (systolic murmur most prominently appreciate at right and left 2nd intercostal spaces, and at apex). absent: Bradycardia, Tachycardia, Irregular Rhythm, JVD, +S4 - GI/Abdominal Exam GI & Abdominal Exam: Soft, Normal Bowel Sounds. absent: Distended, Firm, Guarding, Rigid, Diminished Bowel Sounds, Hernia, Hypoactive Bowel Sounds, Hyperactive Bowel Sounds, Tenderness - Extremities Exam Extremities Exam: Full ROM, Normal Inspection. absent: Calf Tenderness, Joint Swelling, Pedal Edema, Tenderness - Neurological Exam Neurological Exam: Alert, Awake, Oriented x3 - Psychiatric Exam Psychiatric exam: Normal Affect, Normal Mood - Skin Skin Exam: Dry, Intact, Normal Color, Warm Assessment and Plan - Assessment and Plan (Free Text) Assessment: This is a 77 yo F with PMH of breast cancer s/p lumpectomy, gastric GIST s/p partial gastrectomy, colon cancer s/p Right hemicolectomy, HTN, GI bleed, NSTEMI s/p bare-metal stent 12/25 on aspirin/plavix who presented to the ED with bloody diarrhea/BRBPR for 1 day prior to presentation. Bleeding scan indicates splenic flexure as the source, however colonoscopy revealed no active bleed and no ischemic collitis. Appropriate response to transfusion of 1 unit pRBCs yesterday. Plan: -Hgb improved from 8.2 to 9.4 after 1 unit pRBCs, appropriate response Goal Hgb is 9 in setting of active cardiac disease (NSTEMI s/p bare-metal stent ~1 month prior) No further reported bloody BMs, may be occult loss, possible small bowel bleeding lesion not observable on colonoscopy Not a candidate for pill endoscopy due to extensive GI/abdominal surgeries Transfusion totals: 7 pRBCS, 1 FFP, 1 platelets -As per Cardio, Bare-metal stent placed, no further plavix, aspirin restarted yesterday -Bleeding scan indicates splenic flexure was area of bleed, but Colonoscopy did not show acute bleed (only some blood pooled in diverticula), no ischemic collitis likely diverticular bleed, now stopped, IR embolization not needed at this time -Surgery also consulted on this patient; reports not a surgical candidate -Tolerating diet, advance as tolerated Dispo: from GI standpoint, appropriate Hgb response to transfusion, no active bleeding, stable for transfer to TCU Seen, reviewed, and discussed with attending, Dr. Mendes <Adolfo Mnedes V - Last Filed: 01/26/18 00:44> Objective - Vital Signs/Intake and Output Vital Signs (last 24 hours): Temp Pulse Resp BP Pulse Ox 99.4 F 75 18 155/78 H 97 01/25/18 14:00 01/25/18 17:25 01/25/18 14:00 01/25/18 17:25 01/25/18 14:00 - Labs Labs: 01/25/18 06:30 01/25/18 06:30 PT 11.5 SECONDS (9.4-12.5) 01/21/18 15:25 INR 1.01 (0.93-1.08) 01/21/18 15:25 APTT 27.2 Seconds (25.1-36.5) 01/21/18 15:25 Attending/Attestation - Attestation I have personally seen and examined this patient.: Yes I have fully participated in the care of the patient.: Yes I have reviewed all pertinent clinical information, including history, physical exam and plan: Yes Notes (Text): This is an addendum to GI progress report dictated by the Cytologist.The patient was seen and examined earlier. Medical records, lab studies, imagings were reviewed. Last 24 hours events reviewed. Agreed with the above treatment plan as outlined in Cytologist 's notes the with the addition of the following 01/26/18 00:43
[2018-01-25] MEDS: Pantoprazole 40 mg EC Tab PO SCH (11:34)
[2018-01-25] MEDS: Magnesium Oxide 400 mg Tab UD PO SCH ×2 (11:34→17:24)
[2018-01-25] MEDS: Lidocaine 5% Oint(35 gm) TOP SCH ×3 (11:36→17:23)
[2018-01-25] MEDS ORDERED: Darbepoetin Alfa 100 mcg/ml Inj SC ONE (13:50)
[2018-01-25 15:00] VITALS: TEMP 99.4
[2018-01-25 17:27] VITALS: BP 155/78; PULSE 75
== END 2018-01-25 19:25 | DRG 378 ==
LOC: ED 23:19 → ERH 01-19 01:02 → 2RNO 01-19 01:56 → CCU 01-19 17:17 → 2RSO 01-22 18:38 → 5RNO 01-24 16:18
PROVIDERS: ADMIT Internal Medicine; ATTEND Internal Medicine
PROC: 30233N1 Transfusion of Nonautologous Red Blood Cells into Peripheral Vein, Percutaneous Approach (ICD-10-PCS; 2018-01-19)
PROC: 30233K1 Transfusion of Nonautologous Frozen Plasma into Peripheral Vein, Percutaneous Approach (ICD-10-PCS; 2018-01-20)
PROC: 6A550Z2 Pheresis of Platelets, Single (ICD-10-PCS; 2018-01-21)
PROC: 0DJ08ZZ Inspection of Upper Intestinal Tract, Via Natural or Artificial Opening Endoscopic (ICD-10-PCS; principal; 2018-01-21 15:15)
PROC: 0DJD8ZZ Inspection of Lower Intestinal Tract, Via Natural or Artificial Opening Endoscopic (ICD-10-PCS; 2018-01-21 15:15)
DX: K92.2 Gastrointestinal hemorrhage, unspecified (principal); D62 Acute posthemorrhagic anemia; I25.110 Atherosclerotic heart disease of native coronary artery with unstable angina pectoris; I13.0 Hypertensive heart and chronic kidney disease with heart failure and stage 1 through stage 4 chronic kidney disease, or unspecified chronic kidney disease; K57.31 Diverticulosis of large intestine without perforation or abscess with bleeding; I08.3 Combined rheumatic disorders of mitral, aortic and tricuspid valves; I50.9 Heart failure, unspecified; K64.9 Unspecified hemorrhoids; E78.5 Hyperlipidemia, unspecified; I27.20 Pulmonary hypertension, unspecified; N18.9 Chronic kidney disease, unspecified; Z85.028 Personal history of other malignant neoplasm of stomach; Z85.038 Personal history of other malignant neoplasm of large intestine; Z90.3 Acquired absence of stomach [part of]; Z90.49 Acquired absence of other specified parts of digestive tract; Z87.11 Personal history of peptic ulcer disease; Z85.3 Personal history of malignant neoplasm of breast; Z85.841 Personal history of malignant neoplasm of brain; M10.9 Gout, unspecified; H54.7 Unspecified visual loss; M19.90 Unspecified osteoarthritis, unspecified site; Z86.011 Personal history of benign neoplasm of the brain; D63.8 Anemia in other chronic diseases classified elsewhere; Z90.710 Acquired absence of both cervix and uterus; Z79.82 Long term (current) use of aspirin; Z95.5 Presence of coronary angioplasty implant and graft; I25.2 Old myocardial infarction; Z79.01 Long term (current) use of anticoagulants; Z79.02 Long term (current) use of antithrombotics/antiplatelets; Z79.811 Long term (current) use of aromatase inhibitors

== ENCOUNTER 2018-01-25 19:26 | Inpatient (IN) | payer MEDICARE, OTHER ==
[2018-01-25 23:03] VITALS: BMI 27.9
[2018-01-26] MEDS: Pantoprazole 40 mg EC Tab PO SCH ×3 (05:45→21:31)
[2018-01-26] MEDS: Magnesium Oxide 400 mg Tab UD PO SCH ×2 (09:46→17:41)
[2018-01-26] MEDS: Lidocaine 5% Oint(35 gm) TOP SCH ×3 (09:47→17:40)
--- NOTE | 2018-01-26 11:20 | CP.PCM.CON ---
History of Present Illness - History of Present Illness History of Present Illness: Awake, alert ,no distress, denies shortness of breath Reason for consultation: Continuity of care in TCU, History of NSTEMI 11/2017 and PTCA with bare metal stent was done to the ostial RCA occlusion, hypertension,anemia Brief history of present illness: A 77 year old female who came in to the ER due to GI bleeding,blood transfusion given, discontinued Plavix, post colonoscopy. History of NSTEMI 11/2017 and PTCA with bare metal stent was done to the ostial RCA occlusion. history of breast cancer, colon cancer,brain tumor and had craniotomy at [place] a year ago.History of hypertension. Came in for anemia, blood transfusion administered and hemoglobin stabilized. Seen and examined by me and Dr. Dickson Review of Systems - Review of Systems All systems: reviewed and no additional remarkable complaints except Review of Systems: per HPI Past Patient History - Infectious Disease Hx of Infectious Diseases: None - Tetanus Immunizations Tetanus Immunization: Unknown - Past Social History Smoking Status: Never Smoked - CARDIAC Hx Hypertension: Yes - PULMONARY Hx Respiratory Disorders: No - NEUROLOGICAL Hx Neurological Disorder: No - HEENT Hx HEENT Problems: (WEARS RX GLASSES) - RENAL Hx Chronic Kidney Disease: No - ENDOCRINE/METABOLIC Hx Endocrine Disorders: No - HEMATOLOGICAL/ONCOLOGICAL Hx Blood Transfusions: No Hx Blood Transfusion Reaction: No - INTEGUMENTARY Hx Dermatological Problems: No - MUSCULOSKELETAL/RHEUMATOLOGICAL Hx Falls: No - GASTROINTESTINAL Hx Gastrointestinal Disorders: Yes Hx Pancreatitis: Yes Other/Comment: hx colon ca,GI BLEED 09-13-16, - GENITOURINARY/GYNECOLOGICAL Hx Genitourinary Disorders: No - PSYCHIATRIC Hx Psychophysiologic Disorder: No - SURGICAL HISTORY Hx Surgeries: Yes - ANESTHESIA Hx Anesthesia Reactions: No Hx Malignant Hyperthermia: No Meds Allergies/Adverse Reactions: Allergies Allergy/AdvReac Type Severity Reaction Status Date / Time No Known Allergies Allergy Verified 01/18/18 23:23 - Medications Medications: Current Medications Acetaminophen (Tylenol 325mg Tab) 650 mg PO Q4H PRN PRN Reason: Pain, Mild (1-3) Last Admin: 01/26/18 05:45 Dose: 650 mg Amlodipine Besylate (Norvasc) 10 mg PO DAILY [facility] PRN Reason: Protocol Last Admin: 01/26/18 09:46 Dose: 10 mg Isosorbide Mononitrate (Imdur Er) 30 mg PO DAILY [facility] PRN Reason: Protocol Last Admin: 01/26/18 09:46 Dose: 30 mg Lidocaine (Lidocaine 5%) 0 gm TOP TID [facility] Last Admin: 01/26/18 09:47 Dose: 1 applic Magnesium Oxide (Mag-Ox) 400 mg PO BID [facility] Last Admin: 01/26/18 09:46 Dose: 400 mg Metoprolol Tartrate (Lopressor) 50 mg PO 0800,1800 [facility] Last Admin: 01/26/18 08:03 Dose: 50 mg Ondansetron HCl (Zofran Inj) 4 mg IVP Q4H PRN PRN Reason: Nausea/Vomiting Pantoprazole Sodium (Protonix Ec Tab) 40 mg PO Q12 [facility] Last Admin: 01/26/18 09:46 Dose: 40 mg Physical Exam - Constitutional Appears: No Acute Distress - Eye Exam Eye Exam: Normal appearance - ENT Exam ENT Exam: Mucous Membranes Moist - Respiratory Exam Respiratory Exam: Decreased Breath Sounds, NORMAL BREATHING PATTERN - Cardiovascular Exam Cardiovascular Exam: +S1, +S2 - GI/Abdominal Exam GI & Abdominal Exam: Normal Bowel Sounds, Soft - Neurological Exam Neurological exam: Alert, Oriented x3 - Psychiatric Exam Psychiatric exam: Normal Affect - Skin Skin Exam: Intact, Warm Results - Vital Signs Recent Vital Signs: Last Vital Signs Temp Pulse 85 01/26/18 06:29 Resp 18 01/25/18 22:50 BP 155/74 H 01/26/18 09:46 Pulse Ox Assessment & Plan - Assessment and Plan (Free Text) Assessment: A 77 year old female who came in to the ER due to GI bleeding,blood transfusion given, discontinued Plavix, post colonoscopy. History of NSTEMI 11/2017 and PTCA with bare metal stent was done to the ostial RCA occlusion. history of breast cancer, colon cancer,brain tumor and had craniotomy at [place] a year ago.History of hypertension. Came in for anemia, blood transfusion administered and hemoglobin stabilized.Transferred to TCU for reconditioning. Plan: Transferred to TCU for reconditionong For Physical therapy On Norvasc 10 mg daily, Imdur ER 30 mg daily,Lopressor 50 mg BID, Continue current treatment Continue current medications Monitor H/H Discharge planning Will follow up Plan and treatment discussed with Dr. Dickson Thank you Dr. Salas for the opportunity of taking care of Ms. Tubbs Messi - Date & Time Date: 01/26/18 Time: 07:15
--- NOTE | 2018-01-26 13:11 | CP.PCM.PN ---
<Carlos Up - Last Filed: 01/26/18 13:11> Subjective - Date & Time of Evaluation Date of Evaluation: 01/26/18 Time of Evaluation: 08:00 - Subjective Subjective: PGY5 GI Follow-up Pt seen and examined bedside Denies any abd pain no overnight events no sign of GI bleed ROS: 12 point ROS conducted, neg other than above Objective - Vital Signs/Intake and Output Vital Signs (last 24 hours): Temp Pulse Resp BP Pulse Ox 85 18 155/74 H 01/26/18 06:29 01/25/18 22:50 01/26/18 09:46 - Medications Medications: Current Medications Acetaminophen (Tylenol 325mg Tab) 650 mg PO Q4H PRN PRN Reason: Pain, Mild (1-3) Last Admin: 01/26/18 05:45 Dose: 650 mg Amlodipine Besylate (Norvasc) 10 mg PO DAILY [facility] PRN Reason: Protocol Last Admin: 01/26/18 09:46 Dose: 10 mg Isosorbide Mononitrate (Imdur Er) 30 mg PO DAILY [facility] PRN Reason: Protocol Last Admin: 01/26/18 09:46 Dose: 30 mg Lidocaine (Lidocaine 5%) 0 gm TOP TID [facility] Last Admin: 01/26/18 09:47 Dose: 1 applic Magnesium Oxide (Mag-Ox) 400 mg PO BID [facility] Last Admin: 01/26/18 09:46 Dose: 400 mg Metoprolol Tartrate (Lopressor) 50 mg PO 0800,1800 [facility] Last Admin: 01/26/18 08:03 Dose: 50 mg Ondansetron HCl (Zofran Inj) 4 mg IVP Q4H PRN PRN Reason: Nausea/Vomiting Pantoprazole Sodium (Protonix Ec Tab) 40 mg PO Q12 [facility] Last Admin: 01/26/18 09:46 Dose: 40 mg - Constitutional Appears: Well, No Acute Distress - Head Exam Head Exam: ATRAUMATIC, NORMOCEPHALIC - Eye Exam Eye Exam: Normal appearance - ENT Exam ENT Exam: Mucous Membranes Moist, Normal Exam - Neck Exam Neck Exam: Normal Inspection - Respiratory Exam Respiratory Exam: Clear to Ausculation Bilateral, NORMAL BREATHING PATTERN. absent: Prolonged Expiratory Phase, Rhonchi, Wheezes, Respiratory Distress - Cardiovascular Exam Cardiovascular Exam: REGULAR RHYTHM, +S1, +S2 - GI/Abdominal Exam GI & Abdominal Exam: Soft, Normal Bowel Sounds. absent: Firm, Guarding, Rigid, Tenderness, Mass, Organomegaly, Rebound - Extremities Exam Extremities Exam: absent: Joint Swelling, Pedal Edema - Neurological Exam Neurological Exam: Alert, Awake, Oriented x3 - Psychiatric Exam Psychiatric exam: Normal Affect, Normal Mood - Skin Skin Exam: Dry, Intact, Normal Color, Warm Assessment and Plan - Assessment and Plan (Free Text) Assessment: This is a 77 yo F with PMH of breast cancer s/p lumpectomy, gastric GIST s/p partial gastrectomy, colon cancer s/p Right hemicolectomy, HTN, GI bleed, NSTEMI s/p bare-metal stent 12/25 on aspirin/plavix who presented to the ED with bloody diarrhea/BRBPR for 1 day prior to presentation. Bleeding scan indicates splenic flexure as the source, however colonoscopy revealed no active bleed and no ischemic collitis. Plan: -hgb stable and no further GI bleeding -Goal Hgb is 9 in setting of active cardiac disease (NSTEMI s/p bare-metal stent ~1 month prior) -As per Cardio, Bare-metal stent placed, no further plavix, aspirin restarted yesterday -Bleeding scan indicates splenic flexure was area of bleed, but Colonoscopy did not show acute bleed (only some blood pooled in diverticula), no ischemic collitis -likely diverticular bleed, now stopped, IR embolization not needed at this time -Surgery also consulted on this patient; reports not a surgical candidate -Tolerating diet, advance as tolerated D/W Cinthya <Cinthya,Kovil V - Last Filed: 01/26/18 21:22> Objective - Vital Signs/Intake and Output Vital Signs (last 24 hours): Temp Pulse Resp BP Pulse Ox 97.4 F L 69 16 166/78 H 92 L 01/26/18 16:00 01/26/18 17:41 01/26/18 16:00 01/26/18 17:41 01/26/18 16:00 - Medications Medications: Current Medications Acetaminophen (Tylenol 325mg Tab) 650 mg PO Q4H PRN PRN Reason: Pain, Mild (1-3) Last Admin: 01/26/18 05:45 Dose: 650 mg Amlodipine Besylate (Norvasc) 10 mg PO DAILY [facility] PRN Reason: Protocol Last Admin: 01/26/18 09:46 Dose: 10 mg Isosorbide Mononitrate (Imdur Er) 30 mg PO DAILY [facility] PRN Reason: Protocol Last Admin: 01/26/18 09:46 Dose: 30 mg Lidocaine (Lidocaine 5%) 0 gm TOP TID [facility] Last Admin: 01/26/18 17:40 Dose: 1 applic Magnesium Oxide (Mag-Ox) 400 mg PO BID [facility] Last Admin: 01/26/18 17:41 Dose: 400 mg Metoprolol Tartrate (Lopressor) 50 mg PO 0800,1800 [facility] Last Admin: 01/26/18 17:41 Dose: 50 mg Ondansetron HCl (Zofran Inj) 4 mg IVP Q4H PRN PRN Reason: Nausea/Vomiting Pantoprazole Sodium (Protonix Ec Tab) 40 mg PO Q12 [facility] Last Admin: 01/26/18 09:46 Dose: 40 mg Attending/Attestation - Attestation I have personally seen and examined this patient.: Yes I have fully participated in the care of the patient.: Yes I have reviewed all pertinent clinical information, including history, physical exam and plan: Yes Notes (Text): This is an addendum to GI progress report dictated by the GI Fellow.The patient was seen and examined earlier. Medical records, lab studies, imagings were reviewed. Last 24 hours events reviewed. Agreed with the above treatment plan as outlined in GI Fellow 's notes the with the addition of the following sp large LGIB h/o NSAID status post bare-metal stent presently only on aspirin off plavix Follow-up hemoglobin and hematocrit Low-dose PPI No further GI workup planned Iron supplement Discussed with the patients daughter at length earlier 01/26/18 21:20
--- NOTE | 2018-01-26 20:33 | HP ---
This is the admitting history and physical for the Transitional Care Unit. HISTORY OF PRESENT ILLNESS: The patient is a 77-year-old female who was admitted with hematochezia. The patient is known to have a history of colon carcinoma, breast carcinoma, meningioma of the brain status post craniotomy, status post abdominal hysterectomy, status post PTCA 1 month ago. She was found to be severely anemic. There is a positive bleeding scan showing the source of bleed at the splenic flexure, of the large intestine. During her hospital stay, she was transfused a total of 6 units of packed red blood cells and 1 unit of fresh frozen plasma. She underwent colonoscopy and endoscopy with Dr. Mendes and diverticula of the large colon were found but no active source of bleeding. No source of bleeding was seen on endoscopy as well. As the patient's homeostasis improved and her H and H remained stable, arrangements were made for her to be transferred to the Transitional Care Unit for ambulatory strength and endurance. During her hospital stay, she was followed by her portfolio lead, Dr. Iverson, 1 month status post PTCA and her medications have been adjusted. So, the patient is to be followed on the Transitional Care Unit, physical therapy is encouraged. We will continue to follow the patient closely. Chi Salas MD
[2018-01-27 06:58] LABS: ALB/GLOB RATIO 1.2 (1.1-1.8); ALBUMIN 3.1 g/dL (3.0-4.8); CALCIUM 9.2 mg/dL (8.4-10.5)
[2018-01-27 07:07] LABS: BASO # 0.01 K/mm3 (0.0-2.0); BASO % 0.2 % (0.0-3.0); EOS # 0.1 (0.0-0.7); EOS % 1.7 % (1.5-5.0); GRAN # 5.05 (1.4-6.5); GRAN % 84.8 % (50.0-68.0); HEMOGLOBIN 9.5 g/dL (12.0-16.0); LYMPH # 0.6 (1.2-3.4); LYMPH % 9.4 % (22.0-35.0); MEAN CELL VOLUME 88.6 fl (80.0-105.0); MEAN CORPUSCULAR HEMOGLOBIN 29.2 pg (25.0-35.0); MEAN PLATELET VOLUME 9.3 fl (7.0-11.0); MONO # 0.2 (0.1-0.6); MONO % 3.9 % (1.0-6.0); RBC 3.25 10^6/uL (3.5-6.1); RED CELL DISTRIBUTION WIDTH 15.7 % (11.5-14.5)
--- NOTE | 2018-01-27 07:46 | CON ---
DATE: 01/26/2018 LOCATION: Patient is in TCU, bed 1, 304. REASON FOR CONSULTATION: This is a Hematology/Oncology followup on this patient who was admitted now to TCU for deconditioning and for continuity of care. Patient has history of multiple cancers and was admitted to the hospital with acute GI bleeding, to be diverticular bleeding in the background of having been on Plavix and aspirin for non-ST elevation [place] in 11/2017, had PTCA, placement of the metal stent and was placed on aspirin and Plavix. Drop in blood counts are rather dramatic as an outpatient. Patient got admitted and she has had 6 to 8 units of blood along with one unit of plasma, one unit of platelet and has stabilized at this point in time. 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 She is now in the TCU for deconditioning. REVIEW OF SYSTEMS: A 12-system review of systems was done, no additional remarkable complaints except for what is mentioned in the HPI. PAST MEDICAL HISTORY: Significant for the fact that she had bilateral breast cancer, status post lumpectomy, radiation and on aromatase inhibitor for the same, for all the other tumors having dealt with surgically alone without the need for any adjunctive therapy except for the GIST so she received two years of adjuvant medication with imatinib. ALLERGIES: PATIENT HAS NO SIGNIFICANT ALLERGIES. MEDICATIONS: Patient's medications are reviewed. She is on Tylenol 650 mg p.o. every 4 hours p.r.n., Norvasc 10 mg p.o. daily, Imdur 30 mg daily, lidocaine topical 5% t.i.d. to affected areas, magnesium oxide 400 b.i.d., metoprolol tartarate 50 mg p.o. daily, Zofran 4 mg IV every 4 hours p.r.n. for nausea, Protonix EC 40 mg p.o. every 12 hours. PHYSICAL EXAMINATION: GENERAL: Patient is in no acute distress at this point in time. VITAL SIGNS: Stable as stated in the chart, revealed a pulse of 85, respirations 18, blood pressure 155/74. HEENT: Head is normocephalic, atraumatic. Conjunctivae pale. Sclerae is anicteric. Pupils are equally reactive to light and accommodation. Examination of the oropharynx reveals tongue to be moist. No ulcerations are noted. No evidence of any fungal infection. NECK: Supple. There is no adenopathy. No jugular venous distention noted. LUNGS: Clear to percussion and auscultation. HEART: Reveals PMI to be in the fifth intercostal space, inside the midclavicular line. S1 and S2 are normal. No gallop or murmur is heard. ABDOMEN: Soft and nontender. Patient has some tenderness over the area of the keloid from the prior surgery. There is no evidence of rebound, rigidity or guarding. No masses are felt. NEUROLOGIC: Revealed higher functions to be normal. No focal deficits are noted. SKIN: Turgor is normal. No skin lesions are noted. GENITOURINARY AND RECTAL: Deferred. ASSESSMENT NOTES AND PLAN: This is a 77-year-old female who was admitted with symptomatic anemia via the Emergency Room with dark stools, melanotic stools, had workup, found to have diverticular bleeding in the left splenic flexure of the colon. Upper endoscopy did not reveal any acute event. Patient's Plavix was stopped. She received both platelets and blood transfusion. Clinical condition is stabilized and transferred to the TCU for deconditioning. We will continue to monitor her blood count while in the TCU. She is off the Plavix and just resumed the aspirin. As far as breast cancer medicines are concerned, the aromatase inhibitors are on hold right now until we are completely satisfied with her clinical condition, then we can resume with again as an outpatient. We will continue to monitor the patient's hemogram and make appropriate recommendations. Spoke to the patient and the family in great detail. Time spent with the patient is greater than 45 minutes. We will continue to monitor her while in the TCU. Labs for the morning have been requested. Thanking you Dr. Salas for allowing me to participate in the management of this patient. Memo Beebe MD
--- NOTE | 2018-01-27 08:11 | CP.PCM.PN ---
Subjective - Date & Time of Evaluation Date of Evaluation: 01/27/18 Time of Evaluation: 06:40 - Subjective Subjective: Denies shortness of breath,awake,alert Reason for consultation: Continuity of care in TCU, History of NSTEMI 11/2017 and PTCA with bare metal stent was done to the ostial RCA occlusion, hypertension,anemia Seen and examined by me and Dr. Dickson Objective - Vital Signs/Intake and Output Vital Signs (last 24 hours): Temp Pulse Resp BP Pulse Ox 98.8 F 69 16 166/78 H 92 L 01/27/18 04:53 01/26/18 17:41 01/26/18 16:00 01/26/18 17:41 01/26/18 16:00 - Medications Medications: Current Medications Acetaminophen (Tylenol 325mg Tab) 650 mg PO Q4H PRN PRN Reason: Pain, Mild (1-3) Last Admin: 01/27/18 04:53 Dose: 650 mg Amlodipine Besylate (Norvasc) 10 mg PO DAILY [facility] PRN Reason: Protocol Last Admin: 01/26/18 09:46 Dose: 10 mg Isosorbide Mononitrate (Imdur Er) 30 mg PO DAILY [facility] PRN Reason: Protocol Last Admin: 01/26/18 09:46 Dose: 30 mg Lidocaine (Lidocaine 5%) 0 gm TOP TID [facility] Last Admin: 01/26/18 17:40 Dose: 1 applic Magnesium Oxide (Mag-Ox) 400 mg PO BID [facility] Last Admin: 01/26/18 17:41 Dose: 400 mg Metoprolol Tartrate (Lopressor) 50 mg PO 0800,1800 [facility] Last Admin: 01/26/18 17:41 Dose: 50 mg Ondansetron HCl (Zofran Inj) 4 mg IVP Q4H PRN PRN Reason: Nausea/Vomiting Pantoprazole Sodium (Protonix Ec Tab) 40 mg PO 0600,1600 [facility] - Labs Labs: 01/27/18 05:30 01/27/18 05:30 - Constitutional Appears: No Acute Distress - Eye Exam Eye Exam: Normal appearance - ENT Exam ENT Exam: Mucous Membranes Moist - Respiratory Exam Respiratory Exam: Decreased Breath Sounds, NORMAL BREATHING PATTERN - Cardiovascular Exam Cardiovascular Exam: +S1, +S2 - GI/Abdominal Exam GI & Abdominal Exam: Soft, Normal Bowel Sounds - Extremities Exam Extremities Exam: Normal Capillary Refill - Neurological Exam Neurological Exam: Alert, Awake, Oriented x3 - Psychiatric Exam Psychiatric exam: Normal Affect - Skin Skin Exam: Dry, Warm Assessment and Plan - Assessment and Plan (Free Text) Assessment: A 77 year old female who came in to the ER due to GI bleeding,blood transfusion given, discontinued Plavix, post colonoscopy. History of NSTEMI 11/2017 and PTCA with bare metal stent was done to the ostial RCA occlusion. history of breast cancer, colon cancer,brain tumor and had craniotomy at Only a year ago.History of hypertension. Came in for anemia, blood transfusion administered and hemoglobin stabilized.Transferred to TCU for reconditioning.Physical therapy in progress. Plan: Denies any complaints Physical therapy in progress Cardiac status stable On Norvasc 10 mg daily, Imdur ER 30 mg daily,Lopressor 50 mg BID, Continue current treatment Continue current medications Monitor H/H-9.5 & 28.8 today Discharge planning Will follow up Plan and treatment discussed with Dr. Dickson
[2018-01-27] MEDS: Lidocaine 5% Oint(35 gm) TOP SCH ×3 (10:06→17:08)
[2018-01-27] MEDS: Magnesium Oxide 400 mg Tab UD PO SCH ×2 (10:06→17:09)
--- NOTE | 2018-01-27 13:34 | CP.PCM.PN ---
<Carlos Up - Last Filed: 01/27/18 13:36> Subjective - Date & Time of Evaluation Date of Evaluation: 01/27/18 Time of Evaluation: 07:30 - Subjective Subjective: PGY5 GI followup Pt seen and examined bedside denies any additional bleeding tolerating diet ROS: 12 point ROS conducted, neg other than above Objective - Vital Signs/Intake and Output Vital Signs (last 24 hours): Temp Pulse Resp BP Pulse Ox 98.8 F 84 16 148/76 92 L 01/27/18 04:53 01/27/18 08:21 01/26/18 16:00 01/27/18 10:06 01/26/18 16:00 - Medications Medications: Current Medications Acetaminophen (Tylenol 325mg Tab) 650 mg PO Q4H PRN PRN Reason: Pain, Mild (1-3) Last Admin: 01/27/18 04:53 Dose: 650 mg Amlodipine Besylate (Norvasc) 10 mg PO DAILY [facility] PRN Reason: Protocol Last Admin: 01/27/18 10:06 Dose: 10 mg Isosorbide Mononitrate (Imdur Er) 30 mg PO DAILY [facility] PRN Reason: Protocol Last Admin: 01/27/18 10:06 Dose: 30 mg Lidocaine (Lidocaine 5%) 0 gm TOP TID [facility] Last Admin: 01/27/18 10:06 Dose: 1 applic Magnesium Oxide (Mag-Ox) 400 mg PO BID [facility] Last Admin: 01/27/18 10:06 Dose: 400 mg Metoprolol Tartrate (Lopressor) 50 mg PO 0800,1800 [facility] Last Admin: 01/27/18 08:21 Dose: 50 mg Ondansetron HCl (Zofran Inj) 4 mg IVP Q4H PRN PRN Reason: Nausea/Vomiting Pantoprazole Sodium (Protonix Ec Tab) 40 mg PO 0600,1600 [facility] - Labs Labs: 01/27/18 05:30 01/27/18 05:30 - Constitutional Appears: Well, No Acute Distress - Head Exam Head Exam: ATRAUMATIC, NORMOCEPHALIC - Eye Exam Eye Exam: Normal appearance Pupil Exam: NORMAL ACCOMODATION - ENT Exam ENT Exam: Mucous Membranes Moist, Normal Exam - Neck Exam Neck Exam: Normal Inspection - Respiratory Exam Respiratory Exam: Clear to Ausculation Bilateral, NORMAL BREATHING PATTERN. absent: Prolonged Expiratory Phase, Rales, Rhonchi - GI/Abdominal Exam GI & Abdominal Exam: Soft, Normal Bowel Sounds. absent: Distended, Firm, Guarding, Rigid, Tenderness, Organomegaly - Extremities Exam Extremities Exam: absent: Joint Swelling, Pedal Edema - Neurological Exam Neurological Exam: Alert, Awake, Oriented x3 - Psychiatric Exam Psychiatric exam: Normal Affect, Normal Mood - Skin Skin Exam: Dry, Intact, Normal Color, Warm Assessment and Plan - Assessment and Plan (Free Text) Assessment: This is a 77 yo F with PMH of breast cancer s/p lumpectomy, gastric GIST s/p partial gastrectomy, colon cancer s/p Right hemicolectomy, HTN, GI bleed, NSTEMI s/p bare-metal stent 12/25 on aspirin/plavix who presented to the ED with bloody diarrhea/BRBPR for 1 day prior to presentation. Bleeding scan indicates splenic flexure as the source, however colonoscopy revealed no active bleed and no ischemic collitis. Plan: -hgb stable and no further GI bleeding -Goal Hgb is 9 in setting of active cardiac disease (NSTEMI s/p bare-metal stent ~1 month prior) -As per Cardio, Bare-metal stent placed, no further plavix, aspirin restarted -Bleeding scan indicates splenic flexure was area of bleed, but Colonoscopy did not show acute bleed (only some blood pooled in diverticula), no ischemic collitis -likely diverticular bleed, now stopped, IR embolization not needed at this time -Surgery also consulted on this patient; reports not a surgical candidate -Tolerating diet, advance as tolerated D/W Cinthya <Cinthya,Kovil V - Last Filed: 01/27/18 18:24> Objective - Vital Signs/Intake and Output Vital Signs (last 24 hours): Temp Pulse Resp BP Pulse Ox 98.7 F 75 20 145/78 96 01/27/18 17:00 01/27/18 17:09 01/27/18 17:00 01/27/18 17:09 01/27/18 17:00 - Medications Medications: Current Medications Acetaminophen (Tylenol 325mg Tab) 650 mg PO Q4H PRN PRN Reason: Pain, Mild (1-3) Last Admin: 01/27/18 04:53 Dose: 650 mg Amlodipine Besylate (Norvasc) 10 mg PO DAILY [facility] PRN Reason: Protocol Last Admin: 01/27/18 10:06 Dose: 10 mg Isosorbide Mononitrate (Imdur Er) 30 mg PO DAILY [facility] PRN Reason: Protocol Last Admin: 01/27/18 10:06 Dose: 30 mg Lidocaine (Lidocaine 5%) 0 gm TOP TID [facility] Last Admin: 01/27/18 17:08 Dose: 1 applic Magnesium Oxide (Mag-Ox) 400 mg PO BID [facility] Last Admin: 01/27/18 17:09 Dose: 400 mg Metoprolol Tartrate (Lopressor) 50 mg PO 0800,1800 [facility] Last Admin: 01/27/18 17:09 Dose: 50 mg Ondansetron HCl (Zofran Inj) 4 mg IVP Q4H PRN PRN Reason: Nausea/Vomiting Pantoprazole Sodium (Protonix Ec Tab) 40 mg PO 0600,1600 [facility] Last Admin: 01/27/18 17:00 Dose: 40 mg - Labs Labs: 01/27/18 05:30 01/27/18 05:30 Attending/Attestation - Attestation I have personally seen and examined this patient.: Yes I have fully participated in the care of the patient.: Yes I have reviewed all pertinent clinical information, including history, physical exam and plan: Yes Notes (Text): This is an addendum to GI progress report dictated by the GI Fellow.The patient was seen and examined earlier. Medical records, lab studies, imagings were reviewed. Last 24 hours events reviewed. Agreed with the above treatment plan as outlined in GI Fellow 's notes the with the addition of the following patient is tolerating diet Hemoglobin stable Close follow-up of hemoglobin and iron supplement No further GI workup at present Discussed with the patient's family earlier 01/27/18 18:23
[2018-01-27] MEDS: Pantoprazole 40 mg EC Tab PO SCH (17:00)
--- NOTE | 2018-01-28 03:16 | PN ---
DATE: 01/27/2018 LOCATION: Patient is in TCU room 304, bed 1. REASON FOR CONSULTATION: This is a Hematology/Oncology consultation for followup on the blood count. Patient was admitted to the acute side and now in TCU for deconditioning. Reason for consultation is continuity of care and follow up on her heme/onc status. Patient has multiple cancers and was admitted to the acute side with severe symptomatic anemia, requiring blood transfusion, was found to have diverticular bleeding, which has stabilized after blood and platelet transfusions and plasma infusion as well. Patient's Plavix was stopped. Aspirin has been continued. Patient has a bare metal stent put on 12/01/2017 for ostial occlusion, and hypertension. Patient has bilateral carcinoma of the breasts, on aromatase inhibitors, status post lumpectomy and radiation, history of gastrointestinal stromal cell tumor status post excision, status post 2 years of Gleevec based adjuvant therapy, history of colon carcinoma, status post primary resection, on new adjuvant treatment, currently in the hospital for symptomatic care and deconditioning post acute symptomatic anemia and treatment. REVIEW OF SYSTEMS: Patient denies any shortness of breath. She is awake and alert. No history of nausea or vomiting. No history of hematemesis or hematochezia. Bowel movements are normal. PHYSICAL EXAMINATION: GENERAL: Patient is examined at the bed, out of bed into chair. Patient is awake, alert, and oriented, in no acute distress. VITAL SIGNS: T-max was 98.4, pulse 69, respirations 16 per minute, blood pressure is 156/78, pulse ox is 92% on room air. Vital signs are stable. HEENT: Head is normocephalic, atraumatic. Conjunctivae pale. Sclerae is anicteric. Pupils are equally reactive to light and accommodation. Examination of the oropharynx reveals tongue to be moist. No ulcerations are noted. There is no evidence of any fungal infection or any other ulcerations on the tongue. LUNGS: Clear to percussion and auscultation. Decreased breath sounds in the bases. CARDIOVASCULAR: Reveals PMI in the fifth intercostal space, inside the midclavicular line. S1 and S2 are normal. No gallop or murmur is heard. ABDOMEN: Soft and nontender. Keloid is noted, scar of surgery, which is slightly tender. Liver and spleen are not palpable. No rebound, rigidity or guarding is demonstrable on abdominal exam. EXTREMITIES: Reveals no cyanosis, clubbing or edema. NEUROLOGIC: Reveals higher functions to be normal. No focal deficits are noted. Plantars are flexors. SKIN: Turgor is normal. No skin lesions are noted. GENITOURINARY AND RECTAL: Deferred. MEDICATIONS: Patient's medications were reviewed, are unchanged. She is on Tylenol 650 every 4 hours p.r.n., amlodipine 10 mg daily, Imdur 30 mg p.o. daily. She is on lidocaine patch to affected areas until needed for pain, mag oxide 400 b.i.d., metoprolol 50 mg p.o. daily, Zofran 4 mg IV every 4 hours p.r.n., pantoprazole 40 mg p.o. daily. She is off the aromatase inhibitors at this point in time. LABORATORY DATA: White count is 6 with a hemoglobin of 9.5, hematocrit 28.8, platelet count is 177,000. Sodium 141, K is 3.7, chloride is 108, CO2 is 26, BUN is 25, creatinine 1.4, with blood sugar of 86. ASSESSMENT, NOTES, AND PLAN: This is a 77-year-old female with multiple cancers, history of Hurthle cell carcinoma of the thyroid, history of meningioma of the brain, resected, history of bilateral breast cancer, history of tumor, history of colon carcinoma, apparently in the hospital because of symptomatic anemia, requiring transfusion, documented to have diverticular bleeding, off of Plavix, now currently only on aspirin. She is in the TCU for deconditioning. Currently the blood count appears to be stable. Spoke with Dr. Iverson. We will continue the current medications without being aggressive. We will hold off on the aromatase inhibitor till the patient is ready to be discharged and continue this an outpatient. Routine post exam instructions have been given to the patient. Patient did receive one dose of Aranesp while on the acute side. We will continue to monitor the patient and then make further decisions. Time spent with the patient is greater than 45 minutes, out of which more than 50% of the time was spent in face to face contact. Spoken in great detail to the patient's daughter as well, and we will plan accordingly as to further management as an outpatient. Please make a note this is a medically necessary and appropriate visit for this patient with multiple comorbid medical issues. Memo Beebe MD
[2018-01-28] MEDS: Pantoprazole 40 mg EC Tab PO SCH ×2 (06:18→16:31)
--- NOTE | 2018-01-28 07:47 | CP.PCM.PN ---
Subjective - Date & Time of Evaluation Date of Evaluation: 01/28/18 Time of Evaluation: 06:35 - Subjective Subjective: Awake,in bed, denies shortness of breath Reason for consultation: Continuity of care in TCU, History of NSTEMI 11/2017 and PTCA with bare metal stent was done to the ostial RCA occlusion, hypertension,anemia Seen and examined by me and Dr. Iverson Objective - Vital Signs/Intake and Output Vital Signs (last 24 hours): Temp Pulse Resp BP Pulse Ox 98.7 F 75 20 145/78 96 01/27/18 17:00 01/27/18 17:09 01/27/18 17:00 01/27/18 17:09 01/27/18 17:00 - Medications Medications: Current Medications Acetaminophen (Tylenol 325mg Tab) 650 mg PO Q4H PRN PRN Reason: Pain, Mild (1-3) Last Admin: 01/27/18 21:20 Dose: 650 mg Amlodipine Besylate (Norvasc) 10 mg PO DAILY [facility] PRN Reason: Protocol Last Admin: 01/27/18 10:06 Dose: 10 mg Isosorbide Mononitrate (Imdur Er) 30 mg PO 0600 [facility] PR[facility] Reason: Protocol Last Admin: 01/28/18 06:18 Dose: 30 mg Lidocaine (Lidocaine 5%) 0 gm TOP TID [facility] Last Admin: 01/27/18 17:08 Dose: 1 applic Magnesium Oxide (Mag-Ox) 400 mg PO BID [facility] Last Admin: 01/27/18 17:09 Dose: 400 mg Metoprolol Tartrate (Lopressor) 50 mg PO 0800,1800 [facility] Last Admin: 01/27/18 17:09 Dose: 50 mg Ondansetron HCl (Zofran Inj) 4 mg IVP Q4H PRN PRN Reason: Nausea/Vomiting Pantoprazole Sodium (Protonix Ec Tab) 40 mg PO 0600,1600 [facility] Last Admin: 01/28/18 06:18 Dose: 40 mg - Labs Labs: 01/27/18 05:30 01/27/18 05:30 - Constitutional Appears: No Acute Distress - Eye Exam Eye Exam: Normal appearance - ENT Exam ENT Exam: Mucous Membranes Moist - Respiratory Exam Respiratory Exam: Decreased Breath Sounds, Clear to Ausculation Bilateral, NORMAL BREATHING PATTERN - Cardiovascular Exam Cardiovascular Exam: +S1, +S2 - GI/Abdominal Exam GI & Abdominal Exam: Soft, Normal Bowel Sounds - Extremities Exam Extremities Exam: Normal Capillary Refill - Neurological Exam Neurological Exam: Alert, Awake, Oriented x3 - Psychiatric Exam Psychiatric exam: Normal Affect - Skin Skin Exam: Dry, Warm Assessment and Plan - Assessment and Plan (Free Text) Assessment: A 77 year old female who came in to the ER due to GI bleeding,blood transfusion given, discontinued Plavix, post colonoscopy. History of NSTEMI 11/2017 and PTCA with bare metal stent was done to the ostial RCA occlusion (no need to have plavix and aspirin) history of breast cancer, colon cancer,brain tumor and had craniotomy at [place] a year ago.History of hypertension. Came in for anemia , blood transfusion administered and hemoglobin stabilized.Transferred to TCU for reconditioning.Physical therapy in progress.Stable hemoglobin and hematocrit. Plan: Physical therapy in progress Cardiac status stable On Norvasc 10 mg daily, Imdur ER 30 mg daily,Lopressor 50 mg BID, Continue current treatment Continue current medications H/H stable, no evidence of bleeding Discharge planning Will follow up Plan and treatment discussed with Dr. Iverson
[2018-01-28] MEDS: Magnesium Oxide 400 mg Tab UD PO SCH ×2 (10:15→17:52)
[2018-01-28] MEDS: Lidocaine 5% Oint(35 gm) TOP SCH ×3 (10:15→17:51)
--- NOTE | 2018-01-28 11:27 | CP.PCM.PN ---
<Critsi Thrasher - Last Filed: 01/28/18 11:59> Subjective - Date & Time of Evaluation Date of Evaluation: 01/28/18 Time of Evaluation: 09:25 - Subjective Subjective: Cristi Thrasher DO, PGY-2: GI progress note for Dr. Mendes Patient was seen and examined at bedside. She denies any blood per rectum, nausea, vomiting, diarrhea or abdominal pain. Chart review indicates no adverse events overnight. We recommend obtained CBC twice weekly. Objective - Vital Signs/Intake and Output Vital Signs (last 24 hours): Temp Pulse Resp BP Pulse Ox 98.7 F 72 20 174/82 H 96 01/27/18 17:00 01/28/18 08:34 01/27/18 17:00 01/28/18 10:15 01/27/18 17:00 - Medications Medications: Current Medications Acetaminophen (Tylenol 325mg Tab) 650 mg PO Q4H PRN PRN Reason: Pain, Mild (1-3) Last Admin: 01/27/18 21:20 Dose: 650 mg Amlodipine Besylate (Norvasc) 10 mg PO DAILY [facility] PRN Reason: Protocol Last Admin: 01/28/18 10:15 Dose: 10 mg Isosorbide Mononitrate (Imdur Er) 30 mg PO 0600 [facility] PRN Reason: Protocol Last Admin: 01/28/18 06:18 Dose: 30 mg Lidocaine (Lidocaine 5%) 0 gm TOP TID [facility] Last Admin: 01/28/18 10:15 Dose: 1 applic Magnesium Oxide (Mag-Ox) 400 mg PO BID [facility] Last Admin: 01/28/18 10:15 Dose: 400 mg Metoprolol Tartrate (Lopressor) 50 mg PO 0800,1800 [facility] Last Admin: 01/28/18 08:34 Dose: 50 mg Ondansetron HCl (Zofran Inj) 4 mg IVP Q4H PRN PRN Reason: Nausea/Vomiting Pantoprazole Sodium (Protonix Ec Tab) 40 mg PO 0600,1600 [facility] Last Admin: 01/28/18 06:18 Dose: 40 mg - Labs Labs: 01/27/18 05:30 01/27/18 05:30 - Constitutional Appears: Well, Non-toxic - Head Exam Head Exam: ATRAUMATIC, NORMOCEPHALIC - Eye Exam Eye Exam: EOMI, Normal appearance - ENT Exam ENT Exam: Mucous Membranes Moist - Neck Exam Neck Exam: Normal Inspection - Respiratory Exam Respiratory Exam: Clear to Ausculation Bilateral, NORMAL BREATHING PATTERN. absent: Accessory Muscle Use - Cardiovascular Exam Cardiovascular Exam: RRR, +S1, +S2 - GI/Abdominal Exam GI & Abdominal Exam: Soft, Normal Bowel Sounds - Extremities Exam Extremities Exam: Normal Inspection. absent: Calf Tenderness - Neurological Exam Neurological Exam: Alert, Awake, Oriented x3 - Psychiatric Exam Psychiatric exam: Normal Affect, Normal Mood - Skin Skin Exam: Dry, Intact, Normal Color, Warm Assessment and Plan - Assessment and Plan (Free Text) Assessment: 77 yo female with a past medical history of breast cancer s/p lumpectomy, gastric GIST s/p partial gastrectomy, colon cancer s/p Right hemicolectomy, HTN , GI bleed, NSTEMI s/p bare-metal stent 12/25 on aspirin/plavix who presented to the ED with bloody diarrhea/BRBPR for 1 day prior to presentation. Bleeding scan indicates splenic flexure as the source, however colonoscopy revealed no active bleed and no ischemic collitis. Plan: -hgb stable and no further GI bleeding -Goal Hgb is 9 in setting of active cardiac disease (NSTEMI s/p bare-metal stent ~1 month prior) -As per Cardio, Bare-metal stent placed, no further plavix and patient can continue aspirin -Bleeding scan indicates splenic flexure was area of bleed, but Colonoscopy did not show acute bleed (only some blood pooled in diverticula), no ischemic collitis -likely diverticular bleed, now stopped, IR embolization not needed at this time -Surgery also consulted on this patient; reports not a surgical candidate -Tolerating diet, advance as tolerated We will continue to follow the patient while in house Case was reviewed and discussed with attending physician, Dr. Mendes <Adolfo Mendes V - Last Filed: 01/28/18 21:37> Objective - Vital Signs/Intake and Output Vital Signs (last 24 hours): Temp Pulse Resp BP Pulse Ox 98.7 F 71 18 154/73 H 98 01/28/18 16:00 01/28/18 17:51 01/28/18 16:00 01/28/18 17:51 01/28/18 16:32 Intake and Output: 01/28/18 01/29/18 18:59 06:59 Intake Total 360 Balance 360 - Medications Medications: Current Medications Acetaminophen (Tylenol 325mg Tab) 650 mg PO Q4H PRN PRN Reason: Pain, Mild (1-3) Last Admin: 01/28/18 11:43 Dose: 650 mg Amlodipine Besylate (Norvasc) 10 mg PO DAILY [facility] PRN Reason: Protocol Last Admin: 01/28/18 10:15 Dose: 10 mg Isosorbide Mononitrate (Imdur Er) 30 mg PO 0600 [facility] PRN Reason: Protocol Last Admin: 01/28/18 06:18 Dose: 30 mg Lidocaine (Lidocaine 5%) 0 gm TOP TID [facility] Last Admin: 01/28/18 17:51 Dose: 1 applic Magnesium Oxide (Mag-Ox) 400 mg PO BID [facility] Last Admin: 01/28/18 17:52 Dose: 400 mg Metoprolol Tartrate (Lopressor) 50 mg PO 0800,1800 [facility] Last Admin: 01/28/18 17:51 Dose: 50 mg Ondansetron HCl (Zofran Inj) 4 mg IVP Q4H PRN PRN Reason: Nausea/Vomiting Pantoprazole Sodium (Protonix Ec Tab) 40 mg PO 0600,1600 [facility] Last Admin: 01/28/18 16:31 Dose: 40 mg - Labs Labs: 01/27/18 05:30 01/27/18 05:30 Attending/Attestation - Attestation I have personally seen and examined this patient.: Yes I have fully participated in the care of the patient.: Yes I have reviewed all pertinent clinical information, including history, physical exam and plan: Yes Notes (Text): This is an addendum to GI followup report dictated by the [employer].The patient was seen an that we need to change it here d examined earlier. Medical records, lab studies, imagings were reviewed. Last 24 hours events reviewed. Agreed with the above treatment plan as outlined in [employer] 's notes the with the addition of the following status post large GI bleeding probably diverticular tolerating the diet No complaints of abdominal pain Follow-up hemoglobin hematoct History of gallstones asymptomatic now Stool softeners when necessary 01/28/18 21:35
[2018-01-28 16:32] VITALS: RESP 18
--- NOTE | 2018-01-28 19:06 | CP.PCM.PN ---
Subjective - Date & Time of Evaluation Date of Evaluation: 01/28/18 Time of Evaluation: 18:59 - Subjective Subjective: Giovanna Gooden, PGY2, Heme-Onc Progress Note for Dr Beebe: Patient seen and examined at bedside. No acute events overnight. Reports lower extremity swelling, mildly improved with lidocaine gel. States that she uses JAZMIN wrap as well, instructed to wear the wrap while walking. Denies cp, sob, nausea, vomiting, fever, chills, abdominal pain, hematochezia, melena. Reports soft brown BM this AM. Objective - Vital Signs/Intake and Output Vital Signs (last 24 hours): Temp Pulse Resp BP Pulse Ox 98.7 F 71 18 154/73 H 98 01/28/18 16:00 01/28/18 17:51 01/28/18 16:00 01/28/18 17:51 01/28/18 16:32 - Medications Medications: Current Medications Acetaminophen (Tylenol 325mg Tab) 650 mg PO Q4H PRN PRN Reason: Pain, Mild (1-3) Last Admin: 01/28/18 11:43 Dose: 650 mg Amlodipine Besylate (Norvasc) 10 mg PO DAILY [facility] PRN Reason: Protocol Last Admin: 01/28/18 10:15 Dose: 10 mg Isosorbide Mononitrate (Imdur Er) 30 mg PO 0600 [facility] PRN Reason: Protocol Last Admin: 01/28/18 06:18 Dose: 30 mg Lidocaine (Lidocaine 5%) 0 gm TOP TID [facility] Last Admin: 01/28/18 17:51 Dose: 1 applic Magnesium Oxide (Mag-Ox) 400 mg PO BID [facility] Last Admin: 01/28/18 17:52 Dose: 400 mg Metoprolol Tartrate (Lopressor) 50 mg PO 0800,1800 [facility] Last Admin: 01/28/18 17:51 Dose: 50 mg Ondansetron HCl (Zofran Inj) 4 mg IVP Q4H PRN PRN Reason: Nausea/Vomiting Pantoprazole Sodium (Protonix Ec Tab) 40 mg PO 0600,1600 [facility] Last Admin: 01/28/18 16:31 Dose: 40 mg - Labs Labs: 01/27/18 05:30 01/27/18 05:30 - Constitutional Appears: Non-toxic, No Acute Distress, Chronically Ill - Head Exam Head Exam: ATRAUMATIC, NORMOCEPHALIC - Eye Exam Eye Exam: EOMI, PERRL. absent: Conjunctival injection, Nystagmus, Scleral icterus Pupil Exam: NORMAL ACCOMODATION, PERRL. absent: Irregular, Miosis, Mydriatic, Unequal - ENT Exam ENT Exam: Mucous Membranes Moist - Neck Exam Neck Exam: Full ROM - Respiratory Exam Respiratory Exam: Clear to Ausculation Bilateral, NORMAL BREATHING PATTERN. absent: Chest Wall Tenderness, Rales, Rhonchi, Respiratory Distress, Stridor - Cardiovascular Exam Cardiovascular Exam: RRR, +S1, +S2. absent: Murmur - GI/Abdominal Exam GI & Abdominal Exam: Soft, Normal Bowel Sounds. absent: Firm, Guarding, Rigid, Tenderness, Mass, Organomegaly, Rebound - Extremities Exam Extremities Exam: Pedal Edema, Tenderness - Back Exam Back Exam: NORMAL INSPECTION - Neurological Exam Neurological Exam: Alert, Awake, Oriented x3 - Psychiatric Exam Psychiatric exam: Normal Affect, Normal Mood - Skin Skin Exam: Dry, Normal Color, Warm Assessment and Plan - Assessment and Plan (Free Text) Assessment: 77 year old female with PMH GIST (s/p partial gastrectomy), colon CA (s/p R hemicolectomy), breast CA (s/p lumpectomy, on letrozole), NSTEMI (s/p bare metal stent on 12/25/17, on plavix and ASA), HTN, and gout, initially admitted [place] [facility] [place] GI bleed 2/2 likely diverticular bleed, s/p 6 unit prbcs and 1 unit FFP transfusion. This has now stabilized, patient transferred to TCU for further rehab and management: - Aranesp 100 mcg IM weekly, continue outpatient - LE doppler neg for DVT. Podiatry consulted for lower extremity pain - c/w ASA. hold plavix - rehab as per PT - Lidocaine 5% ointment b/l to feet - c/w JAZMIN wrap, elevated legs while sitting/lying down Case seen and discussed with Dr Beebe.
[2018-01-29] MEDS: Pantoprazole 40 mg EC Tab PO SCH ×2 (06:13→16:57)
--- NOTE | 2018-01-29 06:36 | CP.PCM.PN ---
Subjective - Date & Time of Evaluation Date of Evaluation: 01/29/18 Time of Evaluation: 06:30 - Subjective Subjective: no distress,awake,in bed, denies shortness of breath Reason for consultation: Continuity of care in TCU, History of NSTEMI 11/2017 and PTCA with bare metal stent was done to the ostial RCA occlusion, hypertension,anemia Seen and examined by me and Dr. Iverson Objective - Vital Signs/Intake and Output Vital Signs (last 24 hours): Temp Pulse Resp BP Pulse Ox 98.7 F 71 18 154/73 H 98 01/28/18 16:00 01/28/18 17:51 01/28/18 16:00 01/28/18 17:51 01/28/18 16:32 Intake and Output: 01/28/18 01/29/18 18:59 06:59 Intake Total 360 Balance 360 - Medications Medications: Current Medications Acetaminophen (Tylenol 325mg Tab) 650 mg PO Q4H PRN PRN Reason: Pain, Mild (1-3) Last Admin: 01/29/18 01:02 Dose: 650 mg Amlodipine Besylate (Norvasc) 10 mg PO DAILY [facility] PRN Reason: Protocol Last Admin: 01/28/18 10:15 Dose: 10 mg Isosorbide Mononitrate (Imdur Er) 30 mg PO 0600 [facility] PRN Reason: Protocol Last Admin: 01/29/18 06:13 Dose: 30 mg Lidocaine (Lidocaine 5%) 0 gm TOP TID [facility] Last Admin: 01/28/18 17:51 Dose: 1 applic Magnesium Oxide (Mag-Ox) 400 mg PO BID [facility] Last Admin: 01/28/18 17:52 Dose: 400 mg Metoprolol Tartrate (Lopressor) 50 mg PO 0800,1800 [facility] Last Admin: 01/28/18 17:51 Dose: 50 mg Ondansetron HCl (Zofran Inj) 4 mg IVP Q4H PRN PRN Reason: Nausea/Vomiting Pantoprazole Sodium (Protonix Ec Tab) 40 mg PO 0600,1600 [facility] Last Admin: 01/29/18 06:13 Dose: 40 mg - Labs Labs: 01/27/18 05:30 01/27/18 05:30 - Constitutional Appears: No Acute Distress - Eye Exam Eye Exam: Normal appearance - ENT Exam ENT Exam: Mucous Membranes Moist - Respiratory Exam Respiratory Exam: Clear to Ausculation Bilateral, NORMAL BREATHING PATTERN - Cardiovascular Exam Cardiovascular Exam: +S1, +S2 - GI/Abdominal Exam GI & Abdominal Exam: Soft, Normal Bowel Sounds - Extremities Exam Extremities Exam: Normal Capillary Refill - Neurological Exam Neurological Exam: Alert, Awake, Oriented x3 - Psychiatric Exam Psychiatric exam: Normal Affect - Skin Skin Exam: Dry, Warm Assessment and Plan - Assessment and Plan (Free Text) Assessment: A 77 year old female who came in to the ER due to GI bleeding,blood transfusion given, discontinued Plavix, post colonoscopy. History of NSTEMI 11/2017 and PTCA with bare metal stent was done to the ostial RCA occlusion (no need to have plavix and aspirin) history of breast cancer, colon cancer,brain tumor and had craniotomy at [place] a year ago.History of hypertension. Came in for anemia , blood transfusion administered and hemoglobin stabilized.Transferred to TCU for reconditioning.Physical therapy in progress.Stable hemoglobin and hematocrit. Plan: Doing well with physical therapy Ambulating with walker Cardiac status stable On Norvasc 10 mg daily, Imdur ER 30 mg daily,Lopressor 50 mg BID Will restart aspirin Continue current treatment Continue current medications Stable hemoglobin Discharge planning Will follow up Plan and treatment discussed with Dr. Iverson
[2018-01-29 10:02] VITALS: TEMP 97.1; O2SAT 97
[2018-01-29] MEDS: Magnesium Oxide 400 mg Tab UD PO SCH ×2 (10:24→17:17)
[2018-01-29] MEDS: Lidocaine 5% Oint(35 gm) TOP SCH ×3 (10:32→17:16)
--- NOTE | 2018-01-29 12:52 | CP.PCM.CON ---
<Julius Cai - Last Filed: 01/29/18 12:46> History of Present Illness - History of Present Illness History of Present Illness: Podiatry consult note for Dr. Connie GuzmanF with PMHx NSTEMI 11/2017 and PTCA with bare metal stent, breast CA, colon CA , brain tumor with craniotomy at [place] a year ago, HTN, gout seen at bedside complaining of left ankle pain that she says has begun since her arrival to the hospital. Patient states that the onset of pain has been gradual and is localized to the outside of her left ankle and top of her left foot. She describes the pain as aching and says that it becomes sharp when it is touched. She also says that the pain increases with range of motion. She denies any pain to her posterior calf when it is squeezed. She is AAO x 3 and NAD at time of visit. Denies any acute overnight events or any further pedal complaints at this time. Denies any recent N/V/F/C/CP/SOB/D. Review of Systems - Review of Systems All systems: reviewed and no additional remarkable complaints except Review of Systems: as per HPI Past Patient History - Infectious Disease Hx of Infectious Diseases: None - Tetanus Immunizations Tetanus Immunization: Unknown - Past Social History Smoking Status: Never Smoked - CARDIAC Hx Congestive Heart Failure: Yes Hx Hypertension: Yes - PULMONARY Hx Respiratory Disorders: No - NEUROLOGICAL Hx Neurological Disorder: No - HEENT Hx HEENT Problems: (WEARS RX GLASSES) - RENAL Hx Chronic Kidney Disease: No - ENDOCRINE/METABOLIC Hx Endocrine Disorders: No - HEMATOLOGICAL/ONCOLOGICAL Hx Blood Transfusions: No Hx Blood Transfusion Reaction: No - INTEGUMENTARY Hx Dermatological Problems: No - MUSCULOSKELETAL/RHEUMATOLOGICAL Hx Arthritis: Yes - GASTROINTESTINAL Hx Gastrointestinal Disorders: Yes Hx Pancreatitis: Yes Other/Comment: hx colon ca,GI BLEED 09-13-16, - GENITOURINARY/GYNECOLOGICAL Hx Genitourinary Disorders: No - PSYCHIATRIC Hx Psychophysiologic Disorder: No - SURGICAL HISTORY Hx Surgeries: Yes - ANESTHESIA Hx Anesthesia Reactions: No Hx Malignant Hyperthermia: No Meds Allergies/Adverse Reactions: Allergies Allergy/AdvReac Type Severity Reaction Status Date / Time No Known Allergies Allergy Verified 01/18/18 23:23 - Medications Medications: Current Medications Acetaminophen (Tylenol 325mg Tab) 650 mg PO Q4H PRN PRN Reason: Pain, Mild (1-3) Last Admin: 01/29/18 10:25 Dose: 650 mg Amlodipine Besylate (Norvasc) 10 mg PO DAILY [facility] PRN Reason: Protocol Last Admin: 01/29/18 10:24 Dose: 10 mg Aspirin (Ecotrin) 81 mg PO 0800 [facility] Isosorbide Mononitrate (Imdur Er) 30 mg PO 0600 [facility] PRN Reason: Protocol Last Admin: 01/29/18 06:13 Dose: 30 mg Lidocaine (Lidocaine 5%) 0 gm TOP TID [facility] Last Admin: 01/29/18 10:32 Dose: 1 applic Magnesium Oxide (Mag-Ox) 400 mg PO BID [facility] Last Admin: 01/29/18 10:24 Dose: 400 mg Metoprolol Tartrate (Lopressor) 50 mg PO 0800,1800 [facility] Last Admin: 01/29/18 07:47 Dose: 50 mg Ondansetron HCl (Zofran Inj) 4 mg IVP Q4H PRN PRN Reason: Nausea/Vomiting Pantoprazole Sodium (Protonix Ec Tab) 40 mg PO 0600,1600 [facility] Last Admin: 01/29/18 06:13 Dose: 40 mg Physical Exam - Constitutional Appears: Well, Non-toxic, No Acute Distress - Head Exam Head Exam: ATRAUMATIC, NORMOCEPHALIC - Extremities Exam Additional comments: B/l LE focused exam: Vasc: DP/PT pulses fully palpable 2/4 b/l. Skin temperature warm to warm from proximal to distal. CFT < 3 seconds to all digits b/l. Moderate, non-pitting edema appreciated at level of lateral left malleolus and lateral foot Neuro: Epicritic and protective sensation grossly intact b/l Derm: No open lesions, wounds, maceration, xerosis, abnormal pigmentation or abnormal growths noted b/l MSK: POP to lateral left ankle and dorsal midfoot. Pain with ROM of left ankle joint without crepitus. ROM WNL. No other gross deformities needed. MMT 5/5 in all major muscle groups b/l - Neurological Exam Neurological exam: Alert, Oriented x3 - Psychiatric Exam Psychiatric exam: Normal Affect, Normal Mood Results - Vital Signs Recent Vital Signs: Last Vital Signs Temp 97.1 F L 01/29/18 10:00 Pulse 72 01/29/18 10:00 Resp 18 01/29/18 10:00 BP 148/74 01/29/18 10:24 Pulse Ox 97 01/29/18 10:00 - Labs Result Diagrams: 01/27/18 05:30 01/27/18 05:30 Assessment & Plan - Assessment and Plan (Free Text) Assessment: 77F seen at bedside complaining of new onset left lateral ankle pain Plan: Patient seen and evaluated with attending Dr. Rosales Afebrile, absent leukocytosis No dressing applied B/l ankle and foot xrays ordered Uric acid levels ordered No plan for surgical intervention at this time Podiatry will continue to follow while patient in house - Date & Time Date: 01/29/18 Time: 13:06 <Arik Rosales - Last Filed: 01/29/18 15:58> Meds - Medications Medications: Current Medications Acetaminophen (Tylenol 325mg Tab) 650 mg PO Q4H PRN PRN Reason: Pain, Mild (1-3) Last Admin: 01/29/18 10:25 Dose: 650 mg Amlodipine Besylate (Norvasc) 10 mg PO DAILY [facility] PRN Reason: Protocol Last Admin: 01/29/18 10:24 Dose: 10 mg Aspirin (Ecotrin) 81 mg PO 0800 [facility] Isosorbide Mononitrate (Imdur Er) 30 mg PO 0600 [facility] PRN Reason: Protocol Last Admin: 01/29/18 06:13 Dose: 30 mg Lidocaine (Lidocaine 5%) 0 gm TOP TID [facility] Last Admin: 01/29/18 10:32 Dose: 1 applic Magnesium Oxide (Mag-Ox) 400 mg PO BID [facility] Last Admin: 01/29/18 10:24 Dose: 400 mg Metoprolol Tartrate (Lopressor) 50 mg PO 0800,1800 [facility] Last Admin: 01/29/18 07:47 Dose: 50 mg Ondansetron HCl (Zofran Inj) 4 mg IVP Q4H PRN PRN Reason: Nausea/Vomiting Pantoprazole Sodium (Protonix Ec Tab) 40 mg PO 0600,1600 [facility] Last Admin: 01/29/18 06:13 Dose: 40 mg Results - Vital Signs Recent Vital Signs: Last Vital Signs Temp 97.1 F L 01/29/18 10:00 Pulse 72 01/29/18 10:00 Resp 18 07/31/18 10:00 BP 148/74 01/29/18 10:24 Pulse Ox 97 01/29/18 10:00 - Labs Result Diagrams: 01/27/18 05:30 01/27/18 05:30 Attending/Attestation - Attestation I have personally seen and examined this patient.: Yes I have fully participated in the care of the patient.: Yes I have reviewed all pertinent clinical information: Yes
--- NOTE | 2018-01-29 13:45 | CP.PCM.PN ---
Subjective - Date & Time of Evaluation Date of Evaluation: 01/29/18 Time of Evaluation: 13:42 - Subjective Subjective: Giovanna Gooden, PGY2, Heme-Onc Progress Note for Dr Beebe: Patient seen and examined at bedside. No acute events overnight. Reports improvement of her lower extremity pain. Denies cp, sob, nausea, vomiting, fever , chills, abdominal pain, hematochezia, melena. Objective - Vital Signs/Intake and Output Vital Signs (last 24 hours): Temp Pulse Resp BP Pulse Ox 97.1 F L 72 18 148/74 97 01/29/18 10:00 01/29/18 10:00 01/29/18 10:00 01/29/18 10:24 01/29/18 10:00 Intake and Output: 01/29/18 01/29/18 06:59 18:59 Intake Total 360 Balance 360 - Medications Medications: Current Medications Acetaminophen (Tylenol 325mg Tab) 650 mg PO Q4H PRN PRN Reason: Pain, Mild (1-3) Last Admin: 01/29/18 10:25 Dose: 650 mg Amlodipine Besylate (Norvasc) 10 mg PO DAILY [facility] PRN Reason: Protocol Last Admin: 01/29/18 10:24 Dose: 10 mg Aspirin (Ecotrin) 81 mg PO 0800 [facility] Isosorbide Mononitrate (Imdur Er) 30 mg PO 0600 [facility] PRN Reason: Protocol Last Admin: 01/29/18 06:13 Dose: 30 mg Lidocaine (Lidocaine 5%) 0 gm TOP TID [facility] Last Admin: 01/29/18 10:32 Dose: 1 applic Magnesium Oxide (Mag-Ox) 400 mg PO BID [facility] Last Admin: 01/29/18 10:24 Dose: 400 mg Metoprolol Tartrate (Lopressor) 50 mg PO 0800,1800 [facility] Last Admin: 01/29/18 07:47 Dose: 50 mg Ondansetron HCl (Zofran Inj) 4 mg IVP Q4H PRN PRN Reason: Nausea/Vomiting Pantoprazole Sodium (Protonix Ec Tab) 40 mg PO 0600,1600 [facility] Last Admin: 01/29/18 06:13 Dose: 40 mg - Labs Labs: 01/27/18 05:30 01/27/18 05:30 - Additional Findings Additional findings: - Constitutional Appears: Non-toxic, No Acute Distress, Chronically Ill - Head Exam Head Exam: ATRAUMATIC, NORMOCEPHALIC - Eye Exam Eye Exam: EOMI, PERRL. absent: Conjunctival injection, Nystagmus, Scleral icterus Pupil Exam: NORMAL ACCOMODATION, PERRL. absent: Irregular, Miosis, Mydriatic, Unequal - ENT Exam ENT Exam: Mucous Membranes Moist - Neck Exam Neck Exam: Full ROM - Respiratory Exam Respiratory Exam: Clear to Ausculation Bilateral, NORMAL BREATHING PATTERN. absent: Chest Wall Tenderness, Rales, Rhonchi, Respiratory Distress, Stridor - Cardiovascular Exam Cardiovascular Exam: RRR, +S1, +S2. absent: Murmur - GI/Abdominal Exam GI & Abdominal Exam: Soft, Normal Bowel Sounds. absent: Firm, Guarding, Rigid, Tenderness, Mass, Organomegaly, Rebound - Extremities Exam Extremities Exam: Pedal Edema, Tenderness - Back Exam Back Exam: NORMAL INSPECTION - Neurological Exam Neurological Exam: Alert, Awake, Oriented x3 - Psychiatric Exam Psychiatric exam: Normal Affect, Normal Mood - Skin Skin Exam: Dry, Normal Color, Warm Assessment and Plan - Assessment and Plan (Free Text) Assessment: 77 year old female with PMH GIST (s/p partial gastrectomy), colon CA (s/p R hemicolectomy), breast CA (s/p lumpectomy, on letrozole), NSTEMI (s/p bare metal stent on 12/25/17, on plavix and ASA), HTN, and gout, initially admitted to [facility] for GI bleed 2/2 likely diverticular bleed, s/p 6 unit prbcs and 1 unit FFP transfusion. This has now stabilized, patient transferred to TCU for further rehab and management: - Aranesp 100 mcg IM weekly, continue outpatient - LE doppler neg for DVT. Podiatry consulted for lower extremity pain - c/w ASA. hold plavix - rehab as per PT - Lidocaine 5% ointment b/l to feet - c/w JAZMIN wrap, elevated legs while sitting/lying down Case seen and discussed with Dr Beebe.
--- NOTE | 2018-01-29 14:09 | RAD ---
Date of service: 01/29/2018 PROCEDURE: Bilateral Feet Radiographs. HISTORY: Left foot pain COMPARISON: None. FINDINGS: BONES: Right Foot: Normal. No fracture. Left Foot: Normal. No fracture. JOINTS: Right Foot: Normal. No osteoarthritis. Left Foot: Normal. No osteoarthritis. SOFT TISSUES: Right Foot: Normal. Left Foot: Normal. OTHER FINDINGS: None. IMPRESSION: No acute findings
--- NOTE | 2018-01-29 14:10 | RAD ---
Date of service: 01/29/2018 PROCEDURE: Bilateral Ankle Radiographs. HISTORY: Left ankle pain COMPARISON: None FINDINGS: BONES: Right Ankle: Normal. No fracture. Left Ankle: Normal. No fracture. JOINTS: Right Ankle: Normal. No osteoarthritis. Ankle mortise maintained. Talar dome intact. Left Ankle: Normal. No osteoarthritis. Ankle mortise maintained. Talar dome intact. SOFT TISSUES: Right Ankle: Normal. Left Ankle: Normal. OTHER FINDINGS: None. IMPRESSION: Normal bilateral ankle radiographs.
[2018-01-30] MEDS: Pantoprazole 40 mg EC Tab PO SCH (05:54)
--- NOTE | 2018-01-30 06:50 | CP.PCM.PN ---
Subjective - Date & Time of Evaluation Date of Evaluation: 01/30/18 Time of Evaluation: 06:35 - Subjective Subjective: Awake,in bed, denies shortness of breath,no distress Reason for consultation: Continuity of care in TCU, History of NSTEMI 11/2017 and PTCA with bare metal stent was done to the ostial RCA occlusion, hypertension,anemia Seen and examined by me and Dr. Iverson Objective - Vital Signs/Intake and Output Vital Signs (last 24 hours): Temp Pulse Resp BP Pulse Ox 97.1 F L 71 18 154/73 H 97 01/29/18 10:00 01/29/18 17:16 01/29/18 10:00 01/29/18 17:16 01/29/18 16:20 Intake and Output: 01/29/18 01/30/18 18:59 06:59 Intake Total 280 Balance 280 - Medications Medications: Current Medications Acetaminophen (Tylenol 325mg Tab) 650 mg PO Q4H PRN PRN Reason: Pain, Mild (1-3) Last Admin: 01/29/18 22:40 Dose: 650 mg Amlodipine Besylate (Norvasc) 10 mg PO DAILY [facility] PRN Reason: Protocol Last Admin: 01/29/18 10:24 Dose: 10 mg Aspirin (Ecotrin) 81 mg PO 0800 [facility] Isosorbide Mononitrate (Imdur Er) 30 mg PO 0600 [facility] PRN Reason: Protocol Last Admin: 01/30/18 05:54 Dose: 30 mg Lidocaine (Lidocaine 5%) 0 gm TOP TID [facility] Last Admin: 01/29/18 17:16 Dose: 1 applic Magnesium Oxide (Mag-Ox) 400 mg PO BID [facility] Last Admin: 01/29/18 17:17 Dose: 400 mg Metoprolol Tartrate (Lopressor) 50 mg PO 0800,1800 [facility] Last Admin: 01/29/18 17:16 Dose: 50 mg Ondansetron HCl (Zofran Inj) 4 mg IVP Q4H PRN PRN Reason: Nausea/Vomiting Pantoprazole Sodium (Protonix Ec Tab) 40 mg PO 0600,1600 [facility] Last Admin: 01/30/18 05:54 Dose: 40 mg - Labs Labs: 01/27/18 05:30 01/27/18 05:30 - Constitutional Appears: No Acute Distress - Eye Exam Eye Exam: Normal appearance - ENT Exam ENT Exam: Mucous Membranes Moist - Respiratory Exam Respiratory Exam: Decreased Breath Sounds, Clear to Ausculation Bilateral, NORMAL BREATHING PATTERN - Cardiovascular Exam Cardiovascular Exam: +S1, +S2 - GI/Abdominal Exam GI & Abdominal Exam: Soft, Normal Bowel Sounds - Neurological Exam Neurological Exam: Alert, Awake, Oriented x3 - Psychiatric Exam Psychiatric exam: Normal Affect - Skin Skin Exam: Dry, Intact, Warm Assessment and Plan - Assessment and Plan (Free Text) Assessment: A 77 year old female who came in to the ER due to GI bleeding,blood transfusion given, discontinued Plavix, post colonoscopy. History of NSTEMI 11/2017 and PTCA with bare metal stent was done to the ostial RCA occlusion (no need to have plavix and aspirin) history of breast cancer, colon cancer,brain tumor and had craniotomy at [place] a year ago.History of hypertension. Came in for anemia , blood transfusion administered and hemoglobin stabilized.Transferred to TCU for reconditioning.Physical therapy in progress.Stable hemoglobin and hematocrit. Podiatry on consult for left ankle pain. Plan: Seen and evaluated by Podiatry for left ankle pain Negative for DVT Elevated uric acid, will start Allupurinol Ambulating with walker Cardiac status stable On Norvasc 10 mg daily, Imdur ER 30 mg daily,Lopressor 50 mg BID Stable Hemoglobin Restarted aspirin yesterday Continue current treatment Continue current medications Discharge planning Will follow up Plan and treatment discussed with Dr. Iverson
[2018-01-30 07:23] LABS: BASO # 0.01 K/mm3 (0.0-2.0); BASO % 0.2 % (0.0-3.0); EOS # 0.1 (0.0-0.7); EOS % 1.9 % (1.5-5.0); GRAN # 3.44 (1.4-6.5); GRAN % 81.4 % (50.0-68.0); HEMOGLOBIN 9.2 g/dL (12.0-16.0); LYMPH # 0.5 (1.2-3.4); LYMPH % 11.3 % (22.0-35.0); MEAN CELL VOLUME 88.9 fl (80.0-105.0); MEAN CORPUSCULAR HEMOGLOBIN 29.1 pg (25.0-35.0); MEAN CORPUSCULAR HGB CONC 32.7 g/dl (31.0-37.0); MEAN PLATELET VOLUME 8.8 fl (7.0-11.0); MONO # 0.2 (0.1-0.6); MONO % 5.2 % (1.0-6.0); RBC 3.16 10^6/uL (3.5-6.1); RED CELL DISTRIBUTION WIDTH 15.3 % (11.5-14.5); WHITE BLOOD COUNT 4.2 10^3/ul (4.5-11.0)
[2018-01-30 07:45] LABS: ALB/GLOB RATIO 1.2 (1.1-1.8); ALBUMIN 3.2 g/dL (3.0-4.8); CALCIUM 9.7 mg/dL (8.4-10.5)
[2018-01-30 08:04] VITALS: PULSE 72
--- NOTE | 2018-01-30 08:36 | PN ---
Copied To: Messi Salas MD Attending MD: Messi Salas MD. DATE: 01/29/2018 SUBJECTIVE: The patient was seen this Sunday morning in room 304, bed 1. She was actually on her way to x-ray. Bilateral x-ray of the feet were ordered by the patient's online user experience strategist, Dr. Rosales as the patient was complaining of pain on the lateral aspect of the left foot and ankle. On physical exam, there is no ecchymosis or swelling. There is perhaps some fullness on the plantar aspect of the foot. She is otherwise awake, alert, clear, in good spirits. Wanting very much to go home as soon as possible. I spoke with the patient and her family, and daughter at the bedside. If the x-rays are unremarkable and she is doing well, she may be ready for discharge home early tomorrow, day 5 of her anticipated 8 days stay on TCU. Messi Salas MD
[2018-01-30] MEDS ORDERED: Potassium Chloride 20 mEq ER Tab PO ONE (09:08)
[2018-01-30] MEDS: Magnesium Oxide 400 mg Tab UD PO SCH (10:18)
[2018-01-30] MEDS: Lidocaine 5% Oint(35 gm) TOP SCH (10:18)
[2018-01-30 11:00] VITALS: BP 145/72
--- NOTE | 2018-01-30 11:15 | CP.PCM.PN ---
<Cristi Thrasher - Last Filed: 01/30/18 16:49> Subjective - Date & Time of Evaluation Date of Evaluation: 01/30/18 Time of Evaluation: 07:10 - Subjective Subjective: Cristi Thrasher DO, PGY-2: GI progress note for Dr. Mendes Patient was seen and examined at bedside. She denies any blood per rectum, nausea, vomiting, diarrhea or abdominal pain. She reports passing normal BM the past two days. Chart review indicates no adverse events overnight. Patient is going home today. Objective - Vital Signs/Intake and Output Vital Signs (last 24 hours): Temp Pulse Resp BP Pulse Ox 97.1 F L 72 18 145/72 97 01/29/18 10:00 01/30/18 08:02 01/29/18 10:00 01/30/18 10:55 01/29/18 16:20 Intake and Output: 01/30/18 01/30/18 06:59 18:59 Intake Total 280 Balance 280 - Medications Medications: Current Medications Acetaminophen (Tylenol 325mg Tab) 650 mg PO Q4H PRN PRN Reason: Pain, Mild (1-3) Last Admin: 01/30/18 10:58 Dose: 650 mg Allopurinol (Zyloprim) 300 mg PO DAILY [facility] Stop: 02/02/18 23:59 Last Admin: 01/30/18 10:18 Dose: 300 mg Allopurinol (Zyloprim) 100 mg PO DAILY [facility] Amlodipine Besylate (Norvasc) 10 mg PO DAILY [facility] PRN Reason: Protocol Last Admin: 01/30/18 10:55 Dose: 10 mg Aspirin (Ecotrin) 81 mg PO 0800 [facility] Last Admin: 01/30/18 08:03 Dose: 81 mg Isosorbide Mononitrate (Imdur Er) 30 mg PO 0600 [facility] PRN Reason: Protocol Last Admin: 01/30/18 05:54 Dose: 30 mg Lidocaine (Lidocaine 5%) 0 gm TOP TID [facility] Last Admin: 01/30/18 10:18 Dose: 1 applic Magnesium Oxide (Mag-Ox) 400 mg PO BID [facility] Last Admin: 01/30/18 10:18 Dose: 400 mg Metoprolol Tartrate (Lopressor) 50 mg PO 0800,1800 [facility] Last Admin: 01/30/18 08:02 Dose: 50 mg Ondansetron HCl (Zofran Inj) 4 mg IVP Q4H PRN PRN Reason: Nausea/Vomiting Pantoprazole Sodium (Protonix Ec Tab) 40 mg PO 0600,1600 [facility] Last Admin: 01/30/18 05:54 Dose: 40 mg - Labs Labs: 01/30/18 07:00 01/30/18 07:00 - Constitutional Appears: Well, Non-toxic - Head Exam Head Exam: ATRAUMATIC, NORMOCEPHALIC - Eye Exam Eye Exam: EOMI, Normal appearance - ENT Exam ENT Exam: Mucous Membranes Moist - Neck Exam Neck Exam: Normal Inspection - Respiratory Exam Respiratory Exam: NORMAL BREATHING PATTERN. absent: Accessory Muscle Use - Cardiovascular Exam Cardiovascular Exam: RRR, +S1, +S2 - GI/Abdominal Exam GI & Abdominal Exam: Soft, Normal Bowel Sounds. absent: Tenderness, Rebound - Extremities Exam Extremities Exam: Normal Inspection. absent: Calf Tenderness - Neurological Exam Neurological Exam: Alert, Awake, Oriented x3 - Psychiatric Exam Psychiatric exam: Normal Affect, Normal Mood - Skin Skin Exam: Dry, Intact, Normal Color, Warm Assessment and Plan - Assessment and Plan (Free Text) Assessment: 77 yo female with a past medical history of breast cancer s/p lumpectomy, gastric GIST s/p partial gastrectomy, colon cancer s/p Right hemicolectomy, HTN , GI bleed, NSTEMI s/p bare-metal stent 12/25 on aspirin/plavix who presented to the ED with bloody diarrhea/BRBPR for 1 day prior to presentation. Bleeding scan indicates splenic flexure as the source, however colonoscopy revealed no active bleed and no ischemic collitis. Plan: -hgb stable and no further GI bleeding -Goal Hgb is 9 in setting of active cardiac disease (NSTEMI s/p bare-metal stent ~1 month prior) -As per Cardio, Bare-metal stent placed, no further plavix and patient can continue aspirin -Bleeding scan indicates splenic flexure was area of bleed, but Colonoscopy did not show acute bleed (only some blood pooled in diverticula), no ischemic collitis -likely diverticular bleed, now stopped, IR embolization not needed at this time -Surgery also consulted on this patient; reports not a surgical candidate -Tolerating diet, advance as tolerated Disposition: Patient is to return to the ED immediately for any blood per rectum and schedule and appointment with Dr. Mendes within one week's time Case was reviewed and discussed with attending physician, Dr. Mendes <Adolfo Mendes V - Last Filed: 01/30/18 22:32> Objective - Vital Signs/Intake and Output Vital Signs (last 24 hours): Temp Pulse Resp BP Pulse Ox 97.1 F L 72 18 145/72 97 01/29/18 10:00 01/30/18 08:02 01/29/18 10:00 01/30/18 10:55 01/29/18 16:20 - Labs Labs: 01/30/18 07:00 01/30/18 07:00 Attending/Attestation - Attestation I have personally seen and examined this patient.: Yes I have fully participated in the care of the patient.: Yes I have reviewed all pertinent clinical information, including history, physical exam and plan: Yes Notes (Text): This is an addendum to GI followup report dictated by the [facility] [employer]. The patient was seen an that we need to change it here d examined earlier. Medical records, lab studies, imagings were reviewed. Last 24 hours events reviewed. Agreed with the above treatment plan as outlined in [facility] 's notes with the addition of the following hemoglobin stable at 9.2 Follow-up hemoglobin hematocrit Iron supplement with stool softeners prn Oncological and also PCP follow-up 01/30/18 22:30
== END 2018-01-30 14:38 | disposition home or self-care (01) | DRG 377 ==
LOC: TRCU 19:26
PROVIDERS: ADMIT Internal Medicine; ATTEND Internal Medicine
PROC: F07Z9FZ Gait Training/Functional Ambulation Treatment using Assistive, Adaptive, Supportive or Protective Equipment (ICD-10-PCS; principal; 2018-01-26)
PROC: F07M6ZZ Therapeutic Exercise Treatment of Musculoskeletal System - Whole Body (ICD-10-PCS; 2018-01-26)
PROC: F08Z1ZZ Dressing Techniques Treatment (ICD-10-PCS; 2018-01-26)
PROC: F08Z2ZZ Grooming/Personal Hygiene Treatment (ICD-10-PCS; 2018-01-26)
PROC: F08Z0ZZ Bathing/Showering Techniques Treatment (ICD-10-PCS; 2018-01-26)
PROC: F08Z4ZZ Home Management Treatment (ICD-10-PCS; 2018-01-26)
DX: K92.2 Gastrointestinal hemorrhage, unspecified (principal); I21.4 Non-ST elevation (NSTEMI) myocardial infarction; D62 Acute posthemorrhagic anemia; I11.0 Hypertensive heart disease with heart failure; I50.9 Heart failure, unspecified; K57.91 Diverticulosis of intestine, part unspecified, without perforation or abscess with bleeding; M10.9 Gout, unspecified; Z85.038 Personal history of other malignant neoplasm of large intestine; Z85.3 Personal history of malignant neoplasm of breast; Z85.850 Personal history of malignant neoplasm of thyroid; Z86.011 Personal history of benign neoplasm of the brain; Z90.3 Acquired absence of stomach [part of]; Z90.49 Acquired absence of other specified parts of digestive tract; Z90.710 Acquired absence of both cervix and uterus; Z92.3 Personal history of irradiation; Z95.5 Presence of coronary angioplasty implant and graft

== ENCOUNTER 2018-05-22 10:52 | Inpatient (IN) | payer MEDICARE, OTHER ==
[2018-05-22 10:56] VITALS: BMI 29.0
[2018-05-22 11:48] LABS: EOS # 0.1 (0.0-0.7); EOS % 1.1 % (1.5-5.0); GRAN # 3.68 (1.4-6.5); GRAN % 79.3 % (50.0-68.0); HEMOGLOBIN 8.9 g/dL (12.0-16.0); LYMPH # 0.8 (1.2-3.4); LYMPH % 16.4 % (22.0-35.0); MEAN CELL VOLUME 94.7 fl (80.0-105.0); MEAN CORPUSCULAR HEMOGLOBIN 29.7 pg (25.0-35.0); MEAN CORPUSCULAR HGB CONC 31.3 g/dl (31.0-37.0); MEAN PLATELET VOLUME 9.7 fl (7.0-11.0); MONO # 0.2 (0.1-0.6); MONO % 3.2 % (1.0-6.0); RED CELL DISTRIBUTION WIDTH 16.1 % (11.5-14.5); WHITE BLOOD COUNT 4.6 10^3/uL (4.5-11.0)
[2018-05-22 11:58] LABS: INR 0.98; PARTIAL THROMBOPLASTIN TIME 28.2 Seconds (25.1-36.5); PROTHROMBIN TIME 11.3 SECONDS (9.4-12.5)
--- NOTE | 2018-05-22 11:58 | ED PDOC ---
Arrival/HPI - General Chief Complaint: GI Problem Time Seen by Provider: 05/22/18 11:01 Historian: Patient - History of Present Illness Narrative History of Present Illness (Text): 05/22/18 11:46 A 77 year old female, whose past medical history includes colon cancer, diverticulosis, breast cancer, brain tumor, anemia, and hypertension, presents to the emergency department for further evaluation of rectal bleeding x 1 episode of bright red blood this morning. Patient denies pain, recent procedures/ surgeries, fevers, chills, weakness, headache, lightheadedness, cough, sore throat, chest pain, shortness of breath, dyspena on exertion, abdominal pain, nausea, vomiting, diarrhea, neck/ back pain, urinary/ bowel symptoms, trauma/ injury, or any other complaints. GI: Dr. Mendes Time/Duration: Other (Today) Symptom Onset: Sudden Symptom Course: Unchanged Activities at Onset: Rest, Light Context: Home Past Medical History - Provider Review Nursing Documentation Reviewed: Yes - Infectious Disease Hx of Infectious Diseases: None - Tetanus Immunization Tetanus Immunization: Unknown - Cardiac Hx Congestive Heart Failure: Yes Hx WI: Yes (with cardiac stents) Hx Hypertension: Yes - Pulmonary Hx Respiratory Disorders: No - Neurological Hx Neurological Disorder: Yes Other/Comment: brain tumor with brain sx - HEENT Hx HEENT Disorder: (WEARS RX GLASSES) - Renal Hx Renal Disorder: No - Endocrine/Metabolic Hx Endocrine Disorders: No - Hematological/Oncological Hx Blood Disorders: Yes Hx Blood Transfusions: No Hx Blood Transfusion Reaction: No Hx Cancer: Yes (Blair breast CA with lumpectomy) - Integumentary Hx Dermatological Disorder: No - Musculoskeletal/Rheumatological Hx Arthritis: Yes - Gastrointestinal Hx Gastrointestinal Disorders: Yes Hx Pancreatitis: Yes Other/Comment: hx colon ca,GI BLEED 16, - Genitourinary/Gynecological Hx Genitourinary Disorders: No - Psychiatric Hx Psychophysiologic Disorder: No Hx Substance Use: No - Surgical History Other/Comment: Cardiac cath with stent. Blair breast lumpectomy. Brain tumor sx - Anesthesia Hx Anesthesia: Yes Hx Anesthesia Reactions: No Hx Malignant Hyperthermia: No - Suicidal Assessment Feels Threatened In Home Enviroment: No Family/Social History - Physician Review Nursing Documentation Reviewed: Yes Family/Social History: No Known Family HX Smoking Status: Never Smoked Hx Alcohol Use: No Hx Substance Use: No Allergies/Home Meds Allergies/Adverse Reactions: Allergies No Known Allergies Allergy (Verified 04/10/18 15:24) Home Medications: Home Meds Medication Instructions Recorded Confirmed Omeprazole [Prilosec] 20 mg PO QAM 08/30/15 04/11/18 Atenolol [Tenormin] 50 mg PO QAM 09/21/15 04/11/18 amLODIPine [Norvasc] 5 mg PO DAILY 09/21/15 04/11/18 Cholecalciferol [Vitamin D 1000 IU] 50,000 iu PO WED 03/26/17 04/11/18 Letrozole [Femara] 2.5 mg PO DAILY 03/26/17 04/11/18 Allopurinol [Zyloprim] 300 mg PO DAILY 12/08/17 04/11/18 Aspirin [Adult Low Dose Aspirin EC] 1 tab PO DAILY 12/21/17 04/11/18 Furosemide [Lasix] 1 tab PO DAILY 12/21/17 04/11/18 Isosorbide Mononitrate [Isosorbide 1 tab PO DAILY 12/21/17 04/11/18 Mononitrate ER] Vits A,C,E/Lutein/Minerals [Vision 1 tab PO DAILY 12/21/17 04/11/18 Formula with Lutein Tab] Review of Systems - Physician Review All systems were reviewed & negative as marked: Yes - Review of Systems Respiratory: absent: SOB Cardiovascular: absent: Chest Pain Physical Exam - Physical Exam Narrative Physical Exam (Text): 05/22/18 11:59 Constitutional: No acute distress. Head: Normocephalic. Atraumatic. Eyes: PERRL. ENT: Moist mucous membranes. Neck: Supple. Cardiovascular: Regular rate. Chest: No tenderness. Respiratory: Clear to auscultation bilaterally. GI: Soft. Nontender. Nondistended. Rectal: Hemorrhoid, non-bleeding. Bright red blood on exam. Guaiac positive. Back: No CVA tenderness. Musculoskeletal: No tenderness or swelling of extremities. Skin: No rash. Neurologic: Alert, no focal deficit Vital Signs Reviewed: Yes Vital Signs Temp Pulse Resp BP Pulse Ox 05/22/18 11:04 98.5 F 89 16 151/95 H 98 Temperature: Afebrile Blood Pressure: Hypertensive Pulse: Regular Respiratory Rate: Normal Appearance: Positive for: Well-Appearing, Non-Toxic, Comfortable Pain Distress: None Mental Status: Positive for: Alert and Oriented X 3 Medical Decision Making ED Course and Treatment: 05/22/18 12:00 Impression: A 77 year old female presents to the emergency department with a complaint of rectal bleeding. Plan: -- EKG -- Chest X- Ray -- Urinalysis -- Urine Culture -- Labs -- Reassess and disposition Prior Visits: Notes and results from previous visits were reviewed. Progress Notes: EKG: Ordered, reviewed, and independently interpreted the EKG. Rate: 86 BPM Rhythm: NSR Interpretation: No ST elevations. Normal intervals. Chest X- Ray Dictator : Buster Love MD Report Date : 05/22/2018 11:57:05 IMPRESSION: No active disease. No significant interval change compared to the prior examination(s). Dr. Salas accepts patient to his service for GI bleeding with anemia. States will call patient's GI. - Lab Interpretations I have reviewed the lab results: Yes - RAD Interpretation Radiology Orders: 05/22/18 11:20 CHEST PORTABLE [RAD] Stat - EKG Interpretation Interpreted by ED Physician: Yes Type: 12 lead EKG - Scribe Statement The provider has reviewed the documentation as recorded by the Scribe Nya Juarez Provider Scribe Attestation: All medical record entries made by the Scribe were at my direction and personally dictated by me. I have reviewed the chart and agree that the record accurately reflects my personal performance of the history, physical exam, medical decision making, and the department course for this patient. I have also personally directed, reviewed, and agree with the discharge instructions and disposition. Disposition/Present on Arrival - Present on Arrival Any Indicators Present on Arrival: No History of DVT/PE: No History of Uncontrolled Diabetes: No Urinary Catheter: No History of Decub. Ulcer: No History Surgical Site Infection Following: None - Disposition Have Diagnosis and Disposition been Completed?: Yes Diagnosis: GI bleed, Anemia Disposition: HOSPITALIZED Disposition Time: 12:27 Patient Plan: Admission Condition: FAIR Referrals: Messi Salas MD [Primary Care Provider] - Follow up with primary Forms: [employer] (N[place]ian)
--- NOTE | 2018-05-22 12:00 | RAD ---
Date of service: 05/22/2018 HISTORY: GI bleed COMPARISON: 01/19/2018 FINDINGS: LUNGS: No active pulmonary disease. PLEURA: No significant pleural effusion identified, no pneumothorax apparent. CARDIOVASCULAR: Cardiomegaly. No evidence of acute, significant cardiovascular disease. Atherosclerotic calcifications identified primarily aortic arch. OSSEOUS STRUCTURES: No significant abnormalities. VISUALIZED UPPER ABDOMEN: Normal. OTHER FINDINGS: None. IMPRESSION: No active disease. No significant interval change compared to the prior examination(s).
[2018-05-22 12:03] LABS: ALB/GLOB RATIO 1.2 (1.1-1.8); ALBUMIN 3.9 g/dL (3.0-4.8); CALCIUM 10.1 mg/dL (8.4-10.5)
[2018-05-22 12:12] LABS: TROPONIN I 0.05 ng/mL
[2018-05-22 12:19] LABS: PH,URINE 6.5 (4.7-8.0); URINE BILIRUBIN NEGATIVE (NEGATIVE); URINE BLOOD LARGE (NEGATIVE); URINE GLUCOSE (UA) NEGATIVE (NEGATIVE); URINE LEUKOCYTE ESTERASE SMALL Leu/uL (NEGATIVE); URINE PROTEIN 30 mg/dL (<30 mg/dL); URINE UROBILINOGEN 0.2 E.U./dL (<1 E.U./dL)
[2018-05-22 12:20] LABS: URINE APPEARANCE CLEAR (CLEAR); URINE COLOR YELLOW (YELLOW)
[2018-05-22 12:31] LABS: URINE BACTERIA MOD (NEG)
[2018-05-22] MEDS ORDERED: Sodium Chloride 0.9% 1,000 ML IV STA ×2 (14:59→18:03)
[2018-05-22] MEDS ORDERED: Pneumococcal 23-Valent Vaccine IM ONE (16:13)
[2018-05-22] MEDS ORDERED: Influenza Vaccine 60 mcg/0.5 mL SYR (4YR UP) IM ONE (16:13)
--- NOTE | 2018-05-22 16:48 | CARD ---
APPROVED REPORT Date of service: 05/22/2018 EKG Measurement Heart [id number] <Conclusion> Normal sinus rhythm Left ventricular hypertrophy with repolarization abnormality Abnormal ECG
--- NOTE | 2018-05-22 17:36 | CP.PCM.CON ---
<Yolanda Carbajal - Last Filed: 05/22/18 17:39> History of Present Illness - History of Present Illness History of Present Illness: Gastroenterology Fellow/PGY6 Consult Note 77 year old female with PMH Breast cancer s/p B/L lumpectomy, GIST s/p partial gastrectomy, colon cancer s/p Right hemicolectomy, Brain tumor s/p craniotomy 2016, Diverticular Bleed with spontaneous cessation 12/2017, CAD s/p bare-metal stent 12/25 (on aspirin), and HTN presenting with rectal bleeding. Patient notes episode of bright red blood per rectum today leading to ER presentation. Denies chest pain, shortness of breath, nausea, vomiting, abdominal pain, diarrhea, constipation, or unintentional weight loss. Prior bleeding scan for GI bleed, 12/2017, showed active bleeding at splenic flexure and EGD/colonoscopy without signs of active bleed. Family History- denies stomach cancer, colon cancer Social History- denies alcohol, tobacco or illicit drug use Surgical History- right hemicolectomy, B/L lumpectomy,craniotomy, partial gastrectomy Review of Systems - Review of Systems Review of Systems: 12-point review of systems negative except for as above Past Patient History - Infectious Disease Hx of Infectious Diseases: None - Tetanus Immunizations Tetanus Immunization: Unknown - Past Social History Smoking Status: Never Smoked - CARDIAC Hx Cardiac Disorders: Yes (mi) Hx Angina: Yes Hx Congestive Heart Failure: Yes Hx Heart Murmur: Yes Hx Hypertension: Yes Other/Comment: blood clot to right arm 01/2011, picc line needed to be removed as per family, pt was rapid response 12/24/17 due to chest pain and hypotension - PULMONARY Hx Respiratory Disorders: No - NEUROLOGICAL Hx Neurological Disorder: Yes Other/Comment: brain tumor benign with brain sx 04/2016 - HEENT Hx HEENT Problems: (WEARS RX GLASSES) - RENAL Hx Chronic Kidney Disease: No - ENDOCRINE/METABOLIC Hx Endocrine Disorders: No - HEMATOLOGICAL/ONCOLOGICAL Hx Blood Disorders: Yes Hx Anemia: Yes (iron deficiency) Hx Cancer: Yes (Blair breast CA with lumpectomy) Other/Comment: pt dx with ca 07/2009 and 07/2010 had 35 radiation treatments in 2009 after dx, pt had right breast lumpectomy with axillary dissection, and left breast lumpectomy. dx with colon ca 2010,no chemo no radiation as per family and pt, had r hemicolectomy 08/2015 - INTEGUMENTARY Hx Dermatological Problems: No Other/Comment: old abd surgical scars - MUSCULOSKELETAL/RHEUMATOLOGICAL Hx Falls: No - GASTROINTESTINAL Hx Gastrointestinal Disorders: Yes Hx Pancreatitis: Yes Other/Comment: hx colon ca,GI BLEED 09-14-15, - GENITOURINARY/GYNECOLOGICAL Hx Genitourinary Disorders: No - PSYCHIATRIC Hx Substance Use: No - SURGICAL HISTORY Hx Surgeries: Yes Hx Coronary Stent: Yes (12/24/17 dr lowe) Hx Hysterectomy: Yes (partial) Other/Comment: Cardiac cath with stent. Blair breast lumpectomy. Brain tumor sx, thyroid bx due to thyroid nodules, colon resection/fistulagram, darek picc in and out, gastric wedge resection,, 03/2017 egd gastric polyp, egd 10/11/17 polypectomy, egd/colonoscopy 01/21/18 dx divertulosis, hemorrhoids, - ANESTHESIA Hx Anesthesia: Yes Hx Anesthesia Reactions: No Hx Malignant Hyperthermia: No Meds Allergies/Adverse Reactions: Allergies Allergy/AdvReac Type Severity Reaction Status Date / Time No Known Allergies Allergy Verified 04/10/18 15:24 - Medications Medications: Current Medications Sodium Chloride (Sodium Chloride 0.9%) 1,000 mls @ 100 mls/hr IV .Q10H STA Stop: 05/23/18 00:58 Last Admin: 05/22/18 15:04 Dose: 100 mls/hr Physical Exam - Constitutional Appears: Non-toxic, No Acute Distress - Head Exam Head Exam: ATRAUMATIC, NORMOCEPHALIC - Eye Exam Eye Exam: EOMI, PERRL. absent: Scleral icterus Pupil Exam: PERRL. absent: Miosis, Mydriatic - ENT Exam ENT Exam: Mucous Membranes Moist, Normal Oropharynx - Neck Exam Neck exam: Positive for: Full Rom, Normal Inspection - Respiratory Exam Respiratory Exam: Clear to Auscultation Bilateral. absent: Rales, Rhonchi, Wheezes - Cardiovascular Exam Cardiovascular Exam: RRR, +S1, +S2. absent: Gallop, Rubs - GI/Abdominal Exam GI & Abdominal Exam: Normal Bowel Sounds, Soft. absent: Distended, Firm, Guarding, Organomegaly, Rebound, Rigid, Tenderness - Rectal Exam Rectal Exam: Bloody Stool Additional comments: bright red blood bowel movement - Extremities Exam Extremities exam: Positive for: normal inspection. Negative for: pedal edema - Neurological Exam Neurological exam: Alert - Psychiatric Exam Psychiatric exam: Normal Affect, Normal Mood - Skin Skin Exam: Dry, Intact, Normal Color, Warm Results - Vital Signs Recent Vital Signs: Last Vital Signs Temp 98.2 F 05/22/18 15:06 Pulse 89 05/22/18 15:58 Resp 18 05/22/18 15:58 BP 145/69 05/22/18 15:06 Pulse Ox 98 05/22/18 15:06 - Labs Result Diagrams: 05/22/18 11:40 05/22/18 11:40 Labs: Laboratory Results - last 24 hr 05/22/18 05/22/18 05/22/18 11:40 11:40 11:40 WBC 4.6 RBC 3.00 L Hgb 8.9 L Hct 28.4 L MCV 94.7 D MCH 29.7 MCHC 31.3 RDW 16.1 H Plt Count 146 MPV 9.7 Gran % 79.3 H Lymph % (Auto) 16.4 L Daniels % (Auto) 3.2 Eos % (Auto) 1.1 L Baso % (Auto) 0.0 Gran # 3.68 Lymph # (Auto) 0.8 L Daniels # (Auto) 0.2 Eos # (Auto) 0.1 Baso # (Auto) 0.00 PT 11.3 INR 0.98 APTT 28.2 Sodium 142 Potassium 4.4 Chloride 107 Carbon Dioxide 29 Anion Gap 10 BUN 38 H Creatinine 1.4 H Est GFR ( Amer) 44 Est GFR (Non-Af Amer) 36 Random Glucose 87 Calcium 10.1 Total Bilirubin 0.4 AST 27 ALT 24 Alkaline Phosphatase 85 Troponin I 0.05 D Total Protein 7.1 Albumin 3.9 Globulin 3.2 Albumin/Globulin Ratio 1.2 Lipase 171 Urine Color Urine Appearance Urine pH Ur Specific [place] Urine Protein Urine Glucose (UA) Urine Ketones Urine Blood Urine Nitrate Urine Bilirubin Urine Urobilinogen Ur Leukocyte Esterase Urine RBC Urine WBC Ur Epithelial Cells Urine Bacteria Blood Type Antibody Screen BBK History Checked 05/22/18 05/22/18 12:00 12:45 WBC RBC Hgb Hct MCV MCH MCHC RDW Plt Count MPV Gran % Lymph % (Auto) Daniels % (Auto) Eos % (Auto) Baso % (Auto) Gran # Lymph # (Auto) Daniels # (Auto) Eos # (Auto) Baso # (Auto) PT INR APTT Sodium Potassium Chloride Carbon Dioxide Anion Gap BUN Creatinine Est GFR ( Amer) Est GFR (Non-Af Amer) Random Glucose Calcium Total Bilirubin AST ALT Alkaline Phosphatase Troponin I Total Protein Albumin Globulin Albumin/Globulin Ratio Lipase Urine Color Yellow Urine Appearance Clear Urine pH 6.5 Ur Specific [place] 1.010 Urine Protein 30 H Urine Glucose (UA) Negative Urine Ketones Negative Urine Blood Large H Urine Nitrate Negative Urine Bilirubin Negative Urine Urobilinogen 0.2 Ur Leukocyte Esterase Small H Urine RBC 10 - 15 Urine WBC 5 - 10 Ur Epithelial Cells 4 - 5 Urine Bacteria Mod Blood Type O POSITIVE Antibody Screen Negative BBK History Checked Patient has bt Assessment & Plan - Assessment and Plan (Free Text) Assessment: 77 year old female with PMH Breast cancer s/p B/L lumpectomy, GIST s/p partial gastrectomy, colon cancer s/p Right hemicolectomy, Brain tumor s/p craniotomy 2016, Diverticular Bleed with spontaneous cessation 12/2017, CAD s/p bare-metal stent 12/25 (on aspirin), and HTN presenting with rectal bleeding. Active treatment of rectal bleeding suspicious for Lower GI bleed. Prior bleeding scan for GI bleed, 12/2017, showed active bleeding at splenic flexure and EGD/colonoscopy without signs of active bleed and spontaneous cessation 12/2017. Plan: -suspicion for recurrent Diverticular bleed -hemodynamically stable -GI bleeding scan ordered -H/H at baseline -serial H/H Q4H -type and cross, hold 2 units pRBC -supportive care- IVFs -discussed plan with patient and family at bedside -will follow clinical course <Adolfo Mendes V - Last Filed: 05/22/18 21:30> Meds - Medications Medications: Current Medications Sodium Chloride (Sodium Chloride 0.9%) 1,000 mls @ 100 mls/hr IV .Q10H STA Stop: 05/23/18 00:58 Last Admin: 05/22/18 15:04 Dose: 100 mls/hr Octreotide Acetate 1,250 mcg/ (Dextrose) 252.5 mls @ 5.05 mls/hr IV .Q24H MEHREEN; Protocol Sodium Chloride (Sodium Chloride 0.9%) 1,000 mls @ 100 mls/hr IV .Q10H MEHREEN Last Admin: 05/22/18 20:00 Dose: 100 mls/hr Pantoprazole Sodium (Protonix Inj) 40 mg IVP Q12 MEHREEN Results - Vital Signs Recent Vital Signs: Last Vital Signs Temp 98.2 F 05/22/18 15:06 Pulse 92 H 05/22/18 18:50 Resp 14 05/22/18 18:50 BP 145/69 05/22/18 15:06 Pulse Ox 99 05/22/18 18:50 - Labs Result Diagrams: 05/22/18 18:35 05/22/18 11:40 Labs: Laboratory Results - last 24 hr 05/22/18 05/22/18 05/22/18 11:40 11:40 11:40 WBC 4.6 RBC 3.00 L Hgb 8.9 L Hct 28.4 L MCV 94.7 D MCH 29.7 MCHC 31.3 RDW 16.1 H Plt Count 146 MPV 9.7 Gran % 79.3 H Lymph % (Auto) 16.4 L Daniels % (Auto) 3.2 Eos % (Auto) 1.1 L Baso % (Auto) 0.0 Gran # 3.68 Lymph # (Auto) 0.8 L Daniels # (Auto) 0.2 Eos # (Auto) 0.1 Baso # (Auto) 0.00 PT 11.3 INR 0.98 APTT 28.2 pO2 VBG pH VBG pCO2 VBG HCO3 VBG Total CO2 VBG O2 Sat (Calc) VBG Base Excess VBG Potassium Glucose Lactate FiO2 Sodium 142 Potassium 4.4 Chloride 107 Carbon Dioxide 29 Anion Gap 10 BUN 38 H Creatinine 1.4 H Est GFR ( Amer) 44 Est GFR (Non-Af Amer) 36 POC Glucose (mg/dL) Random Glucose 87 Calcium 10.1 Total Bilirubin 0.4 AST 27 ALT 24 Alkaline Phosphatase 85 Troponin I 0.05 D Total Protein 7.1 Albumin 3.9 Globulin 3.2 Albumin/Globulin Ratio 1.2 Lipase 171 Venous Blood Potassium Urine Color Urine Appearance Urine pH Ur Specific [place] Urine Protein Urine Glucose (UA) Urine Ketones Urine Blood Urine Nitrate Urine Bilirubin Urine Urobilinogen Ur Leukocyte Esterase Urine RBC Urine WBC Ur Epithelial Cells Urine Bacteria Blood Type Antibody Screen Crossmatch BBK History Checked 05/22/18 05/22/18 05/22/18 12:00 12:45 17:49 WBC RBC Hgb Hct MCV MCH MCHC RDW Plt Count MPV Gran % Lymph % (Auto) Daniels % (Auto) Eos % (Auto) Baso % (Auto) Gran # Lymph # (Auto) Daniels # (Auto) Eos # (Auto) Baso # (Auto) PT INR APTT pO2 VBG pH VBG pCO2 VBG HCO3 VBG Total CO2 VBG O2 Sat (Calc) VBG Base Excess VBG Potassium Glucose Lactate FiO2 Sodium Potassium Chloride Carbon Dioxide Anion Gap BUN Creatinine Est GFR ( Amer) Est GFR (Non-Af Amer) POC Glucose (mg/dL) 95 Random Glucose Calcium Total Bilirubin AST ALT Alkaline Phosphatase Troponin I Total Protein Albumin Globulin Albumin/Globulin Ratio Lipase Venous Blood Potassium Urine Color Yellow Urine Appearance Clear Urine pH 6.5 Ur Specific [place] 1.010 Urine Protein 30 H Urine Glucose (UA) Negative Urine Ketones Negative Urine Blood Large H Urine Nitrate Negative Urine Bilirubin Negative Urine Urobilinogen 0.2 Ur Leukocyte Esterase Small H Urine RBC 10 - 15 Urine WBC 5 - 10 Ur Epithelial Cells 4 - 5 Urine Bacteria Mod Blood Type O POSITIVE Antibody Screen Negative Crossmatch See Detail BBK History Checked Patient has bt 05/22/18 05/22/18 05/22/18 18:35 18:35 18:35 WBC RBC Hgb 7.3 L Hct 23.0 L MCV MCH MCHC RDW Plt Count MPV Gran % Lymph % (Auto) Daniels % (Auto) Eos % (Auto) Baso % (Auto) Gran # Lymph # (Auto) Daniels # (Auto) Eos # (Auto) Baso # (Auto) PT INR APTT pO2 36 VBG pH 7.47 H VBG pCO2 39.0 L VBG HCO3 28.4 H VBG Total CO2 29.6 H VBG O2 Sat (Calc) 76.5 H VBG Base Excess 4.5 H VBG Potassium 4.2 Glucose 92 Lactate 1.3 FiO2 21.0 Sodium 146.0 Potassium Chloride 113.0 H Carbon Dioxide Anion Gap BUN Creatinine Est GFR ( Amer) Est GFR (Non-Af Amer) POC Glucose (mg/dL) Random Glucose Calcium Total Bilirubin AST ALT Alkaline Phosphatase Troponin I 0.18 H* D Total Protein Albumin Globulin Albumin/Globulin Ratio Lipase Venous Blood Potassium 4.2 Urine Color Urine Appearance Urine pH Ur Specific [place] Urine Protein Urine Glucose (UA) Urine Ketones Urine Blood Urine Nitrate Urine Bilirubin Urine Urobilinogen Ur Leukocyte Esterase Urine RBC Urine WBC Ur Epithelial Cells Urine Bacteria Blood Type Antibody Screen Crossmatch BBK History Checked Attending/Attestation - Attestation I have personally seen and examined this patient.: Yes I have fully participated in the care of the patient.: Yes I have reviewed all pertinent clinical information: Yes Notes (Text): This is an addendum to GI consult report dictated by the GI Fellow.The patient was seen and examined earlier. Medical records, lab studies, imagings were reviewed. Last 24 hours events reviewed. Agreed with the above treatment plan as outlined in GI Fellow 's notes with the addition of the following 05/22/18 21:30
[2018-05-22] MEDS ORDERED: Octreotide 1,250 MCG in Dextrose 5% In Water 250 ML IV SCH (18:15)
[2018-05-22 18:39] LABS: VENOUS BLOOD GAS BASE EXCESS 4.5 mmol/L (0.0-2.0); VENOUS BLOOD GAS PO2 36 mm/Hg (30-55); VENOUS BLOOD PH 7.47 (7.32-7.43)
[2018-05-22 18:43] LABS: HEMOGLOBIN 7.3 g/dL (12.0-16.0)
--- NOTE | 2018-05-22 19:00 | CP.PCM.CON ---
History of Present Illness - History of Present Illness History of Present Illness: General Surgery Dr. Martines 77 y/o F w/ PMHx of CHF, HTN, Brain tumor, B/L breast Ca, colon Ca, and GIST presented to the ED c/o BRBPR. Pt has Hx of hematochezia w/ last episode in December 2017 that self resolved. Pt takes ASA s/p bare-metal stent placement in 11/2017. Pt reports w/ episode of lower GI bleeding this AM prior to arrival. Pt denies F/C, abd pain, N/V, D/C, CP, SOB, weakness, paresthesia. 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 Pt reports nausea w/ dry heaves prior to syncopal episode. BP transiently low immediately following syncopal episode. Pt transferred to ICU for continuous monitoring. Pt currently has no complaints w/ resolved nausea. PMHx: see above, pancreatitis, GI bleeding Meds: reviewed in chart NKDA PSHx: cardiac stents, B/L breast lumpectomy, R axillary disection, craniotomy, partial gastrectomy, R hemicolectomy SHx: denies tobacco, EtOH, drug use FHx: noncontributory Review of Systems - Review of Systems All systems: reviewed and no additional remarkable complaints except (see HPI) Past Patient History - Infectious Disease Hx of Infectious Diseases: None - Tetanus Immunizations Tetanus Immunization: Unknown - Past Social History Smoking Status: Never Smoked - CARDIAC Hx Cardiac Disorders: Yes (mi) Hx Angina: Yes Hx Congestive Heart Failure: Yes Hx Heart Murmur: Yes Hx Hypertension: Yes Other/Comment: blood clot to right arm 01/2011, picc line needed to be removed as per family, pt was rapid response 12/24/17 due to chest pain and hypotension - PULMONARY Hx Respiratory Disorders: No - NEUROLOGICAL Hx Neurological Disorder: Yes Other/Comment: brain tumor benign with brain sx 04/2016 - HEENT Hx HEENT Problems: (WEARS RX GLASSES) - RENAL Hx Chronic Kidney Disease: No - ENDOCRINE/METABOLIC Hx Endocrine Disorders: No - HEMATOLOGICAL/ONCOLOGICAL Hx Blood Disorders: Yes Hx Anemia: Yes (iron deficiency) Hx Cancer: Yes (Blair breast CA with lumpectomy) Other/Comment: pt dx with ca 07/2009 and 07/2010 had 35 radiation treatments in 2009 after dx, pt had right breast lumpectomy with axillary dissection, and left breast lumpectomy. dx with colon ca 2010,no chemo no radiation as per family and pt, had r hemicolectomy 08/2015 - INTEGUMENTARY Hx Dermatological Problems: No Other/Comment: old abd surgical scars - MUSCULOSKELETAL/RHEUMATOLOGICAL Hx Falls: No - GASTROINTESTINAL Hx Gastrointestinal Disorders: Yes Hx Pancreatitis: Yes Other/Comment: hx colon ca,GI BLEED 09-14-15, - GENITOURINARY/GYNECOLOGICAL Hx Genitourinary Disorders: No - PSYCHIATRIC Hx Substance Use: No - SURGICAL HISTORY Hx Surgeries: Yes Hx Coronary Stent: Yes (12/24/17 dr lowe) Hx Hysterectomy: Yes (partial) Other/Comment: Cardiac cath with stent. Blair breast lumpectomy. Brain tumor sx, thyroid bx due to thyroid nodules, colon resection/fistulagram, darek picc in and out, gastric wedge resection,, 03/2017 egd gastric polyp, egd 10/11/17 polypectomy, egd/colonoscopy 01/21/18 dx divertulosis, hemorrhoids, - ANESTHESIA Hx Anesthesia: Yes Hx Anesthesia Reactions: No Hx Malignant Hyperthermia: No Meds Allergies/Adverse Reactions: Allergies Allergy/AdvReac Type Severity Reaction Status Date / Time No Known Allergies Allergy Verified 04/10/18 15:24 - Medications Medications: Current Medications Sodium Chloride (Sodium Chloride 0.9%) 1,000 mls @ 100 mls/hr IV .Q10H STA Stop: 05/23/18 00:58 Last Admin: 05/22/18 15:04 Dose: 100 mls/hr Octreotide Acetate 1,250 mcg/ (Dextrose) 252.5 mls @ 5.05 mls/hr IV .Q24H MEHREEN; Protocol Sodium Chloride (Sodium Chloride 0.9%) 1,000 mls @ 999 mls/hr IV .Q1H1M STA Stop: 05/22/18 19:03 Sodium Chloride (Sodium Chloride 0.9%) 1,000 mls @ 100 mls/hr IV .Q10H MEHREEN Pantoprazole Sodium (Protonix Inj) 40 mg IVP Q12 MEHREEN Physical Exam - Constitutional Appears: Non-toxic, No Acute Distress - Head Exam Head Exam: NORMAL INSPECTION - Eye Exam Eye Exam: Normal appearance - ENT Exam ENT Exam: Mucous Membranes Moist - Respiratory Exam Respiratory Exam: NORMAL BREATHING PATTERN. absent: Accessory Muscle Use, Respiratory Distress - Cardiovascular Exam Cardiovascular Exam: REGULAR RHYTHM. absent: Bradycardia, Tachycardia - GI/Abdominal Exam GI & Abdominal Exam: Soft. absent: Distended, Firm, Guarding, Rebound, Rigid, Tenderness Additional comments: hypertrophic scar. - Extremities Exam Extremities exam: Positive for: normal inspection - Neurological Exam Neurological exam: Alert, Oriented x3 - Psychiatric Exam Psychiatric exam: Normal Affect, Normal Mood - Skin Skin Exam: Dry, Intact, Normal Color, Warm Results - Vital Signs Recent Vital Signs: Last Vital Signs Temp 98.2 F 05/22/18 15:06 Pulse 92 H 05/22/18 18:50 Resp 14 05/22/18 18:50 BP 145/69 05/22/18 15:06 Pulse Ox 99 05/22/18 18:50 - Labs Result Diagrams: 05/22/18 18:35 05/22/18 11:40 Labs: Laboratory Results - last 24 hr 05/22/18 05/22/18 05/22/18 11:40 11:40 11:40 WBC 4.6 RBC 3.00 L Hgb 8.9 L Hct 28.4 L MCV 94.7 D MCH 29.7 MCHC 31.3 RDW 16.1 H Plt Count 146 MPV 9.7 Gran % 79.3 H Lymph % (Auto) 16.4 L [place] % (Auto) 3.2 Eos % (Auto) 1.1 L Baso % (Auto) 0.0 Gran # 3.68 Lymph # (Auto) 0.8 L [place] # (Auto) 0.2 Eos # (Auto) 0.1 Baso # (Auto) 0.00 PT 11.3 INR 0.98 APTT 28.2 pO2 VBG pH VBG pCO2 VBG HCO3 VBG Total CO2 VBG O2 Sat (Calc) VBG Base Excess VBG Potassium Glucose Lactate FiO2 Sodium 142 Potassium 4.4 Chloride 107 Carbon Dioxide 29 Anion Gap 10 BUN 38 H Creatinine 1.4 H Est GFR ( Amer) 44 Est GFR (Non-Af Amer) 36 POC Glucose (mg/dL) Random Glucose 87 Calcium 10.1 Total Bilirubin 0.4 AST 27 ALT 24 Alkaline Phosphatase 85 Troponin I 0.05 D Total Protein 7.1 Albumin 3.9 Globulin 3.2 Albumin/Globulin Ratio 1.2 Lipase 171 Venous Blood Potassium Urine Color Urine Appearance Urine pH Ur Specific [place] Urine Protein Urine Glucose (UA) Urine Ketones Urine Blood Urine Nitrate Urine Bilirubin Urine Urobilinogen Ur Leukocyte Esterase Urine RBC Urine WBC Ur Epithelial Cells Urine Bacteria Blood Type Antibody Screen Crossmatch BBK History Checked 05/22/18 05/22/18 05/22/18 12:00 12:45 17:49 WBC RBC Hgb Hct MCV MCH MCHC RDW Plt Count MPV Gran % Lymph % (Auto) [place] % (Auto) Eos % (Auto) Baso % (Auto) Gran # Lymph # (Auto) [place] # (Auto) Eos # (Auto) Baso # (Auto) PT INR APTT pO2 VBG pH VBG pCO2 VBG HCO3 VBG Total CO2 VBG O2 Sat (Calc) VBG Base Excess VBG Potassium Glucose Lactate FiO2 Sodium Potassium Chloride Carbon Dioxide Anion Gap BUN Creatinine Est GFR ( Amer) Est GFR (Non-Af Amer) POC Glucose (mg/dL) 95 Random Glucose Calcium Total Bilirubin AST ALT Alkaline Phosphatase Troponin I Total Protein Albumin Globulin Albumin/Globulin Ratio Lipase Venous Blood Potassium Urine Color Yellow Urine Appearance Clear Urine pH 6.5 Ur Specific [place] 1.010 Urine Protein 30 H Urine Glucose (UA) Negative Urine Ketones Negative Urine Blood Large H Urine Nitrate Negative Urine Bilirubin Negative Urine Urobilinogen 0.2 Ur Leukocyte Esterase Small H Urine RBC 10 - 15 Urine WBC 5 - 10 Ur Epithelial Cells 4 - 5 Urine Bacteria Mod Blood Type O POSITIVE Antibody Screen Negative Crossmatch See Detail BBK History Checked Patient has bt 05/22/18 05/22/18 18:35 18:35 WBC RBC Hgb 7.3 L Hct 23.0 L MCV MCH MCHC RDW Plt Count MPV Gran % Lymph % (Auto) [place] % (Auto) Eos % (Auto) Baso % (Auto) Gran # Lymph # (Auto) [place] # (Auto) Eos # (Auto) Baso # (Auto) PT INR APTT pO2 36 VBG pH 7.47 H VBG pCO2 39.0 L VBG HCO3 28.4 H VBG Total CO2 29.6 H VBG O2 Sat (Calc) 76.5 H VBG Base Excess 4.5 H VBG Potassium 4.2 Glucose 92 Lactate 1.3 FiO2 21.0 Sodium 146.0 Potassium Chloride 113.0 H Carbon Dioxide Anion Gap BUN Creatinine Est GFR ( Amer) Est GFR (Non-Af Amer) POC Glucose (mg/dL) Random Glucose Calcium Total Bilirubin AST ALT Alkaline Phosphatase Troponin I Total Protein Albumin Globulin Albumin/Globulin Ratio Lipase Venous Blood Potassium 4.2 Urine Color Urine Appearance Urine pH Ur Specific [place] Urine Protein Urine Glucose (UA) Urine Ketones Urine Blood Urine Nitrate Urine Bilirubin Urine Urobilinogen Ur Leukocyte Esterase Urine RBC Urine WBC Ur Epithelial Cells Urine Bacteria Blood Type Antibody Screen Crossmatch BBK History Checked - Imaging and Cardiology Bleeding scan Status: Pending Assessment & Plan - Assessment and Plan (Free Text) Assessment: 77 y/o F w/ GI bleeding Plan: - NPO/IVF - H/H Q4hrs until stable - transfuse for Hgb <7 - monitor bowel fxn - strict Is&Os - f/u bleeding scan - f/u GI recs - encourage OOB to ro[facility] narayanan w/ Dr. Conrad Calles DO PGY3
--- NOTE | 2018-05-22 19:29 | PCM.RRT ---
<Elvis,Sorinngozi - Last Filed: 05/22/18 19:23> CLOTH NEUTRALIZER Nurse Assessment - Situation Date: 05/22/18 Time CLOTH NEUTRALIZER was called: 17:30 CLOTH NEUTRALIZER Responder Arrival Time: 17:33 CLOTH NEUTRALIZER Location:: [address] [place] [address] Room Number: 570-1 [employer]OTH NEUTRALIZER Reason for Call: Looks Sicker CLOTH NEUTRALIZER Called By: RN - IV IV Inserted during CLOTH NEUTRALIZER?: No - Respiratory Oxygen Delivery Method: Nasal Cannula @L/min Oxygen Flow Rate: 3 Received Nebulizer Treatments:: No Was the Patient Ventilated with Bag/Mask 100% O2?: No Secretions Suctioned?: No Was the Patient Intubated?: No Was the Patient Placed on a Ventilator?: No - Medication Medications Administered During CLOTH NEUTRALIZER: none - Diagnostic Test Ordered EKG: No Chest X-Ray: No CT Scan: No Other Diagnostic Test Ordered: Bleeding Scan - Stat Labs Ordered CLOTH NEUTRALIZER Other Labs Ordered: hg/hct CPR started during CLOTH NEUTRALIZER?: No - Vital Signs Vital Sign: Rapid Response Vital Sign Blood Pressure 167/88 Pulse Rate 96 Respiratory Rate 20 Temperature 98 F Oxygen Saturation 100 - Finger Stick Blood Glucose Finger Stick Blood Glucose: 95 - Time CLOTH NEUTRALIZER Ended Time CLOTH NEUTRALIZER Ended: 17:59 - Vital Signs at end of CLOTH NEUTRALIZER Vital Signs at end of CLOTH NEUTRALIZER: Rapid Response End Vital Sign Blood Pressure 123/75 Pulse Rate 88 Respiratory Rate 18 Temperature 98.1 F O2 Sat by Pulse Oximetry 100 - Recommendations Notifications: Attending Physician I.Reason for CLOTH NEUTRALIZER - A) Acute Change in Patient: (Select all that apply): Staff member or family is worried about patient - Neurological Status (Select all that apply): Alert, Responsive, Oriented, Verbal, Follows Commands - Respiratory Oxygen Delivery Method: Nasal Cannula @L/min Oxygen Flow Rate: 3 - Constitutional Appears: Well, Non-toxic, No Acute Distress - Head Head Exam: ATRAUMATIC, NORMOCEPHALIC - Eyes Eye Exam: EOMI, Normal appearance - Respiratory Exam Respiratory Exam: Clear to Ausculation Bilateral, NORMAL BREATHING PATTERN - Cardiovascular Exam Cardiovascular Exam: REGULAR RHYTHM - GI/Abdominal Exam GI & Abdominal Exam: Soft. absent: Tenderness - Neurological Exam Neurological Exam: Alert, Awake - Extremities Exam Extremities Exam: Normal Inspection Plan - Assessment of Findings&Treatment Plan 77 y/o F admitted for GIB. Rapid response called after family noticed acute change in mental status and patient had "passed out." Pt had recently had a large, bright red bloody bowel movement. She reported that she felt another bowel movement coming on. Pts blood pressure was initially n the 170s/70s and had dropped down to 110/70s. Per nursing, hemoglobin had dropped from 11 to 8.9. Pt was alert and oriented throughout the rapid response. GI fellow was contact and instructed patient to receive 2u pRBC, PPI drip and transfer to the ICU. She was given a 1L bolus of fluids and was subsequently transferred to ICU for GI bleed management. <Mirella Up R - Last Filed: 05/24/18 07:35> CLOTH NEUTRALIZER Nurse Assessment - Vital Signs Vital Sign: Rapid Response Vital Sign Blood Pressure 167/88 Pulse Rate 96 Respiratory Rate 20 Temperature 98 F Oxygen Saturation 100 - Vital Signs at end of CLOTH NEUTRALIZER Vital Signs at end of CLOTH NEUTRALIZER: Rapid Response End Vital Sign Blood Pressure 123/75 Pulse Rate 88 Respiratory Rate 18 Temperature 98.1 F O2 Sat by Pulse Oximetry 100 Attending/Attestation - Attestation I have personally seen and examined this patient.: Yes I have fully participated in the care of the patient.: Yes I have reviewed all pertinent clinical information, including history, physical exam and plan: Yes Notes (Text): Patient seen and examined by me with resident at 5:32 PM on 05/22/18. Case discussed with resident. Agree with above with following additions/corrections. Rapid response was called for patient having loss of consciousness. Per patient's nurse and patient's family at bedside, patient had a bloody bowel movement and then had loss of consciousness for a few seconds. Patient states she still feels like she is having some rectal bleeding. Patient is unaware of her loss of consciousness. Patient is denying any chest pain or shortness of breath. Patient does have some nausea. No abdominal pain. No lightheadedness or dizziness. No change in vision. No fevers. GI fellow was notified. Patient's primary care doctor was notified. Per GI, patient to be transfused 2 units PRBCs. Patient's blood pressure was dropping and patient was given 1L fluid bolus and transferred to the ICU. Physical exam: General: Awake and alert lying in bed in no acute distress HEENT: Normocephalic, atraumatic. Extraocular muscles intact, pupils equal and reactive, no scleral icterus. Oropharynx is pink. Neck is supple. Cardiovascular: Regular rhythm. Normal S1 and S2. No murmurs, rubs, or gallops appreciated Pulmonary: Normal respiratory effort. No rhonchi, rales, or wheezing appreciated. Gastrointestinal: Soft, nondistended. Nontender. Positive bowel sounds all 4 quadrants. No guarding. Central nervous system: AAO x3, CN 2-12 grossly intact.
[2018-05-22] MEDS: Sodium Chloride 0.9% 1,000 ML IV SCH (20:00)
--- NOTE | 2018-05-22 21:19 | CON ---
DATE OF CONSULTATION: 05/22/2018 HISTORY OF PRESENT ILLNESS: This is a 77-year-old lady with a history of breast cancer, status post mastectomy, hypertension, diabetes mellitus type 2, hyperlipidemia, history of prior diverticular bleed, status post right hemicolectomy, and repeated bleed from splenic flexure in 12/2017, coronary artery disease with bare-metal stent placed in 12/2017 (the patient is on aspirin), who presented with bright red blood per rectum to emergency room earlier today and was admitted to telemetry with stable vital signs. She had repeated bloody bowel movements; however, at this time, she passed out. Reportedly, her hemoglobin significantly dropped, even though EMR data did not show significant drop in hemoglobin. The patient was admitted to ICU for suspicion of hemorrhagic shock due to massive GI bleed. GI consult and surgical consult were placed, aspirin held, a liter of normal saline IV fluid wide open given, and blood was type-crossed and matched. Two units of PRBC were ordered by primary hospitalist service. No nausea, no vomiting, no fever, no chills, no sweats. PAST MEDICAL HISTORY: Colon cancer, status post right hemicolectomy; diverticulosis; breast cancer; brain tumor, status post surgery; anemia; hypertension; coronary artery disease; diverticular bleed; diastolic CHF. PAST SURGICAL HISTORY: Status post right hemicolectomy. FAMILY HISTORY: Noncontributory. SOCIAL HISTORY: No alcohol or illicit drug abuse. No tobacco smoking. MEDICATIONS AT HOME: Prilosec, atenolol, amlodipine, vitamin D, Femara, allopurinol, aspirin, Lasix, isosorbide mononitrate, vitamin A, C and E. ALLERGIES: NKDA. REVIEW OF SYSTEMS: Review of 12-organ systems other than mentioned in the history of present illness is negative. PHYSICAL EXAMINATION: VITAL SIGNS: Blood pressure 123/75, temperature 98, heart rate 18, oxygen saturation 100% on 3 liters nasal cannula. ENT: Head and neck atraumatic. LUNGS: Clear to auscultation bilaterally. HEART: Regular rate and rhythm. S1 and S2 normal. ABDOMEN: Soft. Mildly tender, however it is not new finding. No peritoneal signs. No rebound tenderness. No voluntary or involuntary guarding. NEURO: The patient moves all extremities spontaneously. SKIN: Moist. PSYCH: The patient is alert, awake and oriented x3. LABORATORY DATA: WBC 4.6, hemoglobin 8.9, platelet count 146. Sodium 142, potassium 4.4, chloride 107, carbon dioxide 29, BUN 38, creatinine 1.4 (relatively stable compared with prior admissions), glucose 95, AST 27, ALT 24. Troponin 0.05 as of 11:40 a.m. this morning (now time is 06:30 p.m.). Lipase 171, INR 0.98. ASSESSMENT/PLAN: This is a 77-year-old lady who presented with what appears to be a massive GI bleed based on the fact that she collapsed while having a large amount of bright red blood per rectum. At present time, we will proceed with n.p.o. IV fluids. We will put two large-bore peripheral intravenous lines. GI consult and surgical consults are pending. Two units of PRBC will be transfused. We will continue with serial CBC. We will check lactic acid level and troponin. We will continue with mechanical DVT prophylaxis. We will continue with GI prophylaxis. The patient will be admitted to ICU for further management and monitoring. ccm time 40 min Todd Wheeler MD PAOLO
[2018-05-22 22:23] LABS: HEMOGLOBIN 7.4 g/dL (12.0-16.0)
[2018-05-23 02:11] LABS: HEMOGLOBIN 6.7 g/dL (12.0-16.0)
--- NOTE | 2018-05-23 05:55 | CP.PCM.PN ---
Subjective - Date & Time of Evaluation Date of Evaluation: 05/23/18 Time of Evaluation: 05:53 - Subjective Subjective: General Surgery Dr. Martines Pt S&E @bedside. repeat H/H dropped to 6.3 from 8.9 overnight. Pt transfused 2 units pRBC, w/ another 4 placed on hold. AM labs pending. Vitals have been stable and WNL throughout the night. Pt has no complaints this AM. denies abd pain, F/C, N/V, melena/hematochezia, syncope, dizziness/lightheadedness. Pt currently NPO. Objective - Vital Signs/Intake and Output Vital Signs (last 24 hours): Temp Pulse Resp BP Pulse Ox 97.9 F 79 15 140/66 100 05/23/18 05:40 05/23/18 05:40 05/23/18 05:40 05/23/18 05:40 05/23/18 01:31 Intake and Output: 05/22/18 05/23/18 18:59 06:59 Intake Total 650 Balance 650 - Medications Medications: Current Medications Allopurinol (Zyloprim) 300 mg PO DAILY MEHREEN Amlodipine Besylate (Norvasc) 5 mg PO DAILY MEHREEN Atenolol (Tenormin) 50 mg PO QAM MEHREEN Ergocalciferol (Drisdol 50,000 Intl Units Cap) 1 cap PO WED MEHREEN Ferrous Sulfate (Feosol) 324 mg PO TID MEHREEN Octreotide Acetate 1,250 mcg/ (Dextrose) 252.5 mls @ 5.05 mls/hr IV .Q24H MEHREEN; Protocol Sodium Chloride (Sodium Chloride 0.9%) 1,000 mls @ 100 mls/hr IV .Q10H MEHREEN Last Admin: 05/22/18 20:00 Dose: 100 mls/hr Isosorbide Mononitrate (Imdur Er) 30 mg PO DAILY [facility] Letrozole (Femara) 2.5 mg PO DAILY [facility] Non-Formulary Medication (Vits A,C,E/Lutein/Minerals [Vision Formula With Lutein Tab]) 1 tab PO DAILY MEHREEN Pantoprazole Sodium (Protonix Inj) 40 mg IVP Q12 MEHREEN Last Admin: 05/22/18 22:08 Dose: 40 mg Pantoprazole Sodium (Protonix Ec Tab) 40 mg PO 0600 MEHREEN - Labs Labs: 05/23/18 02:00 05/22/18 11:40 PT 11.3 SECONDS (9.4-12.5) 05/22/18 11:40 INR 0.98 05/22/18 11:40 APTT 28.2 Seconds (25.1-36.5) 05/22/18 11:40 - Constitutional Appears: Non-toxic, No Acute Distress - Head Exam Head Exam: NORMAL INSPECTION - Eye Exam Eye Exam: Normal appearance - ENT Exam ENT Exam: Mucous Membranes Moist - Respiratory Exam Respiratory Exam: NORMAL BREATHING PATTERN. absent: Accessory Muscle Use, Respiratory Distress - Cardiovascular Exam Cardiovascular Exam: REGULAR RHYTHM. absent: Bradycardia, Tachycardia - GI/Abdominal Exam GI & Abdominal Exam: Soft, Tenderness (mild epigastric TTP). absent: Distended, Firm, Guarding, Rebound - Extremities Exam Extremities Exam: Normal Inspection - Neurological Exam Neurological Exam: Alert, Awake, Oriented x3 - Psychiatric Exam Psychiatric exam: Normal Affect, Normal Mood - Skin Skin Exam: Dry, Intact, Normal Color, Warm Assessment and Plan - Assessment and Plan (Free Text) Assessment: 77 y/o F w/ GI bleeding Plan: - NPO/IVF --> can advance diet once H/H stable and melena/hematochezia subsides - f/u AM labs - H/H Q4-6hrs until stable - transfuse for Hgb <7 - monitor bowel fxn - strict Is&Os - f/u bleeding scan - f/u GI recs - hold anticoagulation/antiplatelet meds - encourage OOB to chair Pt discussed w/ Dr. Conrad Calles DO PGY3
[2018-05-23 06:48] LABS: VENOUS BLOOD GAS PO2 38 mm/Hg (30-55)
[2018-05-23] MEDS: Sodium Chloride 0.9% 1,000 ML IV SCH ×3 (06:51→20:46)
[2018-05-23 07:00] LABS: HEMOGLOBIN 9.3 g/dL (12.0-16.0); MEAN CORPUSCULAR HEMOGLOBIN 29.5 pg (25.0-35.0); MEAN CORPUSCULAR HGB CONC 31.4 g/dl (31.0-37.0); MEAN PLATELET VOLUME 11.3 fl (7.0-11.0); RBC 3.15 10^6/uL (3.5-6.1); RED CELL DISTRIBUTION WIDTH 15.2 % (11.5-14.5); WHITE BLOOD COUNT 4.7 10^3/uL (4.5-11.0)
[2018-05-23] MEDS: Pantoprazole 40 mg EC Tab PO SCH (07:37)
[2018-05-23 07:58] LABS: ALB/GLOB RATIO 1.1 (1.1-1.8); CALCIUM 9.3 mg/dL (8.4-10.5)
[2018-05-23 08:32] LABS: TROPONIN I 0.11 ng/mL
--- NOTE | 2018-05-23 10:32 | CP.PCM.PN ---
<Jens Gonzalez - Last Filed: 05/23/18 12:32> Subjective - Date & Time of Evaluation Date of Evaluation: 05/23/18 Time of Evaluation: 10:28 - Subjective Subjective: Last BM was yesterday before dinner which was bloody. She has been feeling well since last night. She denies nausea/vomiting. She has mild abdominal pain. No fevers. Objective - Vital Signs/Intake and Output Vital Signs (last 24 hours): Temp Pulse Resp BP Pulse Ox 98.4 F 85 15 140/66 100 05/23/18 06:00 05/23/18 06:00 05/23/18 05:40 05/23/18 05:40 05/23/18 01:31 Intake and Output: 05/23/18 05/23/18 06:59 18:59 Intake Total 650 Balance 650 - Medications Medications: Current Medications Allopurinol (Zyloprim) 300 mg PO DAILY [facility] Amlodipine Besylate (Norvasc) 5 mg PO DAILY [facility] Atenolol (Tenormin) 50 mg PO QAM [facility] Ergocalciferol (Drisdol 50,000 Intl Units Cap) 1 cap PO WED [facility] Ferrous Sulfate (Feosol) 324 mg PO TID [facility] Octreotide Acetate 1,250 mcg/ (Dextrose) 252.5 mls @ 5.05 mls/hr IV .Q24H [facility]; Protocol Last Admin: 05/23/18 07:36 Dose: Not Given Sodium Chloride (Sodium Chloride 0.9%) 1,000 mls @ 100 mls/hr IV .Q10H [facility] Last Admin: 05/23/18 06:51 Dose: 100 mls/hr Isosorbide Mononitrate (Imdur Er) 60 mg PO DAILY [facility] Letrozole (Femara) 2.5 mg PO DAILY [facility] Non-Formulary Medication (Vits A,C,E/Lutein/Minerals [Vision Formula With Lutein Tab]) 1 tab PO DAILY [facility] Pantoprazole Sodium (Protonix Inj) 40 mg IVP Q12 [facility] Last Admin: 05/22/18 22:08 Dose: 40 mg Pantoprazole Sodium (Protonix Ec Tab) 40 mg PO 0600 [facility] Last Admin: 05/23/18 07:37 Dose: 40 mg - Labs Labs: 05/23/18 06:30 05/23/18 06:30 PT 11.3 SECONDS (9.4-12.5) 05/22/18 11:40 INR 0.98 05/22/18 11:40 APTT 28.2 Seconds (25.1-36.5) 05/22/18 11:40 - Constitutional Appears: Non-toxic, No Acute Distress - Head Exam Head Exam: NORMAL INSPECTION, NORMOCEPHALIC - ENT Exam ENT Exam: Mucous Membranes Moist, Normal Exam - Respiratory Exam Respiratory Exam: Clear to Ausculation Bilateral, NORMAL BREATHING PATTERN - Cardiovascular Exam Cardiovascular Exam: REGULAR RHYTHM, +S1, +S2 - GI/Abdominal Exam GI & Abdominal Exam: Soft, Tenderness, Normal Bowel Sounds - Extremities Exam Extremities Exam: Full ROM, Normal Inspection - Neurological Exam Neurological Exam: Alert, Awake, Oriented x3 - Psychiatric Exam Psychiatric exam: Normal Affect, Normal Mood - Skin Skin Exam: Dry, Normal Color Assessment and Plan - Assessment and Plan (Free Text) Assessment: 77 year old female with PMH Breast cancer s/p B/L lumpectomy, GIST s/p partial gastrectomy, colon cancer s/p Right hemicolectomy, Brain tumor s/p craniotomy 2016, Diverticular Bleed with spontaneous cessation 12/2017, CAD s/p bare-metal stent 12/25 (on aspirin), and HTN presenting with rectal bleeding. Active treatment of rectal bleeding suspicious for Lower GI bleed. Prior bleeding scan for GI bleed, 12/2017, showed active bleeding at splenic flexure and EGD/colonoscopy without signs of active bleed and spontaneous cessation 12/2017. She was found to have elevated troponins. Plan: -suspicion for recurrent Diverticular bleed -hemodynamically stable -GI bleeding scan negative for active bleed. -H/H at baseline -type and cross, s/p 2 units pRBC with appropriate response -supportive care- IVFs -Start CLD -Follow up cardiology recommendations for elevated troponins. <Cinthya,Kovil V - Last Filed: 05/23/18 23:44> Objective - Vital Signs/Intake and Output Vital Signs (last 24 hours): Temp Pulse Resp BP Pulse Ox 98.8 F 87 19 162/80 H 99 05/23/18 23:00 05/23/18 23:37 05/23/18 23:37 05/23/18 23:37 05/23/18 23:37 Intake and Output: 05/23/18 05/24/18 18:59 06:59 Intake Total 1510 Output Total 500 Balance 1010 - Medications Medications: Current Medications Allopurinol (Zyloprim) 300 mg PO DAILY [facility] Last Admin: 05/23/18 10:46 Dose: 300 mg Amlodipine Besylate (Norvasc) 5 mg PO DAILY [facility] Last Admin: 05/23/18 10:46 Dose: 5 mg Atenolol (Tenormin) 50 mg PO QAM [facility] Last Admin: 05/23/18 10:46 Dose: 50 mg Ergocalciferol (Drisdol 50,000 Intl Units Cap) 1 cap PO WED [facility] Ferrous Sulfate (Feosol) 324 mg PO TID [facility] Last Admin: 05/23/18 18:00 Dose: 324 mg Sodium Chloride (Sodium Chloride 0.9%) 1,000 mls @ 100 mls/hr IV .Q10H [facility] Last Admin: 05/23/18 20:46 Dose: 100 mls/hr Isosorbide Mononitrate (Imdur Er) 60 mg PO DAILY [facility] Last Admin: 05/23/18 10:42 Dose: 60 mg Letrozole (Femara) 2.5 mg PO DAILY [facility] Last Admin: 05/23/18 10:52 Dose: 2.5 mg Home Med - Vits A,C, E/Lutein/Minerals [ Vision Formula With Lutein Tab] 1 tab PO DAILY [facility] Last Admin: 05/23/18 18:01 Dose: Not Given Pantoprazole Sodium (Protonix Ec Tab) 40 mg PO 0600 [facility] Last Admin: 05/23/18 07:37 Dose: 40 mg - Labs Labs: 05/23/18 19:20 05/23/18 06:30 PT 11.3 SECONDS (9.4-12.5) 05/22/18 11:40 INR 0.98 05/22/18 11:40 APTT 28.2 Seconds (25.1-36.5) 05/22/18 11:40 Attending/Attestation - Attestation I have personally seen and examined this patient.: Yes I have fully participated in the care of the patient.: Yes I have reviewed all pertinent clinical information, including history, physical exam and plan: Yes Notes (Text): This is an addendum to GI progress report dictated by the GI Fellow.The patient was seen and examined earlier. Medical records, lab studies, imagings were reviewed. Last 24 hours events reviewed. Agreed with the above treatment plan as outlined in GI Fellow 's notes with the addition of the following 05/23/18 23:44
[2018-05-23 10:59] LABS: BASO # 0.01 K/mm3 (0.0-2.0); BASO % 0.2 % (0.0-3.0); EOS # 0.1 (0.0-0.7); EOS % 1.2 % (1.5-5.0); GRAN # 4.23 (1.4-6.5); GRAN % 81.2 % (50.0-68.0); HEMOGLOBIN 9.5 g/dL (12.0-16.0); LYMPH # 0.7 (1.2-3.4); LYMPH % 13.8 % (22.0-35.0); MEAN CELL VOLUME 92.7 fl (80.0-105.0); MEAN CORPUSCULAR HGB CONC 32.3 g/dl (31.0-37.0); MEAN PLATELET VOLUME 10.2 fl (7.0-11.0); MONO # 0.2 (0.1-0.6); MONO % 3.6 % (1.0-6.0); RBC 3.17 10^6/uL (3.5-6.1); RED CELL DISTRIBUTION WIDTH 15.3 % (11.5-14.5); WHITE BLOOD COUNT 5.2 10^3/uL (4.5-11.0)
--- NOTE | 2018-05-23 11:08 | NM ---
Date of service: 05/22/2018 PROCEDURE: Nuclear medicine gastrointestinal bleeding scan. HISTORY: gi bleed COMPARISON: None available. TECHNIQUE: 4ccof patient blood was withdrawn and mixed with 33.0mCi of technetium ultra tagged. Images of the abdomen and pelvis were obtained in the anterior and posterior projection at 1 min intervals over a period of 45 min. FINDINGS: No abnormal extravasation of tracer was observed throughout the exam to indicate active bleeding within or outside the gastrointestinal tract. Physiologic activity was seen in the heart, liver, spleen and blood vessels. IMPRESSION: No evidence of active gastrointestinal bleeding.
--- NOTE | 2018-05-23 11:16 | CP.CCUPN ---
<Perez Odell - Last Filed: 05/23/18 11:41> CCU Subjective - Physician Review Subjective (Free Text): Perez Odell, PGY1 ICU Progress Note for Dr. Wheeler Patient was seen and examined at bedside this morning. Patient's hemoglobin was 6.7 prior to getting x2 pRBC transfusions. Patient responded appropriately to blood transfusion as repeat Hgb was 9.3. This morning, patient endorsed mild abdominal pain. She did not have another bloody bowel movement overnight. She denied cp, sob, shortness of breath, n/v/d, lightheadedness, and dizziness. A full 12 point ROS was conducted and unremarkable except as stated above. CCU Objective - Vital Signs / Intake & Output Vital Signs (Last 4 hours): Vital Signs Pulse BP 05/23/18 10:46 86 143/70 Intake and Output (Last 8hrs): Intake & Output 05/22/18 05/23/18 05/23/18 22:59 06:59 14:59 Intake Total 650 Balance 650 Weight 72.121 kg Intake: Blood Product 650 Red Blood Cells Cpd As1 325 Lr Unit [id number] Red Blood Cells Cpd As1 325 Lr Unit [id number] Other: Voiding Method Toilet - Physical Exam Head: Positive for: Normocephalic Pupils: Positive for: PERRL Extroacular Muscles: Positive for: EOMI Mouth: Positive for: Moist Mucous Membranes Respiratory/Chest: Positive for: Clear to Auscultation. Negative for: Wheezes, Rales, Rhonchi Cardiovascular: Positive for: Regular Rate and Rhythm, Normal S1, S2 Abdomen: Positive for: Tenderness (Diffuse tenderness to palpation of abdomen ), Normal Bowel Sounds. Negative for: Distention, Peritoneal Signs, Rebound, Guarding Upper Extremity: Positive for: Normal Inspection, NORMAL PULSES. Negative for: Edema Lower Extremity: Positive for: Normal Inspection, NORMAL PULSES. Negative for: Edema, CALF TENDERNESS Skin: Positive for: Warm, Dry, Normal Color Psychiatric: Positive for: Alert, Oriented x 3 - Medications Active Medications: Active Medications Generic Name Dose Route Start Last Admin Trade Name Freq PRN Reason Stop Dose Admin Allopurinol 300 mg 05/23/18 10:00 05/23/18 10:46 Zyloprim PO 300 mg DAILY MEHREEN Administration Amlodipine Besylate 5 mg 05/23/18 10:00 05/23/18 10:46 Norvasc PO 5 mg DAILY MEHREEN Administration Atenolol 50 mg 05/23/18 10:00 05/23/18 10:46 Tenormin PO 50 mg QAM MEHREEN Administration Ergocalciferol 1 cap 05/29/18 10:00 Drisdol 50,000 Intl Units Cap PO WED MEHREEN Ferrous Sulfate 324 mg 05/23/18 10:00 05/23/18 10:41 Feosol PO 324 mg TID MEHREEN Administration Octreotide Acetate 1,250 mcg/ 252.5 mls @ 5.05 mls/hr 05/22/18 18:15 05/23/18 07:36 Dextrose IV Not Given .Q24H MEHREEN Protocol 25 MCG/HR Sodium Chloride 1,000 mls @ 100 mls/hr 05/22/18 18:45 05/23/18 06:51 Sodium Chloride 0.9% IV 100 mls/hr .Q10H MEHREEN Administration Isosorbide Mononitrate 60 mg 05/23/18 10:00 05/23/18 10:42 Imdur Er PO 60 mg DAILY MEHREEN Administration Letrozole 2.5 mg 05/23/18 10:00 05/23/18 10:52 Femara PO 2.5 mg DAILY MEHREEN Administration Non-Formulary Medication 1 tab 05/23/18 10:00 Vits A,C,E/Lutein/Minerals [Vision Formula With Lutein Tab] PO DAILY MEHREEN Pantoprazole Sodium 40 mg 05/22/18 22:00 05/23/18 10:46 Protonix Inj IVP 40 mg Q12 MEHREEN Administration Pantoprazole Sodium 40 mg 05/23/18 06:00 05/23/18 07:37 Protonix Ec Tab PO 40 mg 0600 MEHREEN Administration - Patient Studies Lab Studies: Microbiology Studies 05/22/18 12:00 Urine Culture - Preliminary Urine Gram Negative Rodo Lab Studies 05/23/18 05/23/18 05/23/18 Range/Units 10:50 08:09 06:30 WBC 5.2 (4.5-11.0) 10^3/uL RBC 3.17 L (3.5-6.1) 10^6/uL Hgb 9.5 L (12.0-16.0) g/dL Hct 29.4 L (36.0-48.0) % MCV 92.7 (80.0-105.0) fl MCH 30.0 (25.0-35.0) pg MCHC 32.3 (31.0-37.0) g/dl RDW 15.3 H (11.5-14.5) % Plt Count 108 L (120.0-450.0) 10^3/uL MPV 10.2 (7.0-11.0) fl Gran % 81.2 H (50.0-68.0) % Lymph % (Auto) 13.8 L (22.0-35.0) % [place] % (Auto) 3.6 (1.0-6.0) % Eos % (Auto) 1.2 L (1.5-5.0) % Baso % (Auto) 0.2 (0.0-3.0) % Gran # 4.23 (1.4-6.5) Lymph # (Auto) 0.7 L (1.2-3.4) [place] # (Auto) 0.2 (0.1-0.6) Eos # (Auto) 0.1 (0.0-0.7) Baso # (Auto) 0.01 (0.0-2.0) K/mm3 PT (9.4-12.5) SECONDS INR APTT (25.1-36.5) Seconds pO2 38 (30-55) mm/Hg VBG pH 7.40 (7.32-7.43) VBG pCO2 44.0 (40-60) VBG HCO3 27.3 (21-28) mmol/l VBG Total CO2 28.7 H (22-28) mmol.L VBG O2 Sat (Calc) 79.9 H (40-65) % VBG Base Excess 2.0 (0.0-2.0) mmol/L VBG Potassium 4.7 (3.6-5.2) mmol/L Glucose 90 (65-105) mg/dl Lactate 0.9 (0.7-2.1) mmol/L FiO2 21.0 % Sodium 145.0 (132-148) mmol/L Potassium (3.6-5.0) mmol/L Chloride 114.0 H (98-107) mmol/L Carbon Dioxide (21-33) mmol/L Anion Gap (10-20) BUN (7-21) mg/dL Creatinine (0.7-1.2) mg/dl Est GFR ( Amer) Est GFR (Non-Af Amer) POC Glucose (mg/dL) 77 (65-110) mg/dL Random Glucose (70-110) mg/dL Calcium (8.4-10.5) mg/dL Phosphorus (2.5-4.5) mg/dL Magnesium (1.7-2.2) mg/dL Total Bilirubin (0.2-1.3) mg/dL AST (14-36) U/L ALT (7-56) U/L Alkaline Phosphatase (38-126) U/L Troponin I ng/mL Total Protein (5.8-8.3) g/dL Albumin (3.0-4.8) g/dL Globulin gm/dL Albumin/Globulin Ratio (1.1-1.8) Lipase (23-300) U/L Venous Blood Potassium 4.7 (3.6-5.2) mmol/L Urine Color (YELLOW) Urine Appearance (CLEAR) Urine pH (4.7-8.0) Ur Specific [place] (1.005-1.035) Urine Protein (<30 mg/dL) mg/dL Urine Glucose (UA) (NEGATIVE) mg/dL Urine Ketones (NEGATIVE) mg/dL Urine Blood (NEGATIVE) Urine Nitrate (NEGATIVE) Urine Bilirubin (NEGATIVE) Urine Urobilinogen (<1 E.U./dL) E.U./dL Ur Leukocyte Esterase (NEGATIVE) Yobany/uL Urine RBC (0-2) /hpf Urine WBC (0-6) /hpf Ur Epithelial Cells (0-5) /hpf Urine Bacteria (NEG) Blood Type Antibody Screen Crossmatch BBK History Checked 05/23/18 05/23/18 05/23/18 Range/Units 06:30 06:30 02:00 WBC 4.7 (4.5-11.0) 10^3/uL RBC 3.15 L (3.5-6.1) 10^6/uL Hgb 9.3 L D 6.7 L* (12.0-16.0) g/dL Hct 29.6 L 21.0 L (36.0-48.0) % MCV 94.0 (80.0-105.0) fl MCH 29.5 (25.0-35.0) pg MCHC 31.4 (31.0-37.0) g/dl RDW 15.2 H (11.5-14.5) % Plt Count 128 (120.0-450.0) 10^3/uL MPV 11.3 H (7.0-11.0) fl Gran % (50.0-68.0) % Lymph % (Auto) (22.0-35.0) % [place] % (Auto) (1.0-6.0) % Eos % (Auto) (1.5-5.0) % Baso % (Auto) (0.0-3.0) % Gran # (1.4-6.5) Lymph # (Auto) (1.2-3.4) [place] # (Auto) (0.1-0.6) Eos # (Auto) (0.0-0.7) Baso # (Auto) (0.0-2.0) K/mm3 PT (9.4-12.5) SECONDS INR APTT (25.1-36.5) Seconds pO2 (30-55) mm/Hg VBG pH (7.32-7.43) VBG pCO2 (40-60) VBG HCO3 (21-28) mmol/l VBG Total CO2 (22-28) mmol.L VBG O2 Sat (Calc) (40-65) % VBG Base Excess (0.0-2.0) mmol/L VBG Potassium (3.6-5.2) mmol/L Glucose (65-105) mg/dl Lactate (0.7-2.1) mmol/L FiO2 % Sodium 142 (132-148) mmol/L Potassium 4.8 (3.6-5.0) mmol/L Chloride 115 H (98-107) mmol/L Carbon Dioxide 23 (21-33) mmol/L Anion Gap 9 L (10-20) BUN 38 H (7-21) mg/dL Creatinine 1.5 H (0.7-1.2) mg/dl Est GFR ( Amer) 41 Est GFR (Non-Af Amer) 33 POC Glucose (mg/dL) (65-110) mg/dL Random Glucose 89 (70-110) mg/dL Calcium 9.3 (8.4-10.5) mg/dL Phosphorus 4.6 H (2.5-4.5) mg/dL Magnesium 1.9 (1.7-2.2) mg/dL Total Bilirubin 0.5 (0.2-1.3) mg/dL AST 38 H D (14-36) U/L ALT 23 (7-56) U/L Alkaline Phosphatase 66 (38-126) U/L Troponin I 0.11 D ng/mL Total Protein 5.7 L (5.8-8.3) g/dL Albumin 3.0 (3.0-4.8) g/dL Globulin 2.7 gm/dL Albumin/Globulin Ratio 1.1 (1.1-1.8) Lipase (23-300) U/L Venous Blood Potassium (3.6-5.2) mmol/L Urine Color (YELLOW) Urine Appearance (CLEAR) Urine pH (4.7-8.0) Ur Specific [place] (1.005-1.035) Urine Protein (<30 mg/dL) mg/dL Urine Glucose (UA) (NEGATIVE) mg/dL Urine Ketones (NEGATIVE) mg/dL Urine Blood (NEGATIVE) Urine Nitrate (NEGATIVE) Urine Bilirubin (NEGATIVE) Urine Urobilinogen (<1 E.U./dL) E.U./dL Ur Leukocyte Esterase (NEGATIVE) Yobany/uL Urine RBC (0-2) /hpf Urine WBC (0-6) /hpf Ur Epithelial Cells (0-5) /hpf Urine Bacteria (NEG) Blood Type Antibody Screen Crossmatch BBK History Checked 05/23/18 05/22/18 05/22/18 Range/Units 00:08 22:19 22:19 WBC (4.5-11.0) 10^3/uL RBC (3.5-6.1) 10^6/uL Hgb 7.4 L (12.0-16.0) g/dL Hct 23.2 L (36.0-48.0) % MCV (80.0-105.0) fl MCH (25.0-35.0) pg MCHC (31.0-37.0) g/dl RDW (11.5-14.5) % Plt Count (120.0-450.0) 10^3/uL MPV (7.0-11.0) fl Gran % (50.0-68.0) % Lymph % (Auto) (22.0-35.0) % [place] % (Auto) (1.0-6.0) % Eos % (Auto) (1.5-5.0) % Baso % (Auto) (0.0-3.0) % Gran # (1.4-6.5) Lymph # (Auto) (1.2-3.4) [place] # (Auto) (0.1-0.6) Eos # (Auto) (0.0-0.7) Baso # (Auto) (0.0-2.0) K/mm3 PT (9.4-12.5) SECONDS INR APTT (25.1-36.5) Seconds pO2 (30-55) mm/Hg VBG pH (7.32-7.43) VBG pCO2 (40-60) VBG HCO3 (21-28) mmol/l VBG Total CO2 (22-28) mmol.L VBG O2 Sat (Calc) (40-65) % VBG Base Excess (0.0-2.0) mmol/L VBG Potassium (3.6-5.2) mmol/L Glucose (65-105) mg/dl Lactate (0.7-2.1) mmol/L FiO2 % Sodium (132-148) mmol/L Potassium (3.6-5.0) mmol/L Chloride (98-107) mmol/L Carbon Dioxide (21-33) mmol/L Anion Gap (10-20) BUN (7-21) mg/dL Creatinine (0.7-1.2) mg/dl Est GFR ( Amer) Est GFR (Non-Af Amer) POC Glucose (mg/dL) 97 (65-110) mg/dL Random Glucose (70-110) mg/dL Calcium (8.4-10.5) mg/dL Phosphorus (2.5-4.5) mg/dL Magnesium (1.7-2.2) mg/dL Total Bilirubin (0.2-1.3) mg/dL AST (14-36) U/L ALT (7-56) U/L Alkaline Phosphatase (38-126) U/L Troponin I 0.17 H* ng/mL Total Protein (5.8-8.3) g/dL Albumin (3.0-4.8) g/dL Globulin gm/dL Albumin/Globulin Ratio (1.1-1.8) Lipase (23-300) U/L Venous Blood Potassium (3.6-5.2) mmol/L Urine Color (YELLOW) Urine Appearance (CLEAR) Urine pH (4.7-8.0) Ur Specific [place] (1.005-1.035) Urine Protein (<30 mg/dL) mg/dL Urine Glucose (UA) (NEGATIVE) mg/dL Urine Ketones (NEGATIVE) mg/dL Urine Blood (NEGATIVE) Urine Nitrate (NEGATIVE) Urine Bilirubin (NEGATIVE) Urine Urobilinogen (<1 E.U./dL) E.U./dL Ur Leukocyte Esterase (NEGATIVE) Yobany/uL Urine RBC (0-2) /hpf Urine WBC (0-6) /hpf Ur Epithelial Cells (0-5) /hpf Urine Bacteria (NEG) Blood Type Antibody Screen Crossmatch BBK History Checked 05/22/18 05/22/18 05/22/18 Range/Units 18:35 18:35 18:35 WBC (4.5-11.0) 10^3/uL RBC (3.5-6.1) 10^6/uL Hgb 7.3 L (12.0-16.0) g/dL Hct 23.0 L (36.0-48.0) % MCV (80.0-105.0) fl MCH (25.0-35.0) pg MCHC (31.0-37.0) g/dl RDW (11.5-14.5) % Plt Count (120.0-450.0) 10^3/uL MPV (7.0-11.0) fl Gran % (50.0-68.0) % Lymph % (Auto) (22.0-35.0) % [place] % (Auto) (1.0-6.0) % Eos % (Auto) (1.5-5.0) % Baso % (Auto) (0.0-3.0) % Gran # (1.4-6.5) Lymph # (Auto) (1.2-3.4) [place] # (Auto) (0.1-0.6) Eos # (Auto) (0.0-0.7) Baso # (Auto) (0.0-2.0) K/mm3 PT (9.4-12.5) SECONDS INR APTT (25.1-36.5) Seconds pO2 36 (30-55) mm/Hg VBG pH 7.47 H (7.32-7.43) VBG pCO2 39.0 L (40-60) VBG HCO3 28.4 H (21-28) mmol/l VBG Total CO2 29.6 H (22-28) mmol.L VBG O2 Sat (Calc) 76.5 H (40-65) % VBG Base Excess 4.5 H (0.0-2.0) mmol/L VBG Potassium 4.2 (3.6-5.2) mmol/L Glucose 92 (65-105) mg/dl Lactate 1.3 (0.7-2.1) mmol/L FiO2 21.0 % Sodium 146.0 (132-148) mmol/L Potassium (3.6-5.0) mmol/L Chloride 113.0 H (98-107) mmol/L Carbon Dioxide (21-33) mmol/L Anion Gap (10-20) BUN (7-21) mg/dL Creatinine (0.7-1.2) mg/dl Est GFR ( Amer) Est GFR (Non-Af Amer) POC Glucose (mg/dL) (65-110) mg/dL Random Glucose (70-110) mg/dL Calcium (8.4-10.5) mg/dL Phosphorus (2.5-4.5) mg/dL Magnesium (1.7-2.2) mg/dL Total Bilirubin (0.2-1.3) mg/dL AST (14-36) U/L ALT (7-56) U/L Alkaline Phosphatase (38-126) U/L Troponin I 0.18 H* D ng/mL Total Protein (5.8-8.3) g/dL Albumin (3.0-4.8) g/dL Globulin gm/dL Albumin/Globulin Ratio (1.1-1.8) Lipase (23-300) U/L Venous Blood Potassium 4.2 (3.6-5.2) mmol/L Urine Color (YELLOW) Urine Appearance (CLEAR) Urine pH (4.7-8.0) Ur Specific [place] (1.005-1.035) Urine Protein (<30 mg/dL) mg/dL Urine Glucose (UA) (NEGATIVE) mg/dL Urine Ketones (NEGATIVE) mg/dL Urine Blood (NEGATIVE) Urine Nitrate (NEGATIVE) Urine Bilirubin (NEGATIVE) Urine Urobilinogen (<1 E.U./dL) E.U./dL Ur Leukocyte Esterase (NEGATIVE) Yobany/uL Urine RBC (0-2) /hpf Urine WBC (0-6) /hpf Ur Epithelial Cells (0-5) /hpf Urine Bacteria (NEG) Blood Type Antibody Screen Crossmatch BBK History Checked 05/22/18 05/22/18 05/22/18 Range/Units 17:49 12:45 12:00 WBC (4.5-11.0) 10^3/uL RBC (3.5-6.1) 10^6/uL Hgb (12.0-16.0) g/dL Hct (36.0-48.0) % MCV (80.0-105.0) fl MCH (25.0-35.0) pg MCHC (31.0-37.0) g/dl RDW (11.5-14.5) % Plt Count (120.0-450.0) 10^3/uL MPV (7.0-11.0) fl Gran % (50.0-68.0) % Lymph % (Auto) (22.0-35.0) % [place] % (Auto) (1.0-6.0) % Eos % (Auto) (1.5-5.0) % Baso % (Auto) (0.0-3.0) % Gran # (1.4-6.5) Lymph # (Auto) (1.2-3.4) [place] # (Auto) (0.1-0.6) Eos # (Auto) (0.0-0.7) Baso # (Auto) (0.0-2.0) K/mm3 PT (9.4-12.5) SECONDS INR APTT (25.1-36.5) Seconds pO2 (30-55) mm/Hg VBG pH (7.32-7.43) VBG pCO2 (40-60) VBG HCO3 (21-28) mmol/l VBG Total CO2 (22-28) mmol.L VBG O2 Sat (Calc) (40-65) % VBG Base Excess (0.0-2.0) mmol/L VBG Potassium (3.6-5.2) mmol/L Glucose (65-105) mg/dl Lactate (0.7-2.1) mmol/L FiO2 % Sodium (132-148) mmol/L Potassium (3.6-5.0) mmol/L Chloride (98-107) mmol/L Carbon Dioxide (21-33) mmol/L Anion Gap (10-20) BUN (7-21) mg/dL Creatinine (0.7-1.2) mg/dl Est GFR ( Amer) Est GFR (Non-Af Amer) POC Glucose (mg/dL) 95 (65-110) mg/dL Random Glucose (70-110) mg/dL Calcium (8.4-10.5) mg/dL Phosphorus (2.5-4.5) mg/dL Magnesium (1.7-2.2) mg/dL Total Bilirubin (0.2-1.3) mg/dL AST (14-36) U/L ALT (7-56) U/L Alkaline Phosphatase (38-126) U/L Troponin I ng/mL Total Protein (5.8-8.3) g/dL Albumin (3.0-4.8) g/dL Globulin gm/dL Albumin/Globulin Ratio (1.1-1.8) Lipase (23-300) U/L Venous Blood Potassium (3.6-5.2) mmol/L Urine Color Yellow (YELLOW) Urine Appearance Clear (CLEAR) Urine pH 6.5 (4.7-8.0) Ur Specific [place] 1.010 (1.005-1.035) Urine Protein 30 H (<30 mg/dL) mg/dL Urine Glucose (UA) Negative (NEGATIVE) mg/dL Urine Ketones Negative (NEGATIVE) mg/dL Urine Blood Large H (NEGATIVE) Urine Nitrate Negative (NEGATIVE) Urine Bilirubin Negative (NEGATIVE) Urine Urobilinogen 0.2 (<1 E.U./dL) E.U./dL Ur Leukocyte Esterase Small H (NEGATIVE) Yobany/uL Urine RBC 10 - 15 (0-2) /hpf Urine WBC 5 - 10 (0-6) /hpf Ur Epithelial Cells 4 - 5 (0-5) /hpf Urine Bacteria Mod (NEG) Blood Type O POSITIVE Antibody Screen Negative Crossmatch See Detail BBK History Checked Patient has bt 05/22/18 05/22/18 05/22/18 Range/Units 11:40 11:40 11:40 WBC 4.6 (4.5-11.0) 10^3/uL RBC 3.00 L (3.5-6.1) 10^6/uL Hgb 8.9 L (12.0-16.0) g/dL Hct 28.4 L (36.0-48.0) % MCV 94.7 D (80.0-105.0) fl MCH 29.7 (25.0-35.0) pg MCHC 31.3 (31.0-37.0) g/dl RDW 16.1 H (11.5-14.5) % Plt Count 146 (120.0-450.0) 10^3/uL MPV 9.7 (7.0-11.0) fl Gran % 79.3 H (50.0-68.0) % Lymph % (Auto) 16.4 L (22.0-35.0) % [place] % (Auto) 3.2 (1.0-6.0) % Eos % (Auto) 1.1 L (1.5-5.0) % Baso % (Auto) 0.0 (0.0-3.0) % Gran # 3.68 (1.4-6.5) Lymph # (Auto) 0.8 L (1.2-3.4) [place] # (Auto) 0.2 (0.1-0.6) Eos # (Auto) 0.1 (0.0-0.7) Baso # (Auto) 0.00 (0.0-2.0) K/mm3 PT 11.3 (9.4-12.5) SECONDS INR 0.98 APTT 28.2 (25.1-36.5) Seconds pO2 (30-55) mm/Hg VBG pH (7.32-7.43) VBG pCO2 (40-60) VBG HCO3 (21-28) mmol/l VBG Total CO2 (22-28) mmol.L VBG O2 Sat (Calc) (40-65) % VBG Base Excess (0.0-2.0) mmol/L VBG Potassium (3.6-5.2) mmol/L Glucose (65-105) mg/dl Lactate (0.7-2.1) mmol/L FiO2 % Sodium 142 (132-148) mmol/L Potassium 4.4 (3.6-5.0) mmol/L Chloride 107 (98-107) mmol/L Carbon Dioxide 29 (21-33) mmol/L Anion Gap 10 (10-20) BUN 38 H (7-21) mg/dL Creatinine 1.4 H (0.7-1.2) mg/dl Est GFR ( Amer) 44 Est GFR (Non-Af Amer) 36 POC Glucose (mg/dL) (65-110) mg/dL Random Glucose 87 (70-110) mg/dL Calcium 10.1 (8.4-10.5) mg/dL Phosphorus (2.5-4.5) mg/dL Magnesium (1.7-2.2) mg/dL Total Bilirubin 0.4 (0.2-1.3) mg/dL AST 27 (14-36) U/L ALT 24 (7-56) U/L Alkaline Phosphatase 85 (38-126) U/L Troponin I 0.05 D ng/mL Total Protein 7.1 (5.8-8.3) g/dL Albumin 3.9 (3.0-4.8) g/dL Globulin 3.2 gm/dL Albumin/Globulin Ratio 1.2 (1.1-1.8) Lipase 171 (23-300) U/L Venous Blood Potassium (3.6-5.2) mmol/L Urine Color (YELLOW) Urine Appearance (CLEAR) Urine pH (4.7-8.0) Ur Specific [place] (1.005-1.035) Urine Protein (<30 mg/dL) mg/dL Urine Glucose (UA) (NEGATIVE) mg/dL Urine Ketones (NEGATIVE) mg/dL Urine Blood (NEGATIVE) Urine Nitrate (NEGATIVE) Urine Bilirubin (NEGATIVE) Urine Urobilinogen (<1 E.U./dL) E.U./dL Ur Leukocyte Esterase (NEGATIVE) Yobany/uL Urine RBC (0-2) /hpf Urine WBC (0-6) /hpf Ur Epithelial Cells (0-5) /hpf Urine Bacteria (NEG) Blood Type Antibody Screen Crossmatch BBK History Checked Laboratory Results - last 24 hr 05/22/18 05/22/18 05/22/18 11:40 11:40 11:40 WBC 4.6 RBC 3.00 L Hgb 8.9 L Hct 28.4 L MCV 94.7 D MCH 29.7 MCHC 31.3 RDW 16.1 H Plt Count 146 MPV 9.7 Gran % 79.3 H Lymph % (Auto) 16.4 L [place] % (Auto) 3.2 Eos % (Auto) 1.1 L Baso % (Auto) 0.0 Gran # 3.68 Lymph # (Auto) 0.8 L [place] # (Auto) 0.2 Eos # (Auto) 0.1 Baso # (Auto) 0.00 PT 11.3 INR 0.98 APTT 28.2 pO2 VBG pH VBG pCO2 VBG HCO3 VBG Total CO2 VBG O2 Sat (Calc) VBG Base Excess VBG Potassium Glucose Lactate FiO2 Sodium 142 Potassium 4.4 Chloride 107 Carbon Dioxide 29 Anion Gap 10 BUN 38 H Creatinine 1.4 H Est GFR ( Amer) 44 Est GFR (Non-Af Amer) 36 POC Glucose (mg/dL) Random Glucose 87 Calcium 10.1 Phosphorus Magnesium Total Bilirubin 0.4 AST 27 ALT 24 Alkaline Phosphatase 85 Troponin I 0.05 D Total Protein 7.1 Albumin 3.9 Globulin 3.2 Albumin/Globulin Ratio 1.2 Lipase 171 Venous Blood Potassium Urine Color Urine Appearance Urine pH Ur Specific [place] Urine Protein Urine Glucose (UA) Urine Ketones Urine Blood Urine Nitrate Urine Bilirubin Urine Urobilinogen Ur Leukocyte Esterase Urine RBC Urine WBC Ur Epithelial Cells Urine Bacteria Blood Type Antibody Screen Crossmatch BBK History Checked 05/22/18 05/22/18 05/22/18 12:00 12:45 17:49 WBC RBC Hgb Hct MCV MCH MCHC RDW Plt Count MPV Gran % Lymph % (Auto) [place] % (Auto) Eos % (Auto) Baso % (Auto) Gran # Lymph # (Auto) [place] # (Auto) Eos # (Auto) Baso # (Auto) PT INR APTT pO2 VBG pH VBG pCO2 VBG HCO3 VBG Total CO2 VBG O2 Sat (Calc) VBG Base Excess VBG Potassium Glucose Lactate FiO2 Sodium Potassium Chloride Carbon Dioxide Anion Gap BUN Creatinine Est GFR ( Amer) Est GFR (Non-Af Amer) POC Glucose (mg/dL) 95 Random Glucose Calcium Phosphorus Magnesium Total Bilirubin AST ALT Alkaline Phosphatase Troponin I Total Protein Albumin Globulin Albumin/Globulin Ratio Lipase Venous Blood Potassium Urine Color Yellow Urine Appearance Clear Urine pH 6.5 Ur Specific [place] 1.010 Urine Protein 30 H Urine Glucose (UA) Negative Urine Ketones Negative Urine Blood Large H Urine Nitrate Negative Urine Bilirubin Negative Urine Urobilinogen 0.2 Ur Leukocyte Esterase Small H Urine RBC 10 - 15 Urine WBC 5 - 10 Ur Epithelial Cells 4 - 5 Urine Bacteria Mod Blood Type O POSITIVE Antibody Screen Negative Crossmatch See Detail BBK History Checked Patient has bt 05/22/18 05/22/18 05/22/18 18:35 18:35 18:35 WBC RBC Hgb 7.3 L Hct 23.0 L MCV MCH MCHC RDW Plt Count MPV Gran % Lymph % (Auto) [place] % (Auto) Eos % (Auto) Baso % (Auto) Gran # Lymph # (Auto) [place] # (Auto) Eos # (Auto) Baso # (Auto) PT INR APTT pO2 36 VBG pH 7.47 H VBG pCO2 39.0 L VBG HCO3 28.4 H VBG Total CO2 29.6 H VBG O2 Sat (Calc) 76.5 H VBG Base Excess 4.5 H VBG Potassium 4.2 Glucose 92 Lactate 1.3 FiO2 21.0 Sodium 146.0 Potassium Chloride 113.0 H Carbon Dioxide Anion Gap BUN Creatinine Est GFR ( Amer) Est GFR (Non-Af Amer) POC Glucose (mg/dL) Random Glucose Calcium Phosphorus Magnesium Total Bilirubin AST ALT Alkaline Phosphatase Troponin I 0.18 H* D Total Protein Albumin Globulin Albumin/Globulin Ratio Lipase Venous Blood Potassium 4.2 Urine Color Urine Appearance Urine pH Ur Specific [place] Urine Protein Urine Glucose (UA) Urine Ketones Urine Blood Urine Nitrate Urine Bilirubin Urine Urobilinogen Ur Leukocyte Esterase Urine RBC Urine WBC Ur Epithelial Cells Urine Bacteria Blood Type Antibody Screen Crossmatch BBK History Checked 05/22/18 05/22/18 05/23/18 22:19 22:19 00:08 WBC RBC Hgb 7.4 L Hct 23.2 L MCV MCH MCHC RDW Plt Count MPV Gran % Lymph % (Auto) [place] % (Auto) Eos % (Auto) Baso % (Auto) Gran # Lymph # (Auto) [place] # (Auto) Eos # (Auto) Baso # (Auto) PT INR APTT pO2 VBG pH VBG pCO2 VBG HCO3 VBG Total CO2 VBG O2 Sat (Calc) VBG Base Excess VBG Potassium Glucose Lactate FiO2 Sodium Potassium Chloride Carbon Dioxide Anion Gap BUN Creatinine Est GFR ( Amer) Est GFR (Non-Af Amer) POC Glucose (mg/dL) 97 Random Glucose Calcium Phosphorus Magnesium Total Bilirubin AST ALT Alkaline Phosphatase Troponin I 0.17 H* Total Protein Albumin Globulin Albumin/Globulin Ratio Lipase Venous Blood Potassium Urine Color Urine Appearance Urine pH Ur Specific [place] Urine Protein Urine Glucose (UA) Urine Ketones Urine Blood Urine Nitrate Urine Bilirubin Urine Urobilinogen Ur Leukocyte Esterase Urine RBC Urine WBC Ur Epithelial Cells Urine Bacteria Blood Type Antibody Screen Crossmatch BBK History Checked 05/23/18 05/23/18 05/23/18 02:00 06:30 06:30 WBC 4.7 RBC 3.15 L Hgb 6.7 L* 9.3 L D Hct 21.0 L 29.6 L MCV 94.0 MCH 29.5 MCHC 31.4 RDW 15.2 H Plt Count 128 MPV 11.3 H Gran % Lymph % (Auto) [place] % (Auto) Eos % (Auto) Baso % (Auto) Gran # Lymph # (Auto) [place] # (Auto) Eos # (Auto) Baso # (Auto) PT INR APTT pO2 VBG pH VBG pCO2 VBG HCO3 VBG Total CO2 VBG O2 Sat (Calc) VBG Base Excess VBG Potassium Glucose Lactate FiO2 Sodium 142 Potassium 4.8 Chloride 115 H Carbon Dioxide 23 Anion Gap 9 L BUN 38 H Creatinine 1.5 H Est GFR ( Amer) 41 Est GFR (Non-Af Amer) 33 POC Glucose (mg/dL) Random Glucose 89 Calcium 9.3 Phosphorus 4.6 H Magnesium 1.9 Total Bilirubin 0.5 AST 38 H D ALT 23 Alkaline Phosphatase 66 Troponin I 0.11 D Total Protein 5.7 L Albumin 3.0 Globulin 2.7 Albumin/Globulin Ratio 1.1 Lipase Venous Blood Potassium Urine Color Urine Appearance Urine pH Ur Specific [place] Urine Protein Urine Glucose (UA) Urine Ketones Urine Blood Urine Nitrate Urine Bilirubin Urine Urobilinogen Ur Leukocyte Esterase Urine RBC Urine WBC Ur Epithelial Cells Urine Bacteria Blood Type Antibody Screen Crossmatch BBK History Checked 05/23/18 05/23/18 05/23/18 06:30 08:09 10:50 WBC 5.2 RBC 3.17 L Hgb 9.5 L Hct 29.4 L MCV 92.7 MCH 30.0 MCHC 32.3 RDW 15.3 H Plt Count 108 L MPV 10.2 Gran % 81.2 H Lymph % (Auto) 13.8 L [place] % (Auto) 3.6 Eos % (Auto) 1.2 L Baso % (Auto) 0.2 Gran # 4.23 Lymph # (Auto) 0.7 L [place] # (Auto) 0.2 Eos # (Auto) 0.1 Baso # (Auto) 0.01 PT INR APTT pO2 38 VBG pH 7.40 VBG pCO2 44.0 VBG HCO3 27.3 VBG Total CO2 28.7 H VBG O2 Sat (Calc) 79.9 H VBG Base Excess 2.0 VBG Potassium 4.7 Glucose 90 Lactate 0.9 FiO2 21.0 Sodium 145.0 Potassium Chloride 114.0 H Carbon Dioxide Anion Gap BUN Creatinine Est GFR ( Amer) Est GFR (Non-Af Amer) POC Glucose (mg/dL) 77 Random Glucose Calcium Phosphorus Magnesium Total Bilirubin AST ALT Alkaline Phosphatase Troponin I Total Protein Albumin Globulin Albumin/Globulin Ratio Lipase Venous Blood Potassium 4.7 Urine Color Urine Appearance Urine pH Ur Specific [place] Urine Protein Urine Glucose (UA) Urine Ketones Urine Blood Urine Nitrate Urine Bilirubin Urine Urobilinogen Ur Leukocyte Esterase Urine RBC Urine WBC Ur Epithelial Cells Urine Bacteria Blood Type Antibody Screen Crossmatch BBK History Checked EKG/Cardiology Studies: Cardiology / EKG Studies 05/22/18 11:20 ELECTROCARDIOGRAM Stat Comment: Reason For Exam: gi bleed 05/23/18 08:12 ELECTROCARDIOGRAM Stat Comment: Reason For Exam: elevated troponins 05/24/18 07:00 ELECTROCARDIOGRAM Routine Comment: Reason For Exam: CAD PRE OP:: N Does Patient Have a Pacemaker?: No Fingerstick Blood Sugar Results: 97 Review of Systems - Review of Systems All systems: reviewed and no additional remarkable complaints except (as per HPI) Critical Care Progress Note - Extremities/Vascular Does the Patient have a Central Venous Catheter?: No Does the Patient need a Central Venous Catheter?: No Does the Patient have a Fisher Catheter?: No Does the Patient need a Fisher Catheter?: No - Prophylaxis GI Prophylaxis GI: PPI - Nutrition Nutrition: Nutrition Category Date Time Status Liquid Diet [DIET] Diets 05/23/18 Lunch Ordered NPO Diet [DIET] Diets 05/22/18 Breakfast Ordered Assessment/Plan - Assessment and Plan (Free Text) Assessment: Patient is a 77 y/o F with PMHx of colon cancer, diverticulosis, breast cancer, brain tumor, anemia, hypertension, CAD, and CHF-pEF who presented to ED for rectal bleeding x1 episode of BRBPR. During hospital course, patient had [employer] PHYSICIAN since patient collapsed while having a large amount of BRBPR; she was then transferred to the ICU for management. Plan: Neuro: - No episodes of syncope in the unit - AAOx3 Pulm: - maintain SaO2 > 92% - Patient is resting comfortably in no acute distress; saturating well on RA Cardio: - Hx of CHF-pEF - Elevated troponins likely due to bleed; 0.18 > 0.17 > .11 - Cardiology was consulted, f/u recs - EKG in ICU: NSR, 94 bpm; no acute ST or T wave changes GI: - [employer] for hematochezia with syncopal episode; started on 2 large bore IVs, protonix 40mg IVP q12, given x2 pRBC transfusion, and restarted on home meds - Hgb is 6.7 and s/p x2 pRBCs Hgb is 9.3; appropriate response - f/u repeat cbc - Bleeding scan: negative - No further hematochezia in ICU and patient is hemodynamically stable - GI consulted, recs appreciated - Surgery consulted; recs appreciated - Advanced diet to clear liquid and consider soft diet for dinner Renal: - replete lytes as needed - Cr is 1.5 on most recent bmp Heme: - Hx of colon cancer, breast cancer, and brain tumor - Heme/onc consulted, f/u recs : - UA positive blood, small LE, wbc 5-10, rbc 10-15 - UCx prelim shows gram neg rods, f/u official ID: - Lactate level negative x2 - no active infections at this time - not currently on antibiotics - afebrile; no leukocytosis Dispo: Continue to monitor patient in the ICU. Case was discussed and reviewed with Attending Physician, Dr. Wheeler. <Todd Wheeler - Last Filed: 05/23/18 13:14> CCU Objective - Vital Signs / Intake & Output Vital Signs (Last 4 hours): Vital Signs Pulse BP 05/23/18 10:46 86 143/70 Intake and Output (Last 8hrs): Intake & Output 05/22/18 05/23/18 05/23/18 22:59 06:59 14:59 Intake Total 650 Balance 650 Weight 159 lb Intake: Blood Product 650 Red Blood Cells Cpd As1 325 Lr Unit [id number] Red Blood Cells Cpd As1 325 Lr Unit [id number] Other: Voiding Method Toilet - Medications Active Medications: Active Medications Generic Name Dose Route Start Last Admin Trade Name Freq PRN Reason Stop Dose Admin Allopurinol 300 mg 05/23/18 10:00 05/23/18 10:46 Zyloprim PO 300 mg DAILY MEHREEN Administration Amlodipine Besylate 5 mg 05/23/18 10:00 05/23/18 10:46 Norvasc PO 5 mg DAILY MEHREEN Administration Atenolol 50 mg 05/23/18 10:00 05/23/18 10:46 Tenormin PO 50 mg QAM MEHREEN Administration Ergocalciferol 1 cap 05/29/18 10:00 Drisdol 50,000 Intl Units Cap PO WED MEHREEN Ferrous Sulfate 324 mg 05/23/18 10:00 05/23/18 10:41 Feosol PO 324 mg TID MEHREEN Administration Octreotide Acetate 1,250 mcg/ 252.5 mls @ 5.05 mls/hr 05/22/18 18:15 05/23/18 07:36 Dextrose IV Not Given .Q24H MEHREEN Protocol 25 MCG/HR Sodium Chloride 1,000 mls @ 100 mls/hr 05/22/18 18:45 05/23/18 06:51 Sodium Chloride 0.9% IV 100 mls/hr .Q10H MEHREEN Administration Isosorbide Mononitrate 60 mg 05/23/18 10:00 05/23/18 10:42 Imdur Er PO 60 mg DAILY MEHREEN Administration Letrozole 2.5 mg 05/23/18 10:00 05/23/18 10:52 Femara PO 2.5 mg DAILY MEHREEN Administration Non-Formulary Medication 1 tab 05/23/18 10:00 Vits A,C,E/Lutein/Minerals [Vision Formula With Lutein Tab] PO DAILY MEHREEN Pantoprazole Sodium 40 mg 05/22/18 22:00 05/23/18 10:46 Protonix Inj IVP 40 mg Q12 MEHREEN Administration Pantoprazole Sodium 40 mg 05/23/18 06:00 05/23/18 07:37 Protonix Ec Tab PO 40 mg 0600 MEHREEN Administration - Patient Studies Lab Studies: Microbiology Studies 05/22/18 12:00 Urine Culture - Preliminary Urine Gram Negative Rodo Lab Studies 05/23/18 05/23/18 05/23/18 Range/Units 10:50 08:09 06:30 WBC 5.2 (4.5-11.0) 10^3/uL RBC 3.17 L (3.5-6.1) 10^6/uL Hgb 9.5 L (12.0-16.0) g/dL Hct 29.4 L (36.0-48.0) % MCV 92.7 (80.0-105.0) fl MCH 30.0 (25.0-35.0) pg MCHC 32.3 (31.0-37.0) g/dl RDW 15.3 H (11.5-14.5) % Plt Count 108 L (120.0-450.0) 10^3/uL MPV 10.2 (7.0-11.0) fl Gran % 81.2 H (50.0-68.0) % Lymph % (Auto) 13.8 L (22.0-35.0) % [place] % (Auto) 3.6 (1.0-6.0) % Eos % (Auto) 1.2 L (1.5-5.0) % Baso % (Auto) 0.2 (0.0-3.0) % Gran # 4.23 (1.4-6.5) Lymph # (Auto) 0.7 L (1.2-3.4) [place] # (Auto) 0.2 (0.1-0.6) Eos # (Auto) 0.1 (0.0-0.7) Baso # (Auto) 0.01 (0.0-2.0) K/mm3 pO2 38 (30-55) mm/Hg VBG pH 7.40 (7.32-7.43) VBG pCO2 44.0 (40-60) VBG HCO3 27.3 (21-28) mmol/l VBG Total CO2 28.7 H (22-28) mmol.L VBG O2 Sat (Calc) 79.9 H (40-65) % VBG Base Excess 2.0 (0.0-2.0) mmol/L VBG Potassium 4.7 (3.6-5.2) mmol/L Sodium 145.0 (132-148) mmol/L Chloride 114.0 H (98-107) mmol/L Glucose 90 (65-105) mg/dl Lactate 0.9 (0.7-2.1) mmol/L FiO2 21.0 % Potassium (3.6-5.0) mmol/L Carbon Dioxide (21-33) mmol/L Anion Gap (10-20) BUN (7-21) mg/dL Creatinine (0.7-1.2) mg/dl Est GFR ( Amer) Est GFR (Non-Af Amer) POC Glucose (mg/dL) 77 (65-110) mg/dL Random Glucose (70-110) mg/dL Calcium (8.4-10.5) mg/dL Phosphorus (2.5-4.5) mg/dL Magnesium (1.7-2.2) mg/dL Total Bilirubin (0.2-1.3) mg/dL AST (14-36) U/L ALT (7-56) U/L Alkaline Phosphatase (38-126) U/L Troponin I ng/mL Total Protein (5.8-8.3) g/dL Albumin (3.0-4.8) g/dL Globulin gm/dL Albumin/Globulin Ratio (1.1-1.8) Venous Blood Potassium 4.7 (3.6-5.2) mmol/L Blood Type Antibody Screen Crossmatch BBK History Checked 05/23/18 05/23/18 05/23/18 Range/Units 06:30 06:30 02:00 WBC 4.7 (4.5-11.0) 10^3/uL RBC 3.15 L (3.5-6.1) 10^6/uL Hgb 9.3 L D 6.7 L* (12.0-16.0) g/dL Hct 29.6 L 21.0 L (36.0-48.0) % MCV 94.0 (80.0-105.0) fl MCH 29.5 (25.0-35.0) pg MCHC 31.4 (31.0-37.0) g/dl RDW 15.2 H (11.5-14.5) % Plt Count 128 (120.0-450.0) 10^3/uL MPV 11.3 H (7.0-11.0) fl Gran % (50.0-68.0) % Lymph % (Auto) (22.0-35.0) % [place] % (Auto) (1.0-6.0) % Eos % (Auto) (1.5-5.0) % Baso % (Auto) (0.0-3.0) % Gran # (1.4-6.5) Lymph # (Auto) (1.2-3.4) [place] # (Auto) (0.1-0.6) Eos # (Auto) (0.0-0.7) Baso # (Auto) (0.0-2.0) K/mm3 pO2 (30-55) mm/Hg VBG pH (7.32-7.43) VBG pCO2 (40-60) VBG HCO3 (21-28) mmol/l VBG Total CO2 (22-28) mmol.L VBG O2 Sat (Calc) (40-65) % VBG Base Excess (0.0-2.0) mmol/L VBG Potassium (3.6-5.2) mmol/L Sodium 142 (132-148) mmol/L Chloride 115 H (98-107) mmol/L Glucose (65-105) mg/dl Lactate (0.7-2.1) mmol/L FiO2 % Potassium 4.8 (3.6-5.0) mmol/L Carbon Dioxide 23 (21-33) mmol/L Anion Gap 9 L (10-20) BUN 38 H (7-21) mg/dL Creatinine 1.5 H (0.7-1.2) mg/dl Est GFR ( Amer) 41 Est GFR (Non-Af Amer) 33 POC Glucose (mg/dL) (65-110) mg/dL Random Glucose 89 (70-110) mg/dL Calcium 9.3 (8.4-10.5) mg/dL Phosphorus 4.6 H (2.5-4.5) mg/dL Magnesium 1.9 (1.7-2.2) mg/dL Total Bilirubin 0.5 (0.2-1.3) mg/dL AST 38 H D (14-36) U/L ALT 23 (7-56) U/L Alkaline Phosphatase 66 (38-126) U/L Troponin I 0.11 D ng/mL Total Protein 5.7 L (5.8-8.3) g/dL Albumin 3.0 (3.0-4.8) g/dL Globulin 2.7 gm/dL Albumin/Globulin Ratio 1.1 (1.1-1.8) Venous Blood Potassium (3.6-5.2) mmol/L Blood Type Antibody Screen Crossmatch BBK History Checked 05/23/18 05/22/18 05/22/18 Range/Units 00:08 22:19 22:19 WBC (4.5-11.0) 10^3/uL RBC (3.5-6.1) 10^6/uL Hgb 7.4 L (12.0-16.0) g/dL Hct 23.2 L (36.0-48.0) % MCV (80.0-105.0) fl MCH (25.0-35.0) pg MCHC (31.0-37.0) g/dl RDW (11.5-14.5) % Plt Count (120.0-450.0) 10^3/uL MPV (7.0-11.0) fl Gran % (50.0-68.0) % Lymph % (Auto) (22.0-35.0) % [place] % (Auto) (1.0-6.0) % Eos % (Auto) (1.5-5.0) % Baso % (Auto) (0.0-3.0) % Gran # (1.4-6.5) Lymph # (Auto) (1.2-3.4) [place] # (Auto) (0.1-0.6) Eos # (Auto) (0.0-0.7) Baso # (Auto) (0.0-2.0) K/mm3 pO2 (30-55) mm/Hg VBG pH (7.32-7.43) VBG pCO2 (40-60) VBG HCO3 (21-28) mmol/l VBG Total CO2 (22-28) mmol.L VBG O2 Sat (Calc) (40-65) % VBG Base Excess (0.0-2.0) mmol/L VBG Potassium (3.6-5.2) mmol/L Sodium (132-148) mmol/L Chloride (98-107) mmol/L Glucose (65-105) mg/dl Lactate (0.7-2.1) mmol/L FiO2 % Potassium (3.6-5.0) mmol/L Carbon Dioxide (21-33) mmol/L Anion Gap (10-20) BUN (7-21) mg/dL Creatinine (0.7-1.2) mg/dl Est GFR ( Amer) Est GFR (Non-Af Amer) POC Glucose (mg/dL) 97 (65-110) mg/dL Random Glucose (70-110) mg/dL Calcium (8.4-10.5) mg/dL Phosphorus (2.5-4.5) mg/dL Magnesium (1.7-2.2) mg/dL Total Bilirubin (0.2-1.3) mg/dL AST (14-36) U/L ALT (7-56) U/L Alkaline Phosphatase (38-126) U/L Troponin I 0.17 H* ng/mL Total Protein (5.8-8.3) g/dL Albumin (3.0-4.8) g/dL Globulin gm/dL Albumin/Globulin Ratio (1.1-1.8) Venous Blood Potassium (3.6-5.2) mmol/L Blood Type Antibody Screen Crossmatch BBK History Checked 05/22/18 05/22/18 05/22/18 Range/Units 18:35 18:35 18:35 WBC (4.5-11.0) 10^3/uL RBC (3.5-6.1) 10^6/uL Hgb 7.3 L (12.0-16.0) g/dL Hct 23.0 L (36.0-48.0) % MCV (80.0-105.0) fl MCH (25.0-35.0) pg MCHC (31.0-37.0) g/dl RDW (11.5-14.5) % Plt Count (120.0-450.0) 10^3/uL MPV (7.0-11.0) fl Gran % (50.0-68.0) % Lymph % (Auto) (22.0-35.0) % [place] % (Auto) (1.0-6.0) % Eos % (Auto) (1.5-5.0) % Baso % (Auto) (0.0-3.0) % Gran # (1.4-6.5) Lymph # (Auto) (1.2-3.4) [place] # (Auto) (0.1-0.6) Eos # (Auto) (0.0-0.7) Baso # (Auto) (0.0-2.0) K/mm3 pO2 36 (30-55) mm/Hg VBG pH 7.47 H (7.32-7.43) VBG pCO2 39.0 L (40-60) VBG HCO3 28.4 H (21-28) mmol/l VBG Total CO2 29.6 H (22-28) mmol.L VBG O2 Sat (Calc) 76.5 H (40-65) % VBG Base Excess 4.5 H (0.0-2.0) mmol/L VBG Potassium 4.2 (3.6-5.2) mmol/L Sodium 146.0 (132-148) mmol/L Chloride 113.0 H (98-107) mmol/L Glucose 92 (65-105) mg/dl Lactate 1.3 (0.7-2.1) mmol/L FiO2 21.0 % Potassium (3.6-5.0) mmol/L Carbon Dioxide (21-33) mmol/L Anion Gap (10-20) BUN (7-21) mg/dL Creatinine (0.7-1.2) mg/dl Est GFR ( Amer) Est GFR (Non-Af Amer) POC Glucose (mg/dL) (65-110) mg/dL Random Glucose (70-110) mg/dL Calcium (8.4-10.5) mg/dL Phosphorus (2.5-4.5) mg/dL Magnesium (1.7-2.2) mg/dL Total Bilirubin (0.2-1.3) mg/dL AST (14-36) U/L ALT (7-56) U/L Alkaline Phosphatase (38-126) U/L Troponin I 0.18 H* D ng/mL Total Protein (5.8-8.3) g/dL Albumin (3.0-4.8) g/dL Globulin gm/dL Albumin/Globulin Ratio (1.1-1.8) Venous Blood Potassium 4.2 (3.6-5.2) mmol/L Blood Type Antibody Screen Crossmatch BBK History Checked 05/22/18 05/22/18 Range/Units 17:49 12:45 WBC (4.5-11.0) 10^3/uL RBC (3.5-6.1) 10^6/uL Hgb (12.0-16.0) g/dL Hct (36.0-48.0) % MCV (80.0-105.0) fl MCH (25.0-35.0) pg MCHC (31.0-37.0) g/dl RDW (11.5-14.5) % Plt Count (120.0-450.0) 10^3/uL MPV (7.0-11.0) fl Gran % (50.0-68.0) % Lymph % (Auto) (22.0-35.0) % [place] % (Auto) (1.0-6.0) % Eos % (Auto) (1.5-5.0) % Baso % (Auto) (0.0-3.0) % Gran # (1.4-6.5) Lymph # (Auto) (1.2-3.4) [place] # (Auto) (0.1-0.6) Eos # (Auto) (0.0-0.7) Baso # (Auto) (0.0-2.0) K/mm3 pO2 (30-55) mm/Hg VBG pH (7.32-7.43) VBG pCO2 (40-60) VBG HCO3 (21-28) mmol/l VBG Total CO2 (22-28) mmol.L VBG O2 Sat (Calc) (40-65) % VBG Base Excess (0.0-2.0) mmol/L VBG Potassium (3.6-5.2) mmol/L Sodium (132-148) mmol/L Chloride (98-107) mmol/L Glucose (65-105) mg/dl Lactate (0.7-2.1) mmol/L FiO2 % Potassium (3.6-5.0) mmol/L Carbon Dioxide (21-33) mmol/L Anion Gap (10-20) BUN (7-21) mg/dL Creatinine (0.7-1.2) mg/dl Est GFR ( Amer) Est GFR (Non-Af Amer) POC Glucose (mg/dL) 95 (65-110) mg/dL Random Glucose (70-110) mg/dL Calcium (8.4-10.5) mg/dL Phosphorus (2.5-4.5) mg/dL Magnesium (1.7-2.2) mg/dL Total Bilirubin (0.2-1.3) mg/dL AST (14-36) U/L ALT (7-56) U/L Alkaline Phosphatase (38-126) U/L Troponin I ng/mL Total Protein (5.8-8.3) g/dL Albumin (3.0-4.8) g/dL Globulin gm/dL Albumin/Globulin Ratio (1.1-1.8) Venous Blood Potassium (3.6-5.2) mmol/L Blood Type O POSITIVE Antibody Screen Negative Crossmatch See Detail BBK History Checked Patient has bt Laboratory Results - last 24 hr 05/22/18 05/22/18 05/22/18 12:45 17:49 18:35 WBC RBC Hgb 7.3 L Hct 23.0 L MCV MCH MCHC RDW Plt Count MPV Gran % Lymph % (Auto) [place] % (Auto) Eos % (Auto) Baso % (Auto) Gran # Lymph # (Auto) [place] # (Auto) Eos # (Auto) Baso # (Auto) pO2 VBG pH VBG pCO2 VBG HCO3 VBG Total CO2 VBG O2 Sat (Calc) VBG Base Excess VBG Potassium Sodium Chloride Glucose Lactate FiO2 Potassium Carbon Dioxide Anion Gap BUN Creatinine Est GFR ( Amer) Est GFR (Non-Af Amer) POC Glucose (mg/dL) 95 Random Glucose Calcium Phosphorus Magnesium Total Bilirubin AST ALT Alkaline Phosphatase Troponin I Total Protein Albumin Globulin Albumin/Globulin Ratio Venous Blood Potassium Blood Type O POSITIVE Antibody Screen Negative Crossmatch See Detail BBK History Checked Patient has bt 05/22/18 05/22/18 05/22/18 18:35 18:35 22:19 WBC RBC Hgb 7.4 L Hct 23.2 L MCV MCH MCHC RDW Plt Count MPV Gran % Lymph % (Auto) [place] % (Auto) Eos % (Auto) Baso % (Auto) Gran # Lymph # (Auto) [place] # (Auto) Eos # (Auto) Baso # (Auto) pO2 36 VBG pH 7.47 H VBG pCO2 39.0 L VBG HCO3 28.4 H VBG Total CO2 29.6 H VBG O2 Sat (Calc) 76.5 H VBG Base Excess 4.5 H VBG Potassium 4.2 Sodium 146.0 Chloride 113.0 H Glucose 92 Lactate 1.3 FiO2 21.0 Potassium Carbon Dioxide Anion Gap BUN Creatinine Est GFR ( Amer) Est GFR (Non-Af Amer) POC Glucose (mg/dL) Random Glucose Calcium Phosphorus Magnesium Total Bilirubin AST ALT Alkaline Phosphatase Troponin I 0.18 H* D Total Protein Albumin Globulin Albumin/Globulin Ratio Venous Blood Potassium 4.2 Blood Type Antibody Screen Crossmatch BBK History Checked 05/22/18 05/23/18 05/23/18 22:19 00:08 02:00 WBC RBC Hgb 6.7 L* Hct 21.0 L MCV MCH MCHC RDW Plt Count MPV Gran % Lymph % (Auto) [place] % (Auto) Eos % (Auto) Baso % (Auto) Gran # Lymph # (Auto) [place] # (Auto) Eos # (Auto) Baso # (Auto) pO2 VBG pH VBG pCO2 VBG HCO3 VBG Total CO2 VBG O2 Sat (Calc) VBG Base Excess VBG Potassium Sodium Chloride Glucose Lactate FiO2 Potassium Carbon Dioxide Anion Gap BUN Creatinine Est GFR ( Amer) Est GFR (Non-Af Amer) POC Glucose (mg/dL) 97 Random Glucose Calcium Phosphorus Magnesium Total Bilirubin AST ALT Alkaline Phosphatase Troponin I 0.17 H* Total Protein Albumin Globulin Albumin/Globulin Ratio Venous Blood Potassium Blood Type Antibody Screen Crossmatch BBK History Checked 05/23/18 05/23/18 05/23/18 06:30 06:30 06:30 WBC 4.7 RBC 3.15 L Hgb 9.3 L D Hct 29.6 L MCV 94.0 MCH 29.5 MCHC 31.4 RDW 15.2 H Plt Count 128 MPV 11.3 H Gran % Lymph % (Auto) [place] % (Auto) Eos % (Auto) Baso % (Auto) Gran # Lymph # (Auto) [place] # (Auto) Eos # (Auto) Baso # (Auto) pO2 38 VBG pH 7.40 VBG pCO2 44.0 VBG HCO3 27.3 VBG Total CO2 28.7 H VBG O2 Sat (Calc) 79.9 H VBG Base Excess 2.0 VBG Potassium 4.7 Sodium 142 145.0 Chloride 115 H 114.0 H Glucose 90 Lactate 0.9 FiO2 21.0 Potassium 4.8 Carbon Dioxide 23 Anion Gap 9 L BUN 38 H Creatinine 1.5 H Est GFR ( Amer) 41 Est GFR (Non-Af Amer) 33 POC Glucose (mg/dL) Random Glucose 89 Calcium 9.3 Phosphorus 4.6 H Magnesium 1.9 Total Bilirubin 0.5 AST 38 H D ALT 23 Alkaline Phosphatase 66 Troponin I 0.11 D Total Protein 5.7 L Albumin 3.0 Globulin 2.7 Albumin/Globulin Ratio 1.1 Venous Blood Potassium 4.7 Blood Type Antibody Screen Crossmatch BBK History Checked 05/23/18 05/23/18 08:09 10:50 WBC 5.2 RBC 3.17 L Hgb 9.5 L Hct 29.4 L MCV 92.7 MCH 30.0 MCHC 32.3 RDW 15.3 H Plt Count 108 L MPV 10.2 Gran % 81.2 H Lymph % (Auto) 13.8 L [place] % (Auto) 3.6 Eos % (Auto) 1.2 L Baso % (Auto) 0.2 Gran # 4.23 Lymph # (Auto) 0.7 L [place] # (Auto) 0.2 Eos # (Auto) 0.1 Baso # (Auto) 0.01 pO2 VBG pH VBG pCO2 VBG HCO3 VBG Total CO2 VBG O2 Sat (Calc) VBG Base Excess VBG Potassium Sodium Chloride Glucose Lactate FiO2 Potassium Carbon Dioxide Anion Gap BUN Creatinine Est GFR ( Amer) Est GFR (Non-Af Amer) POC Glucose (mg/dL) 77 Random Glucose Calcium Phosphorus Magnesium Total Bilirubin AST ALT Alkaline Phosphatase Troponin I Total Protein Albumin Globulin Albumin/Globulin Ratio Venous Blood Potassium Blood Type Antibody Screen Crossmatch BBK History Checked EKG/Cardiology Studies: Cardiology / EKG Studies 05/23/18 08:12 ELECTROCARDIOGRAM Stat Comment: Reason For Exam: elevated troponins 05/24/18 07:00 ELECTROCARDIOGRAM Routine Comment: Reason For Exam: CAD PRE OP:: N Does Patient Have a Pacemaker?: No Critical Care Progress Note - Nutrition Nutrition: Nutrition Category Date Time Status Liquid Diet [DIET] Diets 05/23/18 Lunch Ordered Attending/Attestation - Attestation I have personally seen and examined this patient.: Yes I have fully participated in the care of the patient.: Yes I have reviewed all pertinent clinical information: Yes Notes (Text): 05/23/18 13:14 76 yo female who presented to ICU with suspicion on hemorhagic shock due to lower gi bleed. 2 PRBC transfused, Hb responded appropriately and remained stable. lactate was wnl, troponin was found to be slightly elevated but returned to normal today-->caridology-->no intervention. BP remained stable over ICU stay, abdo exam is benign except for mild chronic periumbilical tenderness. r espiratory status stable. ok to downgrade to tele. ccm time 40 min
--- NOTE | 2018-05-23 13:50 | CON ---
DATE OF CONSULTATION: 05/23/2018 CONSULT SERVICE: Cardiology. REASON FOR CONSULTATION: Follow up GI bleed, history of coronary artery disease, history of a bare-metal stent, and history of recurrent GI bleed. Borderline troponin positive. BRIEF CLINICAL HISTORY: This is a 77-year-old female with past medical history significant for colon cancer, diverticulosis, breast cancer, brain tumor, anemia, history of coronary artery disease, status post bare-metal stent. The patient presented with acute coronary syndrome, history of GI bleed in the past, who has a bright red blood per rectum on Sunday started in the emergency room. Again, the patient had bright red blood in ER and in the floor. The patient is in ICU. Denies any chest pain. Denies any shortness of breath. Denies any palpitation, but has some epigastric pain with tenderness. The patient is currently in ICU, 128, bed 7. No chest pain. PAST MEDICAL HISTORY: Significant for breast cancer, status post colon surgery for colon cancer. Recently, the patient had a brain tumor, had a surgery in [facility] with craniotomy done; hypertension; hyperlipidemia; history of non-STEMI on 12/12/2017 and then 12/21/2017. Initially, the patient was started to be treated medically, repeat admission with non-STEMI, the patient underwent cardiac catheterization and subsequently bare-metal stent on 12/24/2017 in the right coronary artery ostium. Because of history of recurrent bleed after the first non-STEMI, it was decided to be treated medically, but with the patient had recurrent STEMI, the patient underwent cardiac catheterization and ostial stent of right coronary with bare-metal stent. RECENT CARDIAC WORKUP: As follows: The patient had a cardiac catheterization on 12/24/2017, when presented with unstable angina and recurrent STEMI. The patient underwent cardiac catheterization subsequently, PTCA of ostial RCA, right coronary artery with bare-metal stent. At that time, the cardiac catheterization revealed moderate to severe mid circumflex disease to D1, but not suitable for PCI. A bare-metal stent was done with RCA because of the recurrent GI bleed in the past. History of some renal insufficiency. The patient was treated with aspirin and Plavix for 4 weeks and after that the patient was off Plavix because of the recurrent bleed. The details of the cardiac exam at that time revealed left main is a large caliber vessel, essentially significant disease, bifurcates LAD and circumflex with 30% stenosis in the mid segment of the left main with bifurcate LAD and circumflex. LAD, the left anterior descending artery had diffuse calcification. Distal LAD with [employer], diagonal branch, small vessel disease 70% to 80% stenosis, not suitable for PCI. Circumflex is a moderate caliber vessel, its mid segment has 70% to 80% disease with a 2 hairpin turn, not suitable for PCI. Ostial was at 95% stenosis with a bare-metal stent done. At that time, the ejection fraction was 55% to 60%. EDP, end-diastolic pressure was in the range of 18. The patient had echo 12/10/2017 that revealed ejection fraction 55%, moderate valvular aortic stenosis, moderate mitral regurgitation, mild to moderate tricuspid regurgitation, mild to moderate pulmonary hypertension, moderate left pleural effusion, RV systolic pressure 58, though echo shows mild to moderate aortic stenosis, but no gradient on cardiac catheterization. It means no significant aortic stenosis by cardiac catheterization. SOCIAL HISTORY: Denies smoking. Denies any history of alcohol abuse. CURRENT MEDICATIONS: The patient is taking amlodipine 10 mg daily, omeprazole, isosorbide nitrate, Femara, Lasix, ferrous sulfate, atenolol 50 mg, aspirin, and allopurinol. ALLERGIES: NO KNOWN DRUG ALLERGIES. REVIEW OF SYSTEMS: As per HPI. PHYSICAL EXAMINATION: GENERAL: Height of the patient 5 feet 2 inches. Weight of the patient is 159 and body mass index 29.1 kg per meter2. VITAL SIGNS: Rest of the vitals, temperature is afebrile, heart rate 85, blood pressure 140/66. HEENT: PERRLA. Extraocular muscles are intact. NECK: Supple. No carotid bruit or thyromegaly. CHEST: Clear to auscultation. HEART: S1 and S2, regular. ABDOMEN: Soft. EXTREMITIES: Clubbing and cyanosis negative. LABORATORY DATA: Blood workup as follows: WBC is 4.7, hemoglobin 9.7, hematocrit 29.6, platelet count 128. Chemistry shows sodium 142, potassium 4.2, chloride 115, carbon dioxide 23, anion gap of 9, BUN 38, creatinine 1.5. EKG shows normal sinus, LV strain, some ST-T changes in the lateral lead, half a millimeter ST horizontal sloping in the lateral lead V5 and V6. 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 History of recurrent gastrointestinal bleed. This is probably a fifth or sixth admission with a gastrointestinal bleed. Borderline troponin positive secondary to demand ischemia. The patient admitted with hemoglobin 6.7, now is 9.3. No ongoing ischemia manifested. No chest pain. No significant ST-T changes though borderline patient had a troponin 0.13, but now troponin is trending down. Asymptomatic epigastric pain. RECOMMENDATIONS: Aggressive medical treatment. The patient cannot tolerate aspirin and Plavix dual antiplatelet therapy. Without dual antiplatelet therapy, the patient has a gastrointestinal bleed on baby aspirin, so we will hold baby aspirin. Once bleeding stops, we will resume back aspirin. Continue beta-jazmin, continue nitrates and aggressive medical management. Try to keep hemoglobin around 10. Followup serial CPK. Discussed with the patient. The patient's last echo shows preserved LV function, ejection fraction 55%, mild to moderate MR, mild to moderate TR, mild to moderate aortic stenosis by echo, but by cardiac catheterization, no significant gradient across aortic valve. No significant aortic stenosis. In view of the above, the patient had a bare-metal stent because of history of recurrent gastrointestinal bleed, off Plavix since 12/2017. We will increase Imdur to 60 and continue proton pump inhibitor. Continue gentle diuresis. Continue beta-jazmin. History of baseline renal insufficiency, avoid JAZMIN inhibitors for now. We will start Imdur 60, withholding parameters less than 120. We will repeat EKG in the morning. Thank you, Dr. Saals, for providing us the opportunity in taking care of the patient, Suly Swenson. We will follow with you. Ofe Iverson MD
[2018-05-23] MEDS ORDERED: Barium Sulfate Susp 2.1% w/v, 2.0% w/w 450 mL Bottle PO ONE (14:57)
--- NOTE | 2018-05-23 15:20 | HP ---
DATE OF EXAM: 05/23/2018 HISTORY OF PRESENT ILLNESS: The patient is a 77-year-old female who presents to the emergency room after having one episode of bright red blood per rectum. The patient had been hospitalized for hematochezia in the past. Few months ago she was hospitalized with a bleeding scan showing bleeding from the splenic flexure of the large colon. In that hospitalization she received 6 units of packed red blood cells. She underwent colonoscopy which showed diverticulosis, but no diverticulitis and no active site of source of bleeding. PAST MEDICAL HISTORY: The patient is also known to have a history of cholelithiasis, she had gastritis with a gastric polyp found on endoscopy this past summer, she has a history of colon carcinoma, breast carcinoma, osteoarthritis. PAST SURGICAL HISTORY: She is status post total abdominal hysterectomy, status post craniotomy for meningioma. She underwent coronary catheterization in November 2017 and stents were placed at that time. SOCIAL HISTORY: She never smoked and is a nonalcoholic drinker. ALLERGIES: SHE HAS NO KNOWN MEDICAL ALLERGIES. MEDICATIONS: At the time of admission her medications include; omeprazole 20 mg daily, atenolol 50 mg once a day, amlodipine 5 mg daily, vitamin D 50,000 units every Sunday, Femara 2.5 mg daily, Zyloprim 300 mg daily, aspirin 81 mg daily, Lasix, isosorbide 30 mg daily and multivitamins. REVIEW OF SYSTEMS: Otherwise unremarkable. PHYSICAL EXAMINATION: VITAL SIGNS: Her blood pressure is 151/95, heart rate is 89 and she is afebrile at 98.5 degrees Fahrenheit. HEAD, EYES, EARS, NOSE AND THROAT: Unremarkable. NECK: Supple with no lymphadenopathy and no goiter. LUNGS: Clear to auscultation and percussion. HEART: Regular. ABDOMEN: Soft and nontender. EXTREMITIES: Free of cyanosis, clubbing or edema. LABORATORY STUDIES: Show the white blood cell count to be 4.6, hemoglobin is 8.9, hematocrit is 28.4 and platelet count is 146,000. Coagulation studies; PT/INR and PTT are normal. INR is 0.98. Serum chemistry shows sodium to be 142, potassium is 4.8, chloride is 115, carbon dioxide is 23, blood urea nitrogen is 38, creatinine is 1.5, GFR is 41 and glucose is 89. Her troponin are elevated. The first reading showed 0.18, follow-up 4 hours later showed troponin to be 0.17. The patient was admitted to a medical floor; however, later on this evening, the patient had another massive bloody bowel movement in the hospital bed and suffered a near syncopal episode, a rapid response was called and the patient was transferred to the Intensive Care Unit. Consultations from Dr. Mendes, the mail processor, Dr. Martines, the surgeon, Dr. Beebe, her oncologist and Dr. Iverson, her health program specialist were requested. The patient will be reevaluated in the morning. Chi Salas MD
[2018-05-23 15:29] LABS: HEMOGLOBIN 8.9 g/dL (12.0-16.0)
[2018-05-23] MEDS: LUTEIN PO SCH (18:01)
[2018-05-23] MEDS: VITS A C E PO SCH (18:01)
[2018-05-23] MEDS: MINERALS PO SCH (18:01)
[2018-05-23 19:35] LABS: HEMOGLOBIN 10.8 g/dL (12.0-16.0)
--- NOTE | 2018-05-23 22:57 | CON ---
DATE: 05/23/2018 This is Suly Swenson' Intensive Care Unit visit. For Dr. Beebe. CHIEF COMPLAINT: Rectal bleed. HISTORY OF PRESENT ILLNESS: The patient is a 77-year-old female seen lying awake in bed in the intensive care unit with patient just having had a bloody liquid stool, foul smelling, as described by the nurse with episodes of same bright red blood requiring admission yesterday. The patient has so far been transfused 2 units of packed red blood cells with her hemoglobin improving from a low of 6.7 to the most recent of 9.5. She reports cramping-type discomfort to the mid lower abdomen as her only complaint and is otherwise tolerating liquid diet and is otherwise in no acute distress. ALLERGIES: NO KNOWN ALLERGIES. MEDICATIONS: The patient's medicines at this point include Norvasc, omeprazole, Imdur, Femara, Lasix, iron tablet, atenolol, aspirin, and allopurinol. PAST MEDICAL HISTORY: Significant for GIST, gastrointestinal stromal tumor, with partial gastrectomy with robotic-assisted hemicolectomy in the past; hypertension; gout; history of multiple GI bleeds; history of breast cancer, colon cancer; subendocardial NE; congestive failure; transfusions for anemia of chronic disease; history of lumpectomy; history of brain surgery for lesion removal; DJD; cholelithiasis; status post hysterectomy; pulmonary hypertension; status post bare-metal stenting in 11/2017, off of Plavix since then. FAMILY HISTORY AND SOCIAL HISTORY: Non-ethanolic, nonsmoker. and daughter is at the bedside, otherwise noncontributory. REVIEW OF SYSTEMS: Twelve-point review of systems was done, which was negative except for items as mentioned in the history of present illness. OBJECTIVE PHYSICAL EXAMINATION VITAL SIGNS: Temperature 98.4, pulse 86, respirations 15, blood pressure 143/70, pulse ox 100%. HEENT: Unremarkable. NECK: Supple. HEART: Regular rate, 1/6 systolic ejection murmur. LUNGS: Clear. ABDOMEN: Soft with minimal tenderness to gentle palpation in the mid lower epigastrium. EXTREMITIES: No edema. SKIN: Warm and dry. NEUROLOGIC: Awake and alert. LABORATORY DATA: The patient's labs were done. On admission, white blood cell count of 4.6, hemoglobin of 8.9 which was yesterday, however, hemoglobin dropped to 6.7 with a most recent hemoglobin of 9.5, to be repeated, hematocrit most recent 29.4, platelet count of 108,000. Her INR yesterday was 0.98 with a PTT of 28.2. Chem metabolic panel this morning showed a BUN of 38, creatinine of 1.5, phosphorus of 4.6, AST of 38 with a troponin value of 0.18 with a repeat of 0.17, the most recent one of 0.11. Her urine analysis showed urine for blood large amount, small amount of leukocyte esterase with stool for occult blood positive. The patient's urine culture, gram-negative rods from yesterday's specimen between 50,000 and 100,000 colonies. The patient's testing included a bleeding scan done yesterday which was read as no evidence of active gastrointestinal bleeding. However, the patient did have a loose liquidy bloody stool, fair amount, at the time of this visit. Her chest x-ray was done yesterday, it was read as no active disease, no interval change compared to prior exams. Her EKG was done yesterday, it was read as normal sinus rhythm, left ventricular hypertrophy with repolarization abnormality with the patient known to have suffered some endocardial MIs in the past. It should be noted the patient to have a rapid response with a mental status change yesterday with the patient reportedly had passed out with a large bright red bloody bowel movement with the patient then rushed to the intensive care unit where she is seen now. ASSESSMENT: Acute gastrointestinal bleed with severe symptomatic anemia, status post transfusion of 2 units of packed cells, to be continued monitoring; status post bare-metal stenting in 11/2017; history of breast cancer; history of colon cancer; recent subendocardial myocardial infarction; gastrointestinal stromal tumor; congestive heart failure history; status post partial gastrectomy with hemicolectomy history; history of pancreatitis; hypertension; anticoagulation on aspirin, which is now held; status post cardiac catheterization with stenting; history of craniotomy for brain tumor. PLAN: After conversation with Dr. Beebe, is to continue present medical regimen in the intensive care unit. We await gastrointestinal marine consultant Dr. Mendes's input, as the patient has had multiple GI bleeds in the past. Aspirin is now being held with suspicion of a diverticular bleed. The patient was also evaluated by surgical team, Dr. Iverson, Cardiology, with recommendations to continue including serial monitoring of hemoglobin and hematocrit for transfusions as indicated with consideration for fresh frozen plasma should her packed red blood cell usage increase to replace blood products as indicated. This is a complex patient with a comprehensive medically necessary and appropriate visit carried out in excess of 60 minutes with the patient's questions answered to her satisfaction. Haris Barney MD
[2018-05-24] MEDS: Pantoprazole 40 mg EC Tab PO SCH (05:45)
[2018-05-24 06:29] LABS: HEMOGLOBIN 10.8 g/dL (12.0-16.0); MEAN CELL VOLUME 93.1 fl (80.0-105.0); MEAN CORPUSCULAR HGB CONC 32.2 g/dl (31.0-37.0); MEAN PLATELET VOLUME 9.8 fl (7.0-11.0); RBC 3.6 10^6/uL (3.5-6.1); RED CELL DISTRIBUTION WIDTH 15.1 % (11.5-14.5); WHITE BLOOD COUNT 4.8 10^3/uL (4.5-11.0)
[2018-05-24 06:54] LABS: ALB/GLOB RATIO 1.1 (1.1-1.8); ALBUMIN 3.2 g/dL (3.0-4.8); CALCIUM 9.5 mg/dL (8.4-10.5)
--- NOTE | 2018-05-24 08:28 | CARD ---
APPROVED REPORT Date of service: 05/23/2018 EKG Measurement Heart [id number] <Conclusion> Normal sinus rhythm Left ventricular hypertrophy STTW changes Prolonged QTc No change
--- NOTE | 2018-05-24 09:00 | CARD ---
APPROVED REPORT Date of service: 05/24/2018 EKG Measurement Heart [id number] <Conclusion> Normal sinus rhythm Left ventricular hypertrophy with repolarization abnormality Prolonged QTc
--- NOTE | 2018-05-24 09:18 | CP.PCM.PN ---
Subjective - Date & Time of Evaluation Date of Evaluation: 05/24/18 Time of Evaluation: 09:09 - Subjective Subjective: Surgery Progress Note for Dr. Martines No acute events overnight H/H improving; 2 BM last night; non bloody. Remainder 12 system ROS Unremarkable Objective - Vital Signs/Intake and Output Vital Signs (last 24 hours): Temp Pulse Resp BP Pulse Ox 98.7 F 77 12 168/86 H 99 05/24/18 05:00 05/24/18 06:00 05/24/18 06:00 05/24/18 03:51 05/24/18 05:00 Intake and Output: 05/24/18 05/24/18 06:59 18:59 Intake Total 1560 Output Total 1400 Balance 160 - Medications Medications: Current Medications Allopurinol (Zyloprim) 300 mg PO DAILY [facility] Last Admin: 05/23/18 10:46 Dose: 300 mg Amlodipine Besylate (Norvasc) 5 mg PO DAILY [facility] Last Admin: 05/23/18 10:46 Dose: 5 mg Atenolol (Tenormin) 50 mg PO QAM [facility] Last Admin: 05/23/18 10:46 Dose: 50 mg Ergocalciferol (Drisdol 50,000 Intl Units Cap) 1 cap PO WED [facility] Ferrous Sulfate (Feosol) 324 mg PO TID [facility] Last Admin: 05/23/18 18:00 Dose: 324 mg Sodium Chloride (Sodium Chloride 0.9%) 1,000 mls @ 100 mls/hr IV .Q10H [facility] Last Admin: 05/23/18 20:46 Dose: 100 mls/hr Isosorbide Mononitrate (Imdur Er) 60 mg PO DAILY [facility] Last Admin: 05/23/18 10:42 Dose: 60 mg Letrozole (Femara) 2.5 mg PO DAILY [facility] Last Admin: 05/23/18 10:52 Dose: 2.5 mg Home Med - Vits A,C, E/Lutein/Minerals [ Vision Formula With Lutein Tab] 1 tab PO DAILY [facility] Last Admin: 05/23/18 18:01 Dose: Not Given Pantoprazole Sodium (Protonix Ec Tab) 40 mg PO 0600 [facility] Last Admin: 05/24/18 05:45 Dose: 40 mg - Labs Labs: 05/24/18 05:30 05/24/18 05:30 PT 11.3 SECONDS (9.4-12.5) 05/22/18 11:40 INR 0.98 05/22/18 11:40 APTT 28.2 Seconds (25.1-36.5) 05/22/18 11:40 Physical Exam: - Constitutional Appears: Non-toxic, No Acute Distress - Head Exam Head Exam: NORMAL INSPECTION - Eye Exam Eye Exam: Normal appearance - ENT Exam ENT Exam: Mucous Membranes Moist - Respiratory Exam Respiratory Exam: NORMAL BREATHING PATTERN. absent: Accessory Muscle Use, Respiratory Distress - Cardiovascular Exam Cardiovascular Exam: REGULAR RHYTHM. absent: Bradycardia, Tachycardia - GI/Abdominal Exam GI & Abdominal Exam: Soft, Diffusely mild tenderness, No guarding, distention, rebound - Extremities Exam Extremities Exam: Normal Inspection - Neurological Exam Neurological Exam: Alert, Awake, Oriented x3 - Psychiatric Exam Psychiatric exam: Normal Affect, Normal Mood - Skin Skin Exam: Dry, Intact, Normal Color, Warm Assessment and Plan - Assessment and Plan (Free Text) Assessment: 77 F admitted to ICU for GI Bleed Plan: -H/H improving at this time; Continue trending Q4/6 -Transfuse if Hb <7 -No DVT PPX; No AC/ Antiplatelet rx -Strict IO -Continue monitoring BM for s/s of GI Bleed -NPO for now c/w IVF -Advance Diet once H/H stabilized and no further s/s of GIB -F/u GI reccs -Encourage OOB to chair -No plans for surgical intervention at this time Ney Up DO PGY1 - Internal Medicine [employer] - Surgical Progress Note for Dr. Martines
--- NOTE | 2018-05-24 09:35 | CT ---
Date of service: 05/23/2018 PROCEDURE: CT Abdomen and Pelvis without intravenous contrast HISTORY: GI bleed COMPARISON: None. TECHNIQUE: Technique. Contrast dose: Radiation dose: Total exam DLP = 690.33 mGy-cm. This CT exam was performed using one or more of the following dose reduction techniques: Automated exposure control, adjustment of the mA and/or kV according to patient size, and/or use of iterative reconstruction technique. FINDINGS: LOWER THORAX: Small right lower lobe subpleural infiltrates. LIVER: Unremarkable. No gross lesion or ductal dilatation. GALLBLADDER AND BILE DUCTS: Gallstones. PANCREAS: Unremarkable. No gross lesion or ductal dilatation. SPLEEN: Unremarkable. ADRENALS: Unremarkable. No mass. KIDNEYS AND URETERS: Unremarkable. No hydronephrosis. No solid mass. VASCULATURE: Unremarkable. No aortic aneurysm. No aortic atherosclerotic calcification or mural plaque present. BOWEL: Colonic diverticulosis.. No obstruction. No gross mural thickening. APPENDIX: Unremarkable. Normal appendix. PERITONEUM: Unremarkable. No free fluid. No free air. LYMPH NODES: Unremarkable. No enlarged lymph nodes. BLADDER: Unremarkable. REPRODUCTIVE: Hysterectomy. BONES: No acute fracture. OTHER FINDINGS: None. IMPRESSION: Small bilateral subpleural infiltrates. Hysterectomy. Cholelithiasis.
[2018-05-24] MEDS ORDERED: Sodium Chloride 0.9% 1,000 ML IV SCH (09:44)
[2018-05-24] MEDS: VITS A C E PO SCH (10:01)
[2018-05-24] MEDS: MINERALS PO SCH (10:01)
[2018-05-24] MEDS: LUTEIN PO SCH (10:01)
--- NOTE | 2018-05-24 11:49 | CP.PCM.PN ---
<AsiafcoJens - Last Filed: 05/24/18 13:18> Subjective - Date & Time of Evaluation Date of Evaluation: 05/24/18 Time of Evaluation: 11:46 - Subjective Subjective: Patient has been transferred out of ICU. No BMs today or lastnight. She tolerated soft diet lastnight. No complaints of abdominal pain, bleeding. Objective - Vital Signs/Intake and Output Vital Signs (last 24 hours): Temp Pulse Resp BP Pulse Ox 98.7 F 112 H 49 H 184/87 H 99 05/24/18 05:00 05/24/18 10:04 05/24/18 10:04 05/24/18 10:04 05/24/18 06:10 Intake and Output: 05/24/18 05/24/18 06:59 18:59 Intake Total 1560 Output Total 1400 Balance 160 - Medications Medications: Current Medications Allopurinol (Zyloprim) 300 mg PO DAILY [facility] Last Admin: 05/24/18 09:54 Dose: 300 mg Amlodipine Besylate (Norvasc) 5 mg PO DAILY [facility] Last Admin: 05/24/18 09:53 Dose: 5 mg Atenolol (Tenormin) 50 mg PO QAM [facility] Last Admin: 05/24/18 09:51 Dose: 50 mg Ergocalciferol (Drisdol 50,000 Intl Units Cap) 1 cap PO WED [facility] Ferrous Sulfate (Feosol) 324 mg PO TID [facility] Last Admin: 05/24/18 09:53 Dose: 324 mg Sodium Chloride (Sodium Chloride 0.9%) 1,000 mls @ 50 mls/hr IV .Q20H [facility] Last Admin: 05/24/18 10:02 Dose: 50 mls/hr Isosorbide Mononitrate (Imdur Er) 60 mg PO DAILY [facility] Last Admin: 05/24/18 09:53 Dose: 60 mg Letrozole (Femara) 2.5 mg PO DAILY [facility] Last Admin: 05/24/18 09:59 Dose: 2.5 mg Home Med - Vits A,C, E/Lutein/Minerals [ Vision Formula With Lutein Tab] 1 tab PO DAILY [facility] Last Admin: 05/24/18 10:01 Dose: Not Given Pantoprazole Sodium (Protonix Ec Tab) 40 mg PO 0600 [facility] Last Admin: 05/24/18 05:45 Dose: 40 mg - Labs Labs: 05/24/18 05:30 05/24/18 05:30 PT 11.3 SECONDS (9.4-12.5) 05/22/18 11:40 INR 0.98 05/22/18 11:40 APTT 28.2 Seconds (25.1-36.5) 05/22/18 11:40 - Constitutional Appears: Non-toxic, No Acute Distress - Head Exam Head Exam: NORMAL INSPECTION - Eye Exam Eye Exam: Normal appearance - ENT Exam ENT Exam: Mucous Membranes Moist - Respiratory Exam Respiratory Exam: Clear to Ausculation Bilateral, NORMAL BREATHING PATTERN - Cardiovascular Exam Cardiovascular Exam: REGULAR RHYTHM, +S1, +S2 - GI/Abdominal Exam GI & Abdominal Exam: Soft, Normal Bowel Sounds. absent: Tenderness - Neurological Exam Neurological Exam: Alert, Awake, Oriented x3 - Psychiatric Exam Psychiatric exam: Normal Affect, Normal Mood - Skin Skin Exam: Dry, Normal Color Assessment and Plan - Assessment and Plan (Free Text) Assessment: 77 year old female with PMH Breast cancer s/p B/L lumpectomy, GIST s/p partial gastrectomy, colon cancer s/p Right hemicolectomy, Brain tumor s/p craniotomy 2016, Diverticular Bleed with spontaneous cessation 12/2017, CAD s/p bare-metal stent 12/25 (on aspirin), and HTN presenting with rectal bleeding. Active treatment of rectal bleeding suspicious for Lower GI bleed. Prior bleeding scan for GI bleed, 12/2017, showed active bleeding at splenic flexure and EGD/colonoscopy without signs of active bleed and spontaneous cessation 12/2017. She was found to have elevated troponins. Plan: -suspicion for recurrent Diverticular bleed, resolved -hemodynamically stable -GI bleeding scan negative for active bleed. -type and cross, s/p 3 units pRBC with appropriate response -supportive care- IVFs -soft diet -Follow up cardiology recommendations for elevated troponins. -HOLDing aspirin for now. <Cinthya,Kovil V - Last Filed: 05/24/18 18:50> Objective - Vital Signs/Intake and Output Vital Signs (last 24 hours): Temp Pulse Resp BP Pulse Ox 98.7 F 112 H 49 H 184/87 H 99 05/24/18 05:00 05/24/18 10:04 05/24/18 10:04 05/24/18 10:04 05/24/18 06:10 Intake and Output: 05/24/18 05/24/18 06:59 18:59 Intake Total 1560 Output Total 1400 Balance 160 - Medications Medications: Current Medications Allopurinol (Zyloprim) 300 mg PO DAILY [facility] Last Admin: 05/24/18 09:54 Dose: 300 mg Amlodipine Besylate (Norvasc) 5 mg PO DAILY [facility] Last Admin: 05/24/18 09:53 Dose: 5 mg Atenolol (Tenormin) 50 mg PO QAM [facility] Last Admin: 05/24/18 09:51 Dose: 50 mg Ergocalciferol (Drisdol 50,000 Intl Units Cap) 1 cap PO WED [facility] Ferrous Sulfate (Feosol) 324 mg PO TID [facility] Last Admin: 05/24/18 15:50 Dose: 324 mg Isosorbide Mononitrate (Imdur Er) 60 mg PO DAILY [facility] Last Admin: 05/24/18 09:53 Dose: 60 mg Letrozole (Femara) 2.5 mg PO DAILY [facility] Last Admin: 05/24/18 09:59 Dose: 2.5 mg Home Med - Vits A,C, E/Lutein/Minerals [ Vision Formula With Lutein Tab] 1 tab PO DAILY [facility] Last Admin: 05/24/18 10:01 Dose: Not Given Pantoprazole Sodium (Protonix Ec Tab) 40 mg PO 0600 [facility] Last Admin: 05/24/18 05:45 Dose: 40 mg - Labs Labs: 05/24/18 05:30 05/24/18 05:30 PT 11.3 SECONDS (9.4-12.5) 05/22/18 11:40 INR 0.98 05/22/18 11:40 APTT 28.2 Seconds (25.1-36.5) 05/22/18 11:40 Attending/Attestation - Attestation I have personally seen and examined this patient.: Yes I have fully participated in the care of the patient.: Yes I have reviewed all pertinent clinical information, including history, physical exam and plan: Yes Notes (Text): This is an addendum to GI progress report dictated by the GI Fellow.The patient was seen and examined earlier. Medical records, lab studies, imagings were reviewed. Last 24 hours events reviewed. Agreed with the above treatment plan as outlined in GI Fellow 's notes with the addition of the following no further episodes of bleeding no further episodes of bleeding since last night tolerating diet On examination abdomen soft nontender The CT scan was reviewed Previous endoscopy workup was reviewed The likely cause of bleeding is diverticular bleed other differential diagnosis should inclu ischemic less likely.CT did not reveal any focal thickening Discussed with the patient's daughter We will request mainly conservative managemen Gross follow-up of hemoglobin hematocrit and transfuse as needed 05/24/18 18:46
--- NOTE | 2018-05-24 12:28 | PN ---
DATE: 05/24/2018 REASON FOR CONSULTATION AND FOLLOWUP: GI bleed, history of coronary artery disease, bare-metal stent, history of recurrent GI bleed, borderline troponin positive. SUBJECTIVE: The patient denies any chest pain, shortness of breath, or any palpitation. Denies any further episode of bleeding per rectum or bright red blood per rectum. PHYSICAL EXAMINATION GENERAL: Not in apparent distress. Lying flat in the bed. VITAL SIGNS: Temperature afebrile, heart rate 85, blood pressure 184/87. HEENT: PERRLA. Extraocular muscles intact. NECK: Supple. No carotid bruit or thyromegaly. CHEST: Clear to auscultation. HEART: S1, S2, regular. ABDOMEN: Soft. EXTREMITIES: Clubbing and cyanosis negative. LABORATORY DATA: Blood workup as follows; WBC 4.8, hemoglobin 10.8, hematocrit 33.5, platelet count 110,000. Chemistry shows sodium 140, potassium 3.9, chloride 111, carbon dioxide 25, anion gap of 8, BUN 26, creatinine 1.4. TSH 0.06. Troponin 0.11. DIAGNOSTIC DATA: EKG shows normal sinus rhythm, left ventricular hypertrophy with repolarization abnormality. No ST-T changes noted. IMPRESSION: A 77-year-old female with past medical history significant for multiple tumor syndrome, history of breast carcinoma, history of colon surgery for colon cancer, history of craniotomy for brain tumor at [facility] ago, admitted for non-ST elevation myocardial infarction twice in the past , the first one on 12/12/2017, decided to be treated medically, re-admitted a week after on 12/21/2017. The patient eventually had bare-mental stent in ostial right coronary artery. Left anterior descending and circumflex has [id number] disease, but not amenable by percutaneous coronary intervention because of very tortuous and calcification. Decided to treat medically. Multiple admissions with gastrointestinal bleed, admitted gastrointestinal bleed. Borderline troponin positive, 0.11. Initial troponin was 0.05, then 0.18, now the troponin trended down to 0.11. EKG essentially benign, asymptomatic. In view of the above, decided to be treated medically, possibly as bnokst-vle-[id number] mismatch because on admitting, hemoglobin was at one point 6.7, now with hemoglobin of 10.8. RECOMMENDATIONS: Continue beta-jazmin. Continue nitrate as blood pressure tolerates it and once the bleeding stops and the patient is able to tolerate, may consider baby aspirin. For now, on hold because of the recent bleed. The patient is asymptomatic from a cardiac point of view. We will transfer to telemetry. Medical treatment recommended. No plan for invasive workup which is more detrimental. The patient is asymptomatic. Thank you Dr. Salas for providing the opportunity in taking care of the patient, Suly Swenson. Ofe Iverson MD
--- NOTE | 2018-05-24 14:07 | PN ---
DATE: 05/24/2018 SUBJECTIVE: The patient is a 77-year-old female with a history of total abdominal hysterectomy, status post craniotomy for a meningioma, status post coronary catheterization with PTCA in 11/2017. She has a history of cholelithiasis, gastritis, gastric polyps, colon carcinoma, breast carcinoma and osteoarthritis, who once again presented to the hospital with hematochezia. The patient was admitted with a similar presentation 6 months ago. This hospitalization, the patient received a total of 3 units of packed red blood cells. Her hemoglobin and hematocrit have been stable since then. Earlier today, she was transferred out of the Intensive Care Unit up to the telemetry floor where she is seen. The patient is lying in bed. She is comfortable. Voices no complaints. However, she continues to have diffuse abdominal tenderness, especially in the midepigastric area on palpation. Her lungs are clear. Heart is regular. Extremities are free of cyanosis, clubbing or edema. The patient had 2 normal-colored bowel movements last night. She had a third bowel movement this morning. She apparently walked to the bathroom from her bed and experienced no symptoms of lightheadedness, dizziness, shortness of breath, weakness. Her blood pressure is 184/87, heart rate is 85. Serum chemistries this morning shows sodium of 140, potassium is 3.9, blood urea nitrogen 26 and creatinine is 1.4, glucose is 89. Urinalysis showed less than 100,000 colonies of E. coli, which is sensitive to all antibiotics tested. At this point, we are continuing to follow the patient conservatively. There are no plans for aggressive surgery secondary to the patient's comorbidities. We are continuing with the current regimen of medicine and continuing to follow the patient closely. She is to be reevaluated in the morning. Chi Salas MD PAOLO
--- NOTE | 2018-05-24 19:31 | PN ---
DATE: 05/24/2018 This is [facility] visit on the telemetry floor. For Dr. Beebe. SUBJECTIVE: The patient is a 77-year-old female seen lying awake in bed, now transferred from the intensive care unit with a dark stool earlier today as per nurses with no further bright red rectal bleeding for which she was originally admitted. Since admission, the patient has had 3 units of packed red blood cells transfused with her hemoglobin now improving from low of 6.3 at 2 in the morning yesterday to a value of 10.8, earlier today. She denies any pain. Her cramping discomfort is also much improved. PHYSICAL EXAMINATION: VITAL SIGNS: Temperature 98.7, pulse 85, respirations 24, blood pressure 184/87 with a pulse ox of 99%. HEENT: Unremarkable. NECK: Supple. HEART: Regular rate, 1/2 systolic ejection murmur. LUNGS: Clear. ABDOMEN: Soft and nontender. EXTREMITIES: No edema. SKIN: Warm and dry. NEUROLOGIC: Awake and alert. LABORATORY DATA: The patient's labs were done; white blood cell count of 4.8, hemoglobin of 10.8, hematocrit 33.5, platelet count of 110,000. Chem metabolic panel showing chloride of 111, BUN of 26, creatinine of 1.4, otherwise chem panel; however, TSH is read as less than 0.02. The patient did have a CAT scan of the abdomen and pelvis done yesterday it was read as small bilateral subpleural infiltrates, hysterectomy, cholelithiasis. EKG was done yesterday, it was read as normal sinus rhythm, left ventricular hypertrophy with repolarization abnormality, prolonged QTC. The patient had urine culture, which grew out E. Coli 50,000 to 100,000 colonies sensitive to ampicillin; however, the patient is without symptoms with a repeat urine culture to be done with consideration for antibiotics as indicated. ASSESSMENT: Acute gastrointestinal bleed with symptomatic anemia, status post transfusion of 3 units of packed cells, status post bare-metal stenting in 11/2017, history of breast cancer, colon cancer, recent subendocardial myocardial infarction, gastrointestinal stromal tumor; history of congestive heart failure, history of partial gastrectomy with hemicolectomy, pancreatitis, hypertension, anticoagulation on aspirin, now held, history of craniotomy for brain tumor; hyperthyroid indices on thyroid-stimulating hormone testing, questionable urinary tract infection. PLAN: To continue present medical regimen. We will monitor clinically with labs. 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 She is now started on iron sulfate three times a day. We will monitor for stomach discomfort and consider changing this as indicated, determining whether she would need IV iron in the future. With further workup and testing as per gastrointestinal consultants. She also continues her Femara with consideration for endocrinology evaluation for abnormal TSH. This is a complex patient with a comprehensive medically necessary and appropriate visit carried out in excess of 30 minutes with the patient's questions answered to her satisfaction. Haris Barney MD
[2018-05-25] MEDS: Pantoprazole 40 mg EC Tab PO SCH (05:36)
--- NOTE | 2018-05-25 07:17 | CP.PCM.PN ---
Subjective - Date & Time of Evaluation Date of Evaluation: 05/25/18 Time of Evaluation: 06:40 - Subjective Subjective: Surgery Progress note. Dr Martines service Pt seen and examined at bedside this morning. No acute events overnight. Patient states that she had a BM last night which was normal color, no melena and no blood. No evidence of continued bleeding. Denies any complaints. No Abd pain. NO Nausea, no vomiting. No chest pain. No fevers or chills. Objective - Vital Signs/Intake and Output Vital Signs (last 24 hours): Temp Pulse Resp BP Pulse Ox 98.1 F 71 20 142/74 100 05/25/18 05:58 05/25/18 05:58 05/25/18 05:58 05/25/18 05:58 05/25/18 05:58 Intake and Output: 05/25/18 05/25/18 06:59 18:59 Intake Total 360 Output Total 300 Balance 60 - Medications Medications: Current Medications Allopurinol (Zyloprim) 300 mg PO DAILY [facility] Last Admin: 05/24/18 09:54 Dose: 300 mg Amlodipine Besylate (Norvasc) 5 mg PO DAILY [facility] Last Admin: 05/24/18 09:53 Dose: 5 mg Atenolol (Tenormin) 50 mg PO QAM [facility] Last Admin: 05/24/18 09:51 Dose: 50 mg Ergocalciferol (Drisdol 50,000 Intl Units Cap) 1 cap PO WED [facility] Ferrous Sulfate (Feosol) 324 mg PO TID [facility] Last Admin: 05/24/18 15:50 Dose: 324 mg Isosorbide Mononitrate (Imdur Er) 60 mg PO DAILY [facility] Last Admin: 05/24/18 09:53 Dose: 60 mg Letrozole (Femara) 2.5 mg PO DAILY [facility] Last Admin: 05/24/18 09:59 Dose: 2.5 mg Home Med - Vits A,C, E/Lutein/Minerals [ Vision Formula With Lutein Tab] 1 tab PO DAILY [facility] Last Admin: 05/24/18 10:01 Dose: Not Given Pantoprazole Sodium (Protonix Ec Tab) 40 mg PO 0600 [facility] Last Admin: 05/25/18 05:36 Dose: 40 mg - Labs Labs: 05/24/18 05:30 05/24/18 05:30 PT 11.3 SECONDS (9.4-12.5) 05/22/18 11:40 INR 0.98 05/22/18 11:40 APTT 28.2 Seconds (25.1-36.5) 05/22/18 11:40 - Constitutional Appears: Well, Non-toxic, No Acute Distress - Head Exam Head Exam: ATRAUMATIC, NORMAL INSPECTION, NORMOCEPHALIC - Eye Exam Eye Exam: EOMI, Normal appearance - ENT Exam ENT Exam: Mucous Membranes Moist - Respiratory Exam Respiratory Exam: NORMAL BREATHING PATTERN. absent: Accessory Muscle Use, Respiratory Distress - Cardiovascular Exam Cardiovascular Exam: absent: JVD - GI/Abdominal Exam GI & Abdominal Exam: Soft. absent: Distended, Firm, Guarding, Rigid, Tenderness , Rebound - Extremities Exam Extremities Exam: Normal Inspection. absent: Calf Tenderness - Neurological Exam Neurological Exam: Alert, Awake, Oriented x3 - Psychiatric Exam Psychiatric exam: Normal Affect, Normal Mood - Skin Skin Exam: Dry, Intact, Normal Color, Warm Assessment and Plan - Assessment and Plan (Free Text) Assessment: 77yo F with GIB (resolved). Plan: - H/H has been stable. Will follow up H/H from this morning. - No acute surgical intervention warranted at this time - Tolerating diet. ADAT - Hold anticoagulation/antiplatelet meds, further recs as per primary and GI. - Encourage OOB to chair and ambulate Further recs as per Dr. Conrad Gonzalez PGY2 Surgery
[2018-05-25 07:39] LABS: HEMOGLOBIN 10.6 g/dL (12.0-16.0); MEAN CELL VOLUME 93.5 fl (80.0-105.0); MEAN CORPUSCULAR HEMOGLOBIN 29.9 pg (25.0-35.0); MEAN PLATELET VOLUME 9.9 fl (7.0-11.0); RBC 3.54 10^6/uL (3.5-6.1); RED CELL DISTRIBUTION WIDTH 14.9 % (11.5-14.5); WHITE BLOOD COUNT 4.7 10^3/uL (4.5-11.0)
[2018-05-25 08:00] LABS: ALB/GLOB RATIO 1.2 (1.1-1.8); ALBUMIN 3.2 g/dL (3.0-4.8); CALCIUM 9.9 mg/dL (8.4-10.5)
--- NOTE | 2018-05-25 09:42 | CP.PCM.PN ---
<Jens Gonzalez - Last Filed: 05/25/18 10:55> Subjective - Date & Time of Evaluation Date of Evaluation: 05/25/18 Time of Evaluation: 09:40 - Subjective Subjective: No acute overnight events. No bleeding. No n/v. Tolerating diet. Objective - Vital Signs/Intake and Output Vital Signs (last 24 hours): Temp Pulse Resp BP Pulse Ox 98.1 F 71 20 142/74 100 05/25/18 05:58 05/25/18 05:58 05/25/18 05:58 05/25/18 05:58 05/25/18 05:58 Intake and Output: 05/25/18 05/25/18 06:59 18:59 Intake Total 360 Output Total 300 Balance 60 - Medications Medications: Current Medications Allopurinol (Zyloprim) 300 mg PO DAILY [facility] Last Admin: 05/24/18 09:54 Dose: 300 mg Amlodipine Besylate (Norvasc) 5 mg PO DAILY [facility] Last Admin: 05/24/18 09:53 Dose: 5 mg Atenolol (Tenormin) 50 mg PO QAM [facility] Last Admin: 05/24/18 09:51 Dose: 50 mg Ergocalciferol (Drisdol 50,000 Intl Units Cap) 1 cap PO WED [facility] Ferrous Sulfate (Feosol) 324 mg PO TID [facility] Last Admin: 05/24/18 15:50 Dose: 324 mg Isosorbide Mononitrate (Imdur Er) 60 mg PO DAILY [facility] Last Admin: 05/24/18 09:53 Dose: 60 mg Letrozole (Femara) 2.5 mg PO DAILY [facility] Last Admin: 05/24/18 09:59 Dose: 2.5 mg Home Med - Vits A,C, E/Lutein/Minerals [ Vision Formula With Lutein Tab] 1 tab PO DAILY [facility] Last Admin: 05/24/18 10:01 Dose: Not Given Pantoprazole Sodium (Protonix Ec Tab) 40 mg PO 0600 [facility] Last Admin: 05/25/18 05:36 Dose: 40 mg Sucralfate (Carafate Oral Susp) 1 gm PO 0630,1130,1630,2200 [facility] - Labs Labs: 05/25/18 07:00 05/25/18 07:00 PT 11.3 SECONDS (9.4-12.5) 05/22/18 11:40 INR 0.98 05/22/18 11:40 APTT 28.2 Seconds (25.1-36.5) 05/22/18 11:40 - Constitutional Appears: Well, No Acute Distress - Head Exam Head Exam: NORMAL INSPECTION - Eye Exam Eye Exam: Normal appearance - ENT Exam ENT Exam: Mucous Membranes Moist - Respiratory Exam Respiratory Exam: Clear to Ausculation Bilateral, NORMAL BREATHING PATTERN - Cardiovascular Exam Cardiovascular Exam: REGULAR RHYTHM, +S1, +S2 - GI/Abdominal Exam GI & Abdominal Exam: Soft, Normal Bowel Sounds. absent: Tenderness - Extremities Exam Extremities Exam: Full ROM - Neurological Exam Neurological Exam: Alert, Awake, Oriented x3 - Psychiatric Exam Psychiatric exam: Normal Affect, Normal Mood - Skin Skin Exam: Dry, Normal Color Assessment and Plan - Assessment and Plan (Free Text) Assessment: 77 year old female with PMH Breast cancer s/p B/L lumpectomy, GIST s/p partial gastrectomy, colon cancer s/p Right hemicolectomy, Brain tumor s/p craniotomy 2016, Diverticular Bleed with spontaneous cessation 12/2017, CAD s/p bare-metal stent 12/25 (on aspirin), and HTN presenting with rectal bleeding. Active treatment of rectal bleeding suspicious for Lower GI bleed. Prior bleeding scan for GI bleed, 12/2017, showed active bleeding at splenic flexure and EGD/colonoscopy without signs of active bleed and spontaneous cessation 12/2017. She was found to have elevated troponins. Plan: -suspicion for recurrent Diverticular bleed, resolved -hemodynamically stable -GI bleeding scan negative for active bleed. -type and cross, s/p 3 units pRBC with appropriate response -supportive care- IVFs -soft diet -HOLDing aspirin for now, okay to restart ain 1-2 days if stable. <Cinthya,Kovil V - Last Filed: 05/25/18 23:55> Objective - Vital Signs/Intake and Output Vital Signs (last 24 hours): Temp Pulse Resp BP Pulse Ox 98.1 F 63 18 159/56 H 100 05/25/18 17:26 05/25/18 18:00 05/25/18 17:26 05/25/18 17:26 05/25/18 05:58 Intake and Output: 05/25/18 05/26/18 18:59 06:59 Intake Total 960 Balance 960 - Medications Medications: Current Medications Allopurinol (Zyloprim) 300 mg PO DAILY [facility] Last Admin: 05/25/18 10:22 Dose: 300 mg Amlodipine Besylate (Norvasc) 5 mg PO DAILY [facility] Last Admin: 05/25/18 10:22 Dose: 5 mg Atenolol (Tenormin) 50 mg PO QAM [facility] Last Admin: 05/25/18 10:22 Dose: 50 mg Docusate Sodium (Colace) 100 mg PO BID [facility] Last Admin: 05/25/18 17:27 Dose: 100 mg Ergocalciferol (Drisdol 50,000 Intl Units Cap) 1 cap PO WED [facility] Ferrous Sulfate (Feosol) 324 mg PO DAILY [facility] Isosorbide Mononitrate (Imdur Er) 60 mg PO DAILY [facility] Last Admin: 05/25/18 10:22 Dose: 60 mg Letrozole (Femara) 2.5 mg PO DAILY [facility] Last Admin: 05/25/18 10:25 Dose: 2.5 mg Home Med - Vits A,C, E/Lutein/Minerals [ Vision Formula With Lutein Tab] 1 tab PO DAILY [facility] Last Admin: 05/25/18 10:25 Dose: Not Given Pantoprazole Sodium (Protonix Ec Tab) 40 mg PO 0600 [facility] Last Admin: 05/25/18 05:36 Dose: 40 mg Polyethylene Glycol (Miralax) 17 gm PO DAILY PRN PRN Reason: Constipation Sucralfate (Carafate Oral Susp) 1 gm PO 0630,1130,1630,2200 [facility] Last Admin: 05/25/18 22:23 Dose: 1 gm - Labs Labs: 05/25/18 07:00 05/25/18 07:00 PT 11.3 SECONDS (9.4-12.5) 05/22/18 11:40 INR 0.98 05/22/18 11:40 APTT 28.2 Seconds (25.1-36.5) 05/22/18 11:40 Attending/Attestation - Attestation I have personally seen and examined this patient.: Yes I have fully participated in the care of the patient.: Yes I have reviewed all pertinent clinical information, including history, physical exam and plan: Yes Notes (Text): p 05/25/18 23:55
[2018-05-25] MEDS: VITS A C E PO SCH (10:25)
[2018-05-25] MEDS: LUTEIN PO SCH (10:25)
[2018-05-25] MEDS: MINERALS PO SCH (10:25)
[2018-05-25] MEDS: Sucralfate 1 gm/10 ml Oral Susp UD PO SCH ×3 (12:25→22:23)
[2018-05-25] MEDS ORDERED: POLYETHYLENE GLYCOL 3350 17 GM/Dose PACKET PO PRN (16:46)
[2018-05-26] MEDS: Sucralfate 1 gm/10 ml Oral Susp UD PO SCH ×2 (05:48→11:59)
[2018-05-26] MEDS: Pantoprazole 40 mg EC Tab PO SCH (05:49)
[2018-05-26 08:04] LABS: EOS # 0.1 (0.0-0.7); EOS % 2.1 % (1.5-5.0); GRAN # 3.26 (1.4-6.5); GRAN % 77.8 % (50.0-68.0); HEMOGLOBIN 9.9 g/dL (12.0-16.0); LYMPH # 0.7 (1.2-3.4); LYMPH % 15.8 % (22.0-35.0); MEAN CELL VOLUME 92.7 fl (80.0-105.0); MEAN CORPUSCULAR HEMOGLOBIN 29.9 pg (25.0-35.0); MEAN CORPUSCULAR HGB CONC 32.2 g/dl (31.0-37.0); MEAN PLATELET VOLUME 9.8 fl (7.0-11.0); MONO # 0.2 (0.1-0.6); MONO % 4.3 % (1.0-6.0); RBC 3.31 10^6/uL (3.5-6.1); RED CELL DISTRIBUTION WIDTH 14.6 % (11.5-14.5); WHITE BLOOD COUNT 4.2 10^3/uL (4.5-11.0)
[2018-05-26 08:06] LABS: ALB/GLOB RATIO 1.2 (1.1-1.8); ALBUMIN 3.2 g/dL (3.0-4.8); CALCIUM 9.7 mg/dL (8.4-10.5)
[2018-05-26] MEDS: LUTEIN PO SCH (09:08)
[2018-05-26] MEDS: VITS A C E PO SCH (09:08)
[2018-05-26] MEDS: MINERALS PO SCH (09:08)
--- NOTE | 2018-05-26 09:23 | CP.PCM.PN ---
Subjective - Date & Time of Evaluation Date of Evaluation: 05/26/18 Time of Evaluation: 09:22 - Subjective Subjective: Patients is doing well. No complaints. tolerating diet and no signs of bleeding. Objective - Vital Signs/Intake and Output Vital Signs (last 24 hours): Temp Pulse Resp BP Pulse Ox 97.8 F 62 20 145/66 100 05/26/18 06:00 05/26/18 09:13 05/26/18 06:00 05/26/18 09:13 05/26/18 06:00 Intake and Output: 05/26/18 05/26/18 06:59 18:59 Intake Total 120 Balance 120 - Medications Medications: Current Medications Allopurinol (Zyloprim) 300 mg PO DAILY [facility] Last Admin: 05/26/18 09:13 Dose: 300 mg Amlodipine Besylate (Norvasc) 5 mg PO DAILY [facility] Last Admin: 05/26/18 09:07 Dose: Not Given Atenolol (Tenormin) 50 mg PO QAM [facility] Last Admin: 05/26/18 09:13 Dose: 50 mg Docusate Sodium (Colace) 100 mg PO BID [facility] Last Admin: 05/26/18 09:19 Dose: 100 mg Ergocalciferol (Drisdol 50,000 Intl Units Cap) 1 cap PO WED [facility] Ferrous Sulfate (Feosol) 324 mg PO DAILY [facility] Last Admin: 05/26/18 09:14 Dose: 324 mg Isosorbide Mononitrate (Imdur Er) 60 mg PO DAILY [facility] Last Admin: 05/26/18 09:13 Dose: 60 mg Letrozole (Femara) 2.5 mg PO DAILY [facility] Last Admin: 05/26/18 09:18 Dose: 2.5 mg Home Med - Vits A,C, E/Lutein/Minerals [ Vision Formula With Lutein Tab] 1 tab PO DAILY [facility] Last Admin: 05/26/18 09:08 Dose: Not Given Pantoprazole Sodium (Protonix Ec Tab) 40 mg PO 0600 [facility] Last Admin: 05/26/18 05:49 Dose: 40 mg Polyethylene Glycol (Miralax) 17 gm PO DAILY PRN PRN Reason: Constipation Sucralfate (Carafate Oral Susp) 1 gm PO 0630,1130,1630,2200 [facility] Last Admin: 05/26/18 05:48 Dose: 1 gm - Labs Labs: 05/26/18 07:00 05/26/18 07:00 PT 11.3 SECONDS (9.4-12.5) 05/22/18 11:40 INR 0.98 05/22/18 11:40 APTT 28.2 Seconds (25.1-36.5) 05/22/18 11:40 - Constitutional Appears: Non-toxic, No Acute Distress - Head Exam Head Exam: NORMAL INSPECTION - Eye Exam Eye Exam: Normal appearance - ENT Exam ENT Exam: Mucous Membranes Moist - Respiratory Exam Respiratory Exam: Clear to Ausculation Bilateral, NORMAL BREATHING PATTERN - Cardiovascular Exam Cardiovascular Exam: REGULAR RHYTHM, +S1, +S2 - GI/Abdominal Exam GI & Abdominal Exam: Soft, Normal Bowel Sounds. absent: Tenderness - Extremities Exam Extremities Exam: Normal Inspection - Neurological Exam Neurological Exam: Alert, Awake, Oriented x3 - Psychiatric Exam Psychiatric exam: Normal Affect, Normal Mood - Skin Skin Exam: Dry, Normal Color Assessment and Plan - Assessment and Plan (Free Text) Assessment: 77 year old female with PMH Breast cancer s/p B/L lumpectomy, GIST s/p partial gastrectomy, colon cancer s/p Right hemicolectomy, Brain tumor s/p craniotomy 2016, Diverticular Bleed with spontaneous cessation 12/2017, CAD s/p bare-metal stent 12/25 (on aspirin), and HTN presenting with rectal bleeding. Active treatment of rectal bleeding suspicious for Lower GI bleed. Prior bleeding scan for GI bleed, 12/2017, showed active bleeding at splenic flexure and EGD/colonoscopy without signs of active bleed and spontaneous cessation 12/2017. She was found to have elevated troponins. Plan: -suspicion for recurrent Diverticular bleed, resolved -hemodynamically stable -GI bleeding scan negative for active bleed. -type and cross, s/p 3 units pRBC with appropriate response -supportive care- IVFs -soft diet -HOLDing aspirin for now, okay to restart at discharge. -Ok to D/C from GI perspective
[2018-05-26 11:35] VITALS: RESP 18; O2SAT 99
[2018-05-26 14:00] VITALS: BP 150/76; PULSE 59; TEMP 97.9
--- NOTE | 2018-05-26 22:00 | DS ---
The patient is a 77-year-old female with a history of total abdominal hysterectomy, status post craniotomy for a meningioma, status post coronary catheterization with PTCA in 11/2017. She has a history of cholelithiasis, gastritis, gastric polyps, colon carcinoma, breast carcinoma, and osteoarthritis, who once again presented to the hospital with hematochezia. She had similar episodes of bright red blood per rectum in the past. She was hospitalized recently and received a total of 6 units of packed red blood cells at that time when a bleeding scan showed bleed from the splenic flexure; however, followup colonoscopy showed no active site of bleeding. This hospitalization, the patient received 3 units of packed red blood cells and her hemoglobin and hematocrit have remained stable since then. After transferring out of the Intensive Care Unit, the patient had done well on the telemetry floor. She did have some diffuse abdominal tenderness, this had subsided with Carafate. Yesterday, she was feeling well and we agreed on a possible discharge to home this morning. When seen this morning, the patient is awake, alert, and oriented. She is anticipating discharge to home. She is afebrile. Blood pressure is 145/66, heart rate is 62 beats per minute. This morning's laboratory studies show white blood cell count of 4.2, hemoglobin and hematocrit are 9.9 and 30.7 respectively, platelet count is 119,000. Sodium is 141, potassium 4, blood urea nitrogen is 28, creatinine is 1.5, glucose is 74. Her lungs are clear on physical exam, her heart is regular. Abdomen is soft and nontender. Extremities are free of cyanosis, clubbing or edema. I spoke with Dr. Mendes, the assistant tennis coach and agreed that no aggressive treatments or testing is to be done because of the patient's multiple comorbidities. We will therefore discharge the patient to home. I will, however, change her ferrous sulfate to ferrous gluconate to possibly avoid constipation; however, the patient does admit to having regular bowel movements on a daily or twice a day basis. The patient will be followed up in an office visit next week. FINAL DIAGNOSES: 1. Acute gastrointestinal bleed. 2. Anemia secondary to gastrointestinal bleed. 3. Diverticulosis of the large intestine. 4. Coronary artery disease. 5. Osteoarthritis. 6. History of status post cholelithiasis. 7. History of colon carcinoma. 8. History of breast carcinoma. Chi Salas MD
--- NOTE | 2018-05-27 07:41 | PN ---
DATE: 05/25/2018 SUBJECTIVE: This is the patient's hospital visit on the telemetry floor. For Dr. Beebe. SUBJECTIVE: The patient is a 77-year-old female, seen lying awake in bed, with family at the bedside, now transferred from the intensive care unit after 3 units of packed red blood cells were given for her rectal bleed. Upon review of the patient's medical records, she has had this occurred few times in the past with Dr. Mendes, now at the bedside also with discussion held regarding the possibility of surgery as this appears to be a diverticular bleed that recurs periodically. However, the patient is absolutely insisting no surgery as she may not be a surgical candidate even if that was recommended at this time due to other complicating factors in her history. Dr. Mendes reports she had multiple scopings, EGDs and colonoscopies with the findings that he describes in his note. With this, the patient reports that her cramping is better with the possibility of discharge home tomorrow. However, she is on oral iron three times a day and has now reported constipation symptoms for which we will offer MiraLax p.r.n. and cut back the iron to once a day. Otherwise, she is in no acute distress. OBJECTIVE: VITAL SIGNS: Temperature 97.8, pulse 70, respirations 18, blood pressure 150/96 with a pulse ox of 100%. PHYSICAL EXAMINATION: HEENT: Unremarkable. Tongue is moist in midline. NECK: Supple. HEART: Regular rate, faint 1/6 systolic ejection murmur. LUNGS: Clear. ABDOMEN: Soft and nontender. EXTREMITIES: No edema. SKIN: Warm and dry. NEUROLOGIC: Awake, alert and oriented x3. LABORATORY DATA: The patient's labs were done. White blood cell count of 4.7, hemoglobin of 10.6, hematocrit of 33.1, and platelet count of 122,000. Chem metabolic panel showing a BUN of 26, creatinine of 1.5, otherwise within normal range. She has a TSH of 0.02. ASSESSMENT AND PLAN: Assessment for this patient is that of rectal bleed, symptomatic anemia, status post transfusion 3 units of packed red blood cells, history of diverticular disease, status post bare-metal stenting, aspirin and Plavix on hold, history of breast cancer, colon cancer, recent subendocardial myocardial infarction, gastrointestinal stromal tumor, congestive heart failure, partial gastrectomy with hemicolectomy, pancreatitis, hypertension, history of craniotomy for brain tumor, hyperthyroid indices with thyroid-stimulating hormone testing and questionable urinary tract infection. Plan for this patient is to continue present medical regimen with consideration for repeating her testing as this may be lab error with her TSH value. Urine culture is pending as this was suspicious also for a early urinary tract infection with her labs being monitored with no further bleeding noted. As above, there was consideration for surgical opinion; however, the patient is not interested at this time. If she changes her mind, we would at least offer an evaluation if she might qualify for this procedure; however at present, we will continue present management as above. We will also cut back on her iron tablet to once a day. We will add MiraLax p.r.n. daily for constipation and add Colace 100 mg twice a day. Also abnormal BUN and creatinine. This is a complex patient with a comprehensive medically necessary and appropriate visit carried out in excess of 25 minutes with the patient's questions and families questions answered to their satisfaction. Haris Barney MD
[2018-05-29] MEDS ORDERED: Ergocalciferol 50,000 Intl Units Cap PO SCH (10:00)
== END 2018-05-26 14:16 | disposition home or self-care (01) | DRG 377 ==
LOC: ED 10:52 → ERH 13:29 → 5RSO 15:18 → ICU 18:26 → 2RNO 05-24 10:53
PROVIDERS: ADMIT Internal Medicine; ATTEND Internal Medicine
PROC: 30233N1 Transfusion of Nonautologous Red Blood Cells into Peripheral Vein, Percutaneous Approach (ICD-10-PCS; principal; 2018-05-23)
DX: K57.31 Diverticulosis of large intestine without perforation or abscess with bleeding (principal); R57.8 Other shock; I50.32 Chronic diastolic (congestive) heart failure; N39.0 Urinary tract infection, site not specified; D50.0 Iron deficiency anemia secondary to blood loss (chronic); I11.0 Hypertensive heart disease with heart failure; I25.10 Atherosclerotic heart disease of native coronary artery without angina pectoris; I25.82 Chronic total occlusion of coronary artery; I27.20 Pulmonary hypertension, unspecified; M19.90 Unspecified osteoarthritis, unspecified site; Z85.038 Personal history of other malignant neoplasm of large intestine; Z79.82 Long term (current) use of aspirin; Z86.011 Personal history of benign neoplasm of the brain; Z85.3 Personal history of malignant neoplasm of breast; Z95.5 Presence of coronary angioplasty implant and graft

== ENCOUNTER 2018-11-12 07:57 | Outpatient (CLI) | payer MEDICARE | END 2018-11-12 07:58 | disposition home or self-care (01) | LOC: RAD 07:57 ==